=== PATIENT | female | born 1945 | race Hispanic/Latino ===

== ENCOUNTER 2021-02-28 19:30 | Inpatient (IN) | payer OTHER ==
--- OUTSIDE RECORDS SUMMARY | 2021-02-28 19:56 | XMS REPORT | Continuity of Care Document ---
:1945 Author Organization [facility] Address [address] [id number] Care Team Providers Name Role Phone Brian Guevara Attending Clinician Unavailable Meryl Attending Clinician Unavailable Michelle Attending Clinician Unavailable MK Attending Clinician Unavailable MD LEANDER CASTRO Attending Clinician Unavailab carla MORSE Attending Clinician Unavailable SUSANNAH Attending Clinician Unavailable PRABHU Attending Clinician Unavailable KANDY Attending Clinician Unavailable JOSSELIN Attending Clinician Unavailable Meryl Admitting Clinician Unavailable Physician, Primary or Family Admitting Clinician Unavailperla CASTRO Admitting Clinician Unavailable MD LEANDER CASTRO Admitting Clinician Unavailab le Payers Payer Name Policy Type Policy Number Effective Date Expiration Date S butch [facility] [id number] 2020 (MEDICARE 00:00:00 REPLACEMENT HMO) Problems Condition Condition Condition Status Onset Resolution Last Treating Co mments Source Name Details Category Date Date Treatment Clinician Date History of History of Problem Resolve [facility] cerebrovas cerebrovas d it y of cular cular [place] accident accident Physic i ans History of History of Problem Resolve Univers depression depression d it y of [place] Physici ans History of History of Problem Resolve Univers gastroesop gastroesop d it y of hageal hageal [place] reflux reflux Physici (GERD) (GERD) ans History of History of Problem Resolve Univers insomnia insomnia d [facility]y of [place] Physici ans History of History of Problem Resolve Univers Retention Retention d ity of of fluid of fluid [place] Physici ans Vaginal Vaginal Problem Active Univers itching itching [facility] of [place] [facility] ans Vaginal Vaginal Problem Active Univers spotting spotting ity of [place] Physici ans Vulvar Vulvar Problem Active Univers lesion lesion [facility] [place] [facility] ans Follow up Follow up Problem Active Uni vers [facility] [place] [facility] ans Left wrist Left wrist Problem Active U nivers pain pain [facility] of [place] [facility]ici ans Other Other Problem Active Univers closed closed ity of intra-lion intra-lion [place] cular cular Physici fracture fracture ans of distal of distal end of end of left left radius, radius, initial initial encounter encounter Sprain of Sprain of Problem Active Uni vers left hand, left hand, it y of initial initial [place] encounter encounter Phys ici ans Allergies, Adverse Reactions, Alerts Allergy Allergy Status Severity Reaction(s) Onset Inactive Treating Comm ents Source Name Type Date Date Clinician No Known DA Active U [facility] 11-29 Clear s 00:00: [place] 00 [facility] No Known DA Active U [facility] Allergie 11-29 Clear s 00:00: [place] 00 [facility] No Known DA Active U [facility] Allergie 04-21 Clear s 00:00: [place] 00 [facility] Family History Family Member Diagnosis Comments Start Date Stop Date Source Unknown Family Family history of Family History [facility] hypertension [place] Physic ians Unknown Family Family history of Family History [facility] diabetes mellitus [place] P hysicians Social History Smoking Status Start Date Stop Date Source Occasional tobacco smoker [facility] (finding) Medications Ordered Filled Start Stop Current Ordering Indication Dosage Frequency Signature Comments Components Source Medication Medication Date Date Medication? Clinician (SIG) Name Name Clobetasol Clobetasol 2018-03 Yes COMFORT Apply Univers Propionate Propionate 2-06 UGHANZE twice ity of 0.05 % 0.05 % 00:00: M.D. daily to [place] External External 00 affected Phy sici Cream Cream areas for ans one month. Then apply daily for one month. Fluconazole Fluconazole 2018-03 Yes COMFORT 1 tablet Univers 150 MG Oral 150 MG Oral 0-14 UGHANZE today, 2nd ity of Tablet Tablet 00:00: [place] 00 3 [place] Physici ans Coumadin Coumadin Yes Univers TABS TABS [facility]y of [place] Physici ans Lasix TABS Lasix TABS Yes Uni vers [facility] [place] Physici ans Protonix 40 Protonix 40 Yes U nivers MG Oral MG Oral ity of Packet Packet [place] Physici ans Atorvastati Atorvastati Yes U nivers n Calcium n Calcium ity o f TABS TABS [place] Physici ans Zoloft 100 Zoloft 100 Yes Uni vers MG Oral MG Oral ity of Tablet Tablet [place] Physici ans Temazepam Temazepam Yes Unive rs CAPS CAPS ity of [place] Physici ans Vital Signs Vital Name Observation Time Observation Value Comments Source BP Systolic 2019-02-22 118 mm[Hg] Location: [facility] 13:19:00 Position: [place] Physician s Sitting BP Diastolic 2019-02-22 74 mm[Hg] Location: [facility] 13:19:00 Position: [place] Physician s Sitting Height 2019-02-22 62 [in_us] [facility] 13:19:00 [place] Physician s Weight 2019-02-22 116 [lb_av] [facility] 13:19:00 [place] Physician s Body Mass Index 2019-02-22 21.22 kg/m2 [place] [facility] Calculated 13:19:00 [place] Physician s BP Systolic 2019-02-01 120 mm[Hg] Location: [facility] 13:38:00 Position: [place] Physician s Sitting BP Diastolic 2019-02-01 70 mm[Hg] Location: [facility] 13:38:00 Position: [place] Physician s Sitting Height 2019-02-01 62 [in_us] [facility] 13:38:00 [place] Physician s Weight 2019-02-01 118 [lb_av] [facility] 13:38:00 [place] Physician s Body Mass Index 2019-02-01 21.58 kg/m2 University o f Calculated 13:38:00 [place] Physician s BP Systolic 2018-12-31 112 mm[Hg] Location: [facility] 09:36:00 Position: [place] Physician s Sitting BP Diastolic 2018-12-31 68 mm[Hg] Location: [facility] 09:36:00 Position: [place] Physician s Sitting Height 2018-12-31 62 [in_us] [facility] 09:36:00 [place] Physician s Weight 2018-12-31 118 [lb_av] [facility] 09:36:00 [place] Physician s Body Mass Index 2018-12-31 21.58 kg/m2 University o f Calculated 09:36:00 [place] Physician s Procedures Procedure Date / Time Performing Clinician Source Performed [U] XRAY WRIST MIN 3 2019-06-03 00:00:00 [facility] [place] VWS LEFT 65710 Physicians [U] XRAY WRIST MIN 3 2019-04-22 00:00:00 [facility] [place] VWS LEFT 62904 Physicians [U] XRAY WRIST MIN 3 2019-04-16 00:00:00 [facility] [place] VWS LEFT 08986 Physicians [U] XRAY WRIST MIN 3 2019-04-08 00:00:00 [facility] [place] VWS LEFT 23711 Physicians [U] XRAY WRIST MIN 3 2019-04-04 00:00:00 [facility] [place] VWS LEFT 48448 Physicians . [facility] 2019-02-01 00:00:00 [facility] Biopsy Physicians History of Hysterectomy [facility] Physicians History of [place] o f [place] section Physicians History of Heart valve [facility] replacement Physicians History of Gallbladder [facility] surgery Physicians History of Breast [facility] biopsy Physicians History of Knee surgery [facility] Physicians Encounters Start End Encounter Admission Attending Care Care Encounter Source Date/Time Date/Time Type Type Clinicians Facility Department ID 2021-03-08 2021-03-08 Outpatient Paola, [facility] SURG [id number] [facility] 08:30:00 08:30:00 Brian [id number] [facility] 2020-11-05 2020-11-05 Outpatient DMG DMG [id number] [facility] 08:01:00 08:01:00 [facility] 2020-10-21 2020-10-21 Outpatient DMG DMG [id number] [facility] 11:00:00 11:00:00 0804 [facility] 2020-10-16 2020-10-16 Outpatient DMG DMG [id number] [facility] 08:01:00 08:01:00 0730 [facility] l [facility] 2020-10-07 2020-10-12 [facility] INTE.02 [id number] [facility] 01:52:00 18:56:00 an, 91 [facility] 2020-10-07 2020-10-12 Inpatient EM Jegatheswar HCACL INTE.02 [id number] [facility] 01:52:00 18:56:00 an, [id number] [facility] 2020-10-06 2020-10-06 Emergency EM Michelle, HCACL MARCO [id number] [facility] 21:09:00 21:09:00 Wilbur [id number] [facility] 2020-10-01 2020-10-01 Outpatient VITALY Laws HCACL PRAD [id number] [facility] 09:00:00 23:00:00 an, [id number] [facility] 2020-08-30 2020-08-31 Outpatient STEWART TERRAZAS [facility] [id number] [place] 00:00:00 00:00:00 476 [facility] i 2020-06-10 2020-06-10 Outpatient MORSE, [facility] [id number] [place] 00:00:00 00:00:00 EVELYN 086 Method i 2020-06-05 2020-06-05 Outpatient MORSE, [facility] [id number] [place] 00:00:00 00:00:00 EVELYN 046 Method i 2020-06-03 2020-06-03 Outpatient MORSE, [facility] [id number] [place] 00:00:00 00:00:00 EVELYN 011 Method i 2020-05-29 2020-05-29 Outpatient MORSE, [facility] [id number] [place] 00:00:00 00:00:00 EVELYN 851 Method i 2020-05-29 2020-05-29 Outpatient ROBBEN, [facility] [id number] [place] 00:00:00 00:00:00 SHANIA 297 Me thodi 2020-05-08 2020-05-08 Outpatient MORSE, [facility] [id number] [place] 00:00:00 00:00:00 EVELYN 822 Method i 2020-05-08 2020-05-08 Outpatient [facility] [id number] [place] 00:00:00 00:00:00 738 Method i 2020-05-07 2020-05-07 Outpatient MORSE, [facility] [id number] [place] 00:00:00 00:00:00 EVELYN 574 Method i 2020-05-07 2020-05-07 Outpatient MORSE, [facility] [id number] [place] 00:00:00 00:00:00 EVELYN 383 Method i 2020-05-01 2020-05-01 Outpatient MORSE, [facility] [id number] [place] 00:00:00 00:00:[address] EVELYN [address] 2020-04-24 2020-04-24 Outpatient MORSE, [facility] [id number] [place] 00:00:00 00:00:00 EVELYN 803 Method i 2020-04-16 2020-04-16 Outpatient MORSE, [facility] [id number] [place] 00:00:00 00:00:00 EVELYN 739 Method i 2020-04-10 2020-04-10 Outpatient MORSE, [facility] [id number] [place] 00:00:00 00:00:00 EVELYN 618 Method i 2020-04-08 2020-04-08 Outpatient MORSE, [facility] [id number] [place] 00:00:00 00:00:00 EVELYN 608 Method i 2020-04-03 2020-04-03 Outpatient MORSE, [facility] [id number] [place] 00:00:00 00:00:00 EVELYN 760 Method i 2020-03-26 2020-03-26 Outpatient MORSE, [facility] [id number] [place] 00:00:00 00:00:00 EVELYN 415 Method i 2020-03-26 2020-03-26 Outpatient PRABHU, [facility] [id number] [place] 00:00:00 00:00:00 COLE 003 Method i 2019-06-04 2019-06-04 Appointmen ROSY GAITAN [facility] [id number] Univers 09:00:00 09:00:00 t; omid PAPPAS [facility] Eliecer M.D. [facility] MIAN, Luz Samuel M.D. [facility] 2019-05-14 2019-05-14 AppointROSY Matthew [id number] Univers 09:30:00 09:30:00 t; Eliecer PAPPAS M.D. [place] Lizzie PAPPAS M.D. [facility] 2019-04-23 2019-04-23 ROSY Nieves [facility] 62 [id number] Univers 09:45:00 09:45:00 t; MIAN [facility] milan GAITAN M.D. [facility] Luz Samuel M.D. [facility] 2019-04-16 2019-04-16 Appointlorene KANDY [facility] Orthopedics 62 [id number] Univers 09:30:00 09:30:00 t; MIAN [facility] Loren GAITAN [facility] Luz Samuel M.D. [facility] 2019-04-11 2019-04-[facility] [id number] Univers 12:30:00 12:30:00 t; Eliecer PAPPAS M.D. [place] Lizzie PAPPAS M.D. [facility] 2019-04-09 2019-04-09 [facility] 62 [id number] Univers 10:00:00 10:00:00 t; MIAN [facility] Loren GAITAN [facility] Lizzie Pimentel [facility] 2019-04-04 2019-04-04 [facility] 62 [id number] Univers 08:45:00 08:45:00 t; MIAN [facility] Loren GAITAN [facility] Luz Samuel M.D. [facility] 2019-02-22 2019-02-22 [facility] JOSSELIN [facility] Women's [id number] Univers 13:15:00 13:15:00 t; Jenise IRENE M.D. [facility] Lizzie IRENE M.D. ans 2019-02-01 2019-02-01 Appointlorene SCHWAB [facility] Women's [id number] Univers 13:30:00 13:30:00 t; Jenise IRENE M.D. [facility] Lizzie IRENE M.D. ans 2018-12-31 2018-12-31 Appointlorene SCHWAB [facility] Women's [id number] Univers 09:30:00 09:30:00 t; MARIA VICTORIA [place] Lorena Bro M.D. [facility] Lizzie IRENE M.D. ans Results Test Description Test Time Test Comments Results Result Comments Source PROTHROMBIN TIME 2020-10-12 06:55:00 Test Item Value Reference Range Interpretation Comme nts PROTHROMBIN TIME PATIENT 47.2 SECONDS 9.3-12.9 H (test code = PTP) INTERNATIONAL NORMAL RATIO 4.2 0.8-1.2 H TARGET INR BY (test code = INR) INDICATION Indication INR1. Prophylax is of venous thrombosis 2.0 - 3.0 (orthopedic s urgery), Prophylaxis of venous thrombosis (oth er than high-risk surgery), Santos atment of Deep Vein Thrombos is/Pulmonary Embolism, Preve ntion of systemic emboli sm - Tissue heart valves, Acute Myocardial Infarction (to prevent systemic emboli sm), Valvular heart disease, Atrial Fibrillation, B ileaflet mechanical va lve in aortic position.2. Mec hanical prosthetic valv es (high risk), 2.5 - 3.5 Pr esence of Lupus Anticoagulant o r Antiphospholipi d Antibodies, Prevention of systemic embolism - Acut e Myocardial Infarction (t o prevent recurrent infar ct). PROTHROMBIN [id number] 05:34:00 Test Item Value Reference Range Interpretation Comments PROTHROMBIN TIME 42.9 SECONDS 9.3-12.9 H PATIENT (test code = PTP) INTERNATIONAL NORMAL 3.8 0.8-1.2 H TARGET RATIO (test code = INR BY IN DICATION INR) Indication INR1. Prophyl axis of venous thrombos is 2.0 - 3. 0 (orthopedic leatha lucio), Prophylaxis of venous thrombos is (other than hig h-risk surgery), Valentine tment of Deep Vein Thrombosis/Pulm onary Embolism, Preve ntion of systemic emb olism - Tissue heart va lves, Acute Myocardia l Infarction (to prevent systemic embo lism), Valvular heart disease, Atri al Fibrillation, Bileaflet mecha nical valve in aortic position.2. Mec hanical prosthetic valv es (high risk), 2.5 - 3.5 Presence of Lupus Anticoagu lant or Antiphospholi pid Antibodies, Pre vention of systemic e mbolism - Acute Myocard ial Infarction (t o prevent recurre nt infarct). PROTHROMBIN [id number] 05:40:00 Test Item Value Reference Range Interpretation Comments PROTHROMBIN TIME 32.7 SECONDS 9.3-12.9 H PATIENT (test code = PTP) INTERNATIONAL NORMAL 2.9 0.8-1.2 H TARGET RATIO (test code = INR BY IN DICATION INR) Indication INR1. Prophyl axis of venous thrombos is 2.0 - 3. 0 (orthopedic leatha lucio), Prophylaxis of venous thrombos is (other than hig h-risk surgery), Valentine tment of Deep Vein Thrombosis/Pulm onary Embolism, Preve ntion of systemic emb olism - Tissue heart va lves, Acute Myocardia l Infarction (to prevent systemic embo lism), Valvular heart disease, Atri al Fibrillation, Bileaflet mecha nical valve in aortic position.2. Mec hanical prosthetic valv es (high risk), 2.5 - 3.5 Presence of Lupus Anticoagu lant or Antiphospholi pid Antibodies, Pre vention of systemic e mbolism - Acute Myocard ial Infarction (t o prevent recurre nt infarct). - CT CHEST W/O [id number] 00:00:00 [facility] 1945 Sex: F Name: ROBBIN WILSON [facility] : 06/1945 Age/S: 75 / F [address] [place] [address] Unit #: [id number] Loc: JOSE [place] [address] Phys: Marquis Patel MD Acct: [id number] Dis Date: Status: ADM IN PHONE #: [phone] Exam Date: 10/10/20202024 FAX #: [phone]: PLEURAL EFFUSION EXAMS: CPT CODE: [id number] CT CHEST W/O CONTRAST [id number] PROCEDURE INFORMATION: Exam: CT Chest Without Contrast; Diagnostic Exam date and time: 10/10/2020 8:04 PM Age: 75 years old Clinical indication: Shortness of breath; Additional info: Pleural effusion TECHNIQUE: Imaging protocol: Diagnostic com puted tomography of the chest without contrast. Radiation optimization: All CT scans at this facility use at least one of these dose optimization techniques: automated exposure control; mA and/or kV adjustment per patient size (includes targeted exams where dose is ma tched to clinical indication); or iterative reconstruction. COMPARISON:CR XR CHEST 1V 10/08/2020 9:08 AM FINDINGS: Lungs: Ntpr-ei-[id number] compressiveatelectasis is present in the posterior lower lobes bilaterally. Pleural spaces: Thereare small to moderate bilateral pleural effusions layering posteriorly. These measure approximately [address] density, compatible with simple fluid. No pneumothorax. Heart: The heart is mildly enlarged. Prosthetic aortic valve noted. Moderate to heavy calcification of the left anterior descending coronary artery is seen. There is no pericardial effusion. Aorta: Heavy aortic vascular calcification is present. No aortic aneurysm. Lymph nodes: Unremarkable. No enlarged lymph nodes. Bones/joints: Median sternotomy wires are seen.. No acute fracture. Soft tissues: Unremarkable. Other findings: A simple appearing cyst is present in the lateral segment of the left lobe of the liver measuring approximately [address] density and 1.4 x 3.0 cm. The gallbladder is surgically absent. IMPRESSION: 1. Small to moderate layering pleural effusions are present bilaterally, associated with compressive atelectasis of the posterior lower lobes. PAGE 1 Signed Report (CONTINUED) Name: ROBBIN WILSON [facility] : 1945 Age/S: 75/ F [address] [place], [place] [address] Unit #: [id number] Loc: [place] [address] Phys: Marquis Patel MD Acct: [id number] Dis Date: Status: ADM IN PHONE #: [phone] Exam Date: 10/10/20202024 FAX #: [phone] Reason: PLEURAL EFFUSION EXAMS: CPT CODE: [id number] CT CHEST W/O CONTRAST 35075 <Continued> 2. Median sternotomy wires are present. Prosthetic aortic valve noted, with heavy thoracic aortic vascular calcification. Heart size appears mildly enlarged. There is moderate to heavy calcification of the left anterior descending coronary artery. 3. Cholecystectomy. at 2139 Reported and signed by: Niecy Segal M.D. CC: Lian Sheth MD; Marquis Patel MD Technologist:Cornell Pereira, RT(R)(CT) CTDI: DLP: Trnscb Date/Time: 10/10/2020 (2139) Thai Orig Print D/T: S: 10/10/2020 (2140) PAGE 2 Signed ReportPROTHROMBIN [id number] 04:53:00 Test Item Value Reference Range Interpretation Comments PROTHROMBIN TIME 26.1 SECONDS 9.3-12.9 H PATIENT (test code = PTP) INTERNATIONAL NORMAL 2.4 0.8-1.2 H TARGET RATIO (test code = INR BY IN DICATION INR) Indication INR1. Prophyl axis of venous thrombos is 2.0 - 3. 0 (orthopedic leatha lucio), Prophylaxis of venous thrombos is (other than hig h-risk surgery), Valentine tment of Deep Vein Thrombosis/Pulm onary Embolism, Preve ntion of systemic emb olism - Tissue heart va lves, Acute Myocardia l Infarction (to prevent systemic embo lism), Valvular heart disease, Atri al Fibrillation, Bileaflet mecha nical valve in aortic position.2. Mec hanical prosthetic valv es (high risk), 2.5 - 3.5 Presence of Lupus Anticoagu lant or Antiphospholi pid Antibodies, Pre vention of systemic e mbolism - Acute Myocard ial Infarction (t o prevent recurre nt infarct). HGBA1C%2020-10-08 09:39:00 Test Item Value Reference Range Interpretation Comments HGBA1C% (test code = HGBA1C%) 6.4 %A1C 4.8-6.0 H CBC W/AUTO [id number] 08:21:00 Test Item Value Reference Range Interpretation Comments WHITE BLOOD CELL (test code = 6.9 x10 3/uL 4.5-11.0 N WBC) RED BLOOD CELL (test code = 4.43 x10 6/uL 3.54-5.02 N RBC) HEMOGLOBIN (test code = HGB) 11.6 g/dL 11.0-15.0 N HEMATOCRIT (test code = HCT) 38.2 % 33.0-45.0 N MEAN CELL VOLUME (test code = 86.2 fL 81.0-99.0 N MCV) MEAN CELL HGB (test code = MCH) 26.2 pg 27.0-33.0 L MEAN CELL HGB CONCETRATION 30.4 g/dL 33.0-37.0 L (test code = MCHC) RED CELL DISTRIBUTION WIDTH CV 15.5 % 11.5-14.5 H (test code = RDW) RED CELL DISTRIBUTION WIDTH SD 48.8 fL 37.0-54.0 N (test code = RDW-SD) PLATELET COUNT (test code = 176 x10 3/uL 150-400 N PLT) MEAN PLATELET VOLUME (test code 11.5 fL 7.0-9.0 H = MPV) NEUTROPHIL % (test code = NT%) 72.5 % 56.0-77.0 N IMMATURE GRANULOCYTE % (test 0.3 % 0.0-2.0 N code = IG%) LYMPHOCYTE % (test code = LY%) 15.2 % 14.0-32.0 N MONOCYTE % (test code = MO%) 10.9 % 4.8-9.0 H EOSINOPHIL % (test code = EO%) 0.7 % 0.3-3.7 N BASOPHIL % (test code = BA%) 0.4 % 0.0-2.0 N NUCLEATED RBC % (test code = 0.0 % 0-0 N NRBC%) NEUTROPHIL # (test code = NT#) 5.01 x10 3/uL 2.0-7.6 N IMMATURE GRANULOCYTE # (test 0.02 x10 3/uL 0.00-0.03 N code = IG#) LYMPHOCYTE # (test code = LY#) 1.05 x10 3/uL 1.0-3.8 N MONOCYTE # (test code = MO#) 0.75 x10 3/uL 0.1-0.8 N EOSINOPHIL # (test code = EO#) 0.05 x10 3/uL 0.0-0.2 N BASOPHIL # (test code = BA#) 0.03 x10 3/uL 0.0-0.2 N NUCLEATED RBC # (test code = 0.00 x10 3/uL 0.0-0.1 N NRBC#) MANUAL DIFF REQUIRED (test code NO = MDIFF) BASIC METABOLIC [id number] 08:04:00 Test Item Value Reference Range Interpretation Comments SODIUM (test code = NA) 141 mEq/L 134-147 N POTASSIUM (test code = 4.2 mEq/L 3.4-5.0 N K) CHLORIDE (test code = 107 mEq/L 100-108 N CL) CARBON DIOXIDE (test 26 mEq/l 21-33 N code = CO2) ANION GAP (test code = 12 0-20 N GAP) GLUCOSE (test code = 153 mg/dL 70-110 H GLU) BLOOD UREA NITROGEN 24 mg/dL 7-18 H (test code = BUN) GLOMERULAR FILTRATION 53.8 70-80 L Units of measure = RATE (test code = GFR) ml/mi n/1.73 m2 CREATININE (test code = 1.0 mg/dL 0.6-1.3 N CREAT) CALCIUM (test code = 8.1 mg/dL 8.0-10.5 N CA) LIPID PROFILE (CORONARY RISK)2020-10-08 08:04:00 Test Item Value Reference Range Interpretation Comments TRIGLYCERIDES (test 75 mg/dL 40-150 N code = TRIG) CHOLESTEROL (test 103 mg/dL <200 code = CHOL) CHOLESTEROL/HDL 3.76 RATIO 3.27-4.44 N RISK ASSOCIA JAYSON WITH RATIO (test code = CHOL/HDL RATIOS: RISK CHOLHDL) MALE FEMALE1/2 AVERA GE 3.43 3.27AVERAGE 4.97 4.4 42X AVERAGE 9.55 7.053X AVER AGE 23.39 1 1.04 NOTE THAT THE R EFERENCE VALUE IS RELATE DTO RISK LEVELS RECOM MENDED BY THE NATL.HEA RT, LUNG, AND BLOOD INST. HDL CHOLESTEROL 27.4 mg/dL 39-96 L (test code = HDL) LIPOPROTEIN LDL 60.9 mg/dL 0-100 N <100 OPT DPSP103-428 (test code = LDL) NEAR OPTI MAL/ABOVE [id number] 89 HIGH>WQ=447 VE RY HIGH*Guidelines provided by the National Choles terol EducationProgra m Adult Treatment Panel III [id number] 08:04:00 Test Item Value Reference Range Interpretation Comments MAGNESIUM (test code = MAG) 2.10 mg/dL 1.80-2.40 PROTHROMBIN [id number] 06:14:00 Test Item Value Reference Range Interpretation Comments PROTHROMBIN TIME 32.2 SECONDS 9.3-12.9 H PATIENT (test code = PTP) INTERNATIONAL NORMAL 2.9 0.8-1.2 H TARGET RATIO (test code = INR BY IN DICATION INR) Indication INR1. Prophyl axis of venous thrombos is 2.0 - 3. 0 (orthopedic leatha lucio), Prophylaxis of venous thrombos is (other than hig h-risk surgery), Valentine tment of Deep Vein Thrombosis/Pulm onary Embolism, Preve ntion of systemic emb olism - Tissue heart va lves, Acute Myocardia l Infarction (to prevent systemic embo lism), Valvular heart disease, Atri al Fibrillation, Bileaflet mecha nical valve in aortic position.2. Mec hanical prosthetic valv es (high risk), 2.5 - 3.5 Presence of Lupus Anticoagu lant or Antiphospholi pid Antibodies, Pre vention of systemic e mbolism - Acute Myocard ial Infarction (t o prevent recurre nt infarct). - XR CHEST 1 [id number] 00:00:00 [facility] STEVE ROBBINKAYLAH SOMERS : 1945 Sex: F FAX: Jessika Sheth [phone] [place]: St: ADM Name: ROBBIN WILSON [facility] : 1945 Age/S: 75/F [address] [place], [place] [address] Unit #: [id number] Loc: [place] [address] Phys: Lian Carr MD Acct: [id number] Dis Date: Status: ADM IN PHONE #: [phone] Exam Date: 10/08/2020 0954 FAX #: [phone] Reason: HEAVY BREATHING EXAMS: CPT CODE: [id number] XR CHEST 1 V 28869 PROCEDURE INFORMATION: Exam: XR Chest Exam date and time: 10/08/2020 9:08 AM Age: 75 years old Clinical indication: Condition or disease; Other: Heavy breathing TECHNIQUE: [facility]: 1 view. COMPARISON: CR XR CHEST 1V 10/06/2020 11:07 PM FINDINGS: Lungs: Linear density in the right lung base is unchanged compatible with atelectasis. Left base atelectasis/infiltrate is slightly increased. No interstitial edema. Pleural spaces: Increased small bilateral pleural effusions are present. Heart/Mediastinum: Borderline cardiomegaly. Vasculature: Aortic arch calcifications. Bones/joints: Midline sternotomy wires are stable. IMPRESSION: 1. Increased small left base atelectasis/infiltrate. 2. Slight increased small bilateral pleural effusions. at 1001 Reported and signed by: Neftali Winchester M.D. CC: Lian Sheth MD Technologist: RT Nilesh(R) Trnscrd Date/Time/By: 10/08/2020 (1001) : By: [email or web address] Orig PrintD/T: S: 10/08/2020 (1002) PAGE 1 Signed ReportPROTHROMBIN [id number] 15:18:00 Test Item Value Reference Range Interpretation Comments PROTHROMBIN TIME 37.6 SECONDS 9.3-12.9 H PATIENT (test code = PTP) INTERNATIONAL NORMAL 3.4 0.8-1.2 H TARGET RATIO (test code = INR BY IN DICATION INR) Indication INR1. Prophyl axis of venous thrombos is 2.0 - 3. 0 (orthopedic leatha lucio), Prophylaxis of venous thrombos is (other than hig h-risk surgery), Valentine tment of Deep Vein Thrombosis/Pulm onary Embolism, Preve ntion of systemic emb olism - Tissue heart va lves, Acute Myocardia l Infarction (to prevent systemic embo lism), Valvular heart disease, Atri al Fibrillation, Bileaflet mecha nical valve in aortic position.2. Mec hanical prosthetic valv es (high risk), 2.5 - 3.5 Presence of Lupus Anticoagu lant or Antiphospholi pid Antibodies, Pre vention of systemic e mbolism - Acute Myocard ial Infarction (t o prevent recurre nt infarct). COMMENTS: INR X 10 [id number] 06:56:00 Test Item Value Reference Range Interpretation Comments TROPONIN-I 0.065 ng/mL 0.000-0.045 H Negative: <= (test code = 0.045 Positive: TROPI) >= 0.046 Correl ation with serial results, other cardiac markers andclin ical findings is necessary to determine the clinicalsignifi cance of this result. Results using different metho dologies should not be c omparedto one another as claudio titative results may nahed y by method. [id number] 04:52:00 Test Item Value Reference Range Interpretation Comments TROPONIN-I 0.055 ng/mL 0.000-0.045 H Negative: <= (test code = 0.045 Positive: TROPI) >= 0.046 Correl ation with serial results, other cardiac markers andclin ical findings is necessary to determine the clinicalsignifi cance of this result. Results using different metho dologies should not be c omparedto one another as claudio titative results may nahed y by method. POC ARTERIAL BLOOD [id number] 02:11:00 Test Item Value Reference Range Interpretation Comments POC ARTERIAL BLOOD GAS PH (test 7.430 7.35-7.45 N code = POCPHA) POC ARTERIAL BLOOD GAS PCO2 35.9 mmHg 35.0-45 N (test code = JNDCVT8F) POC TCO2 ARTERIAL (test code = 25.0 POCTCO2) POC ARTERIAL BLOOD GAS PO2 (test 71.2 mmHg 80-100.0 L code = EFTGO3X) POC HCO3 ARTERIAL (test code = 23.9 MMOL/L 22.0-26.0 N HTYMRN1S) POC BASE EXCESS (test code = -0.4 MMOL/L -4.0-4.0 N POCBEA) POC O2 SATURATION (test code = 94.7 % 90-100 N POCO2S) FIO2 (test code = FIO2A) 21 % PaO2/FiO2 (test code = NCN3MJE9) 339.04 mm/Hg ABG DELIVERY (test code = SU) Room Air ABG TEMPERATURE (test code = 98.6 F TEMPA) ABG SITE (test code = SITEA) R Radial JESSE'S TEST (test code = Positive ALLENS) BASIC METABOLIC [id number] 02:11:00 Test Item Value Reference Range Interpretation Comments SODIUM (test code = NA/ABG) MEQ/L 134-147 POTASSIUM (test code = K/ABG) MEQ/L 3.4-5.0 CHLORIDE (test code = CL/ABG) MEQ/L 100-108 CREATININE ABG (test code = CREAABG) mg/dL 0.6-1.0 POC IONIZED CALCIUM (test code = MMOL/L 1.12-1.32 POCCA) POC GLUCOSE (test code = POCGLU) MG/DL [id number] 02:11:00 Test Item Value Reference Range Interpretation Comments HEMOGLOBIN (test code = HGB/ABG) G/DL 11.0-15.0 [id number] 02:11:00 Test Item Value Reference Range Interpretation Comments HEMATOCRIT (test code = HCT/ABG) % 33.0-45.0 POC LACTIC [id number] 02:11:00 Test Item Value Reference Range Interpretation Comments POC LACTIC ACID (test code = POCLAC) mmol/l 0.9-1.7 POC ARTERIAL BLOOD [id number] 02:11:00 Test Item Value Reference Range Interpretation Comments POC ARTERIAL BLOOD GAS PH (test 7.430 7.35-7.45 N code = POCPHA) POC ARTERIAL BLOOD GAS PCO2 35.9 mmHg 35.0-45 N (test code = UWXROC5V) POC TCO2 ARTERIAL (test code = 25.0 POCTCO2) POC ARTERIAL BLOOD GAS PO2 (test 71.2 mmHg 80-100.0 L code = YGVSO0S) POC HCO3 ARTERIAL (test code = 23.9 MMOL/L 22.0-26.0 N WCYGBO1E) POC BASE EXCESS (test code = -0.4 MMOL/L -4.0-4.0 N POCBEA) POC O2 SATURATION (test code = 94.7 % 90-100 N POCO2S) FIO2 (test code = FIO2A) 21 % PaO2/FiO2 (test code = UOV2GTO3) 339.04 mm/Hg ABG DELIVERY (test code = SU) Room Air ABG TEMPERATURE (test code = 98.6 F TEMPA) ABG SITE (test code = SITEA) R Radial JESSE'S TEST (test code = Positive ALLENS) BASIC METABOLIC [id number] 02:11:00 Test Item Value Reference Range Interpretation Comments SODIUM (test code = NA/ABG) MEQ/L 134-147 POTASSIUM (test code = K/ABG) MEQ/L 3.4-5.0 CHLORIDE (test code = CL/ABG) MEQ/L 100-108 CREATININE ABG (test code = CREAABG) mg/dL 0.6-1.0 POC IONIZED CALCIUM (test code = MMOL/L 1.12-1.32 POCCA) POC GLUCOSE (test code = POCGLU) MG/DL [id number] 02:11:00 Test Item Value Reference Range Interpretation Comments HEMOGLOBIN (test code = HGB/ABG) G/DL 11.0-15.0 [id number] 02:11:00 Test Item Value Reference Range Interpretation Comments HEMATOCRIT (test code = HCT/ABG) % 33.0-45.0 POC LACTIC [id number] 02:11:00 Test Item Value Reference Range Interpretation Comments POC LACTIC ACID (test code = 1.3 mmol/l 0.9-1.7 N POCLAC) POC ARTERIAL BLOOD [id number] 02:11:00 Test Item Value Reference Range Interpretation Comments POC ARTERIAL BLOOD GAS PH (test 7.430 7.35-7.45 N code = POCPHA) POC ARTERIAL BLOOD GAS PCO2 35.9 mmHg 35.0-45 N (test code = DXNRER9E) POC TCO2 ARTERIAL (test code = 25.0 POCTCO2) POC ARTERIAL BLOOD GAS PO2 (test 71.2 mmHg 80-100.0 L code = EWORT2Z) POC HCO3 ARTERIAL (test code = 23.9 MMOL/L 22.0-26.0 N CPVLFX2G) POC BASE EXCESS (test code = -0.4 MMOL/L -4.0-4.0 N POCBEA) POC O2 SATURATION (test code = 94.7 % 90-100 N POCO2S) FIO2 (test code = FIO2A) 21 % PaO2/FiO2 (test code = CUJ2JGU8) 339.04 mm/Hg ABG DELIVERY (test code = SU) Room Air ABG TEMPERATURE (test code = 98.6 F TEMPA) ABG SITE (test code = SITEA) R Radial JESSE'S TEST (test code = Positive ALLENS) BASIC METABOLIC [id number] 02:11:00 Test Item Value Reference Range Interpretation Comments SODIUM (test code = NA/ABG) 141 MEQ/L 134-147 N POTASSIUM (test code = K/ABG) 3.0 MEQ/L 3.4-5.0 L CHLORIDE (test code = CL/ABG) 107 MEQ/L 100-108 N CREATININE ABG (test code = 1.0 mg/dL 0.6-1.0 N CREAABG) POC IONIZED CALCIUM (test code = 1.10 MMOL/L 1.12-1.32 L POCCA) POC GLUCOSE (test code = POCGLU) 174 MG/DL [id number] 02:11:00 Test Item Value Reference Range Interpretation Comments HEMOGLOBIN (test code = HGB/ABG) G/DL 11.0-15.0 [id number] 02:11:00 Test Item Value Reference Range Interpretation Comments HEMATOCRIT (test code = HCT/ABG) % 33.0-45.0 POC LACTIC [id number] 02:11:00 Test Item Value Reference Range Interpretation Comments POC LACTIC ACID (test code = 1.3 mmol/l 0.9-1.7 N POCLAC) POC ARTERIAL BLOOD [id number] 02:11:00 Test Item Value Reference Range Interpretation Comments POC ARTERIAL BLOOD GAS PH (test 7.430 7.35-7.45 N code = POCPHA) POC ARTERIAL BLOOD GAS PCO2 35.9 mmHg 35.0-45 N (test code = RVSAVZ3E) POC TCO2 ARTERIAL (test code = 25.0 POCTCO2) POC ARTERIAL BLOOD GAS PO2 (test 71.2 mmHg 80-100.0 L code = SSNVC6L) POC HCO3 ARTERIAL (test code = 23.9 MMOL/L 22.0-26.0 N UNQWHN5T) POC BASE EXCESS (test code = -0.4 MMOL/L -4.0-4.0 N POCBEA) POC O2 SATURATION (test code = 94.7 % 90-100 N POCO2S) FIO2 (test code = FIO2A) 21 % PaO2/FiO2 (test code = ROS7PRQ1) 339.04 mm/Hg ABG DELIVERY (test code = SU) Room Air ABG TEMPERATURE (test code = 98.6 F TEMPA) ABG SITE (test code = SITEA) R Radial JESSE'S TEST (test code = Positive ALLENS) BASIC METABOLIC [id number] 02:11:00 Test Item Value Reference Range Interpretation Comments SODIUM (test code = NA/ABG) 141 MEQ/L 134-147 N POTASSIUM (test code = K/ABG) 3.0 MEQ/L 3.4-5.0 L CHLORIDE (test code = CL/ABG) 107 MEQ/L 100-108 N CREATININE ABG (test code = 1.0 mg/dL 0.6-1.0 N CREAABG) POC IONIZED CALCIUM (test code = 1.10 MMOL/L 1.12-1.32 L POCCA) POC GLUCOSE (test code = POCGLU) 174 MG/DL [id number] 02:11:00 Test Item Value Reference Range Interpretation Comments HEMOGLOBIN (test code = HGB/ABG) 11.9 G/DL 11.0-15.0 N [id number] 02:11:00 Test Item Value Reference Range Interpretation Comments HEMATOCRIT (test code = HCT/ABG) % 33.0-45.0 POC LACTIC [id number] 02:11:00 Test Item Value Reference Range Interpretation Comments POC LACTIC ACID (test code = 1.3 mmol/l 0.9-1.7 N POCLAC) POC ARTERIAL BLOOD [id number] 02:11:00 Test Item Value Reference Range Interpretation Comments POC ARTERIAL BLOOD GAS PH (test 7.430 7.35-7.45 N code = POCPHA) POC ARTERIAL BLOOD GAS PCO2 35.9 mmHg 35.0-45 N (test code = VMFNHV2Z) POC TCO2 ARTERIAL (test code = 25.0 POCTCO2) POC ARTERIAL BLOOD GAS PO2 (test 71.2 mmHg 80-100.0 L code = CYNSB7E) POC HCO3 ARTERIAL (test code = 23.9 MMOL/L 22.0-26.0 N WJVILE9E) POC BASE EXCESS (test code = -0.4 MMOL/L -4.0-4.0 N POCBEA) POC O2 SATURATION (test code = 94.7 % 90-100 N POCO2S) FIO2 (test code = FIO2A) 21 % PaO2/FiO2 (test code = JOI1KYR6) 339.04 mm/Hg ABG DELIVERY (test code = SU) Room Air ABG TEMPERATURE (test code = 98.6 F TEMPA) ABG SITE (test code = SITEA) R Radial JESSE'S TEST (test code = Positive ALLENS) BASIC METABOLIC [id number] 02:11:00 Test Item Value Reference Range Interpretation Comments SODIUM (test code = NA/ABG) 141 MEQ/L 134-147 N POTASSIUM (test code = K/ABG) 3.0 MEQ/L 3.4-5.0 L CHLORIDE (test code = CL/ABG) 107 MEQ/L 100-108 N CREATININE ABG (test code = 1.0 mg/dL 0.6-1.0 N CREAABG) POC IONIZED CALCIUM (test code = 1.10 MMOL/L 1.12-1.32 L POCCA) POC GLUCOSE (test code = POCGLU) 174 MG/DL [id number] 02:11:00 Test Item Value Reference Range Interpretation Comments HEMOGLOBIN (test code = HGB/ABG) 11.9 G/DL 11.0-15.0 N [id number] 02:11:00 Test Item Value Reference Range Interpretation Comments HEMATOCRIT (test code = HCT/ABG) 35 % 33.0-45.0 N POC LACTIC [id number] 02:11:00 Test Item Value Reference Range Interpretation Comments POC LACTIC ACID (test code = 1.3 mmol/l 0.9-1.7 N POCLAC) Coronavirus 2019 nCoV [id number] 00:44:00 Test Item Value Reference Range Interpretation Comments Coronavirus 2019 NEGATIVE Negative Negative re sults should be nCoV Bedside (test treated a s presumptive and, code = ifinconsistent with [id number]) clinical signs and symptoms or necessaryfor patient management, michelle uld be tested with an alternativemole cular assay. Negative result s do not preclude NFMB-DrC-3odfvz tion and should not be u sed as the sole basis forp atient management deci sions. Negative result s should beconsidered in the context of a patient's recent exposures,histo ry, presence of clinical sig ns and symptoms consis tentwith COVID-19. LIPOPROTEIN [id number] 00:27:00 Test Item Value Reference Range Interpretation Comments LIPOPROTEIN LDL 70.8 mg/dL 0-100 N <100 OPT [id number] (test code = LDL) NEAR OPTIM AL/ABOVE [id number] FMONWINPST864-8 89 HIGH>ZT=433 VE RY HIGH*Guidelines provided by the National Cholesterol EducationProgra m Adult Treatment Panel III BASIC METABOLIC [id number] 00:27:00 Test Item Value Reference Range Interpretation Comments SODIUM (test code = NA) 144 mEq/L 134-147 N POTASSIUM (test code = 3.5 mEq/L 3.4-5.0 N K) CHLORIDE (test code = 108 mEq/L 100-108 N CL) CARBON DIOXIDE (test 29 mEq/l 21-33 N code = CO2) ANION GAP (test code = 11 0-20 N GAP) GLUCOSE (test code = 138 mg/dL 70-110 H GLU) BLOOD UREA NITROGEN 20 mg/dL 7-18 H (test code = BUN) GLOMERULAR FILTRATION 53.8 70-80 L Units of measure = RATE (test code = GFR) ml/mi n/1.73 m2 CREATININE (test code = 1.0 mg/dL 0.6-1.3 N CREAT) CALCIUM (test code = 9.1 mg/dL 8.0-10.5 N CA) [id number] 00:27:00 Test Item Value Reference Range Interpretation Comments LIPASE (test code = LIP) 92 U/L 13-57 H [id number] 00:27:00 Test Item Value Reference Range Interpretation Comments MAGNESIUM (test code = MAG) 1.71 mg/dL 1.80-2.40 L T4 [id number] 00:27:00 Test Item Value Reference Range Interpretation Comments T4 FREE (test code = T4F) 1.2 ng/dL 0.77-1.61 N TSH REFLEX TO [id number] 00:27:00 Test Item Value Reference Range Interpretation Comments TSH REFLEX TO FT4 (test code = 0.26 IU/mL 0.42-5.47 L TSHREFLEX) [id number] 00:27:00 Test Item Value Reference Range Interpretation Comments TROPONIN-I 0.061 ng/mL 0.000-0.045 H Negative: <= (test code = 0.045 Positive: TROPI) >= 0.046 Correl ation with serial results, other cardiac markers andclin ical findings is necessary to determine the clinicalsignifi cance of this result. Results using different metho dologies should not be c omparedto one another as claudio titative results may nahed y by method. B-TYPE NATRIURETIC [id number] 00:07:00 Test Item Value Reference Range Interpretation Comments B-TYPE NATRIURETIC PEPTIDE (test 370.0 PG/ML 0-100 H code = BNP) BASIC METABOLIC [id number] 00:02:00 Test Item Value Reference Range Interpretation Comments SODIUM (test code = NA) 144 mEq/L 134-147 N POTASSIUM (test code = 3.5 mEq/L 3.4-5.0 N K) CHLORIDE (test code = 108 mEq/L 100-108 N CL) CARBON DIOXIDE (test 29 mEq/l 21-33 N code = CO2) ANION GAP (test code = 11 0-20 N GAP) GLUCOSE (test code = 138 mg/dL 70-110 H GLU) BLOOD UREA NITROGEN 20 mg/dL 7-18 H (test code = BUN) GLOMERULAR FILTRATION 53.8 70-80 L Units of measure = RATE (test code = GFR) ml/mi n/1.73 m2 CREATININE (test code = 1.0 mg/dL 0.6-1.3 N CREAT) CALCIUM (test code = 9.1 mg/dL 8.0-10.5 N CA) [id number] 00:02:00 Test Item Value Reference Range Interpretation Comments LIPASE (test code = LIP) 92 U/L 13-57 H [id number] 00:02:00 Test Item Value Reference Range Interpretation Comments MAGNESIUM (test code = MAG) 1.71 mg/dL 1.80-2.40 L T4 [id number] 00:02:00 Test Item Value Reference Range Interpretation Comments T4 FREE (test code = T4F) ng/dL 0.77-1.61 TSH REFLEX TO [id number] 00:02:00 Test Item Value Reference Range Interpretation Comments TSH REFLEX TO FT4 (test code = 0.26 IU/mL 0.42-5.47 L TSHREFLEX) [id number] 00:02:00 Test Item Value Reference Range Interpretation Comments TROPONIN-I 0.061 ng/mL 0.000-0.045 H Negative: <= (test code = 0.045 Positive: TROPI) >= 0.046 Correl ation with serial results, other cardiac markers andclin ical findings is necessary to determine the clinicalsignifi cance of this result. Results using different metho dologies should not be c omparedto one another as claudio titative results may nahed y by method. PROTHROMBIN [id number] 23:59:00 Test Item Value Reference Range Interpretation Comments PROTHROMBIN TIME 36.2 SECONDS 9.3-12.9 H PATIENT (test code = PTP) INTERNATIONAL NORMAL 3.2 0.8-1.2 H TARGET RATIO (test code = INR BY IN DICATION INR) Indication INR1. Prophyl axis of venous thrombos is 2.0 - 3. 0 (orthopedic leatha lucio), Prophylaxis of venous thrombos is (other than hig h-risk surgery), Valentine tment of Deep Vein Thrombosis/Pulm onary Embolism, Preve ntion of systemic emb olism - Tissue heart va lves, Acute Myocardia l Infarction (to prevent systemic embo lism), Valvular heart disease, Atri al Fibrillation, Bileaflet mecha nical valve in aortic position.2. Mec hanical prosthetic valv es (high risk), 2.5 - 3.5 Presence of Lupus Anticoagu lant or Antiphospholi pid Antibodies, Pre vention of systemic e mbolism - Acute Myocard ial Infarction (t o prevent recurre nt infarct). [id number] 23:59:00 Test Item Value Reference Range Interpretation Comments D-DIMER (test 1711 ng/mlFEU See_Comment HH Critical resu lt called to code = JOSE PAULINE ZAZUETA Tby DDIMER) [id number] at 23 59 10/06/20Nurse r ead back result and tech confirmed it's correct? Y THROMBOSIS AND/OR PULMONAR Y EMBOLISM AND THE CLINICA L CUT- OFF VALUE FOR EXCLU JAYSON (500 ng/mL FEU) OF T HESE CONDITIONSIS VA LIDATED BY THE MANUFACTURE R OF THE METHOD. A NEGAT AZALEA D-DIMER RESULT WHEN COM BINED WITH A CLINICALASSESSM ENT OF LOW PRETEST PROBABI LITY HAS BEEN SHOWN TO H AVEA HIGH NEGATIVE PREDIC TIVE VALUE OF DVT OR PE. D -DIMER VALUES >500 ng/ mL FEU ARE NOT DIAGNOSTIC FOR DVT, PEor DIC WITHOU T OTHER CONFIRMATORY TE STS AND APPROPRIATECLIN ICAL EUALUATIONS. [A utomated message] The sy stem which generated this result transmitted ref erence range: <=500. T he reference range was not u sed to interpret this result as normal/abnormal . CBC W/AUTO [id number] 23:46:00 Test Item Value Reference Range Interpretation Comments WHITE BLOOD CELL (test code = 6.1 x10 3/uL 4.5-11.0 N WBC) RED BLOOD CELL (test code = 4.65 x10 6/uL 3.54-5.02 N RBC) HEMOGLOBIN (test code = HGB) 12.4 g/dL 11.0-15.0 N HEMATOCRIT (test code = HCT) 40.9 % 33.0-45.0 N MEAN CELL VOLUME (test code = 88.0 fL 81.0-99.0 N MCV) MEAN CELL HGB (test code = MCH) 26.7 pg 27.0-33.0 L MEAN CELL HGB CONCETRATION 30.3 g/dL 33.0-37.0 L (test code = MCHC) RED CELL DISTRIBUTION WIDTH CV 15.3 % 11.5-14.5 H (test code = RDW) RED CELL DISTRIBUTION WIDTH SD 49.8 fL 37.0-54.0 N (test code = RDW-SD) PLATELET COUNT (test code = 181 x10 3/uL 150-400 N PLT) MEAN PLATELET VOLUME (test code 11.0 fL 7.0-9.0 H = MPV) NEUTROPHIL % (test code = NT%) 60.2 % 56.0-77.0 N IMMATURE GRANULOCYTE % (test 0.2 % 0.0-2.0 N code = IG%) LYMPHOCYTE % (test code = LY%) 26.1 % 14.0-32.0 N MONOCYTE % (test code = MO%) 11.1 % 4.8-9.0 H EOSINOPHIL % (test code = EO%) 2.1 % 0.3-3.7 N BASOPHIL % (test code = BA%) 0.3 % 0.0-2.0 N NUCLEATED RBC % (test code = 0.0 % 0-0 N NRBC%) NEUTROPHIL # (test code = NT#) 3.68 x10 3/uL 2.0-7.6 N IMMATURE GRANULOCYTE # (test 0.01 x10 3/uL 0.00-0.03 N code = IG#) LYMPHOCYTE # (test code = LY#) 1.60 x10 3/uL 1.0-3.8 N MONOCYTE # (test code = MO#) 0.68 x10 3/uL 0.1-0.8 N EOSINOPHIL # (test code = EO#) 0.13 x10 3/uL 0.0-0.2 N BASOPHIL # (test code = BA#) 0.02 x10 3/uL 0.0-0.2 N NUCLEATED RBC # (test code = 0.00 x10 3/uL 0.0-0.1 N NRBC#) MANUAL DIFF REQUIRED (test code NO = MDIFF) - XR CHEST 1 [id number] 00:00:00 [facility] 1945 Sex: F FAX: Wilbur Martinez MD [phone] [place]: St: REG Name: ROBBIN WILSON [facility] : 1945 Age/S: 75/F [address] [place] [address] Unit #: [id number] Loc: [place] [address] Phys: Wilbur Martinez MD Acct: [id number] Dis Date: Status: REG ER PHONE #: [phone] Exam Date: 10/06/20202318 FAX #: [phone] Reason: SOB EXAMS: CPT CODE: [id number] XR CHEST 1 V 13266 PROCEDURE INFORMATION: Exam: XR Chest Exam date and time: 10/06/2020 11:07 PM Age: 75 years old Clinical indication: Shortness of breath; Additional info: SOB TECHNIQUE: Imaging protocol: XR of the chest. Views: 1 view. COMPARISON: CR XR CHEST 1V 12/01/2017 9:12 AM FINDINGS: Lungs: See "Pleural spaces" finding. Pleural spaces: Stable or mild worsening in left basilar opacities with obscured costophrenic angle. Minimal right costophrenic angle blunting is stable. Heart/Mediastinum: Cardiac valve replacement marker is seen. Bones/joints: Sternotomy wire seen. IMPRESSION: 1. Slightly worsened left basilar atelectasis/infiltrate and probable small pleural effusion. 2. Suspected small right pleural effusion. at 2325 Reported and signed by: Agustin Radford M.D. CC: Wilbur Martinez MD Technologist: Janet Lyn RT(R) Trnscrd Date/Time/By: 10/06/2020 (5716) : By: [email or web address] Orig Print D/T: S: 10/06/2020 (8569) PAGE 1 Signed CzeatnHDRF-PkB-5 (COVID-19) RNA [Presence] in Respiratory specimen by ESTEFANI with probe [id number] 06:48:13 Test Item Value Reference Range Interpretation Comments SARS-CoV-2 (COVID-19) RNA Not detected Not-Detected [Presence] in Respiratory specimen by ESTEFANI with probe detection (test code = 09063-1) Whether patient is employed in a healthcare setting (test code = 15322-2) Whether the patient has symptoms related to condition of interest (test code = 09853-1) Patient was hospitalized because of this condition (test code = 37834-5) Whether the patient was admitted to intensive care unit (ICU) for condition of interest (test code = 59611-1) Whether patient resides in a congregate care setting (test code = 63760-7) [U] XRAY WRIST MIN 3 VWS LEFT [id number] 09:26:00Images acquired, not reported on this accession number.[facility][U] XRAY WRIST MIN 3 VWS LEFT [id number] 10:29:00Images acquired, not reported on this accession number.[facility][U] XRAY WRIST MIN 3 VWS LEFT [id number] 09:45:00Images acquired, not reported on this accession number. [facility][U] XRAY WRIST MIN 3 VWS LEFT [id number] 10:09:00Images acquired, not reported on this accession number.[facility][U] XRAY WRIST MIN 3 VWS LEFT [id number] 09:09:00Images acquired, not reported on this accession number.[facility] BREAST CYST ASPIRATION [id number] 11:28:13- BREAST CYST ASPIRATION LEFTULTRASOUND GUIDED ASPIRATION LEFT BREAST: 04/02/2019CLINICAL: Left Cyst A spiration. Comparison is made to exams dated 01/30/2019 mammogram and 11/25/2016 ultrasound - [facility]-. An aspiration was performed for the palpable 6 mm cyst located in the left breast at 5 o'clock. The skin was prepped in the usual manner. Local anesthetic was administered to the access site. A 23 gauge needle was percutaneously placed into the abnormality under ultrasound guidance. Once the needle was documented to be in the correct location, clear yellow fluid was aspirated. The aspirated fluid was discarded. IMPRESSION: ASPIRATIONAspiration of the 6 mm cyst in the leftbreast was successful. A follow-up mammogram and an ultrasound in 6 months is recommended to demonstrate stability. Claudia Barrett M.D. dm/:04/02/2019 11:28:13 Entry: - 04/04/2019 14:06:47Imaging Technologist: Lori Turner , [facility]-letter sent: Short Term Follow UpBREAST ULTRASOUND BILATERAL 2019-03-06 09:31:08- BREAST ULTRASOUND BILATERALULTRASOUND OF BOTH BREASTS AND BOTH AXILLA: 03/06/2019CLINICAL: Dense breasts. Comparison is made to exams dated 01/30/2019 mammogram, 11/25/2016 ultrasound, and 10/11/2012 ultrasound - [facility]-. Real-time ultrasound of both breasts and both axilla was performed. LEFT BREAST: There is a 6 x 5 x 3 mm complicated cyst (with internal septations) versus hypoechoic mass in the left breast at 5 o'clock, 3 cm from the nipple. No associated abnormal vascularity is identified. The remainder of the left breast and left axillary ultrasound is unremarkable.RIGHT BREAST: No abnormalities were seen sonographically in the right breast or axilla. IMPRESSION: SUSPICIOUS OF MALIGNANCY - FOLLOW-UP RECOMMENDEDLEFT BREAST: There is a 6 mm complicated cyst versus hypoechoic mass in the left breast at 5 o'clock, 3 cm from the nipple. This is at a low suspicion for malignancy. A diagnostic aspiration is recommended, however, if this proves to be a solid mass thenultrasound-guided core biopsy may then be performed.RIGHT BREAST: There is no evidence of malignancy.Carmela Davis M.D. ar/:03/06/2019 09:31:08 Supervisor Wet Room: Maren Carlson , [facility]FWletter sent: BIRADS 4/5 Biopsy Ultrasound BI-RADS: 4a Suspicious abnormality - low suspicion for malignancy. [facility] - Surgical Biopsy 2019-02-01 00:00:00 Test Item Value Reference Range Interpretation Comments Case (test code = Click ImageLink button N Case) for report. Specimen 1 (test code Click ImageLink button N = Specimen 1) for report. [facility] PhysiciansSCR MAMM BILATERAL CEDRIC CAD [id number] 13:15:32 - SCR MAMM BILATERAL CEDRIC CAD DIGITALBILATERAL DIGITAL SCREENING MAMMOGRAM 3D/2D WITH CAD: 01/30/2019CLINICAL: Asymptomatic. Digital breast tomosynthesis was performed in addition to routine CC and MLO views. Current mammographic images were evaluated by either a AdTrib M-Vu or a AtTask ImageDecaWavecker CAD (computer aided detection system). Comparison is made to exams dated 12/22/2017 mammogram, 10/28/2016 mammogram, 10/28/2015 mammogram, 10/14/2014 mammogram, and 10/11/2013 mammogram - [facility]-. The tissue of both breasts is heterogeneously dense. This may lower the sensitivity of mammography. There are benign vascular calcifications and calcifications in both breasts. No suspicious mass, architectural distortion, malignant type calcification, or lymph node abnormality detected. Breast architecture is stable compared to prior exams.IMPRESSION: BENIGNThere is no mammographic e vidence of malignancy. Resume annual screening mammography in one year. Marga ferro/evelynrad:01/30/2019 13:15:32 Entry: - 02/01/2019 14:26:53Imaging Technologist: Yon CHRISTINE, [facility]-FWletter sent: BIRADS 1-2 Normal Mammogram BI-RADS: 2 Benign
[2021-02-28 22:58] LABS: Absolute Lymphocytes (CBC) 1.2 K/uL (0.7-4.9); Basophils % 0.4 % (0-1.3); Hematocrit 31.6 % (36.0-45.0); Lymphocytes % 17.4 % (15.3-44.8); MPV 9.3 fL (7.6-11.3); RBC Red Blood Cell Count 4.01 M/uL (3.86-4.86)
[2021-02-28 23:26] LABS: Bilirubin Direct 0.4 mg/dL (0-0.2); Bilirubin Total 0.8 mg/dL (0.2-1.0); Potassium 3.1 mmol/L (3.5-5.1); Protein, Total 7.8 g/dL (6.4-8.2); Troponin (Emerg Dept Use Only) 0.03 ng/mL (0.0-0.045)
[2021-02-28 23:28] LABS: Protime INR 4.23
[2021-02-28] MEDS ORDERED: ACETAMINOPHEN 500 MG TAB ONE (23:38)
[2021-02-28] MEDS ORDERED: CEFTRIAXONE 1000 MG/VIAL ONE (23:38)
[2021-02-28] MEDS ORDERED: NA CHLORIDE 0.9% 250 ML ONE (23:39)
[2021-02-28] MEDS ORDERED: NA CHLORIDE 0.9% 1,000 ML ONE (23:39)
[2021-02-28] MEDS ORDERED: NA CHLORIDE 0.9% 50 ML ONE (23:39)
[2021-02-28] MEDS ORDERED: AZITHROMYCIN 500 MG INJ IVPB ONE (23:39)
[2021-03-01 00:03] LABS: Anisocytosis 2+; Blood Morphology Comment NOTED (NOT SEEN); Ovalocytes 2+; Platelet Estimate ADEQ; White Blood Cell Scan OK (OK)
[2021-03-01 00:10] LABS: Urine Blood Trace-intact (Negative); Urine Glucose Negative (Negative); Urine Protein Negative (Negative); Urine Specific Gravity 1.015 (1.005-1.030)
[2021-03-01 00:18] LABS: SARS-COV-2 RT PCR NEGATIVE (NEGATIVE)
--- NOTE | 2021-03-01 01:34 | EDPHYS ---
Physician Documentation [facility] Name: Esha Barber Age: 75 yrs Sex: Female : 1945 Arrival Date: 02/28/2021 Time: 19:32 Bed 13 Private MD: ED Physician Mo Butler HPI: 02/28 23:21 This 75 yrs old Unknown Female presents to ER via Ambulatory with complaints of Cough, eliseo Fall Injury, Shortness Of Breath. 23:21 The patient or guardian reports airway noise, cough, difficulty breathing, flu eliseo symptoms, arthralgias, low-grade fever, myalgias. Onset: The symptoms/episode began/occurred 3 day(s) ago. Severity of symptoms: At their worst the symptoms were mild, moderate, in the emergency department the symptoms are unchanged. Modifying factors: The symptoms are alleviated by cool environment, inhaler, the symptoms are aggravated by exertion, talking. Associated signs and symptoms: Pertinent positives: fever. The patient has experienced similar episodes in the past, a few times. Historical: - Allergies: 20:11 No Known Allergies; da3 - PMHx: 20:11 stroke; heart valve replaced; galbladder removed; da3 - PSHx: 20:11 right knee replacement; da3 - Immunization history:: Client reports receiving the 2nd dose of the Covid vaccine. - Social history:: Smoking status: Patient reports the use of cigarette tobacco products, smokes one-half pack cigarettes per day. ROS: 23:22 Eyes: Negative for injury, pain, redness, and discharge, ENT: Negative for injury, eliseo pain, and discharge, Neck: Negative for injury, pain, and swelling, Cardiovascular: Negative for chest pain, palpitations, and edema, Abdomen/GI: Negative for abdominal pain, nausea, vomiting, diarrhea, and constipation, Back: Negative for injury and pain, : Negative for injury, bleeding, discharge, and swelling, MS/Extremity: Negative for injury and deformity, Skin: Negative for injury, rash, and discoloration, Neuro: Negative for headache, weakness, numbness, tingling, and seizure, Psych: Negative for depression, anxiety, suicide ideation, homicidal ideation, and hallucinations, Allergy/Immunology: Negative for hives, rash, and allergies, Endocrine: Negative for neck swelling, polydipsia, polyuria, polyphagia, and marked weight changes, Hematologic/Lymphatic: Negative for swollen nodes, abnormal bleeding, and unusual bruising. 23:22 Constitutional: Positive for body aches, chills, fever. 23:22 Respiratory: Positive for cough, shortness of breath, at rest. wheezing, expiratory, of the left lower lobe and left posterior lower lobe. 23:22 MS/extremity: Positive for pain, swelling, of the left hip. 23:22 Neuro: Positive for headache. Exam: 23:22 Head/Face: Normocephalic, atraumatic. Eyes: Pupils equal round and reactive to light, eliseo extra-ocular motions intact. Lids and lashes normal. Conjunctiva and sclera are non-icteric and not injected. Cornea within normal limits. Periorbital areas with no swelling, redness, or edema. ENT: Nares patent. No nasal discharge, no septal abnormalities noted. Tympanic membranes are normal and external auditory canals are clear. Oropharynx with no redness, swelling, or masses, exudates, or evidence of obstruction, uvula midline. Mucous membranes moist. Neck: Trachea midline, no thyromegaly or masses palpated, and no cervical lymphadenopathy. Supple, full range of motion without nuchal rigidity, or vertebral point tenderness. No Meningismus. Chest/axilla: Normal chest wall appearance and motion. Nontender with no deformity. No lesions are appreciated. Cardiovascular: Regular rate and rhythm with a normal S1 and S2. No gallops, murmurs, or rubs. Normal PMI, no JVD. No pulse deficits. Abdomen/GI: Soft, non-tender, with normal bowel sounds. No distension or tympany. No guarding or rebound. No evidence of tenderness throughout. Back: No spinal tenderness. No costovertebral tenderness. Full range of motion. Female : Normal external genitalia. Skin: Warm, dry with normal turgor. Normal color with no rashes, no lesions, and no evidence of cellulitis. MS/ Extremity: Pulses equal, no cyanosis. Neurovascular intact. Full, normal range of motion. Neuro: Awake and alert, GCS 15, oriented to person, place, time, and situation. Cranial nerves II-XII grossly intact. Motor strength 5/5 in all extremities. Sensory grossly intact. Cerebellar exam normal. Normal gait. Psych: Awake, alert, with orientation to person, place and time. Behavior, mood, and affect are within normal limits. 23:22 Constitutional: The patient appears febrile. 23:22 ECG was reviewed by the Attending Physician. 23:22 Respiratory: the patient does not display signs of respiratory distress, Respirations: labored breathing, that is mild, Breath sounds: bronchial sounds, that are mild, are heard in the left lower lobe and left posterior lower lobe, rhonchi, that are moderate, are heard in the left lower lobe, left posterior upper lobe and left posterior lower lobe, Respiratory rate: 29 Vital Signs: 20:08 BP 145 / 93; Pulse 74; Resp 20; Temp 100.3; Pulse Ox 95% on R/A; Weight 50.8 kg; Height da3 5 ft. 2 in. (157.48 cm); 22:30 BP 167 / 62; Pulse 74; Resp 29; Temp 100.4(O); Pulse Ox 96% ; lt3 23:19 BP 130 / 96; Pulse 70; Resp 22 S; Pulse Ox 92% ; bb 03/01 02:20 BP 118 / 47; Pulse 65; Resp 24; Temp 97.7; Pulse Ox 95% ; lt3 02/28 20:08 Body Mass Index 20.48 (50.80 kg, 157.48 cm) da3 MDM: 02/28 22:23 Patient medically screened. eliseo 23:25 Differential diagnosis: Anemia Bronchitis CHF exacerbation, Chronic Obstructive eliseo Pulmonary Disease bronchitis, flu, URI, viral Infection, bacterial infection, URI, bronchitis, pneumonia UTI, Myocardial Infarction pneumonia, pulmonary edema, reactive airway disease, Sepsis Unstable Angina. Antibiotic administration: Rocephin and Zithromax given. The patient's Wells Deep Vein Thrombosis Score was calculated as follows: Total Score: 0-2 Pts- Low Risk. Differential Diagnosis: Bronchitis Influenza Upper Respiratory Infection Sinusitis Pharyngitis Asthma Exacerbation Viral Syndrome Pneumonia. The patient's pulmonary embolism risk score was calculated as follows: Total Score: 0-2 points. This patient was found to be at low risk for a pulmonary embolism by using the Well's assessment criteria. Immunization status: Pneumococcal vaccine: Influenza vaccine: Data reviewed: vital signs, nurses notes, lab test result(s), EKG, radiologic studies, CT scan, plain films. Data interpreted: lunchroom monitor: rate is 74 beats/min, rhythm is regular, Pulse oximetry: on room air is 96 %. Test interpretation: by ED physician or midlevel provider: ECG, plain radiologic studies. Counseling: I had a detailed discussion with the patient and/or guardian regarding: the historical points, exam findings, and any diagnostic results supporting the discharge/admit diagnosis, lab results, radiology results, the need for further work-up and treatment in the hospital. 02/28 22:29 Order name: Basic Metabolic Panel [facility] 02/28 22:29 Order name: CBC with Diff [facility] 02/28 22:29 Order name: LFT's [facility] 02/28 22:29 Order name: Magnesium [facility] 02/28 22:29 Order name: NT PRO-BNP [facility] 02/28 22:29 Order name: PT-INR [facility] 02/28 22:29 Order name: Troponin (emerg Dept Use Only) [facility] 02/28 22:29 Order name: Lipase; Complete Time: 23:59 [facility] 02/28 22:29 Order name: Blood Culture Adult (2) [facility] 02/28 22:29 Order name: Urine Culture [facility] 02/28 22:29 Order name: COVID-19/FLU A+B/RSV (Document "Date of Onset" if Symptomatic); Complete [facility] Time: 01:28 02/28 22:29 Order name: Basic Metabolic Panel; Complete Time: 23:59 EDNM 02/28 22:29 Order name: CBC with Automated Diff; Complete Time: 00:09 EDNM 02/28 22:29 Order name: Liver (Hepatic) Function; Complete Time: 23:59 EDMS 02/28 22:29 Order name: XRAY Chest (1 view) [facility] 02/28 22:29 Order name: Magnesium; Complete Time: 23:59 EDNM 02/28 22:29 Order name: NT PRO-BNP; Complete Time: 23:59 EDNM 02/28 22:29 Order name: Protime (+INR); Complete Time: 23:59 EDNM 02/28 22:29 Order name: Troponin (Emerg Dept Use Only); Complete Time: 23:59 EDNM 02/28 23:15 Order name: CBC Smear Scan; Complete Time: 00:09 EDNM 02/28 23:18 Order name: Hip Left 2 View XRAY [facility] 02/28 23:18 Order name: CT Traumagram (Head C Spine CAP wo con) [facility] 03/01 00:10 Order name: Urine Dipstick-Ancillary; Complete Time: 01:28 EDNM 02/28 22:29 Order name: EKG; Complete Time: 22:30 [facility] 02/28 22:29 Order name: Cardiac monitoring; Complete Time: 22:51 [facility] 02/28 22:29 Order name: EKG - Nurse/Tech; Complete Time: 23:28 [facility] 02/28 22:29 Order name: IV Saline Lock; Complete Time: 22:51 [facility] 02/28 22:29 Order name: Labs collected and sent; Complete Time: 22:51 [facility] 02/28 22:29 Order name: O2 Per Protocol; Complete Time: 22:51 [facility] 02/28 22:29 Order name: O2 Sat Monitoring; Complete Time: 22:51 [facility] 02/28 22:29 Order name: Urine Dipstick-Ancillary (obtain specimen); Complete Time: 23:54 eliseo EC:22 Rate is 69 beats/min. Rhythm is regular. QRS Rickreall is Normal. OH interval is normal. No eliseo Q waves. T waves are Normal. No ST changes noted. Clinical impression: NSR w/ Non-specific ST/T Changes and No evidence of ischemia. Interpreted by me. Reviewed by me. Administered Medications: 03/01 02:35 Discontinued: NS 0.9% 1000 ml IV at 125 ml/hr continuous [facility] 02/28 23:51 Drug: NS 0.9% 500 ml Route: IV; Rate: bolus; Site: left antecubital; 03/01 02:09 Follow up: IV Status: Completed infusion; IV Intake: 500ml 02/28 23:51 Drug: Tylenol 1000 mg Route: PO; 23:51 Drug: Rocephin (cefTRIAXone) 1 grams Route: IV; Rate: per protocol; Site: left antecubital; 03/01 00:01 Follow up: IV Status: Completed infusion; IV Intake: 50ml 01:06 Drug: Zithromax (azithromycin) 500 mg Route: IVPB; Infused Over: 1 hrs; Site: right antecubital; 02:08 Follow up: IV Status: Completed infusion; IV Intake: 250ml 02:09 Drug: NS 0.9% 1000 ml Route: IV; Rate: 125 ml/hr; Site: right antecubital; 02:21 Follow up: IV Status: Infusion continued upon admission 02:21 Drug: Potassium Effervescent Tablet 25 mEq Route: PO; bb : Drug: Lasix (furosemide) 20 mg Route: IVP; Site: right antecubital; bb : Drug: Xopenex (levalbuterol) 2.5 mg Route: Inhalation; bb : Drug: AtroVENT (ipratropium) Aerosol 0.5 mg Route: Inhalation; bb Disposition Summary: 03/01/21 01:33 Hospitalization Ordered Hospitalization Status: Inpatient Admission eliseo Provider: Avel Hazel cha Location: Telemetry/MedSurg (Inpatient) eliseo Condition: Fair eliseo Problem: new eliseo Symptoms: have improved eliseo Bed/Room Type: Standard [facility] Room Assignment: 230(03/01/21 02:01) cg Diagnosis - Fall on same level, unspecified eliseo - Unspecified combined systolic (congestive) and diastolic (congestive) heart failure eliseo - Acute upper respiratory infection, unspecified eliseo - Fever, unspecified eliseo - Unspecified kidney failure - chronic eliseo - Contusion of right upper arm eliseo - Contusion of hip eliseo - Hypokalemia eliseo - Essential (primary) hypertension eliseo - Acute bronchitis due to respiratory syncytial virus eliseo Forms: - Medication Reconciliation Form eliseo - SBAR form eliseo Signatures: Dispatcher [employer] EDMo Kent MD MD cha Ballard, Brenda RN RN Ann Nunez RN RN cg Allan, David, RN RN da3 Corrections: (The following items were deleted from the chart) 02:01 01:33 eliseo cg
--- NOTE | 2021-03-01 01:34 | ER ---
Nurse's Notes [facility] Name: Esha Barber Age: 75 yrs Sex: Female : 1945 Arrival Date: 02/28/2021 Time: 19:32 Bed 13 Private MD: Diagnosis: Fall on same level, unspecified;Unspecified combined systolic (congestive) and diastolic (congestive) heart failure;Acute upper respiratory infection, unspecified;Fever, unspecified;Unspecified kidney failure-chronic;Contusion of right upper arm;Contusion of hip;Hypokalemia;Essential (primary) hypertension;Acute bronchitis due to respiratory syncytial virus Presentation: 02/28 20:08 Chief complaint: Patient's son or daughter states: cough and weakness. Coronavirus da3 screen: Vaccine status: Patient reports receiving the 2nd dose of the covid vaccine. Patient reports being unvaccinated. Ebola Screen: No symptoms or risks identified at this time. Initial Sepsis Screen: Does the patient meet any 2 criteria? No. Patient's initial sepsis screen is negative. Does the patient have a suspected source of infection? No. Patient's initial sepsis screen is negative. Risk Assessment: Do you want to hurt yourself or someone else? Patient reports no desire to harm self or others. Onset of symptoms was February 25, 2021. 20:08 Method Of Arrival: Ambulatory da3 20:08 Acuity: VALORIE 3 da3 Triage Assessment: 20:11 General: Appears in no apparent distress. comfortable, Behavior is calm, cooperative, da3 quiet. Pain: Denies pain. Historical: - Allergies: 20:11 No Known Allergies; da3 - PMHx: 20:11 stroke; heart valve replaced; galbladder removed; da3 - PSHx: 20:11 right knee replacement; da3 - Immunization history:: Client reports receiving the 2nd dose of the Covid vaccine. - Social history:: Smoking status: Patient reports the use of cigarette tobacco products, smokes one-half pack cigarettes per day. Screenin:00 Abuse screen: Denies threats or abuse. Nutritional screening: No deficits noted. bb Tuberculosis screening: No symptoms or risk factors identified. Fall Risk None identified. Assessment: 23:00 General: Appears in no apparent distress. slender, Behavior is calm, cooperative. bb Neuro: Level of Consciousness is awake, alert, obeys commands, Oriented to person, place, time, situation. Cardiovascular: Capillary refill < 3 seconds Patient's skin is warm and dry. Respiratory: Respiratory effort is even, unlabored. GI: Abdomen is non-distended. Derm: Skin is pink, warm \\T\\ dry. Musculoskeletal: Circulation, motion, and sensation intact. 03/01 00:01 Reassessment: Patient is alert, oriented x 3, equal unlabored respirations, skin bb warm/dry/pink. resting quietly, family at bedside. 02:24 Reassessment: Patient is alert, oriented x 3, equal unlabored respirations, skin bb warm/dry/pink. family at bedside, report called to receiving RN. Vital Signs: 02/28 20:08 BP 145 / 93; Pulse 74; Resp 20; Temp 100.3; Pulse Ox 95% on R/A; Weight 50.8 kg; Height da3 5 ft. 2 in. (157.48 cm); 22:30 BP 167 / 62; Pulse 74; Resp 29; Temp 100.4(O); Pulse Ox 96% ; lt3 23:19 BP 130 / 96; Pulse 70; Resp 22 S; Pulse Ox 92% ; bb 03/01 02:20 BP 118 / 47; Pulse 65; Resp 24; Temp 97.7; Pulse Ox 95% ; lt3 02/28 20:08 Body Mass Index 20.48 (50.80 kg, 157.48 cm) da3 ED Course: 02/28 19:32 Patient arrived in ED. bp1 20:11 Triage completed. da3 20:11 Arm band placed on left wrist. da3 22:23 Mo Butler MD is Attending Physician. eliseo 22:45 Initial lab(s) drawn, by me, sent to lab. First set of blood cultures drawn by me. lt3 22:50 Inserted saline lock: 22 gauge in right antecubital area, using aseptic technique. lt3 22:54 XRAY Chest (1 view) In Process Unspecified. EDMS 23:00 Patient has correct armband on for positive identification. Bed in low position. Call bb light in reach. Side rails up X 1. Adult w/ patient. night monitor on. Pulse ox on. NIBP on. Warm blanket given. 23:25 EKG done, by ED staff, reviewed by Mo Butler MD COVID swab sent to lab. lt3 23:28 COVID-19/FLU A+B/RSV (Document "Date of Onset" if Symptomatic) Sent. lt3 23:32 Second set of blood cultures drawn by me. Inserted saline lock: 22 gauge in left lt3 forearm, using aseptic technique. 23:40 Blood Culture Adult (2) Sent. lt3 03/01 00:21 Hip Left 2 View XRAY In Process Unspecified. EDMS 00:27 CT Traumagram (Head C Spine CAP wo con) In Process Unspecified. EDMS 01:31 Avel Hazel MD is Hospitalizing Provider. [facility] 02:08 Klaudia Yañez RN is Primary Nurse. bb 02:25 IV is patent, is intact. bb 02:25 No provider procedures requiring assistance completed. Patient admitted, IV remains in bb place. Administered Medications: 02:35 Discontinued: NS 0.9% 1000 ml IV at 125 ml/hr continuous [facility] 02/28 23:51 Drug: NS 0.9% 500 ml Route: IV; Rate: bolus; Site: left antecubital; 03/01 02:09 Follow up: IV Status: Completed infusion; IV Intake: 500ml 02/28 23:51 Drug: Tylenol 1000 mg Route: PO; 23:51 Drug: Rocephin (cefTRIAXone) 1 grams Route: IV; Rate: per protocol; Site: left antecubital; 03/01 00:01 Follow up: IV Status: Completed infusion; IV Intake: 50ml 01:06 Drug: Zithromax (azithromycin) 500 mg Route: IVPB; Infused Over: 1 hrs; Site: right bb antecubital; 02:08 Follow up: IV Status: Completed infusion; IV Intake: 250ml 02:09 Drug: NS 0.9% 1000 ml Route: IV; Rate: 125 ml/hr; Site: right antecubital; 02:21 Follow up: IV Status: Infusion continued upon admission bb 02:21 Drug: Potassium Effervescent Tablet 25 mEq Route: PO; bb 02:21 Drug: Lasix (furosemide) 20 mg Route: IVP; Site: right antecubital; 02:21 Drug: Xopenex (levalbuterol) 2.5 mg Route: Inhalation; bb 02:21 Drug: AtroVENT (ipratropium) Aerosol 0.5 mg Route: Inhalation; bb Intake: 00:01 IV: 50ml; Total: 50ml. bb 02:08 IV: 250ml; Total: 300ml. bb 02:09 IV: 500ml; Total: 800ml. bb Outcome: 01:33 Decision to Hospitalize by Provider. eliseo 02:25 Admitted to Tele accompanied by tech, via stretcher, room 230, with chart. kristina 02:25 Condition: stable 02:25 Instructed on the need for admit. 02:48 Patient left the ED. bb Signatures: Dispatcher [employer] EDMS Mo Butler MD MD cha Ballard, Brenda, RN RN Bianka Chao David, RN RN [email or web address] Steff Del Cid
[2021-03-01] MEDS ORDERED: FUROSEMIDE 20 MG/ 2ML VIAL ONE (02:11)
[2021-03-01] MEDS ORDERED: POTASSIUM 25 MEQ EFFERV TAB ONE (02:11)
[2021-03-01] MEDS ORDERED: LEVALBUTEROL 1.25 MG/3 ML NEB ONE (02:11)
[2021-03-01] MEDS ORDERED: IPRATROPIUM BROM 0.5MG/2.5ML ONE (02:12)
[2021-03-01] MEDS ORDERED: MORPHINE 2 MG/ML SYR IV PRN (02:43)
[2021-03-01] MEDS ORDERED: ALBUTEROL 2.5 MG/3 ML NEB SOL NEB PRN (02:43)
[2021-03-01] MEDS ORDERED: ONDANSETRON 4 MG/2 ML VIAL IV PRN (02:43)
[2021-03-01] MEDS ORDERED: IPRATROPIUM BROM 0.5MG/2.5ML NEB PRN (02:43)
[2021-03-01 03:16] VITALS: BMI 20.2
[2021-03-01] MEDS ORDERED: TEMAZEPAM 15 MG CAP PO ONE (03:27)
[2021-03-01 03:38] LABS: Potassium 3.4 mmol/L (3.5-5.1)
[2021-03-01 04:18] LABS: Troponin I 0.03 ng/mL (0.0-0.045)
--- NOTE | 2021-03-01 07:35 | RAD REPORT ---
EXAM DESCRIPTION: Sherley Single View02/28/2021 10:54 pm CLINICAL HISTORY: Cough COMPARISON: none FINDINGS: The lungs appear clear of acute infiltrate. The heart is mildly to moderately enlarged. Postsurgical changes involve the chest. IMPRESSION: No acute abnormalities displayed
--- NOTE | 2021-03-01 07:41 | RAD REPORT ---
EXAM DESCRIPTION: RAD - Hip Left 2 View - 03/01/2021 12:21 am CLINICAL HISTORY: Left hip pain FINDINGS: No fracture or dislocation is seen. The bones are osteoporotic. If patient continues to have symptoms to suggest an occult fracture then MRI would be recommended.
[2021-03-01] MEDS ORDERED: D5 0.45 NS 1,000 ML IV SCH (08:00)
[2021-03-01] MEDS ORDERED: PNEUMOCOCCAL VACCINE 0.5 ML IMVAC ONE (08:00)
[2021-03-01] MEDS ORDERED: LORATADINE 10 MG TAB PO PRN (08:00)
[2021-03-01] MEDS ORDERED: FAMOTIDINE 20 MG/2 ML VIAL IV SCH (09:00)
[2021-03-01] MEDS: POTASSIUM 25 MEQ EFFERV TAB PO SCH ×2 (09:00→21:55)
[2021-03-01] MEDS ORDERED: FUROSEMIDE 20 MG/ 2ML VIAL IV SCH (09:00)
[2021-03-01] MEDS: FLUTICASONE 50MCG NASAL SPRAY NAS SCH ×2 (09:00→23:12)
[2021-03-01] MEDS: MEMANTINE HCL 10 MG TABLET PO SCH ×2 (09:16→21:54)
[2021-03-01] MEDS: CALCIUM CARBONATE CHEW 500MG TAB PO SCH (09:17)
[2021-03-01] MEDS: METOPROLOL TAR 25 MG TAB PO SCH (09:17)
[2021-03-01] MEDS: POTASSIUM CL SA 10 MEQ TAB PO SCH (09:17)
[2021-03-01] MEDS: ACETAMINOPHEN 325 MG TABLET PO PRN ×3 (09:59→22:00)
--- NOTE | 2021-03-01 14:01 | RAD REPORT ---
EXAM DESCRIPTION: CT - Head C Spine Cap Wo Con - 03/01/2021 6:00 am CLINICAL HISTORY: PAIN COMPARISON: None. TECHNIQUE: CT HEAD CERVICAL SPINE CHEST ABDOMEN PELVIS WITHOUT IV CONTRAST on 02/28/2021 11:18 PM CS T This exam was performed according to our departmental dose-optimization program, which includes autom ated exposure control, adjustment of the mA and/or kV according to patient size and/or use of iterati ve reconstruction technique. FINDINGS: Brain: There is no acute hemorrhage, mass effect or midline shift. There is encephalomalac ia within the upper right cerebellum. There is no hydrocephalus. There is no significant volume loss for age. There is a left frontal scalp contusion. The calvarium is intact. Orbits and globes are unremarkable. The paranasal sinuses are clear. Mastoid air cells are clear. Cervical Spine: There is no acute fracture. Alignment is anatomic. There is a benign-appearing calcif ication within the central canal posteriorly at the level of C6 measuring 1 cm in craniocaudal dimens ion. There is mild narrowing of the C3-4 disc. Vertebral body heights are preserved. Soft tissues are unre markable. Chest: The heart is mildly enlarged. Sternotomy and aortic valve replacement were performed. There is no pericardial effusion. Intrathoracic lymph nodes are not enlarged. There is a small left pleural effusion. Central airways are patent. There are minimal scattered areas of atelectasis within both lungs. Abdomen: There is a small cysts within the left lobe of the liver. There is no biliary dilatation. Ch olecystectomy was performed. The pancreas and spleen are normal in appearance. The adrenal glands and kidneys are unremarkable. Abdominal aorta is densely calcified without aneurysm. There is no free air. There is no retroperiton eal adenopathy. Pelvis: There is no bowel obstruction. Urinary bladder is unremarkable. There is small amount of free pelvic fluid. Appendix is not clearly seen. Skeleton: There are no acute osseous findings. No suspicious bony lesions. IMPRESSION: Left frontal scalp contusion without fracture. No acute intracranial findings. Small left pleural effusion. No definite post-traumatic findings in the abdomen and pelvis. Electronically signed by: Ravi Antunez MD 03/01/2021 1:03 AM [facility] Due to temporary technical issues with the PACS/Fluency reporting system, reports are being signed by the in house radiologists without review as a courtesy to insure prompt reporting. The interpreting radiologist is fully responsible for the content of the report.
--- NOTE | 2021-03-01 15:39 | P.HP ---
Certification for Inpatient Patient admitted to: Observation With expected LOS: <2 Midnights Patient will require the following post-hospital care: Home Health Services Practitioner: I am a practitioner with admitting privileges, knowledge of patient current condition, hospital course, and medical plan of care. Services: Services provided to patient in accordance with Admission requirements found in Title 42 Section 412.3 of the Code of Federal Regulations Patient History Date of Service: 03/01/21 Primary Care Provider: Sundeep Reason for admission: falls, sob History of Present Illness: Patient is an office patient of Mrs. Urbano. She has a history of dementia. She had a cold this which was seen by Telemedicine. She was to have a follow up this morning. However she had a fever and falls. Her son Brought to the ER. The patient has fallen twice at home. She is currently healing well. The patient is resting well. Allergies No Known Allergies Allergy (Verified 03/01/21 03:05) Home Medications: Atorvastatin Calcium [Lipitor*] 1 tab PO BEDTIME 03/01/21 Calcium Carbonate [Calcium] 1 tab PO DAILY 03/01/21 Donepezil [Aricept*] 1 tab PO BEDTIME 03/01/21 Furosemide 1 tab PO DAILY 03/01/21 Memantine HCl [Namenda] 1 tab PO BID 03/01/21 Metoprolol Tartrate 1 tab PO DAILY 03/01/21 Pantoprazole [Protonix Tab*] 1 tab PO BEDTIME 03/01/21 Potassium 20 Meq 1 tab PO DAILY 03/01/21 Sertraline [Zoloft*] 1 tab PO BEDTIME 03/01/21 Temazepam [Restoril*] 1 tab PO BEDTIME 03/01/21 Warfarin Sodium [Coumadin*] 1 tab PO BEDTIME 03/01/21 - Past Medical/Surgical History Has patient received pneumonia vaccine in the past: No -: stroke -: valve replacement -: cholecystectomy -: Right knee replacement -: -: appendectomy - Social History Smoking Status: Current every day smoker Alcohol use: No CD- Drugs: No Caffeine use: Yes Place of Residence: Home Review of Systems 10-point ROS is otherwise unremarkable General: Other (falls) ENT: Nose Congestion Respiratory: Cough Physical Examination - Vital Signs Temperature: 97.1 F Blood Pressure: 135/67 Pulse: 59 Respirations: 16 Pulse Ox (%): 93 - Physical Exam General: Alert, In no apparent distress HEENT: Atraumatic, PERRLA, Mucous membr. moist/pink, EOMI, Sclerae nonicteric Neck: Supple, 2+ carotid pulse no bruit, No LAD, Without JVD or thyroid abnormality Respiratory: Rhonchi/gurgles Cardiovascular: Regular rate/rhythm, Normal S1 S2 Gastrointestinal: Normal bowel sounds, No tenderness Musculoskeletal: No tenderness Integumentary: No rashes Neurological: Normal gait, Normal speech, Normal strength at 5/5 x4 extr, Normal tone, Normal affect Lymphatics: No axilla or inguinal lymphadenopathy - Studies Laboratory Data (last 24 hrs) 02/28/21 22:45: PT 49.3 H, INR 4.23 H* 02/28/21 22:45: WBC 7.10, Hgb 10.2 L, Hct 31.6 L, Plt Count 121 L 02/28/21 22:45: Sodium 144, Potassium 3.1 L, BUN 26 H, Creatinine 1.34 H, Glucose 140 H, Magnesium 2.0, Total Bilirubin 0.8, AST 51 H, ALT 50, Alkaline Phosphatase 140 H, Lipase 230 Assessment and Plan - Problems (Diagnosis) (1) Bronchitis Current Visit: Yes Status: Acute Plan: will continue the patient on fluids and breathing treatment. She is not actively wheezing. So will hold steroids. Do not want her to loose muscle mass as she is falling. Will start her on decongestants as well. (2) Recurrent falls Current Visit: Yes Status: Acute Plan: She is going to [facility]. Consider home PT on discharge. (3) Dementia Current Visit: Yes Status: Acute Plan: Will continue her home medications. Qualifiers: Dementia type: Alzheimer's Dementia behavioral disturbance: without behavioral disturbance Discharge Plan: Home Plan to discharge in: 24 Hours - Advance Directives Does patient have a Living Will: No Does patient have a Durable POA for Healthcare: No - Code Status/Comfort Care Code Status Assessed: No Code Status: Full Code Physician Review: Patient Assessed, Agree with Above Assessment and Plan Critical Care: No Time Spent Managing Pts Care (In Minutes): 40
[2021-03-01] MEDS ORDERED: PANTOPRAZOLE 40MG TABLET PO SCH (21:00)
[2021-03-01] MEDS ORDERED: SERTRALINE HCL 100 MG TAB PO SCH (21:00)
[2021-03-01] MEDS ORDERED: TEMAZEPAM 15 MG CAP PO SCH (21:00)
[2021-03-01] MEDS ORDERED: ATORVASTATIN 20 MG TAB PO SCH (21:00)
[2021-03-01] MEDS: GUAIFENESIN/DM 5 ML UCUP PO SCH (21:55)
[2021-03-02 06:12] LABS: Absolute Lymphocytes (CBC) 1.3 K/uL (0.7-4.9); Basophils % 0.6 % (0-1.3); Hematocrit 29.3 % (36.0-45.0); Lymphocytes % 25.6 % (15.3-44.8); MPV 8.7 fL (7.6-11.3); RBC Red Blood Cell Count 3.66 M/uL (3.86-4.86)
[2021-03-02 06:28] LABS: Potassium 3.7 mmol/L (3.5-5.1)
[2021-03-02] MEDS: GUAIFENESIN/DM 5 ML UCUP PO SCH (06:45)
[2021-03-02] MEDS ORDERED: GUAIFENESIN/DM 5 ML UCUP PO PRN (06:47)
[2021-03-02 07:03] LABS: Anisocytosis 2+; Blood Morphology Comment NOTED (NOT SEEN); Platelet Estimate DECR; White Blood Cell Scan OK (OK)
[2021-03-02] MEDS: MEMANTINE HCL 10 MG TABLET PO SCH (08:28)
[2021-03-02] MEDS: CALCIUM CARBONATE CHEW 500MG TAB PO SCH (08:28)
[2021-03-02] MEDS: POTASSIUM CL SA 10 MEQ TAB PO SCH (08:28)
[2021-03-02] MEDS: METOPROLOL TAR 25 MG TAB PO SCH (08:29)
[2021-03-02] MEDS: POTASSIUM 25 MEQ EFFERV TAB PO SCH (08:34)
[2021-03-02] MEDS: ACETAMINOPHEN 325 MG TABLET PO PRN (08:35)
[2021-03-02] MEDS: FLUTICASONE 50MCG NASAL SPRAY NAS SCH (08:45)
--- NOTE | 2021-03-02 13:17 | P.DS ---
Admission Date: 03/01/21 Discharge Date: 03/02/21 Primary Care Provider: Sundeep Disposition: ROUTINE DISCHARGE Discharge Condition: GOOD Reason for Admission: falls, sob - Problems (1) Bronchitis Current Visit: Yes Status: Acute (2) Recurrent falls Current Visit: Yes Status: Acute (3) Dementia Current Visit: Yes Status: Acute Qualifiers: Dementia type: Alzheimer's Dementia behavioral disturbance: without behavioral disturbance Brief History of Present Illness: Patient is an office patient of Mrs. Urbano. She has a history of dementia. She had a cold this which was seen by Telemedicine. She was to have a follow up this morning. However she had a fever and falls. Her son Brought to the ER. The patient has fallen twice at home. She is currently healing well. The patient is resting well. Hospital Course: Patient is here after repeated falls. Was admitted for bronchitis and weakness. she is doing well today. Will discharge her with home PT. 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 Vital Signs/Physical Exam: Temp Pulse Resp BP Pulse Ox 97.3 F 69 16 156/70 H 95 03/02/21 04:00 03/02/21 08:29 03/02/21 04:00 03/02/21 08:29 03/02/21 04:00 General: Alert, In no apparent distress HEENT: Atraumatic, PERRLA, EOMI Neck: Supple, JVD not distended Respiratory: Clear to auscultation bilaterally, Normal air movement Cardiovascular: Regular rate/rhythm, Normal S1 S2 Gastrointestinal: Normal bowel sounds, No tenderness Musculoskeletal: No tenderness Integumentary: No rashes Neurological: Normal speech, Normal tone, Normal affect Lymphatics: No axilla or inguinal lymphadenopathy Laboratory Data at Discharge: WBC 5.00 K/uL (4.3-10.9) D 03/02/21 05:59 Hgb 9.6 g/dL (12.0-15.0) L 03/02/21 05:59 Hct 29.3 % (36.0-45.0) L 03/02/21 05:59 Plt Count 95 K/uL (152-406) L D 03/02/21 05:59 PT 49.3 SECONDS (9.5-12.5) H 02/28/21 22:45 INR 4.23 H* 02/28/21 22:45 Sodium 147 mmol/L (136-145) H 03/02/21 05:59 Potassium 3.7 mmol/L (3.5-5.1) 03/02/21 05:59 BUN 26 mg/dL (7-18) H 03/02/21 05:59 Creatinine 1.08 mg/dL (0.55-1.3) 03/02/21 05:59 Glucose 110 mg/dL (74-106) H 03/02/21 05:59 Magnesium 2.0 mg/dL (1.8-2.4) 02/28/21 22:45 Total Bilirubin 0.8 mg/dL (0.2-1.0) 02/28/21 22:45 AST 51 U/L (15-37) H 02/28/21 22:45 ALT 50 U/L (12-78) 02/28/21 22:45 Alkaline Phosphatase 140 U/L (45-117) H 02/28/21 22:45 Troponin I Cancelled 03/01/21 06:00 Lipase 230 U/L (73-393) 02/28/21 22:45 Home Medications: Atorvastatin Calcium [Lipitor*] 1 tab PO BEDTIME 03/01/21 Calcium Carbonate [Calcium] 1 tab PO DAILY 03/01/21 Donepezil [Aricept*] 1 tab PO BEDTIME 03/01/21 Furosemide 1 tab PO DAILY 03/01/21 Memantine HCl [Namenda] 1 tab PO BID 03/01/21 Metoprolol Tartrate 1 tab PO DAILY 03/01/21 Pantoprazole [Protonix Tab*] 1 tab PO BEDTIME 03/01/21 Potassium 20 Meq 1 tab PO DAILY 03/01/21 Sertraline [Zoloft*] 1 tab PO BEDTIME 03/01/21 Temazepam [Restoril*] 1 tab PO BEDTIME 03/01/21 Warfarin Sodium [Coumadin*] 1 tab PO BEDTIME 03/01/21 Diet: Regular Activity: Ad tramaine Followup: Caty Urbano FNP BC [ALLIED HEALTH PROFESSIONAL] - 1 Week Time spent managing pt's care (in minutes): 30
[2021-03-02 14:45] LABS: Protime INR 3.07
[2021-03-02 17:20] VITALS: BP 151/68; TEMP 98.3
[2021-03-02 17:21] VITALS: O2SAT 94
== END 2021-03-02 18:15 | disposition home health service (06) | DRG 203 ==
LOC: ER 19:30 → ERHOLD 03-01 01:44 → 2ND 03-01 02:36
PROVIDERS: ADMIT Internal Medicine; ATTEND Internal Medicine
DX: J20.5 Acute bronchitis due to respiratory syncytial virus (principal); E87.6 Hypokalemia; G30.9 Alzheimer's disease, unspecified; F02.80 Dementia in other diseases classified elsewhere, unspecified severity, without behavioral disturbance, psychotic disturbance, mood disturbance, and anxiety; F17.210 Nicotine dependence, cigarettes, uncomplicated; S70.00XA Contusion of unspecified hip, initial encounter; S40.021A Contusion of right upper arm, initial encounter; W18.30XA Fall on same level, unspecified, initial encounter; Z96.651 Presence of right artificial knee joint; Z95.2 Presence of prosthetic heart valve; Z86.73 Personal history of transient ischemic attack (TIA), and cerebral infarction without residual deficits; Z79.01 Long term (current) use of anticoagulants; Z79.899 Other long term (current) drug therapy; Z90.49 Acquired absence of other specified parts of digestive tract; Z20.822 Contact with and (suspected) exposure to COVID-19
CPT/HCPCS: 0241U; 36415; 70450; 71045; 71250; 72125; 80048; 80076; 81003; 83690; 83735; 83880; 84132; 84484; 85025; 85610; 87040; 87086; 87088; 93005; 97110; 97161; 99285; J0456; J1940; J7030; J7050; J7799

== ENCOUNTER 2021-06-14 22:58 | Emergency (ER) | payer OTHER ==
--- OUTSIDE RECORDS SUMMARY | 2021-06-14 23:03 | XMS REPORT | Continuity of Care Document ---
:1945 Author Organization [facility] t Address [address] [place] [address] Care Team Providers Name Role Phone PCP, PATIENT DOES NOT HAVE A Primary Care Physician Unavailgwen Stinson PA-C Attending Clinician AISLINN Attending Clinician Unavailable Doctor Unassigned, Name Attending Clinician Unavailable Doc Guevara Attending Clinician Unavailable Meryl Attending Clinician Unavailable Michelle Attending Clinician Unavailable MK Attending Clinician Unavailable MD LEANDER CASTRO Attending Clinician Unavailab carla MORSE Attending Clinician Unavailable SUSANNAH Attending Clinician Unavailable PRABHU Attending Clinician Unavailable KANDY Attending Clinician Unavailable JOSSELIN Attending Clinician Unavailable Doc Guevara Admitting Clinician Unavailable Meryl Admitting Clinician Unavailable Physician, Primary or Family Admitting Clinician Unavailperla CASTRO Admitting Clinician Unavailable MD LEANDER CASTRO Admitting Clinician Unavailab le Payers Payer Name Policy Type Policy Number Effective Date Expiration Date S butch [employer] [id number] 2021 MEDICARE ADVANTAGE 00:00:00 PLAN [employer] [id number] (MEDICARE 00:00:00 REPLACEMENT HMO) Problems Condition Condition Condition Status Onset Resolution Last Treating Co mments Source Name Details Category Date Date Treatment Clinician Date Hand Hand Disease Active Univers weakness weakness 9-10 ity of 00:00: [place] 00 [facility] Branch Edema Edema Disease Active Univers extremitie extremitie 9-10 it y of s s 00:00: [place] [facility] Shoulder Shoulder Disease Active Unive rs stiffness stiffness 9-10 ity of 00:00: [place] [facility] Closed Closed Disease Active Univers fracture fracture 4-04 ity of of head of [place] radius radius 00 [place] Closed Closed Disease Active Univers fracture fracture 4-04 ity of of of 00:00: [place] coronoid coronoid 00 Medica l process of process of Br anch ulna ulna History of History of Disease Active U nivers elbow elbow 4-04 ity of surgery surgery 00:00: [place] 00 Medical Branch History of History of Problem Resolve Univers [facility] d [facility] History of [...] Problem Active Univers lesion lesion ity of [place] [facility] Follow up Follow up Problem Active Uni vers [facility] of [place] [facility] Left wrist Left wrist Problem Active U nivers pain pain ity of [place] [facility] Other Other Problem Active Univers [...] Date Clinician No Known DA Active U 2020-03 [facility] [place] 00:[facility]: [address] No Known DA Active U [facility] 9[facility]12 Clear s 00:00: [address] No Known DA Active [facility] Patient [facility] NO KNOWN Drug Active Univers ALLERGIE Class ity of S [facility] Family History Family Member Diagnosis Comments Start Date Stop Date Source Unknown Family Family history of Family History University of Member diabetes mellitus [place] [facility] Unknown Family Family history of Family History University of Member hypertension [place] [facility] Social History Social Habit Start Date Stop Date Quantity Comments Source Exposure to Not sure [facility] SARS-CoV-2 [place] [facility] (event) Branch Tobacco use and 2021-03-21 2021-03-21 Never used Universit y of exposure 00:00:00 00:00:00 [facility] Alcohol intake 2021-03-21 2021-03-21 Current University 00:00:00 00:00:00 non-drinker of [facility] alcohol [place] (finding) Sex Ass[birth year] Universit y of 00:00:00 00:00:00 [facility] Smoking Status Start Date Stop Date Source Occasional tobacco smoker [facility] (finding) Physicians Unknown if ever smoked [facility] Current every day smoker 2011-07-26 00:00:00 Uni versity [facility] Medications Ordered Filled Start Stop Current Ordering Indication Dosage Frequency Signature Comments Components Source Medication Medication Date Date Medication? Clinician (SIG) Name Name Clobetasol Clobetasol 2018-03 Yes COMFORT Apply Univers Propionate Propionate 2-06 UGHANZE twice ity of 0.05 % 0.05 % 00:00: M.D. daily to [facility] External 00 affected Phy sici Cream Cream areas for ans one month. Then apply daily for one month. Fluconazole Fluconazole 2018-03 Yes COMFORT 1 tablet Univers 150 MG Oral 150 MG Oral 0-14 UGHANZE today, 2nd ity of Tablet Tablet 00:00: M.D. tablet in [facility] s 00 3 days Physici ans SERTRALINE Yes Take by Uni vers HCL (ZOLOFT 5-11 mouth. ity of ORAL) 11:23: [address] PANTOPRAZOL Yes Take by Un ana E SODIUM 5-11 mouth. ity of (PROTONIX 11:23: [place] ORAL) [address] [place] [address] WARFARIN Yes Take by Unive rs SODIUM 5-11 mouth. ity of (COUMADIN 11:23: [place] ORAL) [address] [place] [address] FUROSEMIDE Yes Take by Uni vers (LASIX 5-11 mouth. ity of ORAL) 11:23: [address] POTASSIUM Yes Take by Univ ers ORAL 5-11 mouth. ity of 11:23: [address] TEMAZEPAM Yes Take by Univ ers (RESTORIL 5-11 mouth. ity of ORAL) 11:23: [address] SERTRALINE Yes Take by Uni vers HCL (ZOLOFT 5-11 mouth. ity of ORAL) 11:23: [address] PANTOPRAZOL Yes Take by Un ana E SODIUM 5-11 mouth. ity of (PROTONIX 11:23: [place] ORAL) [address] [place] [address] WARFARIN Yes Take by Unive rs SODIUM 5-11 mouth. ity of (COUMADIN 11:23: [place] ORAL) [address] [place] [address] FUROSEMIDE Yes Take by Uni vers (LASIX 5-11 mouth. ity of ORAL) 11:23: [address] POTASSIUM Yes Take by Univ ers ORAL 5-11 mouth. ity of 11:23: [address] TEMAZEPAM Yes Take by Univ ers (RESTORIL 5-11 mouth. ity of ORAL) 11:23: [address] SERTRALINE Yes Take by Uni vers HCL (ZOLOFT 5-11 mouth. ity of ORAL) 11:23: [address] PANTOPRAZOL Yes Take by Un ana E SODIUM 5-11 mouth. ity of (PROTONIX 11:23: [place] ORAL) [address] [place] [address] WARFARIN Yes Take by Unive rs SODIUM 5-11 mouth. ity of (COUMADIN 11:23: [place] ORAL) [address] [place] [address] FUROSEMIDE Yes Take by Uni vers (LASIX 5-11 mouth. ity of ORAL) 11:23: [address] POTASSIUM Yes Take by Univ ers ORAL 5-11 mouth. ity of 11:23: [address] TEMAZEPAM Yes Take by Univ ers (RESTORIL 5-11 mouth. ity of ORAL) 11:23: [address] hydrocodone Yes 1{tbl} Take 1-2 Univers -acetaminop 5-11 Tabs by ity o f hen (NORCO) 00:00: mouth [place] 5-325 mg 00 every 6 Medical tablet (six) Branch hours as needed for Pain. hydrocodone Yes 1{tbl} Take 1-2 Univers -acetaminop 5-11 Tabs by ity o f hen (NORCO) 00:00: mouth [place] 5-325 mg 00 every 6 Medical tablet (six) Branch hours as needed for Pain. hydrocodone Yes 1{tbl} Take 1-2 Univers -acetaminop 5-11 Tabs by ity o f hen (NORCO) 00:00: mouth [place] 5-325 mg 00 every 6 Medical tablet (six) Branch hours as needed for Pain. Coumadin Coumadin Yes Univers TABS TABS ity of [place] Physici ans Lasix TABS Lasix TABS Yes Uni vers ity of [place] Physici ans Protonix 40 Protonix 40 Yes U nivers MG Oral MG Oral ity of Packet Packet [place] [facility] ans Atorvastati Atorvastati Yes U nivers n Calcium n Calcium ity o f TABS TABS [place] Physici ans Zoloft 100 Zoloft 100 Yes Uni vers MG Oral MG Oral ity of Tablet Tablet [place] Physici ans Temazepam Temazepam Yes Unive rs CAPS CAPS ity of [place] Physici ans Vital Signs Vital Name Observation Time Observation Value Comments Source Systolic blood 2021-03-21 136 mm[Hg] [facility] pressure 20:41:00 [facility] Diastolic blood 2021-03-21 64 mm[Hg] [place] o pressure 20:41:00 [facility] Heart rate 2021-03-21 69 /min [facility] 20:41:00 [facility] Body height 2021-03-21 157.5 cm [facility] 20:41:00 [facility] Body weight 2021-03-21 50.803 kg [facility] 20:41:00 [facility] BMI 2021-03-21 20.49 kg/m2 [facility] 20:41:00 [facility] Oxygen saturation 2021-03-21 94 /min [facility] Arterial blood 20:41:00 [facility] by Pulse oximetry Branch BP Systolic 2019-02-22 118 mm[Hg] Location: [facility] 13:19:00 Position: [place] Physician s Sitting BP Diastolic 2019-02-22 74 mm[Hg] Location: JOSSE; [facility] 13:19:00 Position: [place] Physician s Sitting Height 2019-02-22 62 [in_us] [facility] 13:19:00 [place] [facility] s Weight 2019-02-22 116 [lb_av] University 13:19:00 [place] [facility] s Body Mass Index 2019-02-22 21.22 kg/m2 University o f Calculated 13:19:00 [place] [facility] s BP Systolic 2019-02-01 120 mm[Hg] Location: PATI; [facility] 13:38:00 Position: [place] Physician s Sitting BP Diastolic 2019-02-01 70 mm[Hg] Location: JOSSE; [facility] 13:38:00 Position: [place] Physician s Sitting Height 2019-02-01 62 [in_us] [facility] 13:38:00 [place] Phys[facility] s Weight 2019-02-01 118 [lb_av] [facility] 13:38:00 [place] Phys[facility] s Body Mass Index 2019-02-01 21.58 kg/m2 University o f Calculated 13:38:00 [place] [facility] s BP Systolic 2018-12-31 112 mm[Hg[facility] Position: [place] [facility] Sitting BP Diastolic 2018-12-31 68 mm[Hg] [place] [facility] [place] [facility] 09:36:00 Position: [place] Physician s Sitting Height 2018-12-31 62 [in_us] [facility] 09:36:00 [place] [facility] s Weight 2018-12-31 118 [lb_av] [facility] 09:36:00 [place] [facility] s Body Mass Index 2018-12-31 21.58 kg/m2 University o f Calculated 09:36:00 [place] Physician s Procedures Procedure Date / Time Performing Clinician Source Performed XR FOOT 3+ VW RIGHT 2021-03-21 21:08:00 Stella Stinson [facility] ASSIGNMENT OF BENEFITS 2021-03-21 20:29:02 Doctor Unassigned, No [facility] Name [facility] Branch [U] XRAY WRIST MIN 3 2019-06-03 00:00:00 [facility] VWS LEFT [id number] Physicians [U] XRAY WRIST MIN 3 2019-04-22 00:00:00 Univers ity of [place] VWS LEFT 80711 Physicians [U] XRAY WRIST MIN 3 2019-04-16 00:00:00 Univers ity of [place] VWS LEFT 20932 Physicians [U] XRAY WRIST MIN 3 2019-04-08 00:00:00 Univers ity of [place] VWS LEFT 13696 Physicians [U] XRAY WRIST MIN 3 2019-04-04 00:00:00 Univers ity of [place] VWS LEFT 35574 Physicians . [facility] 2019-02-01 00:00:00 Universi ty [facility] Biopsy Physicians History of Hysterectomy Universi [facility] Physicians History of University o f [place] section Physicians History of Heart valve [facility] replacement Physicians History of Gallbladder [facility] surgery Physicians History of Breast University [facility] biopsy Physicians History of Knee surgery [facility] Physicians Encounters Start End Encounter Admission Attending Care Care Encounter Source Date/Time Date/Time Type Type Clinicians Facility Department ID 2021-03-21 2021-03-21 [facility] [id number] Univers 14:51:10 23:59:00 Encounter [employer] [id number] ity of [place] [id number] Abdiel as ROYAL?BLEA [id number] [facility] [address] MEDICAL OFFICE BUILDING 2021-03-21 2021-03-21 Outpatient [facility] [id number] Univers 14:40:00 16:00:22 [facility] 2021-03-21 2021-03-21 Urgent [facility] [id number] Univers 14:40:00 15:00:00 Care [employer] [id number] it y of [place] 4.2.7.2.686 Abdiel as ROYAL?BLEA [id number] [facility] [address] MEDICAL OFFICE BUILDING 2021-03-21 2021-03-21 Orders Doctor MYERS [id number] Univers 00:00:00 00:00:00 Only Unassigned, DAYANA [id number] ity of [place] [facility] [id number] Abdiel as [id number] [facility] 009 Branch 2021-03-08 2021-03-09 Inpatient IVTALY Guevara [facility] TELE [id number] [facility] 06:21:00 12:08:00 Brian [id number] [facility] 2021-03-08 2021-03-09 Inpatient VITALY Guevara [facility] TELE [id number] [facility] 06:21:00 12:08:00 Brian German [facility] 2020-11-05 2020-11-05 [place] [id number] [facility] 08:01:00 08:01:00 0819 Medica l Group 2020-10-29 2020-10-29 Outpatient [facility] [id number] [facility] [address] 10:00:00 10:00:00 -[id number] [facility] 2020-10-21 2020-10-21 Outpatient DMG DMG [id number] [facility] 11:00:00 11:00:00 0804 Medica l Group 2020-10-16 2020-10-16 Outpatient DMG DMG [id number] [facility] 08:01:00 08:01:00 0730 Medica l Group 2020-10-07 2020-10-12 Inpatient EM Veto HCACL INTE.02 [id number] [facility] 01:52:00 18:56:00 an, 91 [facility] 2020-10-07 2020-10-12 Inpatient EM Veto HCACL INTE.02 G421 [id number] [facility] 01:52:00 18:56:00 an, [id number] [facility] 2020-10-06 2020-10-06 Emergency EM Michelle, HCACL MARCO [id number] [facility] 21:09:00 21:09:00 Wilbur [id number] [facility] 2020-10-01 2020-10-01 Outpatient EL Veto HCACL PRAD [id number] [facility] 09:00:00 23:00:00 an, [id number] [facility] 2020-08-30 2020-08-31 Outpatient STEWART TERRAZAS [facility] [id number] [place] 00:00:00 00:00:[address] 2020-06-10 2020-06-10 Outpatient MORSE, [facility] [id number] 476 [place] 00:00:00 00:00:00 EVELYN [address] 2020-06-05 2020-06-05 Outpatient MORSE, [facility] [id number] 476 [place] 00:00:00 00:00:00 EVELYN [address] 2020-06-03 2020-06-03 Outpatient MORSE, [facility] H [id number] 476 [place] 00:00:00 00:00:00 EVELYN [address] 2020-05-29 2020-05-29 Outpatient MORSE, [facility] [id number] 475 [place] 00:00:00 00:00:00 EVELYN [address] 2020-05-29 2020-05-29 Outpatient ROBBEN, H H [id number] 423 [place] 00:00:00 00:00:00 SHANIA 297 Ca thodi 2020-05-08 2020-05-08 Outpatient MORSE, [facility] H [id number] 150 [place] 00:00:00 00:00:00 EVELYN 822 Method i 2020-05-08 2020-05-08 Outpatient HMH H [id number] [place] 00:00:00 00:00:[address] 2020-05-07 2020-05-07 Outpatient MORSE, H H [id number] 376 [place] 00:00:00 00:00:00 EVELYN [address] 2020-05-07 2020-05-07 Outpatient MORSE, [facility] H [id number] 342 [place] 00:00:00 00:00:00 EVELYN [address] 2020-05-01 2020-05-01 Outpatient MORSE, [facility] [id number] 150 [place] 00:00:00 00:00:00 EVELYN [address] 2020-04-24 2020-04-24 Outpatient MORSE, [facility] [id number] 150 [place] 00:00:00 00:00:00 EVELYN 803 Method i 2020-04-16 2020-04-16 [id number] [place] 00:00:00 00:00:00 EVELYN 739 Method i 2020-04-10 2020-04-10 Outpatient MORSE, [facility] [id number] 150 [place] 00:00:00 00:00:00 EVELYN 618 [facility] i 2020-04-08 2020-04-08 Outpatient MORSE, [facility] [id number] 150 [place] 00:00:00 00:00:00 EVELYN 608 Method i 2020-04-03 2020-04-03 Outpatient MORSE, [facility] [id number] 575 [place] 00:00:00 00:00:00 EVELYN 760 Method i 2020-03-26 2020-03-26 Outpatient MORSE, [facility] [id number] 562 [place] 00:00:00 00:00:00 EVELYN 415 Method i 2020-03-26 2020-03-26 Outpatient PRABHU, [facility] [id number] [place] 00:00:00 00:00:00 COLE 003 Method i 2019-06-04 2019-06-04 AppointROSY [facility] [id number] [facility] 09:00:00 09:00:00 t; [facility] Luz PAPPAS M.D. [facility] 2019-05-14 2019-05-[facility] ROSY [facility]ITAN [facility] [id number] Univers 09:30:00 09:30:00 t; Eliecer PAPPAS M.D. [place] Lizzie PAPPAS M.D. [facility] 2019-04-23 2019-04-23 ROSY [facility] [id number] [facility] 09:45:00 09:45:00 t; omid [facility] Luz PAPPAS M.D. [facility] 2019-04-16 2019-04-16 ROSY [facility] [id number] [facility] 09:30:00 09:30:00 t; omid PAPPAS [facility] milan GAITAN M.D. [facility] Luz PAPAPS M.D. [facility] 2019-04-11 2019-04-11 AppointROSY Matthew [facility] [id number] Univers 12:30:00 12:30:00 t; Elieecr PAPPAS M.D. [place] Lizzie PAPPAS M.D. [facility] 2019-04-09 2019-04-09 Appointlorene GAITAN [facility] Orthopedics [id number] Univers 10:00:00 10:00:00 t; omid PAPPAS [facility] milan GAITAN M.D. [facility] Luz Samuel M.D. [facility] 2019-04-04 2019-04-04 App[facility]lorene [facility] [id number] Univers 08:45:00 08:45:00 t; MIAN [facility] Loren GAITAN [facility] Lizzie Pimentel [facility] 2019-02-22 2019-02-22 [facility] [id number] Univers 13:15:00 13:15:00 t; Jenise IRENE Adali M.D. [facility] Lizzie IRENE M.D. [facility] 2019-02-01 2019-02-01 [facility] [id number] Univers 13:30:00 13:30:00 t; Jenise IRENE M.D. [facility] Lizzie IRENE M.D. [facility] 2018-12-31 2018-12-31 [facility] [id number] Univers 09:30:00 09:30:00 t; Jenise IRENE M.D. [facility] Lizzie IRENE M.D. [facility] Results Test Description Test Time Test Comments Results Result Comments Source CBC W/AUTO DIFF 2021-03-09 11:23:00 Test Item Value Reference Range Interpretation Comme nts WHITE BLOOD CELL (test code = WBC) 7.0 K/MM3 3.8-9.8 N RED BLOOD CELL (test code = RBC) 3.68 M/MM3 3.58-4.97 N HEMOGLOBIN (test code = HGB) 9.5 G/DL 11.2-14.9 L HEMATOCRIT (test code = HCT) 32.1 % 33.2-43.5 L MEAN CELL VOLUME (test code = MCV) 87 fL 80.7-99.1 N MEAN CELL HGB (test code = MCH) 25.8 pg 27.0-34.1 L MEAN CELL HGB CONCETRATION (test code = MCHC) 29.6 % 32.2-35. 7 L RED CELL DISTRIBUTION WIDTH (test code = RDW) 23.6 % 12.1-15. 2 H PLATELET COUNT (test code = PLT) 153 K/MM3 129-368 N MEAN PLATELET VOLUME (test code = MPV) 11.5 fl 7.4-10.4 H NEUTROPHIL % (test code = NT%) 73.2 % 43-75 N IMMATURE GRANULOCYTE % (test code = IG%) 0.4 % 0.0-2.0 N LYMPHOCYTE % (test code = LY%) 14.8 % 14-44 N MONOCYTE % (test code = MO%) 11.6 % 4-13 N EOSINOPHIL % (test code = EO%) 0.0 % 0-6 N BASOPHIL % (test code = BA%) 0 % 0-2 N NUCLEATED RBC % (test code = NRBC%) 0.0 % 0-1.0 N NEUTROPHIL # (test code = NT#) 5.15 K/mm3 2.0-7.6 N IMMATURE GRANULOCYTE # (test code = IG#) 0.03 x10 3/uL 0-0.03 N LYMPHOCYTE # (test code = LY#) 1.04 K/mm3 1.0-3.8 N MONOCYTE # (test code = MO#) 0.82 K/mm3 0.1-0.8 H EOSINOPHIL # (test code = EO#) 0.00 K/mm3 0.0-0.2 N BASOPHIL # (test code = BA#) 0 K/mm3 0.0-0.2 N NUCLEATED RBC # (test code = NRBC#) 0.00 K/mm3 0.0-0.1 N DIFFERENTIAL [id number] 11:23:00 Test Item Value Reference Range Interpretation Comments RBC MORPHOLOGY REQUIRED (test NORMAL code = RBCM) PLATELET ESTIMATE (test code = ADEQUATE ADEQUATE PLTEST) PLATELET MORPHOLOGY (test code FEW LARGE PLTS NORMAL = PLTMORPH) POIKILOCYTOSIS (test code = FEW NONE POIK) ANISOCYTOSIS (test code = SLIGHT NONE ANISO) MACROCYTOSIS (test code = FEW NONE MACR) BASIC METABOLIC [id number] 07:05:00 Test Item Value Reference Range Interpretation Comments SODIUM (test code = 142 MMOL/L 137-145 N NA) POTASSIUM (test code = 3.7 MMOL/L 3.5-5.1 N K) CHLORIDE (test code = 113 MMOL/L 98-107 H CL) CARBON DIOXIDE (test 22 MMOL/L 22-30 N code = CO2) ANION GAP (test code = 11 MMOL/L 14-24 L GAP) GLUCOSE (test code = 110 MG/DL 74-106 H GLU) BLOOD UREA NITROGEN 21 MG/DL 7-17 H (test code = BUN) GLOMERULAR FILTRATION 48 Report ing units: RATE (test code = GFR) ml/mi n/1.73 m2 (Modified MDRD Formula)Referen ce Range: > or = 6 0 ml/min/1.73 m2 CREATININE (test code 1.10 MG/DL 0.52-1.04 H = CREAT) CALCIUM (test code = 8.7 MG/DL 8.4-10.2 N CA) PROTHROMBIN [id number] 06:07:00 Test Item Value Reference Range Interpretation Comments PROTHROMBIN TIME 19.5 SECONDS 9.5-12.7 H PATIENT (test code = PTP) INTERNATIONAL NORMAL 1.7 0.86-1.14 H The INR is to be RATIO (test code = used only for INR) monitoring oral anticoagulantth erap y. INDICATION I NR VALUE ---- ---- ---- -------1. Prophylaxis, de ep venous thrombos is, including hig h risk surgery. 2.0 - 3.0 2. Prophylaxis, de ep venous thrombos is, hip surgery, treatment for d eep venous thrombosis or pulmonary prevention of systemic emboli sm in patients wit h valvular heart disease, atrial fibrillation, tissue heart va lve, or acute myocar dial infarction. 2.0 - 3 .0 3. Mechanical prosthesis hear t valves, recurrent syste dallin embolism. 3.0 - 4.5 CBC W/AUTO [id number] 09:39:00 Test Item Value Reference Range Interpretation Comments WHITE BLOOD CELL (test code = 7.0 K/MM3 3.8-9.8 N WBC) RED BLOOD CELL (test code = 4.30 M/MM3 3.58-4.97 N RBC) HEMOGLOBIN (test code = HGB) 11.2 G/DL 11.2-14.9 N HEMATOCRIT (test code = HCT) 36.9 % 33.2-43.5 N MEAN CELL VOLUME (test code = 86 fL 80.7-99.1 N MCV) MEAN CELL HGB (test code = MCH) 26.0 pg 27.0-34.1 L MEAN CELL HGB CONCETRATION 30.4 % 32.2-35.7 L (test code = MCHC) RED CELL DISTRIBUTION WIDTH 23.4 % 12.1-15.2 H (test code = RDW) PLATELET COUNT (test code = 187 K/MM3 129-368 N PLT) MEAN PLATELET VOLUME (test code 11.4 fl 7.4-10.4 H = MPV) NEUTROPHIL % (test code = NT%) 64.5 % 43-75 N IMMATURE GRANULOCYTE % (test 0.3 % 0.0-2.0 N code = IG%) LYMPHOCYTE % (test code = LY%) 23.1 % 14-44 N MONOCYTE % (test code = MO%) 9.8 % 4-13 N EOSINOPHIL % (test code = EO%) 2.0 % 0-6 N BASOPHIL % (test code = BA%) 0.3 % 0-2 N NUCLEATED RBC % (test code = 0.0 % 0-1.0 N NRBC%) NEUTROPHIL # (test code = NT#) 4.50 K/mm3 2.0-7.6 N IMMATURE GRANULOCYTE # (test 0.02 x10 3/uL 0-0.03 N code = IG#) LYMPHOCYTE # (test code = LY#) 1.61 K/mm3 1.0-3.8 N MONOCYTE # (test code = MO#) 0.68 K/mm3 0.1-0.8 N EOSINOPHIL # (test code = EO#) 0.14 K/mm3 0.0-0.2 N BASOPHIL # (test code = BA#) 0.02 K/mm3 0.0-0.2 N NUCLEATED RBC # (test code = 0.00 K/mm3 0.0-0.1 N NRBC#) DIFFERENTIAL [id number] 09:39:00 Test Item Value Reference Range Interpretation Comments RBC MORPHOLOGY REQUIRED (test code = ABNORMAL RBCM) PLATELET ESTIMATE (test code = ADEQUATE ADEQUATE PLTEST) PLATELET MORPHOLOGY (test code = NORMAL NORMAL PLTMORPH) POIKILOCYTOSIS (test code = POIK) FEW NONE ANISOCYTOSIS (test code = ANISO) MODERATE NONE OVALOCYTES (test code = OVAL) FEW NONE PROTHROMBIN [id number] 07:42:00 Test Item Value Reference Range Interpretation Comments PROTHROMBIN TIME 20.0 SECONDS 9.5-12.7 H PATIENT (test code = PTP) INTERNATIONAL NORMAL 1.8 0.86-1.14 H The INR is to be RATIO (test code = used only for INR) monitoring oral anticoagulantth erap y. INDICATION I NR VALUE ---- ---- ---- -------1. Prophylaxis, de ep venous thrombos is, including hig h risk surgery. 2.0 - 3.0 2. Prophylaxis, de ep venous thrombos is, hip surgery, treatment for d eep venous thrombosis or pulmonary prevention of systemic emboli sm in patients wit h valvular heart disease, atrial fibrillation, tissue heart va lve, or acute myocar dial infarction. 2.0 - 3 .0 3. Mechanical prosthesis hear t valves, recurrent syste dallin embolism. 3.0 - 4.5 PTT [id number] 07:42:00 Test Item Value Reference Range Interpretation Comments PTT ACTIVATED (test code = APTT) 48.5 SECONDS 25.1-36.5 H BASIC METABOLIC [id number] 07:38:00 Test Item Value Reference Range Interpretation Comments SODIUM (test code = 145 MMOL/L 137-145 N NA) POTASSIUM (test code = 4.8 MMOL/L 3.5-5.1 N K) CHLORIDE (test code = 108 MMOL/L 98-107 H CL) CARBON DIOXIDE (test 31 MMOL/L 22-30 H code = CO2) GLUCOSE (test code = 152 MG/DL 74-106 H GLU) BLOOD UREA NITROGEN 24 MG/DL 7-17 H (test code = BUN) GLOMERULAR FILTRATION 40 Report ing units: RATE (test code = GFR) ml/mi n/1.73 m2 (Modified MDRD Formula)Referen ce Range: > or = 6 0 ml/min/1.73 m2 CREATININE (test code 1.30 MG/DL 0.52-1.04 H = CREAT) CALCIUM (test code = 9.8 MG/DL 8.4-10.2 N CA) [id number] 07:38:00 Test Item Value Reference Range Interpretation Comments MAGNESIUM (test code = MAG) 2.0 MG/DL 1.6-2.3 N COVID 19 Asymptomatic IH [id number] 12:27:00 Test Item Value Reference Range Interpretation Comments COVID 19 NEGATIVE Negative "Negative resul ts from Asymptomatic IH AG patients with symptom (test code = onset beyondfiv e days, COVNONPUIAG) should be bayron doni as presumptive, andconfirmation with a molecular assay , if necessary forpa tient management may be performed. Nega tive results do notr ule out COVID-19 and sh ould not be used as the sole basisfor treatm ent or patient managem ent decisions, includinginfect ion control decisio ns. Negative result s should beconsidered in the context of a pa tients recent exposure s,history, and the presenc e of clinical signs and symptomsconsist ent with COVID-19.This t est detects both vi able andnon-viable S ARS-CoV and SARS CoV-2. Test performance dep endson the amount of virus (antigen) in the sample." PROTHROMBIN [id number] 06:55:00 Test Item Value Reference Range Interpretation Comments PROTHROMBIN TIME 47.2 SECONDS 9.3-12.9 H PATIENT (test code = PTP) INTERNATIONAL NORMAL 4.2 0.8-1.2 H TARGET RATIO (test code = INR BY IN DICATION INR) Indication INR1. Prophyl axis of venous thrombos is 2.0 - 3. 0 (orthopedic leatha lucio), Prophylaxis of venous thrombos is (other than hig h-risk surgery), Bayron tment of Deep Vein Thrombosis/Pulm onary Embolism, [...] (t o prevent recurre nt infarct). PROTHROMBIN [id number] 05:34:00 Test Item Value Reference Range Interpretation Comments PROTHROMBIN TIME 42.9 SECONDS 9.3-12.9 H PATIENT (test code = PTP) INTERNATIONAL NORMAL 3.8 0.8-1.2 H TARGET RATIO (test code = INR BY IN DICATION INR) Indication INR1. Prophyl axis of venous thrombos is 2.0 - 3. 0 (orthopedic leatha lucio), Prophylaxis of venous thrombos is (other than hig h-risk surgery), Bayron tment of Deep Vein Thrombosis/Pulm onary Embolism, [...] (t o prevent recurre nt infarct). PROTHROMBIN [id number] 05:40:00 Test Item Value Reference Range Interpretation Comments PROTHROMBIN TIME 32.7 SECONDS 9.3-12.9 H PATIENT (test code = PTP) INTERNATIONAL NORMAL 2.9 0.8-1.2 H TARGET RATIO (test code = INR BY IN DICATION INR) Indication INR1. Prophyl axis of venous thrombos is 2.0 - 3. 0 (orthopedic leatha lucio), Prophylaxis of venous thrombos is (other than hig h-risk surgery), Bayron tment of Deep Vein Thrombosis/Pulm onary Embolism, [...] recurre nt infarct). - CT CHEST W/O [id number] 00:00:00 [facility] 1945 Sex: F Name: ROBBIN WILSON YONIS [facility] : 06/1945 Age/S: 75 / F [address] [place] [address] Blvd Unit #: [id number] Loc: [place] [address] Phys: Marquis Patel MD Acct: [id number] Dis Date: Status: ADM IN PHONE #: [phone] Exam Date: 10/10/20202024 FAX #: [phone]: PLEURAL EFFUSION EXAMS: CPT CODE: [id number] CT CHEST W/O CONTRAST 23439 PROCEDURE INFORMATION: Exam: CT Chest Without Contrast; [...] CHEST 1V 10/08/2020 9:08 AM FINDINGS: Lungs: Jrss-mc-qcihwxxn compressiveatelectasis is present in the posterior lower [...] 1 Signed Report (CONTINUED) Name: ROBBIN WILSON [facility] : 1945 Age/S: 75/ F [address] [place], [place] [address]vd Unit #: [id number] Loc: [place] [address] Phys: Marquis Patel MD Acct: [id number] Dis Date: Status: ADM IN PHONE #: [phone] Exam Date: 10/10/20202024 FAX #: [phone] Reason: PLEURAL EFFUSION EXAMS: CPT CODE: [id number] CT CHEST W/O CONTRAST 07763 <Continued> 2. Median sternotomy wires are present. Prosthetic aortic valve noted, with heavy thoracic aortic vascular calcification. Heart size appears mildly enlarged. There is moderate to heavy calcification of the left anterior descending coronary artery. 3. Cholecystectomy. at 2140 Reported and signed by: Niecy Segal M.D. CC: Lian Sheth MD; Marquis Patel MD Technologist:RT Annalisa(R)(CT) CTDI: DLP: Trnscb Date/Time: 10/10/2020 (2139) Thai Orig Print D/T: S: 10/10/2020 (2140) PAGE 2 Signed ReportPROTHROMBIN [id number] 04:53:00 Test Item Value Reference Range Interpretation Comments PROTHROMBIN TIME 26.1 SECONDS 9.3-12.9 H PATIENT (test code = PTP) INTERNATIONAL NORMAL 2.4 0.8-1.2 H TARGET RATIO (test code = INR BY IN DICATION INR) Indication INR1. Prophyl axis of venous thrombos is 2.0 - 3. 0 (orthopedic leatha lucio), Prophylaxis of venous thrombos is (other than hig h-risk surgery), Bayron tment of Deep Vein Thrombosis/Pulm onary Embolism, [...] HGBA1C%) 6.4 %A1C 4.8-6.0 H CBC W/AUTO [id number] 08:21:00 Test Item Value Reference Range Interpretation [...] (test code NO = MDIFF) BASIC METABOLIC [id number] 08:04:00 Test Item Value Reference Range Interpretation [...] CHOLESTEROL/HDL 3.76 RATIO 3.27-4.44 N RISK ASSOCIA DONI WITH RATIO (test code = CHOL/HDL RATIOS: [...] LDL 60.9 mg/dL 0-100 N <100 OPT [id number] (test code = LDL) NEAR OPTI MAL/ABOVE [id number] 89 HIGH>PS=971 VE RY HIGH*Guidelines provided by the National [facility] terol EducationProgra m Adult Treatment Panel III [id number] 08:04:00 Test Item Value Reference Range Interpretation Comments MAGNESIUM (test code = MAG) 2.10 mg/dL 1.80-2.40 PROTHROMBIN [id number] 06:14:00 Test Item Value Reference Range Interpretation Comments PROTHROMBIN TIME 32.2 SECONDS 9.3-12.9 H PATIENT (test code = PTP) INTERNATIONAL NORMAL 2.9 0.8-1.2 H TARGET RATIO (test code = INR BY IN DICATION INR) Indication INR1. Prophyl axis of venous thrombos is 2.0 - 3. 0 (orthopedic elatha lucio), Prophylaxis of venous thrombos is (other than hig h-risk surgery), Bayron tment of Deep Vein Thrombosis/Pulm onary Embolism, [...] recurre nt infarct). - XR CHEST 1 [id number] 00:00:00 [facility] : 1945 Sex: F FAX: Jessika Sheth [phone] Lerona: St: ADM Name: ROBBIN WILSON [facility] : 1945 Age/S: 75/F [address] [place] [address] Blvd Unit #: [id number] Loc: [address] [place] [address] Phys: Lian Carr MD Acct: [id number] Dis Date: Status: ADM IN PHONE #: [phone] Exam Date: 10/08/2020 0954 FAX #: [phone] Reason: HEAVY BREATHING EXAMS: CPT CODE: [id number] XR CHEST 1 V 23219 PROCEDURE INFORMATION: Exam: XR Chest Exam date and time: 10/08/2020 9:08 AM Age: 75 years old Clinical indication: Condition or disease; Other: Heavy breathing TECHNIQUE: Imaging protocol: XR of [facility]. Views: 1 view. COMPARISON: CR XR CHEST [...] S: 10/08/2020 (1002) PAGE 1 Signed ReportPROTHROMBIN [id number] 15:18:00 Test Item Value Reference Range Interpretation Comments PROTHROMBIN TIME 37.6 SECONDS 9.3-12.9 H PATIENT (test code = PTP) INTERNATIONAL NORMAL 3.4 0.8-1.2 H TARGET RATIO (test code = INR BY IN DICATION INR) Indication INR1. Prophyl axis of venous thrombos is 2.0 - 3. 0 (orthopedic leatha lucio), Prophylaxis of venous thrombos is (other than hig h-risk surgery), Bayron tment of Deep Vein Thrombosis/Pulm onary Embolism, [...] recurre nt infarct). COMMENTS: INR X 10 [id number] 06:56:00 Test Item Value Reference Range Interpretation [...] titative results may nahed y by method. [id number] 04:52:00 Test Item Value Reference Range Interpretation [...] nahed y by method. POC ARTERIAL BLOOD [id number] 02:11:00 Test Item Value Reference Range Interpretation Comments POC ARTERIAL BLOOD GAS PH (test 7.430 7.35-7.45 N code = POCPHA) POC ARTERIAL BLOOD GAS PCO2 35.9 mmHg 35.0-45 N (test code = LPXEPE6T) POC TCO2 ARTERIAL (test code = 25.0 POCTCO2) POC ARTERIAL BLOOD GAS PO2 (test 71.2 mmHg 80-100.0 L code = EXMNN9M) POC HCO3 ARTERIAL (test code = 23.9 MMOL/L 22.0-26.0 N AJTJAT4A) POC BASE EXCESS (test code = -0.4 MMOL/L -4.0-4.0 N POCBEA) POC O2 SATURATION (test code = 94.7 % 90-100 N POCO2S) FIO2 (test code = FIO2A) 21 % PaO2/FiO2 (test code = NCO2RFY0) 339.04 mm/Hg ABG DELIVERY (test code = SU) Room Air ABG TEMPERATURE (test code = 98.6 F TEMPA) ABG SITE (test code = SITEA) R Radial JESSE'S TEST (test code = Positive ALLENS) BASIC METABOLIC [id number] 02:11:00 Test Item Value Reference Range Interpretation Comments SODIUM (test code = NA/ABG) MEQ/L 134-147 POTASSIUM (test code = K/ABG) MEQ/L 3.4-5.0 CHLORIDE (test code = CL/ABG) MEQ/L 100-108 CREATININE ABG (test code = CREAABG) mg/dL 0.6-1.0 POC IONIZED CALCIUM (test code = MMOL/L 1.12-1.32 POCCA) POC GLUCOSE (test code = POCGLU) MG/DL [id number] 02:11:00 Test Item Value Reference Range Interpretation Comments HEMOGLOBIN (test code = HGB/ABG) G/DL 11.0-15.0 [id number] 02:11:00 Test Item Value Reference Range Interpretation Comments HEMATOCRIT (test code = HCT/ABG) % 33.0-45.0 POC LACTIC [id number] 02:11:00 Test Item Value Reference Range Interpretation Comments POC LACTIC ACID (test code = POCLAC) mmol/l 0.9-1.7 POC ARTERIAL BLOOD [id number] 02:11:00 Test Item Value Reference Range Interpretation Comments POC ARTERIAL BLOOD GAS PH (test 7.430 7.35-7.45 N code = POCPHA) POC ARTERIAL BLOOD GAS PCO2 35.9 mmHg 35.0-45 N (test code = XWEJYB7Y) POC TCO2 ARTERIAL (test code = 25.0 POCTCO2) POC ARTERIAL BLOOD GAS PO2 (test 71.2 mmHg 80-100.0 L code = WPXMU0W) POC HCO3 ARTERIAL (test code = 23.9 MMOL/L 22.0-26.0 N WSJLOJ2D) POC BASE EXCESS (test code = -0.4 MMOL/L -4.0-4.0 N POCBEA) POC O2 SATURATION (test code = 94.7 % 90-100 N POCO2S) FIO2 (test code = FIO2A) 21 % PaO2/FiO2 (test code = OWJ8NVJ1) 339.04 mm/Hg ABG DELIVERY (test code = SU) Room Air ABG TEMPERATURE (test code = 98.6 F TEMPA) ABG SITE (test code = SITEA) R Radial JESSE'S TEST (test code = Positive ALLENS) BASIC METABOLIC [id number] 02:11:00 Test Item Value Reference Range Interpretation Comments SODIUM (test code = NA/ABG) MEQ/L 134-147 POTASSIUM (test code = K/ABG) MEQ/L 3.4-5.0 CHLORIDE (test code = CL/ABG) MEQ/L 100-108 CREATININE ABG (test code = CREAABG) mg/dL 0.6-1.0 POC IONIZED CALCIUM (test code = MMOL/L 1.12-1.32 POCCA) POC GLUCOSE (test code = POCGLU) MG/DL [id number] 02:11:00 Test Item Value Reference Range Interpretation Comments HEMOGLOBIN (test code = HGB/ABG) G/DL 11.0-15.0 [id number] 02:11:00 Test Item Value Reference Range Interpretation Comments HEMATOCRIT (test code = HCT/ABG) % 33.0-45.0 POC LACTIC [id number] 02:11:00 Test Item Value Reference Range Interpretation Comments POC LACTIC ACID (test code = 1.3 mmol/l 0.9-1.7 N POCLAC) POC ARTERIAL BLOOD [id number] 02:11:00 Test Item Value Reference Range Interpretation Comments POC ARTERIAL BLOOD GAS PH (test 7.430 7.35-7.45 N code = POCPHA) POC ARTERIAL BLOOD GAS PCO2 35.9 mmHg 35.0-45 N (test code = RLSEUK4W) POC TCO2 ARTERIAL (test code = 25.0 POCTCO2) POC ARTERIAL BLOOD GAS PO2 (test 71.2 mmHg 80-100.0 L code = YHAFT0S) POC HCO3 ARTERIAL (test code = 23.9 MMOL/L 22.0-26.0 N HXAPHT6X) POC BASE EXCESS (test code = -0.4 MMOL/L -4.0-4.0 N POCBEA) POC O2 SATURATION (test code = 94.7 % 90-100 N POCO2S) FIO2 (test code = FIO2A) 21 % PaO2/FiO2 (test code = CNR9PPL1) 339.04 mm/Hg ABG DELIVERY (test code = SU) Room Air ABG TEMPERATURE (test code = 98.6 F TEMPA) ABG SITE (test code = SITEA) R Radial JESSE'S TEST (test code = Positive ALLENS) BASIC METABOLIC [id number] 02:11:00 Test Item Value Reference Range Interpretation [...] GLUCOSE (test code = POCGLU) 174 MG/DL [id number] 02:11:00 Test Item Value Reference Range Interpretation Comments HEMOGLOBIN (test code = HGB/ABG) G/DL 11.0-15.0 [id number] 02:11:00 Test Item Value Reference Range Interpretation Comments HEMATOCRIT (test code = HCT/ABG) % 33.0-45.0 POC LACTIC [id number] 02:11:00 Test Item Value Reference Range Interpretation Comments POC LACTIC ACID (test code = 1.3 mmol/l 0.9-1.7 N POCLAC) POC ARTERIAL BLOOD [id number] 02:11:00 Test Item Value Reference Range Interpretation Comments POC ARTERIAL BLOOD GAS PH (test 7.430 7.35-7.45 N code = POCPHA) POC ARTERIAL BLOOD GAS PCO2 35.9 mmHg 35.0-45 N (test code = MJITMI5A) POC TCO2 ARTERIAL (test code = 25.0 POCTCO2) POC ARTERIAL BLOOD GAS PO2 (test 71.2 mmHg 80-100.0 L code = BZCKG3G) POC HCO3 ARTERIAL (test code = 23.9 MMOL/L 22.0-26.0 N USTMWH4V) POC BASE EXCESS (test code = -0.4 MMOL/L -4.0-4.0 N POCBEA) POC O2 SATURATION (test code = 94.7 % 90-100 N POCO2S) FIO2 (test code = FIO2A) 21 % PaO2/FiO2 (test code = GRZ5FGQ9) 339.04 mm/Hg ABG DELIVERY (test code = SU) Room Air ABG TEMPERATURE (test code = 98.6 F TEMPA) ABG SITE (test code = SITEA) R Radial JESSE'S TEST (test code = Positive ALLENS) BASIC METABOLIC [id number] 02:11:00 Test Item Value Reference Range Interpretation [...] GLUCOSE (test code = POCGLU) 174 MG/DL [id number] 02:11:00 Test Item Value Reference Range Interpretation Comments HEMOGLOBIN (test code = HGB/ABG) 11.9 G/DL 11.0-15.0 N [id number] 02:11:00 Test Item Value Reference Range Interpretation Comments HEMATOCRIT (test code = HCT/ABG) % 33.0-45.0 POC LACTIC [id number] 02:11:00 Test Item Value Reference Range Interpretation Comments POC LACTIC ACID (test code = 1.3 mmol/l 0.9-1.7 N POCLAC) POC ARTERIAL BLOOD [id number] 02:11:00 Test Item Value Reference Range Interpretation Comments POC ARTERIAL BLOOD GAS PH (test 7.430 7.35-7.45 N code = POCPHA) POC ARTERIAL BLOOD GAS PCO2 35.9 mmHg 35.0-45 N (test code = AUELQD7U) POC TCO2 ARTERIAL (test code = 25.0 POCTCO2) POC ARTERIAL BLOOD GAS PO2 (test 71.2 mmHg 80-100.0 L code = UPOJJ5E) POC HCO3 ARTERIAL (test code = 23.9 MMOL/L 22.0-26.0 N WJXCPR4U) POC BASE EXCESS (test code = -0.4 MMOL/L -4.0-4.0 N POCBEA) POC O2 SATURATION (test code = 94.7 % 90-100 N POCO2S) FIO2 (test code = FIO2A) 21 % PaO2/FiO2 (test code = EET9UOW6) 339.04 mm/Hg ABG DELIVERY (test code = SU) Room Air ABG TEMPERATURE (test code = 98.6 F TEMPA) ABG SITE (test code = SITEA) R Radial JESSE'S TEST (test code = Positive ALLENS) BASIC METABOLIC [id number] 02:11:00 Test Item Value Reference Range Interpretation [...] GLUCOSE (test code = POCGLU) 174 MG/DL [id number] 02:11:00 Test Item Value Reference Range Interpretation Comments HEMOGLOBIN (test code = HGB/ABG) 11.9 G/DL 11.0-15.0 N [id number] 02:11:00 Test Item Value Reference Range Interpretation Comments HEMATOCRIT (test code = HCT/ABG) 35 % 33.0-45.0 N POC LACTIC [id number] 02:11:00 Test Item Value Reference Range Interpretation Comments POC LACTIC ACID (test code = 1.3 mmol/l 0.9-1.7 N POCLAC) Coronavirus 2019 nCoV [id number] 00:44:00 Test Item Value Reference Range Interpretation Comments Coronavirus 2019 NEGATIVE Negative Negative re sults should be nCoV Bedside (test treated a s presumptive and, code = ifinconsistent with KNVRW40BSNRI) clinical signs and symptoms or necessaryfor patient management, michelle uld be tested with an alternativemole cular assay. Negative result s do not preclude JKBJ-WpM-6qvtef tion and should not be u sed as the sole basis forp atient management deci sions. Negative result s should beconsidered in the context of a patient's recent exposures,histo ry, presence of clinical sig ns and symptoms consis tentwith COVID-19. LIPOPROTEIN [id number] 00:27:00 Test Item Value Reference Range Interpretation Comments LIPOPROTEIN LDL 70.8 mg/dL 0-100 N <100 OPT KWWR475-968 (test code = LDL) NEAR OPTIM AL/ABOVE CBHURIZ091-634 VAQWZYZVEA390-0 89 HIGH>XO=558 VE RY HIGH*Guidelines provided by the National Cholesterol EducationProgra m Adult Treatment Panel III BASIC METABOLIC [id number] 00:27:00 Test Item Value Reference Range Interpretation [...] code = 9.1 mg/dL 8.0-10.5 N CA) [id number] 00:27:00 Test Item Value Reference Range Interpretation Comments LIPASE (test code = LIP) 92 U/L 13-57 H [id number] 00:27:00 Test Item Value Reference Range Interpretation Comments MAGNESIUM (test code = MAG) 1.71 mg/dL 1.80-2.40 L T4 [id number] 00:27:00 Test Item Value Reference Range Interpretation Comments T4 FREE (test code = T4F) 1.2 ng/dL 0.77-1.61 N TSH REFLEX TO [id number] 00:27:00 Test Item Value Reference Range Interpretation Comments TSH REFLEX TO FT4 (test code = 0.26 IU/mL 0.42-5.47 L TSHREFLEX) [id number] 00:27:00 Test Item Value Reference Range Interpretation [...] may nahed y by method. B-TYPE NATRIURETIC [id number] 00:07:00 Test Item Value Reference Range Interpretation Comments B-TYPE NATRIURETIC PEPTIDE (test 370.0 PG/ML 0-100 H code = BNP) BASIC METABOLIC [id number] 00:02:00 Test Item Value Reference Range Interpretation [...] code = 9.1 mg/dL 8.0-10.5 N CA) [id number] 00:02:00 Test Item Value Reference Range Interpretation Comments LIPASE (test code = LIP) 92 U/L 13-57 H [id number] 00:02:00 Test Item Value Reference Range Interpretation Comments MAGNESIUM (test code = MAG) 1.71 mg/dL 1.80-2.40 L T4 [id number] 00:02:00 Test Item Value Reference Range Interpretation Comments T4 FREE (test code = T4F) ng/dL 0.77-1.61 TSH REFLEX TO [id number] 00:02:00 Test Item Value Reference Range Interpretation Comments TSH REFLEX TO FT4 (test code = 0.26 IU/mL 0.42-5.47 L TSHREFLEX) [id number] 00:02:00 Test Item Value Reference Range Interpretation [...] results may nahed y by method. PROTHROMBIN [id number] 23:59:00 Test Item Value Reference Range Interpretation Comments PROTHROMBIN TIME 36.2 SECONDS 9.3-12.9 H PATIENT (test code = PTP) INTERNATIONAL NORMAL 3.2 0.8-1.2 H TARGET RATIO (test code = INR BY IN DICATION INR) Indication INR1. Prophyl axis of venous thrombos is 2.0 - 3. 0 (orthopedic leatha lucio), Prophylaxis of venous thrombos is (other than hig h-risk surgery), Bayron tment of Deep Vein Thrombosis/Pulm onary Embolism, [...] Infarction (t o prevent recurre nt infarct). [id number] 23:59:00 Test Item Value Reference Range Interpretation Comments D-DIMER (test 1711 ng/mlFEU See_Comment HH Critical resu lt called to code = JOSE ZAZUETA Tby DDIMER) [id number] at 23 59 10/06/20Nurse r ead back [...] this result as normal/abnormal . CBC W/AUTO [id number] 23:46:00 Test Item Value Reference Range Interpretation [...] NO = MDIFF) - XR CHEST 1 [id number] 00:00:00 [facility] : 1945 Sex: F FAX: Wilbur Martinez MD [phone] Ler[place]: NANO St: REG Name: ROBBIN WILSON [facility] : 1945 Age/S: 75/F [address] [place] [address] Unit #: [id number] Loc: [place] [address] Phys: Wilbur Martinez MD Acct: [id number] Dis Date: Status: REG ER PHONE #: [phone] Exam Date: 10/06/2020 2319 FAX #: [phone] Reason: SOB EXAMS: CPT CODE: [id number] XR CHEST 1 V 92060 PROCEDURE INFORMATION: Exam: XR Chest Exam date [...] 2. Suspected small right pleural effusion. at 0916 Reported and signed by: Agustin Radford M.D. CC: Wilbur Martinez MD Technologist: RT Eben(R) Trnscrd Date/Time/By: 10/06/2020 (8810) : By: [email or web address] Orig Print D/T: S: 10/06/2020 (0665) PAGE 1 Signed AqnauaAIZL-RbA-1 (COVID-19) RNA [Presence] in Respiratory specimen by ESTEFANI with probe [id number] 06:48:13 Test Item Value Reference Range Interpretation Comments SARS-CoV-2 (COVID-19) RNA Not detected Not-Detected [Presence] in Respiratory specimen by ESTEFANI with probe detection (test code = 99289-1) Whether patient is employed in a healthcare setting (test code = 26911-3) Whether the patient has symptoms related to condition of interest (test code = 47715-4) Patient was hospitalized because of this condition (test code = 05815-6) Whether the patient was admitted to intensive care unit (ICU) for condition of interest (test code = 56406-5) Whether patient resides in a congregate care setting (test code = 85582-1) [U] XRAY WRIST MIN 3 VWS LEFT [id number] 09:26:00Images acquired, not reported on this accession number.[facility][U] XRAY WRIST MIN 3 VWS LEFT [id number] 10:29:00Images acquired, not reported on this accession number.[facility][U] XRAY WRIST MIN 3 VWS LEFT [id number] 09:45:00Images acquired, not reported on this accession number. [facility][U] XRAY WRIST MIN 3 VWS LEFT [id number] 10:09:00Images acquired, not reported on this accession number.[facility][U] XRAY WRIST MIN 3 VWS LEFT [id number] 09:09:00Images acquired, not reported on this accession number.[facility] BREAST CYST ASPIRATION [id number] 11:28:13- BREAST CYST ASPIRATION LEFTULTRASOUND GUIDED ASPIRATION LEFT BREAST: 04/02/2019CLINICAL: Left Cyst A spiration. Comparison is made to exams dated 01/30/2019 mammogram and 11/25/2016 ultrasound - [facility]. An aspiration was performed for the palpable [...] stability. Claudia Barrett M.D. dm/:04/02/2019 11:28:13 Entry: beto Carrillo 04/04/2019 14:06:47Imaging Technologist: Lori Turner , [facility] sent: Short Term Follow UpBREAST ULTRASOUND BILATERAL 2019-03-06 09:31:08- BREAST ULTRASOUND BILATERALULTRASOUND OF BOTH BREASTS AND BOTH AXILLA: 03/06/2019CLINICAL: Dense breasts. Comparison is made to exams dated 01/30/2019 mammogram, 11/25/2016 ultrasound, and 10/11/2012 ultrasound - [facility] Real-time ultrasound of both breasts [...] performed.RIGHT BREAST: There is no evidence of malignancy.Camrela Davis M.D. ar/:03/06/2019 09:31:08 Food Technician: Maren Carlson , [facility] sent: BIRADS 4/5 Biopsy Ultrasound BI-RADS: 4a Suspicious abnormality - low suspicion for malignancy. [facility] - Surgical Biopsy 2019-02-01 00:00:00 Test Item Value Reference Range Interpretation Comments Case (test code = Click ImageLink button N Case) for report. Specimen 1 (test code Click ImageLink button N = Specimen 1) for report. [facility] PhysiciansSCR MAMM BILATERAL CEDRIC CAD [id number] 13:15:32 - SCR MAMM BILATERAL CEDRIC CAD DIGITALBILATERAL DIGITAL SCREENING MAMMOGRAM 3D/2D WITH CAD: 01/30/2019CLINICAL: Asymptomatic. Digital breast tomosynthesis was performed in addition to routine CC and MLO views. Current mammographic images were evaluated by either a [employer] M-Vu or a tado ImageChecker CAD (computer aided detection system). Comparison is made to exams dated 12/22/2017 mammogram, 10/28/2016 mammogram, 10/28/2015 mammogram, 10/14/2014 mammogram, and 10/11/2013 mammogram - [facility]-. The tissue of both breasts [...] annual screening mammography in one year. Marga ferro/[place]:01/30/2019 13:15:32 Entry: - 02/01/2019 14:26:53Imaging Technologist: Yon CHRISTINE, [facility] sent: BIRADS 1-2 Normal Mammogram BI-RADS: 2 Benign
[2021-06-15] MEDS ORDERED: DERMABOND SKIN ADHESIVE TOP ONE (00:05)
--- NOTE | 2021-06-15 00:11 | EDPHYS ---
Physician Documentation [facility] Name: Esha Barber Age: 75 yrs Sex: Female : 1945 Arrival Date: 06/14/2021 Time: 23:01 Bed 6 Private MD: ED Physician Harry Hogan HPI: 06/14 23:17 This 75 yrs old Unknown Female presents to ER via Ambulatory with complaints of Fall rn Injury - Hit head. 23:17 The patient or guardian reports pain, swelling, tenderness. The complaints affect the rn forehead. Onset: The symptoms/episode began/occurred just prior to arrival. Associated signs and symptoms: Loss of consciousness: This patient did not experience any loss of consciousness. Pertinent positives: headache, Pertinent negatives: the patient has not experienced a loss of conciousness, patient denies any alcohol consumption, biting tongue, dazed, double vision, incontinence, seizure, shortness of breath, vomiting. Severity of symptoms: At their worst the symptoms were mild, in the emergency department the symptoms have improved. The patient has not experienced similar symptoms in the past. The patient has been recently seen by a physician:. Pt reports in shower, fell and hit head, no LOC, reports knees aching but able to walk. Pt on coumadin but son states her INR had been elevated so cut in half and this week INR was actually low. Pt remembers all events. Reports mild neck pain. Denies rib or chest pain, no abd pain, no hip or pelvic pain, no ankle or foot pain. Pt acting normal, brought in because takes blood thinners. . Historical: - Allergies: 23:16 No Known Allergies; st1 - PMHx: 23:16 galbladder removed; heart valve replaced; stroke; st1 - Immunization history:: Adult Immunizations up to date. - Social history:: Smoking status: Patient denies any tobacco usage or history of. Patient/guardian denies using alcohol, street drugs, IV drugs, tobacco products. - Family history:: not pertinent. - Hospitalizations: : No recent hospitalization is reported. ROS: 23:17 Constitutional: Negative for fever, chills, and weight loss, Eyes: Negative for injury, rn pain, redness, and discharge, Neck: + mild neck pain Cardiovascular: Negative for chest pain, palpitations, and edema, Respiratory: Negative for shortness of breath, cough, wheezing, and pleuritic chest pain, Abdomen/GI: Negative for abdominal pain, nausea, vomiting, diarrhea, and constipation, Back: Negative for injury and pain, : Negative for injury, bleeding, discharge, and swelling, MS/Extremity: + pain to both knees Skin: + swelling and small cut to left forehead and nasal bridge. Neuro: Negative for weakness, numbness, tingling, and seizure. Exam: 23:17 Constitutional: This is a well developed, well nourished patient who is awake, alert, rn and in no acute distress. Ambulatory. Head/Face: Normocephalic, + left forehead hematoma with 0.5 cm laceration, no active bleeding, no depression. + small superficial skin tear to nasal bridge, no laceration, no active bleeding. Eyes: Pupils equal round and reactive to light, extra-ocular motions intact. Periorbital areas with no swelling, redness, or edema. ENT: NO oral injury or laceration Neck: Trachea midline, no cervical spinal tenderness Chest/axilla: Nontender with no deformity. Cardiovascular: Regular rate and rhythm. No pulse deficits. Respiratory: Speaking full sentences, unlabored. No increased work of breathing, no retractions or nasal flaring. Abdomen/GI: soft, non-tender, no peritoneal signs. Back: No spinal tenderness. No costovertebral tenderness. Full range of motion. Skin: Warm, dry MS/ Extremity: Pulses equal, no cyanosis. Neurovascular intact. Full, normal range of motion. Pt kicking with both knees, no ecchymosis or swelling of knees. Equal circumference. Neuro: Awake and alert, GCS 15, oriented to person, place, time, and situation. Cranial nerves II-XII grossly intact. Motor strength 5/5 in all extremities. Sensory grossly intact. Cerebellar exam normal. Normal gait. Vital Signs: 23:15 Weight 50.8 kg; Height 5 ft. 4 in. (162.56 cm); st1 23:18 BP 102 / 90; Pulse 96; Resp 17; Pulse Ox 98% on R/A; kd3 23:15 Body Mass Index 19.22 (50.80 kg, 162.56 cm) st1 Virgil Coma Score: 23:11 Eye Response: spontaneous(4). Verbal Response: oriented(5). Motor Response: obeys st1 commands(6). Total: 15. 23:17 Eye Response: spontaneous(4). Verbal Response: oriented(5). Motor Response: obeys rn commands(6). Total: 15. 06/15 00:08 Eye Response: spontaneous(4). Verbal Response: oriented(5). Motor Response: obeys rn commands(6). Total: 15. Laceration: 00:08 Wound Repair of 0.5cm ( 0.2in ) subcutaneous laceration to forehead. Distal rn neuro/vascular/tendon intact. Wound prep: Moderate cleansing with hibiclenz by me, Wound explored. Skin closed with 1 thin layer Adhesive skin closure using Dermabond. Dressed with steri-strips. Patient tolerated well. MDM: 06/14 23:05 Patient medically screened. rn 06/15 00:08 Differential diagnosis: Contusion of Hematoma on Laceration of Intracranial bleed- rn Concussion cerebral contusion. Data reviewed: vital signs, nurses notes, radiologic studies, CT scan, and as a result, I will discharge patient. Counseling: I had a detailed discussion with the patient and/or guardian regarding: the historical points, exam findings, and any diagnostic results supporting the discharge/admit diagnosis, radiology results, the need for outpatient follow up, to return to the emergency department if symptoms worsen or persist or if there are any questions or concerns that arise at home. Response to treatment: the patient's symptoms have markedly improved after treatment, and as a result, I will discharge patient. Special discussion: Based on the patient's history, exam and DX evaluation, there is no indication for emergent intervention or inpatient TX. It is understood by the patient/guardian that if the SXs persist or worsen they need to return immediately for re-evaluation. I discussed with the patient/guardian in detail that at this point there is no indication for admission to the hospital. It is understood, however, that if the symptoms persist or worsen the patient needs to return immediately for re-evaluation. 06/14 23:12 Order name: CT Head C Spine rn Administered Medications: No medications were administered Disposition Summary: 06/15/21 00:10 Discharge Ordered Location: Home rn Problem: new rn Symptoms: have improved rn Condition: Stable rn Diagnosis - Unspecified injury of head, initial encounter rn - Scalp Laceration/ Open wound of scalp rn - Contusion of left knee rn - Contusion of right knee rn Followup: rn - With: Private Physician - When: As needed - Reason: Recheck today's complaints, Re-evaluation by your physician Discharge Instructions: - Discharge Summary Sheet rn - Head Injury, Adult rn - Hematoma rn - Facial Laceration rn Forms: - Medication Reconciliation Form rn - Thank You Letter rn - Antibiotic pattern setter - Prescription Opioid Use rn Signatures: Dispatcher [employer] EDHarry Robert MD MD rn Tingle, Shellie, RN RN st1 Corrections: (The following items were deleted from the chart) 06/14 23:20 23:17 Pt reports in shower, fell and hit head, no LOC, reports knees aching but able to rn walk. Pt on coumadin but son states her INR had been elevated so cut in half and this week INR was actually low. Pt remembers all events. Reports mild neck pain. Denies rib or chest pain, no abd pain, no hip or pelvic pain, no ankle or foot pain.. rn
--- NOTE | 2021-06-15 00:11 | ER ---
Nurse's Notes [facility] Name: Esha Barber Age: 75 yrs Sex: Female : 1945 Arrival Date: 06/14/2021 Time: 23:01 Bed 6 Private MD: Diagnosis: Unspecified injury of head, initial encounter;Scalp Laceration/ Open wound of scalp;Contusion of left knee;Contusion of right knee Presentation: 06/14 23:11 Chief complaint: Patient's son or daughter states: the patients son states the patient st1 fell out of the bathtub onto the floor striking the left side of her forehead and the bridge of her nose. He would also like to address her bilateral feet swelling. Care prior to arrival: None. Mechanism of Injury: Fall standing position. Trauma event details: Injury occurred: at home. Injury occurred: June 14, 2021. 23:11 Method Of Arrival: Ambulatory st1 23:11 Acuity: VALORIE 3 st1 23:15 Coronavirus screen: Vaccine status: Patient reports receiving the 2nd dose of the covid st1 vaccine. [employer]. Ebola Screen: No symptoms or risks identified at this time. Initial Sepsis Screen: Does the patient meet any 2 criteria? No. Patient's initial sepsis screen is negative. Does the patient have a suspected source of infection? No. Patient's initial sepsis screen is negative. Risk Assessment: Do you want to hurt yourself or someone else? Patient reports no desire to harm self or others. Onset of symptoms was June 14, 2021. Triage Assessment: 23:17 Neuro: No deficits noted. Respiratory: No deficits noted. Musculoskeletal: No deficits st1 noted. Historical: - Allergies: 23:16 No Known Allergies; st1 - PMHx: 23:16 galbladder removed; heart valve replaced; stroke; st1 - Immunization history:: Adult Immunizations up to date. - Social history:: Smoking status: Patient denies any tobacco usage or history of. Patient/guardian denies using alcohol, street drugs, IV drugs, tobacco products. - Family history:: not pertinent. - Hospitalizations: : No recent hospitalization is reported. Screenin:11 Abuse screen: Denies threats or abuse. Tuberculosis screening: No symptoms or risk st1 factors identified. 23:18 Nutritional screening: No deficits noted. Fall Risk Fall in past 12 months (25 points). kd3 Primary Survey: 23:11 NO uncontrolled hemorrhage observed. A: The patient needs verbal stimulation to st1 respond. Airway: patent, No supplemental oxygen in use on arrival. Oral cavity: clear, Trachea midline. Breathing/Chest: Respiratory pattern: regular, Respiratory effort: spontaneous, unlabored, Chest inspection: symmetrical rise and fall of the chest. Circulation: Skin color: pink, Skin temperature: warm, dry. Disability Alert. Assessment: 23:11 General: Appears in no apparent distress. comfortable, Behavior is calm, cooperative. st1 Pain: Denies pain. 23:16 General: Appears in no apparent distress. comfortable, Behavior is calm, cooperative, kd3 appropriate for age. Neuro: Level of Consciousness is awake, alert, obeys commands, Oriented to person, place, time, situation. Cardiovascular: Patient's skin is warm and dry. Respiratory: Airway is patent Trachea midline Respiratory effort is even, unlabored. GI: No signs and/or symptoms were reported involving the gastrointestinal system. : No signs and/or symptoms were reported regarding the genitourinary system. 23:19 Reassessment: pt being taken to CT scan. kd3 Vital Signs: 23:15 Weight 50.8 kg; Height 5 ft. 4 in. (162.56 cm); st1 23:18 BP 102 / 90; Pulse 96; Resp 17; Pulse Ox 98% on R/A; kd3 23:15 Body Mass Index 19.22 (50.80 kg, 162.56 cm) st1 [place] Coma Score: 23:11 Eye Response: spontaneous(4). Verbal Response: oriented(5). Motor Response: obeys st1 commands(6). Total: 15. 23:17 Eye Response: spontaneous(4). Verbal Response: oriented(5). Motor Response: obeys rn commands(6). Total: 15. 06/15 00:08 Eye Response: spontaneous(4). Verbal Response: oriented(5). Motor Response: obeys rn commands(6). Total: 15. ED Course: 06/14 23:01 Patient arrived in ED. fco 23:05 Harry Hogan MD is Attending Physician. rn 23:11 Patient has correct armband on for positive identification. Bed in low position. Call st1 light in reach. Side rails up X 1. Patient maintains SpO2 saturation greater than 95% on room air. 23:11 Patient maintains SpO2 saturation greater than 95% on room air. st1 23:13 Triage completed. st1 23:16 Mali Lazcano, RN is Primary Nurse. kd3 23:16 Arm band placed on right wrist. st1 23:19 Thermoregulation: warm blanket given to patient. kd3 23:34 CT Head C Spine In Process Unspecified. EDMS 06/15 00:21 No provider procedures requiring assistance completed. Patient did not have IV access kd3 during this emergency room visit. Administered Medications: No medications were administered Outcome: 00:10 Discharge ordered by . rn 00:21 Discharged to home via wheelchair, with family. kd3 00:21 Condition: stable 00:21 Discharge instructions given to patient, family, Instructed on discharge instructions, follow up and referral plans. Demonstrated understanding of instructions, follow-up care. 00:22 Patient left the ED. kd3 Signatures: Dispatcher [employer] EDUT Harry Hogan MD MD rn Doucette, Kyli, RN RN kd3 Brandi Moreno RN RN st1 Genoveva Lei
[2021-06-15 01:51] VITALS: BP 102/90; O2SAT 98
--- NOTE | 2021-06-15 18:38 | RAD REPORT ---
EXAM DESCRIPTION: CT - Head C Spine Mpr Wo Con - 06/15/2021 6:45 am CLINICAL HISTORY: 75 years Female, fall, head injury, on coumadin TECHNIQUE: Helical CT axial images are obtained of the brain and cervical spine without IV contrast. Multiplanar reconstruction. This exam was performed according to our departmental dose-optimization program, which includes automated exposure control, adjustment of the mA and/or kV according to patie nt size and/or use of iterative reconstruction technique. COMPARISON: Prior imaging of 02/28/2021 was not made available at time of this interpretation. 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 No infarcts. No parenchymal hemorrhage, intra-axi al mass, mass effect, or midline shift. No abnormal extra-axial fluid collections. VENTRICLES: Ventricles are normal in size and configuration. No hydrocephalus. CALVARIUM: Bone windows show no skull fracture or calvarial lesions. PARANASAL SINUSES AND MASTOIDS: Mild bilateral ethmoid sinus disease. Remaining visualized paranasa l sinuses are clear. Mastoid air cells are clear. CERVICAL SPINE: VERTEBRA: Cervical spine is in normal anatomic alignment. No acute fracture or subluxation. Cervical vertebra are normal in height. Severe anterior marginal osteophytes C3-C7. Mild posterior discogen ic osteophytosis C3-C4 and C6-C7 levels. Moderate degenerative changes atlantodental interval. Cranio cervical junction is intact. DISCS: Moderate disc space narrowing C3-C4 and mild disc space narrowing C5-C6 and C6-C7 levels. LEVELS: From the C2-C3 through the C7-T1 levels, no critical/acute canal or foraminal stenosis. SOFT TISSUES: Paravertebral soft tissues are unremarkable. IMPRESSION: 1. No acute intracranial disease. 2. 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 3. No acute fracture or CT evidence of traumatic injury to cervical spine. 4. Moderate cervical spondylosis. Electronically signed by: Anibal Lewis MD 06/14/2021 11:57 PM CDT Due to temporary technical issues with the PACS/Fluency reporting system, reports are being signed by the in house radiologists without review as a courtesy to insure prompt reporting. The interpreting radiologist is fully responsible for the content of the report.
== END 2021-06-15 00:22 | disposition home or self-care (01) ==
LOC: ER 22:58
PROC: 0JQ00ZZ Repair Scalp Subcutaneous Tissue and Fascia, Open Approach (ICD-10-PCS; principal; 2021-06-15)
DX: S01.01XA Laceration without foreign body of scalp, initial encounter (principal); S80.02XA Contusion of left knee, initial encounter; S80.01XA Contusion of right knee, initial encounter; W18.2XXA Fall in (into) shower or empty bathtub, initial encounter; Y93.E1 Activity, personal bathing and showering; Z95.4 Presence of other heart-valve replacement; Z86.73 Personal history of transient ischemic attack (TIA), and cerebral infarction without residual deficits
CPT/HCPCS: 70450; 72125; 99284

== ENCOUNTER 2021-07-28 06:14 | Day surgery (SDC) | payer MEDICARE, OTHER ==
--- NOTE | 2021-07-26 15:37 | RAD REPORT ---
EXAM DESCRIPTION: RAD - Chest Pa And Lat (2 Views) - 07/26/2021 3:32 pm CLINICAL HISTORY: Pre op pending hernia surgery Chest pain. COMPARISON: Chest Single View dated 02/28/2021 FINDINGS: Mild interstitial pulmonary edema is seen. The heart is mildly enlarged in size. Sternotom y wires are present. Small bilateral pleural effusions. IMPRESSION: Mild to moderate CHF.
[2021-07-26 16:22] LABS: Hematocrit 33.8 % (36.0-45.0); Lymphocytes % 24.4 % (15.3-44.8); MPV 9.6 fL (7.6-11.3); RBC Red Blood Cell Count 4.47 M/uL (3.86-4.86)
[2021-07-26 16:27] LABS: Protime INR 3.61
[2021-07-26 16:38] LABS: Potassium 4.1 mmol/L (3.5-5.1)
[2021-07-28] MEDS ORDERED: Ringers Lactate 1,000 ML IV ONE (06:47)
[2021-07-28] MEDS ORDERED: CEFAZOLIN SODIUM 1 GM/VIAL ONE (06:47)
[2021-07-28] MEDS ORDERED: CELECOXIB 100 MG CAPSULE ONE (06:51)
[2021-07-28] MEDS ORDERED: ACETAMINOPHEN 500 MG TAB ONE (06:51)
[2021-07-28] MEDS ORDERED: ROCURONIUM 50 MG/5 ML VIAL IV ONE (07:00)
[2021-07-28] MEDS ORDERED: LIDOCAINE 2% MPF 5 ML VIAL ONE (07:00)
[2021-07-28] MEDS ORDERED: dexAMETHasone 10 MG/ML VIAL ONE (07:00)
[2021-07-28] MEDS ORDERED: propofoL 200 MG/20 ML VIAL IV ONE (07:00)
[2021-07-28] MEDS ORDERED: BUPIVACAINE 0.5% Inj,MDV 50 mL VIAL ONE (07:01)
[2021-07-28] MEDS ORDERED: ONDANSETRON 4 MG/2 ML VIAL ONE (07:02)
[2021-07-28] MEDS ORDERED: MIDAZOLAM HCL 2 MG/2 ML INJ ONE (07:02)
[2021-07-28] MEDS ORDERED: FENTANYL CITR 250 MCG/5 ML ONE (07:02)
[2021-07-28 07:09] VITALS: BP 138/42; TEMP 97.7; O2SAT 95
[2021-07-28 07:09] LABS: Protime INR 2.25
== END 2021-07-28 07:40 | disposition home or self-care (01) ==
LOC: OR 06:14
PROVIDERS: ATTEND Surgery
DX: K43.9 Ventral hernia without obstruction or gangrene (principal); Z20.822 Contact with and (suspected) exposure to COVID-19; Z53.09 Procedure and treatment not carried out because of other contraindication
CPT/HCPCS: 85025; 80048; 36415 ×2; 85610 ×2; 85730 ×2; 71046; U0003; J7120; J0690; J1100; J2250; J2405; J2704; J3010

== ENCOUNTER 2021-07-30 05:53 | Inpatient (IN) | payer MEDICARE ==
[2021-07-30] MEDS ORDERED: CEFAZOLIN SODIUM 1 GM/VIAL ONE (06:21)
[2021-07-30] MEDS ORDERED: Ringers Lactate 1,000 ML IV ONE (06:21)
[2021-07-30 06:33] LABS: Protime INR 1.61
[2021-07-30] MEDS ORDERED: ACETAMINOPHEN 500 MG TAB ONE (06:59)
[2021-07-30] MEDS ORDERED: CELECOXIB 100 MG CAPSULE ONE (07:00)
[2021-07-30] MEDS ORDERED: LIDOCAINE 1% MPF 5 ML VIAL ONE (07:20)
[2021-07-30] MEDS ORDERED: propofoL 200 MG/20 ML VIAL IV ONE (07:20)
[2021-07-30] MEDS ORDERED: ROCURONIUM 50 MG/5 ML VIAL IV ONE (07:20)
[2021-07-30] MEDS ORDERED: FENTANYL CITR 100 MCG/2 ML ONE (07:20)
[2021-07-30] MEDS ORDERED: NS 0.9% VIAL 10 ML ONE ×2 (07:49→07:57)
[2021-07-30] MEDS ORDERED: EPHEDRINE SULF 50 MG/ML VIAL ONE (07:57)
[2021-07-30] MEDS ORDERED: KETOROLAC 30 MG/ML INJ ONE (08:24)
[2021-07-30] MEDS ORDERED: GLYCOPYRROLATE 0.2 MG/ML SYR ONE (08:24)
[2021-07-30] MEDS ORDERED: dexAMETHasone 10 MG/ML VIAL ONE (08:24)
[2021-07-30] MEDS ORDERED: ONDANSETRON 4 MG/2 ML VIAL ONE (08:25)
[2021-07-30] MEDS ORDERED: NEOSTIGMINE 1 MG/ML -10 ML VIAL ONE (08:25)
[2021-07-30] MEDS ORDERED: ONDANSETRON 4 MG/2 ML VIAL IV PRN (08:54)
[2021-07-30] MEDS ORDERED: SODIUM CHLORIDE 0.9% 20 ML VIAL IV PRN (08:54)
--- NOTE | 2021-07-30 08:54 | P.BOP ---
Preoperative diagnosis: abdominal pain, incisional ventral hernia, umbilical hernia, heart disease Postoperative diagnosis: peritonitis, ascites Primary procedure: 1. Diagnostic laparoscopy Secondary procedure: 2. Lap repair of incisional ventral hernia Other procedure(s): 3. open repair of umbilical hernia Manager Zone: Malika Brower) Estimated blood loss: <10cc Specimen: intraperitoneal fluid for culture and cytology Findings: peritonitis, green ascites all quadrant no thick fibrin Anesthesia: General Drain(s): Nasogastric, JABIER drain Fluids & blood products: no blood Transferred to: Recovery Room Condition: Good
[2021-07-30] MEDS: PANTOPRAZOLE 40 MG INJ IVP SCH (09:00)
--- NOTE | 2021-07-30 09:50 | RAD REPORT ---
EXAM DESCRIPTION: RAD - Abdomen 1 View (KUB) - 07/30/2021 9:41 am CLINICAL HISTORY: s/p NGT placement COMPARISON: No comparisons FINDINGS: NG/OG tube has been placed. Tip is in the proximal stomach with the side port of the tubin g at the GE junction. No gastric distention identifiable. Surgical anne are present in the abdomen . Drain tube is also evident. IMPRESSION: NG/OG tube placement shows the tip in the proximal stomach with the side port of the tub ing at the GE junction.
[2021-07-30] MEDS ORDERED: HYDROMORPHONE HCL 1 MG/ML INJ ONE (10:19)
[2021-07-30] MEDS: NA CHLORIDE 0.9% 1,000 ML IV SCH ×2 (12:01→21:49)
--- OUTSIDE RECORDS SUMMARY | 2021-07-30 14:03 | XMS REPORT | Continuity of Care Document ---
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 0-100 H code = BNP) BASIC METABOLIC [id number] 00:02:00 Test Item Value Reference Range Interpretation [...] code = 9.1 mg/dL 8.0-10.5 N CA) [id number] 00:02:00 Test Item Value Reference Range Interpretation Comments LIPASE (test code = LIP) 92 U/L 13-57 H [id number] 00:02:00 Test Item Value Reference Range Interpretation Comments MAGNESIUM (test code = MAG) 1.71 mg/dL 1.80-2.40 L T4 [id number] 00:02:00 Test Item Value Reference Range Interpretation Comments T4 FREE (test code = T4F) ng/dL 0.77-1.61 TSH REFLEX TO [id number] 00:02:00 Test Item Value Reference Range Interpretation Comments TSH REFLEX TO FT4 (test code = 0.26 IU/mL 0.42-5.47 L TSHREFLEX) [id number] 00:02:00 Test Item Value Reference Range Interpretation [...] results may nahed y by method. PROTHROMBIN [id number] 23:59:00 Test Item Value Reference Range Interpretation [...] Infarction (t o prevent recurre nt infarct). [id number] 23:59:00 Test Item Value Reference Range Interpretation Comments D-DIMER (test 1711 ng/mlFEU See_Comment HH Critical resu lt called to code = JOSE ZAZUETA Tby DDIMER) [id number] at 23 59 10/06/20Nurse r ead back [...] this result as normal/abnormal . CBC W/AUTO [id number] 23:46:00 Test Item Value Reference Range Interpretation [...] NO = MDIFF) - XR CHEST 1 [id number] 00:00:00 [facility] : 1945 Sex: F FAX: Wilbur Martinez MD [phone] [place]: St: REG Name: ROBBIN WILSON [facility] [place] : 1945 Age/S: 75/F [address] [place] [address] Blvd Unit #: [id number] Loc: [place] [address] Phys: Wilbur Matrinez MD Acct: [id number] Dis Date: Status: REG ER PHONE #: [phone] Exam Date: 10/06/2020 2319 FAX #: [phone] Reason: SOB EXAMS: CPT CODE: [id number] XR CHEST 1 V 16051 PROCEDURE INFORMATION: Exam: XR Chest Exam date [...] Technologist: Janet Lyn RT(R) Trnscrd Date/Time/By: 10/06/2020 (4126) : By: [email or web address] Orig Print D/T: S: 10/06/2020 (5492) PAGE 1 Signed YfkwejHHMY-SrI-4 (COVID-19) RNA [Presence] in Respiratory specimen by ESTEFANI with probe [id number] 06:48:13 Test Item Value Reference Range Interpretation Comments SARS-CoV-2 (COVID-19) RNA Not detected Not-Detected [Presence] in Respiratory specimen by ESTEFANI with probe detection (test code = 57554-3) Whether patient is employed in a healthcare setting (test code = 66677-4) Whether the patient has symptoms related to condition of interest (test code = 34578-3) Patient was hospitalized because of this condition (test code = 05621-9) Whether the patient was admitted to intensive care unit (ICU) for condition of interest (test code = 29535-1) Whether patient resides in a congregate care setting (test code = 02754-3) [U] XRAY WRIST MIN 3 VWS LEFT [id number] 09:26:00Images acquired, not reported on this accession number.[facility][U] XRAY WRIST MIN 3 VWS LEFT [id number] 10:29:00Images acquired, not reported on this accession number. [facility][U] XRAY WRIST MIN 3 VWS LEFT [id number] 09:45:00Images acquired, not reported on this accession number.[facility][U] XRAY WRIST MIN 3 VWS LEFT [id number] 10:09:00Images acquired, not reported on this accession number.[facility][U] XRAY WRIST MIN 3 VWS LEFT [id number] 09:09:00Images acquired, not reported on this accession number.[facility] BREAST CYST ASPIRATION [id number] 11:28:13- BREAST CYST ASPIRATION LEFTULTRASOUND GUIDED ASPIRATION LEFT BREAST: 04/02/2019CLINICAL: Left Cyst A spiration. Comparison is made to exams dated 01/30/2019 mammogram and [facility]/25/2016 [facility] An aspiration was performed for the palpable [...] 04/04/2019 14:06:47Imaging Technologist: Lori Turner , [facility] sent: Short Term Follow UpBREAST ULTRASOUND BILATERAL 2019-03-06 09:31:08- BREAST ULTRASOUND BILATERALULTRASOUND OF BOTH BREASTS AND BOTH AXILLA: 03/06/2019CLINICAL: Dense breasts. Comparison is made to exams dated 01/30/2019 mammogram, 11/25/2016 ultrasound, and 10/11/2012 [facility]. Real-time ultrasound of both breasts and both [...] evidence of malignancy.Carmela Davis M.D. ar/:03/06/2019 09:31:08 Electric Motor Repairman: Maren CHRISTINE, [facility]FWletter sent: BIRADS 4/5 Biopsy Ultrasound BI-RADS: 4a Suspicious abnormality - low suspicion for malignancy. [facility] - Surgical Biopsy 2019-02-01 00:00:00 Test Item Value Reference Range Interpretation Comments Case (test code = Click ImageLink button N Case) for report. Specimen 1 (test code Click ImageLink button N = Specimen 1) for report. [facility] BILATERAL CEDRIC CAD [id number] 13:15:32 - SCR MAMM BILATERAL CEDRIC CAD DIGITALBILATERAL DIGITAL SCREENING MAMMOGRAM 3D/2D WITH CAD: 01/30/2019CLINICAL: Asymptomatic. Digital breast tomosynthesis was performed in addition to routine CC and MLO views. Current mammographic images were evaluated by either a [employer] M-Vu or a [employer] ImageChecker CAD (computer aided detection system). Comparison is made to exams dated 12/22/2017 mammogram, 10/18 mammogram, 10/28/2015 mammogram, 10/14/2014 mammogram, and 10/11/2013 mammogram - [facility] The tissue of both breasts is heterogeneously dense. This may lower the sensitivity ofmammography. There are benign vascular calcifications and calcifications in both breasts. No suspic ious mass, architectural distortion, malignant type calcification, or lymph node abnormality detected. Breast architecture is stable compared to prior exams.IMPRESSION: BENIGNThere is no mammographic evidence of malignancy. Resume annual screening mammography in one year. Marga Brantley M.D. yarc/penrad:01/30/2019 13:15:32 Entry: - 02/01/2019 14:26:53Imaging Technologist: Yon CHRISTINE, [facility]FW[facility] sent: BIRADS 1-2 Normal Mammogram BI-RADS: 2 Benign
[2021-07-30] MEDS: CEFOXITIN 1 GM in NA CHLORIDE 0.9% 50 ML IVPB SCH ×2 (17:11→21:49)
[2021-07-30] MEDS: METRONIDAZOLE 500mg IVPB 500 MG/100 ML BAG IV SCH ×2 (17:11→21:49)
[2021-07-30 17:45] VITALS: BMI 22.8
--- NOTE | 2021-07-30 20:19 | P.CNS ---
Date of Consult: 07/30/21 Reason for Consult: medical management Requesting Physician: Rhys Vidal Primary Care Provider: Doc Urbano Chief Complaint: Hernia repair History of Present Illness: Office patient of Doc Urbano. She has a history of dementia, htn. she was in the or for a ventral hernia repair with Dr. Vidal. During the surgery he found a greenish fluid in the abdominal cavity. Mild ascitis. The patient was placed in observation to rule out infection or other etiology. The patient has an NG tube. She is currently resting in a room Allergies No Known Allergies Allergy (Verified 07/26/21 15:00) Home Medications: Atorvastatin Calcium [Lipitor*] 1 tab PO BEDTIME 03/01/21 Calcium Carbonate [Calcium] 1 tab PO BID 03/01/21 Donepezil [Aricept*] 1 tab PO BEDTIME 03/01/21 Furosemide 1 tab PO DAILY 03/01/21 Memantine HCl [Namenda] 1 tab PO BID 03/01/21 Metoprolol Tartrate 1 tab PO DAILY 03/01/21 Pantoprazole [Protonix Tab*] 1 tab PO DAILY 03/01/21 Sertraline [Zoloft*] 150 mg PO BEDTIME 03/01/21 Temazepam [Restoril*] 7.5 mg PO BEDTIME 03/01/21 Warfarin Sodium [Coumadin*] 1 tab PO BEDTIME 03/01/21 Ferrous Sulfate [Iron] 325 mg PO DAILY 07/26/21 Losartan Potassium [Cozaar] 50 mg PO DAILY 07/26/21 Potassium Chloride 20 meq PO DAILY 07/26/21 - Past Medical/Surgical History Diabetic: No -: Mitral valve repair -: Aortic valve repair -: early Dementia -: cholecystectomy -: Right knee replacement -: -: appendectomy - Social History Smoking Status: Current every day smoker Alcohol use: No CD- Drugs: No Caffeine use: Yes Place of Residence: Home Review of Systems 10-point ROS is otherwise unremarkable Gastrointestinal: Abdominal Pain Physical Examination Temp Pulse Resp BP Pulse Ox 98.1 F 58 10 L 140/60 93 07/30/21 16:00 07/30/21 16:00 07/30/21 16:00 07/30/21 16:00 07/30/21 16:00 General: Alert, In no apparent distress HEENT: Atraumatic, PERRLA, Mucous membr. moist/pink, Other (NG tube with minimal brown drainage), EOMI, Sclerae nonicteric Neck: Supple, 2+ carotid pulse no bruit, No LAD, Without JVD or thyroid abnormality Respiratory: Clear to auscultation bilaterally, Normal air movement Cardiovascular: Regular rate/rhythm, Normal S1 S2 Gastrointestinal: Normal bowel sounds, No tenderness Musculoskeletal: No tenderness Integumentary: No rashes Neurological: Normal gait, Normal speech, Normal tone, Normal affect Lymphatics: No axilla or inguinal lymphadenopathy Other Physical/Emotional Findings: bandages over site of laproscopy Laboratory Data (last 24 hrs) 07/30/21 06:11: PT 17.9 H, INR 1.61, APTT 44.7 H - Problems (1) Abdominal ascites Current Visit: Yes Status: Acute Plan: may be an incidental finding. Will keep her for observation. Do not know if any fluid was collected and sent for culture and gram staining. Will discuss this with Dr. Vidal. Monitor for signs of infection. She is on metronidazole and fluids. Which should prevent sepsis. Qualifiers: Ascites type: other type Qualified Code(s): R18.8 - Other ascites (2) S/P hernia repair Current Visit: Yes Status: Acute Plan: Has an NG tube place. Will let this be monitored by Dr. Vidal. Possible clamp and removal within a day or two (3) HTN (hypertension) Current Visit: Yes Status: Chronic Plan: restart her medications after the removal of the fluid. The patient can be on iv hydralazine for bp control. (4) Dementia Current Visit: No Status: Acute Plan: She is stable. Taking normal. No delirium Qualifiers: Dementia type: Alzheimer's Dementia behavioral disturbance: without behavioral disturbance Physician Review: Patient Assessed, Agree with Above Assessment and Plan Critical Care: No Time Spent Managing Pts care (In Minutes): 45
[2021-07-30] MEDS: DONEPEZIL HCL 5 MG TAB PO SCH (21:00)
[2021-07-30] MEDS: MEMANTINE HCL 10 MG TABLET PO SCH (21:00)
--- NOTE | 2021-07-30 21:22 | OP ---
Date of Procedure: 07/30/2021 Surgeon: Rhys Vidal MD Rover Tender: Malika Chou. Preoperative Diagnoses: Abdominal pain, incisional epigastric ventral hernia, umbilical hernia, hear t disease on anticoagulation. Postoperative Diagnoses: Peritonitis, ascites. Procedures: 1.Diagnostic laparoscopy. 2.Laparoscopic repair of incisional epigastric ventral hernia. 3.Open repair of umbilical hernia. Estimated Blood Loss: Less than 10 cc. Specimen: The patient has green intraperitoneal fluid, the etiology of that is unknown. The specime n was sent for a culture and cytology. Findings: This patient has upon getting into the abdomen, green ascites in all the quadrants present . We did not see any specific reason for that. We did not see at this moment at least, grossly any perforation of intestines, large or small bowel, even though the patient has history of gastric ulcer s in the past. I do not see any obvious perforation of the stomach. I do not see any thick fibrin, all over is liquified ascites green. The area was aspirated of all the quadrants with at least more than 3 L of fluid and the area looks clean with no fibrin or any residual left behind. The etiology of that is unknown. I have to clarify this with just opening and entering in the abdomen and the pro cedure has not started yet, we see this green fluid already in that area. Pictures were taken. She has a history of chronic abdominal pain so is unable to say if this is contributed to that pain. Obv iously, we have the umbilical hernia and incisional hernia. I am trying to stay away from using any mesh in this case, but the hernia has to be repaired since it is becoming symptomatic too and is beco hermelindo a difficult to reduce. Drains: JABIER drain. Anesthesia: General plus local. Indications: This is the case of a lady who comes to us with chronic abdominal pain. She also has h eart disease. She is on anticoagulation. She is still off her anticoagulation about a week and stil l today INR is 1.6. The primary doctor is trying to control her anticoagulation. At the same time, she has chronic abdominal pain. She has 2 hernias. The etiology of pain is unknown other than the h ernias are present. It is becoming more difficult to reduce, so we offered her repair of the incisio nal epigastric ventral hernia and umbilical hernia with benefits, alternatives, and risks including, but not limited to infection, bleeding, damage to adjacent structures, anesthesia complication, recur rence, NM, and even . She also understands this may not relieve any symptoms. She might need m ore than one surgical intervention. She also understands we might be using mesh in that region and i t will be a laparoscopic possible open technique. The case was booked for Monday, but she still h as INR elevated so the case was postponed for today. Description Of Procedure: The patient was brought to the operating room, placed in supine position. Anesthesia was done without complication. Abdominal area was prepped and draped in sterile fashion. Our first incision was done in the supraumbilical area under direct visualization. We opened the s kin and opened the umbilical sac. We just have omentum in that region that was carefully reduced. O nce we have the fascial edges completely clean, we proceeded to place Vicryl #1 inside the fascia and Santos trocar was carefully introduced. Upon putting the camera, we noticed the patient has ascites in all the quadrants, but that ascites is light green in nature, the etiology of that is unknown. Katherine kilgore took some pictures for demonstration. The patient has an NG tube placed already on and the NG tube fluid does not reflect the same fluid as this over here. Note, the patient has history of gastric u lcers in the past, but the fluid that we have here does not correspond to that. It does not respond either to any obvious new GI content, although now we have to do a diagnostic lap and see if we can s ee where that fluid is coming from. We put in 2 areas, 5-mm trocars under direct visualization to he lp us with the diagnostic laparoscopy. Profuse irrigation of the abdomen was done with several liter s of fluid until completely clear. We examined the left upper quadrant, right upper quadrant, and pe lvis and also right and left lower quadrant. We examined the small bowel and large bowel with no marvin dence of any clear-cut leakage coming from there. The stomach anteriorly was also inspected. There is no inflammation in that area, although the peritoneum looks inflamed from the ascites itself. The stomach itself does not have any obvious perforation and we did not see any inflammation of it or an y thick fibrin on it. The area of the diaphragm looks also with no thick fibrin present. Liver with no obvious masses seen. Before irrigation, the fluid was sent for culture and cytology. Large shilo l with no obvious perforations seen. The pelvis with no obvious perforation or fibrin seen. The babak ology of that fluid is unknown. Ascites all over the abdomen, may be given her chronic abdominal sp n. We see the ventral hernia present in the pictures and I do not feel comfortable putting mesh in t his environment so I just basically with laparoscopic assist, we proceeded to place a Prolene #1 insi de of the fascia after the fascial edges were cleaned in the epigastric area and closed that with a f [id number]-bs-jhhbf fashion multiple times with #1 Prolene. Area was irrigated. Once again, profuse irri gation was done and evaluation of the area was done, but no evidence of any leakage from stomach or G I tract that can explain this fluid coming from that area. It may be chronic ascites. Hopefully, th e cytology and the culture will help us in that. Because of these new unexpected findings, I left a JABIER drain through one of the trocar sites over the abdomen. NG tube will be left in place and the Fol ey. At that moment, I proceeded to remove the trocars under direct vision, deflated pneumoperitoneum , closed the fascia and umbilical hernia with #1 Vicryl. Irrigated subcutaneous tissue and closed th at with 3-0 chromic and skin with anne. Sponge count and instrument counts correct. The patient tolerated the procedure well. The patient was sent to recovery in stable condition. In light of the se new findings and peritonitis of unknown origin and the green ascites, we are going to keep the pat ient for IV antibiotics. We are going to monitor the drains in next few days. The JABIER drain will be just helping us also to determine if there is any more fluid forming in that region. Hopefully, the culture when it comes back can also guide us in the direction of which antibiotics will be better for her as an outpatient. We can also give her GI and DVT prophylaxis. She has history of valve replac ement, on chronic Coumadin. We are going to hold that today. We are going to give the Lovenox. We are going to ask for the medical doctors to help us manage her medical conditions since she is going to be n.p.o. at least overnight. G[facility] Voice ID: [id number] Report ID: [id number]
[2021-07-31] MEDS: CEFOXITIN 1 GM in NA CHLORIDE 0.9% 50 ML IVPB SCH (02:59)
[2021-07-31] MEDS: METRONIDAZOLE 500mg IVPB 500 MG/100 ML BAG IV SCH (02:59)
[2021-07-31] MEDS: MORPHINE 4 MG/ML SYR IV PRN ×3 (03:24→11:34)
[2021-07-31 05:52] LABS: Hematocrit 31.1 % (36.0-45.0); Lymphocytes % 14.7 % (15.3-44.8); MPV 9.3 fL (7.6-11.3); RBC Red Blood Cell Count 4.05 M/uL (3.86-4.86)
[2021-07-31 06:05] LABS: Magnesium 1.8 mg/dL (1.8-2.4); Phosphorus 3.5 mg/dL (2.5-4.9); Potassium 3.7 mmol/L (3.5-5.1)
[2021-07-31 07:13] LABS: Anisocytosis 1+; Blood Morphology Comment NOTED (NOT SEEN); Platelet Estimate DECR; Platelets, Giant FEW; White Blood Cell Scan OK (OK)
[2021-07-31] MEDS: MEMANTINE HCL 10 MG TABLET PO SCH ×2 (09:00→22:49)
[2021-07-31] MEDS: PANTOPRAZOLE 40 MG INJ IVP SCH (09:17)
[2021-07-31] MEDS: ENOXAPARIN 30 MG/0.3 ML SQ SCH (09:17)
--- NOTE | 2021-07-31 10:31 | P.PN ---
Subjective Date of Service: 07/31/21 Primary Care Provider: Doc Urbano Chief Complaint: Hernia repair Subjective: No new changes Review of Systems mild pain Physical Examination - Vital Signs Temperature: 98.2 F Blood Pressure: 105/51 Pulse: 59 Respirations: 18 Pulse Ox (%): 99 - Physical Exam General: Alert, In no apparent distress HEENT: Atraumatic, PERRLA, EOMI Neck: Supple, JVD not distended Respiratory: Clear to auscultation bilaterally, Normal air movement Cardiovascular: Regular rate/rhythm, Normal S1 S2 Gastrointestinal: Normal bowel sounds, No tenderness Musculoskeletal: No tenderness Integumentary: No rashes Neurological: Normal speech, Normal tone, Normal affect Lymphatics: No axilla or inguinal lymphadenopathy Other Physical/Emotional Findings: bandages over site of laproscopy - Studies Laboratory Data (last 24 hrs) 07/31/21 05:16: Sodium 145, Potassium 3.7, BUN 28 H, Creatinine 1.83 H, Glucose 97, Phosphorus 3.5, Magnesium 1.8 07/31/21 05:16: WBC 6.6 D, Hgb 9.9 L, Hct 31.1 L, Plt Count 135 L Assessment And Plan - Current Problems (Diagnosis) (1) Abdominal ascites Current Visit: Yes Status: Acute Plan: may be an incidental finding. Will keep her for observation. Do not know if any fluid was collected and sent for culture and gram staining. Will discuss this with Dr. Vidal. Monitor for signs of infection. She is on metronidazole and fluids. Which should prevent sepsis. 07/31 minimal ng tube fluid. will see if Dr. Vidal wishes to d/c the fluid today Qualifiers: Ascites type: other type Qualified Code(s): R18.8 - Other ascites (2) S/P hernia repair Current Visit: Yes Status: Acute Plan: Has an NG tube place. Will let this be monitored by Dr. Vidal. Possible clamp and removal within a day or two (3) HTN (hypertension) Current Visit: Yes Status: Chronic Plan: restart her medications after the removal of the fluid. The patient can be on iv hydralazine for bp control. (4) Dementia Current Visit: No Status: Acute Plan: She is stable. Taking normal. No delirium Qualifiers: Dementia type: Alzheimer's Dementia behavioral disturbance: without behavioral disturbance Physician Review: Patient Assessed, Agree with Above Assessment and Plan Critical Care: No Time Spent Managing PTS Care (In Minutes): 20
[2021-07-31] MEDS: NA CHLORIDE 0.9% 1,000 ML IV SCH (18:12)
--- NOTE | 2021-07-31 18:40 | PN ---
Date of Progress Note: 07/31/2021 Subjective: Mrs. Barber is a female, who comes to us with plan for a laparoscopic hernia and during the exploration, we found to have the patient some ascites and that ascites shows a green fluid, unab le to know if it is an active infection or not. Hernia was fixed. The fluid was sent for cytology. She has chronic abdominal pain, may be related to inflammation in this greenish fluid. I sent the s maria r for culture and cytology evaluation. She has no specific reason to have that fluid. I know she has peptic ulcer disease in the past, but does not seem to be coming from the stomach. The patie nt was admitted for IV antibiotics, also bowel rest. Currently chest clear. Abdomen soft and depres sible. Extremities, good capillary refill. NG tube has minimal brownish and clear. JABIER drain is clear. Fol ey is clear. Abdomen is soft and depressible. Intact surgical site. Laboratory Data: Blood work shows WBC count of 6, hemoglobin of 9. INR is 1.61. Potassium 3.7, BUN is 28. Cytology and cultures still pending. Assessment: This is a 75-year-old patient, admitted for elective multiple hernias repair. At the sa vt time during the exploration, we found the person to have ascites just on the opening entry the abd omen, which were not expected and we have no evidence of previous infection on her. She has history of chronic abdominal pain. May explain why this abdominal pain, but we cannot explain the findings. So, the patient was admitted to the hospital and started on IV antibiotics. The specimen was sent f or culture and cytology. We encouraged ambulation and incentive spirometry. We are going to continu e the antibiotics when we have the cultures out. Then, we will proceed accordingly. The patient has history of dementia, so much information we can get from her, but the son is at bedside and he gave us the information we need. The patient has previous history of hysterectomy and fallopian tube removed, so we do not believe it is coming from the genitourinary, bu t cannot be completely ruled out. HM/MODL Voice ID: [id number] Report ID: [id number]
[2021-07-31] MEDS: DONEPEZIL HCL 5 MG TAB PO SCH (22:50)
[2021-08-01] MEDS: MORPHINE 4 MG/ML SYR IV PRN ×2 (04:17→14:38)
[2021-08-01] MEDS: ENOXAPARIN 30 MG/0.3 ML SQ SCH (08:29)
[2021-08-01] MEDS: MEMANTINE HCL 10 MG TABLET PO SCH ×2 (08:29→21:10)
[2021-08-01] MEDS: PANTOPRAZOLE 40 MG INJ IVP SCH (08:30)
--- NOTE | 2021-08-01 12:26 | PN ---
Diagnoses: Incisional ventral hernia, umbilical hernia, peritonitis, ascites. Subjective: The patient is doing well. JABIER drain is clear. She is starting to tolerate liquids. No shortness of breath. No chest pain. Objective: Vital Signs: Reviewed. Abdomen: Midline incision intact. Extremities: Good capillary refill. Laboratory Data: Blood work reviewed. Plan: We are going to advance diet slowly and advance to soft diet. We are waiting for the culture and cytology for the proper antibiotics treatment when she goes home. We encouraged ambulation and i ncentive spirometry and anticoagulation started by Dr. Hazel. G[facility]MA[facility] Voice ID: [id number] Report ID: [id number]
[2021-08-01] MEDS: NA CHLORIDE 0.9% 1,000 ML IV SCH (12:46)
--- NOTE | 2021-08-01 13:17 | P.PN ---
Subjective Date of Service: 08/01/21 Primary Care Provider: Doc Urbano Chief Complaint: Hernia repair Subjective: Improving (ng tube removed. Patient in good spirits) Review of Systems 10-point ROS is otherwise unremarkable Physical Examination - Vital Signs Temperature: 98.7 F Blood Pressure: 121/73 Pulse: 73 Respirations: 14 Pulse Ox (%): 92 - Physical Exam General: Alert, In no apparent distress HEENT: Atraumatic, PERRLA, EOMI Neck: Supple, JVD not distended Respiratory: Clear to auscultation bilaterally, Normal air movement Cardiovascular: Regular rate/rhythm, Normal S1 S2 Gastrointestinal: Normal bowel sounds, No tenderness Musculoskeletal: No tenderness Integumentary: No rashes Neurological: Normal speech, Normal tone, Normal affect Lymphatics: No axilla or inguinal lymphadenopathy Other Physical/Emotional Findings: bandages over site of laproscopy Assessment And Plan - Current Problems (Diagnosis) (1) Abdominal ascites Current Visit: Yes Status: Acute Plan: may be an incidental finding. Will keep her for observation. Do not know if any fluid was collected and sent for culture and gram staining. Will discuss this with Dr. Vidal. Monitor for signs of infection. She is on metronidazole and fluids. Which should prevent sepsis. 08/01 awaiting fluid cultures Qualifiers: Ascites type: other type Qualified Code(s): R18.8 - Other ascites (2) S/P hernia repair Current Visit: Yes Status: Acute Plan: Has an NG tube place. Will let this be monitored by Dr. Vidal. Possible clamp and removal within a day or two (3) HTN (hypertension) Current Visit: Yes Status: Chronic Plan: restart her medications after the removal of the fluid. The patient can be on iv hydralazine for bp control. (4) Dementia Current Visit: No Status: Acute Plan: She is stable. Taking normal. No delirium Qualifiers: Dementia type: Alzheimer's Dementia behavioral disturbance: without behavioral disturbance Discharge Plan: Home Plan to discharge in: 24 Hours - Code Status/Comfort Care Code Status Assessed: No Physician Review: Patient Assessed, Agree with Above Assessment and Plan Critical Care: No Time Spent Managing PTS Care (In Minutes): 30
[2021-08-01] MEDS: CALCIUM CARBONATE 500 MG TAB PO SCH (21:09)
[2021-08-01] MEDS: SERTRALINE HCL 50 MG TAB PO SCH (21:10)
[2021-08-01] MEDS: ATORVASTATIN 20 MG TAB PO SCH (21:10)
[2021-08-01] MEDS: ACETAMINOPHEN 500 MG TAB PO PRN (21:11)
[2021-08-01] MEDS: clonazePAM 1 MG TAB PO SCH (21:11)
[2021-08-01] MEDS: DONEPEZIL HCL 5 MG TAB PO SCH (21:11)
[2021-08-02] MEDS: NA CHLORIDE 0.9% 1,000 ML IV SCH (03:25)
[2021-08-02 05:53] LABS: Protime INR 1.74
[2021-08-02] MEDS: ACETAMINOPHEN 500 MG TAB PO PRN (06:28)
--- NOTE | 2021-08-02 09:10 | P.PN ---
Subjective Date of Service: 08/02/21 Primary Care Provider: Doc Urbano Chief Complaint: Hernia repair Subjective: New changes Patient not sleeping well. Family reports auditory hallucinations Review of Systems is unable to be obtained Physical Examination - Vital Signs Temperature: 98.8 F Blood Pressure: 139/61 Pulse: 76 Respirations: 16 Pulse Ox (%): 95 - Physical Exam General: Alert, In no apparent distress, Delirious (milc confusion ) HEENT: Atraumatic, PERRLA, EOMI Neck: Supple, JVD not distended Respiratory: Clear to auscultation bilaterally, Normal air movement Cardiovascular: Regular rate/rhythm, Normal S1 S2 Gastrointestinal: Normal bowel sounds, No tenderness Musculoskeletal: No tenderness Integumentary: No rashes Neurological: Normal speech, Normal tone, Normal affect Lymphatics: No axilla or inguinal lymphadenopathy Other Physical/Emotional Findings: bandages over site of laproscopy - Studies Laboratory Data (last 24 hrs) 08/02/21 05:29: PT 19.4 H, INR 1.74 Assessment And Plan - Current Problems (Diagnosis) (1) Dementia Current Visit: No Status: Acute Plan: Worsening confusion. This is a custodial problem Mrs Urbano has been weaning her off the temazepam. In the acute setting. She has pain/illness, new environment and having sedatives and morphine. Will saline lock the fluids and remove the review manager to make her more comfortable. continue PT to ambulate the patient. I do not believe she is in danger of sepsis, as she has had over 48 hours of fluids. Discussed custodial care with the son. [facility] is a good outpatient resource to use. They are located in [place]. Qualifiers: Dementia type: Alzheimer's Dementia behavioral disturbance: without behavioral disturbance (2) Abdominal ascites Current Visit: Yes Status: Acute Plan: may be an incidental finding. Will keep her for observation. Do not know if any fluid was collected and sent for culture and gram staining. Will discuss this with Dr. Vidal. Monitor for signs of infection. She is on metronidazole and fluids. Which should prevent sepsis. 08/02 awaiting fluid cultures Qualifiers: Ascites type: other type Qualified Code(s): R18.8 - Other ascites (3) S/P hernia repair Current Visit: Yes Status: Acute Plan: Has an NG tube place. Will let this be monitored by Dr. Vidal. Possible clamp and removal within a day or two (4) HTN (hypertension) Current Visit: Yes Status: Chronic Plan: restart her medications after the removal of the fluid. The patient can be on iv hydralazine for bp control. Discharge Plan: Home Plan to discharge in: 24 Hours - Code Status/Comfort Care Code Status Assessed: No Physician Review: Patient Assessed, Agree with Above Assessment and Plan Critical Care: No Time Spent Managing PTS Care (In Minutes): 25
[2021-08-02] MEDS: METOPROLOL XL 25 MG TAB PO SCH (09:48)
[2021-08-02] MEDS: LOSARTAN POTASSIUM 50 MG TABLET PO SCH (09:48)
[2021-08-02] MEDS: ENOXAPARIN 30 MG/0.3 ML SQ SCH (09:49)
[2021-08-02] MEDS: MEMANTINE HCL 10 MG TABLET PO SCH ×2 (09:50→20:47)
[2021-08-02] MEDS: PANTOPRAZOLE 40MG TABLET PO SCH (09:50)
[2021-08-02] MEDS: CALCIUM CARBONATE 500 MG TAB PO SCH ×2 (09:50→20:47)
[2021-08-02] MEDS: WARFARIN SODIUM 2.5 MG TAB PO SCH (18:48)
[2021-08-02] MEDS: DONEPEZIL HCL 5 MG TAB PO SCH (20:47)
[2021-08-02] MEDS: clonazePAM 1 MG TAB PO SCH (20:47)
[2021-08-02] MEDS: SERTRALINE HCL 50 MG TAB PO SCH (20:47)
[2021-08-02] MEDS: ATORVASTATIN 20 MG TAB PO SCH (20:48)
[2021-08-02 21:04] VITALS: O2SAT 96
[2021-08-02] MEDS ORDERED: LORazepam 2 MG/ML VIAL IV ONE (21:58)
--- NOTE | 2021-08-02 23:00 | PN ---
Date of Progress Note: 08/02/2021 Reason For Service: Peritonitis, incisional ventral hernia, and also umbilical hernia, ascites. This is a case of a 75-year-old patient who comes to us for abdominal pain. Hernias were found. Upo n entering the abdomen, we noticed ascites with green fluid on it. The etiology of that is unknown. She has chronic abdominal pain, but the etiology of that is unknown. The hernias were repaired. We kept her in the hospital for IV antibiotics and get the medical consult, trying to find it with the justification for this, seems to be chronic. We still pending on the cultures. We started IV antibi otics. We are waiting on that to send her home, to make sure she is on the right antibiotics. She a lso has history of dementia. Dr. Hazel is helping us to control her. The abdomen right now is soft and depressible. JABIER drain is clear. Incisions are intact. Extremities, good capillary refill. Cytology from the cul ture shows no malignant cells, although one more fluid about 50 cc; since we still have a JABIER drain th [facility], we are going to go ahead and remove that. The plan will be follow up with Dr. Hazel from the dementia, from the surgical standpoint. Once cult ure is obtained, she will be cleared from the surgical standpoint to be discharged home and follow up in our office in a week. We are going to keep the JABIER drain there. GEMMA/SOUTH Voice ID: [id number] Report ID: [id number]
[2021-08-03] MEDS ORDERED: WATER FOR INJ,STERILE 10 ML IM PRN (01:40)
[2021-08-03] MEDS ORDERED: ZIPRASIDONE MESYLA 20 MG/VIAL IM PRN (01:40)
[2021-08-03] MEDS ORDERED: ZIPRASIDONE MESYLA 20 MG/VIAL IM ONE (01:48)
[2021-08-03] MEDS ORDERED: WATER FOR INJ,STERILE 10 ML ONE (01:49)
[2021-08-03 06:11] LABS: Hematocrit 36.3 % (36.0-45.0); Lymphocytes % 12.5 % (15.3-44.8); MPV 8.7 fL (7.6-11.3); RBC Red Blood Cell Count 4.74 M/uL (3.86-4.86)
[2021-08-03 06:29] LABS: Albumin 2.4 g/dL (3.4-5.0); Bilirubin Total 1.2 mg/dL (0.2-1.0); Potassium 3.8 mmol/L (3.5-5.1); Protein, Total 6.1 g/dL (6.4-8.2)
[2021-08-03] MEDS: CALCIUM CARBONATE 500 MG TAB PO SCH (08:44)
[2021-08-03] MEDS: LOSARTAN POTASSIUM 50 MG TABLET PO SCH (08:44)
[2021-08-03] MEDS: METOPROLOL XL 25 MG TAB PO SCH (08:45)
[2021-08-03] MEDS: MEMANTINE HCL 10 MG TABLET PO SCH (08:45)
[2021-08-03] MEDS: PANTOPRAZOLE 40MG TABLET PO SCH (08:46)
[2021-08-03] MEDS: ENOXAPARIN 30 MG/0.3 ML SQ SCH (08:46)
--- NOTE | 2021-08-03 08:50 | P.PN ---
Subjective Date of Service: 08/03/21 Primary Care Provider: Doc Urbano Chief Complaint: Hernia repair Subjective: No new changes (agitations at night time.) Patient not sleeping well. Family reports auditory hallucinations Review of Systems is unable to be obtained Physical Examination - Vital Signs Temperature: 98.3 F Blood Pressure: 130/61 Pulse: 70 Respirations: 18 Pulse Ox (%): 94 - Physical Exam General: In no apparent distress HEENT: Atraumatic, PERRLA, EOMI Neck: Supple, JVD not distended Respiratory: Clear to auscultation bilaterally, Normal air movement Cardiovascular: Regular rate/rhythm, Normal S1 S2 Gastrointestinal: Normal bowel sounds, No tenderness Musculoskeletal: No tenderness Integumentary: No rashes Neurological: Normal speech, Normal tone, Normal affect Lymphatics: No axilla or inguinal lymphadenopathy Other Physical/Emotional Findings: bandages over site of laproscopy - Studies Laboratory Data (last 24 hrs) 08/03/21 05:54: Sodium 144, Potassium 3.8, BUN 24 H, Creatinine 1.04, Glucose 111 H, Total Bilirubin 1.2 H, AST 33, ALT 18, Alkaline Phosphatase 89 08/03/21 05:54: WBC 8.0 D, Hgb 11.6 L, Hct 36.3 D, Plt Count 114 L Assessment And Plan - Current Problems (Diagnosis) (1) Dementia Current Visit: No Status: Acute Plan: Worsening confusion. 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 In the acute setting. She has pain/illness, new environment and having sedatives and morphine. Will saline lock the fluids and remove the superintendent car construction to make her more comfortable. continue PT to ambulate the patient. I do not believe she is in danger of sepsis, as she has had over 48 hours of fluids. Discussed alf care with the son. [facility] is a good outpatient resource to use. They are located in [place]. 08/03 agitated at night. Classic sundowning. She should be more comfortable at home. She calmed down with geodan. son requested this. Will give a short course at home to get her into a good sleeping pattern Follow up with Mrs Urbano as an outpatient Qualifiers: Dementia type: Alzheimer's Dementia behavioral disturbance: without behavioral disturbance (2) Abdominal ascites Current Visit: Yes Status: Acute Plan: may be an incidental finding. Will keep her for observation. Do not know if any fluid was collected and sent for culture and gram staining. Will discuss this with Dr. Vidal. Monitor for signs of infection. She is on metronidazole and fluids. Which should prevent sepsis. 08/03 safe to discharge from my standpoint. Only awaiting the culture results Qualifiers: Ascites type: other type Qualified Code(s): R18.8 - Other ascites (3) S/P hernia repair Current Visit: Yes Status: Acute Plan: Has an NG tube place. Will let this be monitored by Dr. Vidal. Possible clamp and removal within a day or two (4) HTN (hypertension) Current Visit: Yes Status: Chronic Plan: restart her medications after the removal of the fluid. The patient can be on iv hydralazine for bp control. Discharge Plan: Home Plan to discharge in: 24 Hours - Code Status/Comfort Care Code Status Assessed: No Physician Review: Patient Assessed, Agree with Above Assessment and Plan Critical Care: No Time Spent Managing PTS Care (In Minutes): 25
[2021-08-03] MEDS: ACETAMINOPHEN 500 MG TAB PO PRN (09:06)
[2021-08-03 12:17] LABS: C.diff Antigen/Toxin Ag neg : Tox neg (NEG : NEG)
--- NOTE | 2021-08-03 12:45 | P.DS ---
Admission Date: 07/30/21 Discharge Date: 08/03/21 Primary Care Provider: Doc Urbano Disposition: ROUTINE DISCHARGE Discharge Condition: GOOD Reason for Admission: multiple venal Hernia repair, ascites, abd pain Hospital Course: unremerkable Vital Signs/Physical Exam: Temp Pulse Resp BP Pulse Ox 96.5 F L 65 18 97/46 L 95 08/03/21 12:00 08/03/21 12:00 08/03/21 12:00 08/03/21 12:00 08/03/21 12:00 General: Alert, Oriented x3, Cooperative HEENT: Normocephalic, PERRLA Neck: Supple Respiratory: Normal air movement Cardiovascular: Normal pulses, Regular rate/rhythm Gastrointestinal: Soft and benign, No rebound, No guarding, Other (JABIER fluid clear , removed) Integumentary: No erythema, No warmth, No cyanosis Neurological: Dementia Other Physical/Emotional Findings: bandages over site of laproscopy Laboratory Data at Discharge: WBC 8.0 K/uL (4.3-10.9) D 08/03/21 05:54 Hgb 11.6 g/dL (12.0-15.0) L 08/03/21 05:54 Hct 36.3 % (36.0-45.0) D 08/03/21 05:54 Plt Count 114 K/uL (152-406) L 08/03/21 05:54 PT 19.4 SECONDS (9.5-12.5) H 08/02/21 05:29 INR 1.74 08/02/21 05:29 APTT 44.7 SECONDS (24.3-36.9) H 07/30/21 06:11 Sodium 144 mmol/L (136-145) 08/03/21 05:54 Potassium 3.8 mmol/L (3.5-5.1) 08/03/21 05:54 BUN 24 mg/dL (7-18) H 08/03/21 05:54 Creatinine 1.04 mg/dL (0.55-1.3) 08/03/21 05:54 Glucose 111 mg/dL (74-106) H 08/03/21 05:54 Phosphorus 3.5 mg/dL (2.5-4.9) 07/31/21 05:16 Magnesium 1.8 mg/dL (1.8-2.4) 07/31/21 05:16 Total Bilirubin 1.2 mg/dL (0.2-1.0) H 08/03/21 05:54 AST 33 U/L (15-37) 08/03/21 05:54 ALT 18 U/L (12-78) 08/03/21 05:54 Alkaline Phosphatase 89 U/L (45-117) 08/03/21 05:54 Home Medications: Atorvastatin Calcium [Lipitor*] 1 tab PO BEDTIME 03/01/21 Calcium Carbonate [Calcium] 1 tab PO BID 03/01/21 Donepezil [Aricept*] 1 tab PO BEDTIME 03/01/21 Furosemide 1 tab PO DAILY 03/01/21 Memantine HCl [Namenda] 1 tab PO BID 03/01/21 Pantoprazole [Protonix Tab*] 1 tab PO DAILY 03/01/21 Sertraline [Zoloft*] 150 mg PO BEDTIME 03/01/21 Temazepam [Restoril*] 7.5 mg PO BEDTIME 03/01/21 Warfarin Sodium [Coumadin*] 1 tab PO BEDTIME 03/01/21 Ferrous Sulfate [Iron] 325 mg PO DAILY 07/26/21 Losartan Potassium [Cozaar] 50 mg PO DAILY 07/26/21 Potassium Chloride 20 meq PO DAILY 07/26/21 Metoprolol Succinate [Toprol Xl] 25 mg PO DAILY 08/01/21 ziprasidone HCL [Geodon] 20 mg PO BEDTIME 7 Days #7 capsule 08/03/21 New Medications: ziprasidone HCL [Geodon] 20 mg PO BEDTIME 7 Days #7 capsule Physician Discharge Instructions: may take a shower with dressing off Diet: AHA Activity: No lifting more than 10 lbs Followup: Avel Hazel MD [Primary Care Provider] - Rhys Vidal MD [ACTIVE - CAN ADMIT] - 1 Week
[2021-08-03 16:20] VITALS: BP 147/60; TEMP 98.1
[2021-08-03] MEDS: WARFARIN SODIUM 2.5 MG TAB PO SCH (17:37)
--- NOTE | 2021-08-04 07:39 | DS ---
Date of Discharge: 08/03/2021 Addendum: This patient came in several days ago for a planned incisional and umbilical hernia. While doing mari gnostic lap, immediately we noticed the patient had ascites with a color, which is not the usual gree n color, so that triggered an admission to the hospital due to the evidence of peritonitis and unexpe cted findings. We sent the specimen for cytology looking for cancer also and culture to look for kimmie teria. Today, finally we have the report back. We have been keeping her in the hospital for medical reason. She has history of severe heart disease, on anticoagulation. We have been trying to raise her INR since she was previously on Coumadin. Now, we have a clearance from a medical standpoint. A lso, she has history of dementia with confusion. Dr. Hazel has been kind to help us and she is clear ed today to be discharged from the surgical standpoint today. Finally, they gave us the results of t he Gram stain negative on the ascites and the cytology does not show any cancer. With all those cond itions, the INR and Coumadin right now, the patient has better abdomen. The JABIER was removed today, co mpletely clear, then we are ready to send her home. She will be discharged home. Please see dischar ge summary. She will be followed up with Dr. Hazel. The family feels comfortable taking her home an d she has history of dementia. They have been working on some new medications for that. From our [facility], we are going to sent her home on some pain medications, the antibiotics. HM/MODL Voice ID: [id number] Report ID: [id number]
== END 2021-08-03 17:50 | disposition home or self-care (01) | DRG 941 ==
LOC: OR 05:53 → 2ND 13:59
PROVIDERS: ADMIT Surgery; ATTEND Surgery
PROC: 0WQF4ZZ Repair Abdominal Wall, Percutaneous Endoscopic Approach (ICD-10-PCS; principal; 2021-07-30 07:30)
PROC: 0WQF0ZZ Repair Abdominal Wall, Open Approach (ICD-10-PCS; 2021-07-30 07:30)
DX: R18.8 Other ascites (principal); K43.9 Ventral hernia without obstruction or gangrene; K42.9 Umbilical hernia without obstruction or gangrene; I10 Essential (primary) hypertension; F03.90 Unspecified dementia, unspecified severity, without behavioral disturbance, psychotic disturbance, mood disturbance, and anxiety; Z79.01 Long term (current) use of anticoagulants
CPT/HCPCS: 36415; 71046; 74018; 80048; 80053; 83735; 84100; 85025; 85610; 85730; 87070; 87324; 87449; 88108; 88305; 94010; 97116; 97161; 97530; C9113; J0690; J0694; J1100; J1170; J1650; J2250; J2405; J2704; J2710; J3010; J3486; J3490; J7030; J7120; U0003

== ENCOUNTER 2021-11-24 13:46 | Emergency (ER) | payer OTHER ==
--- OUTSIDE RECORDS SUMMARY | 2021-11-24 13:53 | XMS REPORT | Continuity of Care Document ---
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 MH 11:00:00 11:00:00 Claudia Taylor MD Ph illip PA PA A. Claudia SOLIZ 2021-02-04 2021-02-04 Outpatient Gallo A Gallo A [id number] MH 11:46:00 11:46:00 Claudia Taylor MD Ph illip PA PA A. Claudia SOLIZ 2021-01-21 2021-01-21 Outpatient Gallo A Gallo A [id number] MH 14:14:00 14:14:00 Claudia Taylor MD Ph illip PA PA aLuren. Claudia SOLIZ 2021-01-21 2021-01-21 Outpatient Gallo A Gallo A [id number] MH 14:14:00 14:14:00 Claudia Taylor MD Ph illip PA PA A. Claudia SOLIZ 2021-01-20 2021-01-20 Outpatient Gallo A Gallo A [id number] 08:49:00 08:49:00 Claudia Taylor MD Ph illip PA PA A. Clauida SOLIZ 2020-11-05 2020-11-05 Outpatient DM JACG [id number] [facility] 08:01:00 08:01:00 [facility] 2020-10-29 2020-10-29 Outpatient [facility] [id number] 10:00:00 10:00:00 -[id number] [facility] 2020-10-21 2020-10-21 Outpatient DMG LUIS ENRIQUE [id number] [facility] 11:00:00 11:00:00 0804 [facility] 2020-10-162020-10-16 Outpatient DMG DMG [id number] [facility] 08:01:00 08:01:00 0730 [facility] 2020-10-07 2020-10-12 Emergency EM Veto HCACL INTE.[id number] [facility] 01:52:00 18:56:00 an, 91 [facility] 2020-10-01 2020-10-01 Outpatient VITALY Laws HCACL PRAD G00 [id number] [facility] 09:00:00 23:00:00 an, 68 Clear [facility] 2020-08-30 2020-08-31 Outpatient [facility] [id number] [place] 00:00:00 00:00:[address] 2020-08-06 2020-08-06 Outpatient Gallo A Gallo A [id number] 11:15:00 11:15:00 Claudia Taylor MD Ph illip PA JOHN Taylor MD 2020-08-06 2020-08-06 Outpatient Gallo A Gallo A [id number] 11:00:00 11:00:00 Claudia Taylor MD Ph illip PA JOHN Taylor MD 2020-07-16 2020-07-16 Outpatient Gallo A Gallo A [id number] 08:19:00 08:19:00 Claudia Taylor MD Ph illip JOHN Taylor MD 2020-07-13 2020-07-13 Outpatient Gallo A Gallo A [id number] 14:03:00 14:03:00 Claudia Taylor MD Ph illip PA JOHN Taylor MD 2020-06-10 2020-06-10 Outpatient MORSE, [facility] [id number] [place] 00:00:00 00:00:00 EVELYN [address] 2020-06-05 2020-06-05 Outpatient MORSE, [facility] [id number] [address] [place] [address] 00:00:00 00:00:00 EVELYN [address] 2020-06-03 2020-06-03 Outpatient MORSE, [facility] [id number] [address] [place] [address] 00:00:00 00:00:00 EVELYN [address] 2020-05-29 2020-05-29 Outpatient [facility] [id number] [place] 00:00:00 00:00:00 EVELYN [address] 2020-05-29 2020-05-29 Outpatient ROBBEN, H H [id number] [place] 00:00:00 00:00:00 SHANIA [address] 2020-05-08 2020-05-08 Outpatient [facility]SE[facility] [id number] [place] 00:00:00 00:00:00 EVELYN [address] 2020-05-08 2020-05-08 Outpatient [facility] [id number] [place] 00:00:00 00:00:[address] 2020-05-07 2020-05-07 Outpatient MORSE, [facility] [id number] [place] 00:00:00 00:00:00 EVELYN 574 Method i 2020-05-07 2020-05-07 Outpatient MORSE, [facility] [id number] [place] 00:00:00 00:00:00 EVELYN [address] 2020-05-01 2020-05-01 Outpatient MORSE, [facility] [id number] [place] 00:00:00 00:00:00 EVELYN [address] 2020-04-24 2020-04-24 Outpatient MORSE, [facility] [id number] [place] 00:00:00 00:00:00 EVELYN 803 Method i 2020-04-16 2020-04-16 Outpatient MORSE, [facility] [id number] [place] 00:00:00 00:00:00 EVELYN [address] 2020-04-10 2020-04-10 Outpatient MORSE, [facility] [id number] [place] 00:00:00 00:00:00 EVELYN 618 Method i 2020-04-08 2020-04-08 Outpatient MORSE, [facility] [id number] [place] 00:00:00 00:00:00 EVELYN 608 [facility] i 2020-04-03 2020-04-03 Outpatient MORSE, [facility] [id number] [place] 00:00:00 00:00:00 EVELYN [address] 2020-03-26 2020-03-26 Outpatient MINI, [facility] [id number] [place] 00:00:00 00:00:00 EVELYN [address] 2020-03-26 2020-03-26 Outpatient PRABHU, [facility] [id number] [place] 00:00:00 00:00:00 COLE [facility] 2020-02-12 2020-02-12 Outpatient [facility] [id number] eClinic 16:15:00 16:15:00 Cardiolog Cardiology a lWorks y PA PA 2020-02-04 2020-02-04 Outpatient Gallo A Gallo A [id number] MH 14:45:00 14:45:00 Claudia Taylor MD Ph illip PA PA Tootie Taylor MD 2020-02-04 2020-02-04 Outpatient Gallo A Gallo A [id number] MH 14:45:00 14:45:00 Claudia Taylor MD Ph illip PA PA Tootie Taylor MD 2020-01-21 2020-01-21 Outpatient [facility] [id number] eClinic 10:30:00 10:30:00 Cardiolog Cardiology a lWorks y PA PA 2020-01-15 2020-01-15 Outpatient Gallo A. Gallo A. [id number] MH 16:15:00 16:15:00 Claudia Taylor MD [facility] brian Taylor MD 2019-07-22 2019-07-22 Outpatient Gallo A Gallo A [id number] MH 14:45:00 14:45:00 Claudia Taylor MD Ph illip PA PA Tootie Taylor MD 2019-07-22 2019-07-22 Outpatient Gallo A Gallo A [id number] MH 14:45:00 14:45:00 Claudia Taylor MD Ph illip PA PA Tootie Taylor MD 2019-07-22 2019-07-22 Outpatient Gallo A Gallo A [id number] MH 14:45:00 14:45:00 Claudia Taylor MD Ph illip PA PA Tootie Taylor MD 2019-06-27 2019-06-27 Outpatient Gallo A Gallo A [id number] MH 09:36:00 09:36:00 Claudia Taylor MD Ph rpuert Taylor MD 2019-06-04 2019-06-04 [facility] [id number] [place] 09:00:00 09:00:00 t; [facility] 2019-05-14 2019-05-14 [place] [facility] [id number] [place] 09:30:00 09:30:00 t; Yazmin PAPPAS i, M.D. ans ASHTON, M.D. 2019-04-23 2019-04-23 [place] [facility] 62 [id number] [place] 09:45:00 09:45:00 t; omid PAPPAS [facility] Loren Cote Medicine M.D. [facility] 2019-04-16 2019-04-[address] [facility] Orthopedics 62 [id number] [place] 09:30:00 09:30:00 t; omid PAPPAS [facility] Loren Cote Medicine M.D. [facility] 2019-04-11 2019-04-11 Santiago [facility] [id number] [place] 12:30:00 12:30:00 t; Yazmin PAPPAS i, M.D. ans ASHTON, M.D. 2019-04-09 2019-04-[address] [facility] Orthopedics 62 [id number] [place] 10:00:00 10:00:00 t; omid PAPPAS [facility] Loren Cote Medicine M.D. [facility] 2019-04-04 2019-04-04 [facility] 62 [id number] [place] 08:45:00 08:45:00 t; [facility] 2019-02-22 2019-02-[address] [facility] Women's [id number] [place] 13:15:00 13:15:00 t; Jenise IRENE [facility] Loren Rogel M.D. 2019-02-01 2019-02-01 [facility] [id number] [place] 13:30:00 13:30:00 t; Jenise IRENE Loren Montes M.D. 2019-01-18 2019-01-18 Outpatient Gallo A Gallo A [id number] MH 10:45:00 10:45:00 Claudia Taylor MD 2019-01-16 2019-01-16 Outpatient Gallo A. Gallo A. [id number] MH 14:26:00 14:26:00 Claudia Taylor MD Phi llip MD PA PA A. Waller MD 2019-01-15 2019-01-15 Outpatient Gallo A. Gallo A. [id number] MH 12:04:00 12:04:00 Claudia Taylor MD Phi llip MD PA PA A. Waller MD 2018-12-31 2018-12-31 [facility] [id number] [place] 09:30:00 09:30:00 t; Jenise IRENE [facility] Loren Rogel M.D. 2018-10-02 2018-10-02 Outpatient [facility] [id number] eClinic 15:00:00 15:00:00 Cardiolog Cardiology lauren Carpenter 2018-07-02 2018-07-02 Outpatient Gallo A Gallo A [id number] MH 15:48:00 15:48:00 Claudia Taylor MD, Ph illip JOHN Taylor MD 2018-06-18 2018-06-18 Outpatient Gallo A Gallo A [id number] MH 12:38:00 12:38:00 Claudia Taylor MD, Ph illip JOHN Taylor MD 2018-06-18 2018-06-18 Outpatient Gallo A Gallo A [id number] MH 09:58:00 09:58:00 Claudia Taylor MD, Ph illip JOHN Taylor MD 2018-06-11 2018-06-11 Outpatient Gallo A Gallo A [id number] MH 12:14:00 12:14:00 Claudia Taylor MD 2018-01-15 2018-01-15 Outpatient med Ahmed [id number] eClinic 11:45:00 11:45:00 Cardiolog Cardiology a lWorks y Pa Pa 2017-12-26 2017-12-26 Outpatient Gallo A Gallo A [id number] 09:00:00 09:00:00 Claudia Taylor MD Ph illip PA JOHN Taylor MD 2017-12-22 2017-12-22 Outpatient med Ahmed [id number] eClinic 13:00:00 13:00:00 Cardiolog Cardiology a lWorks y Pa Pa 2017-12-18 2017-12-18 Outpatient Ahmed Ahmed [id number] eClinic 10:15:00 10:15:00 Cardiolog Cardiology a lWorks y Pa Pa 2017-12-18 2017-12-18 Outpatient med Ahmed [id number] eClinic 10:15:00 10:15:00 Cardiolog Cardiology a lWorks y Pa Pa 2017-11-22 2017-11-22 [facility]patient [facility] [id number] eClinic 15:45:00 15:45:00 Cardiolog Cardiology a lWorks y Pa Pa 2017-09-26 2017-09-26 Outpatient Ahmed Ahmed [id number] eClinic 14:58:00 14:58:00 Cardiolog Cardiology a lWorks y Pa Pa 2017-08-07 2017-08-07 Outpatient med med [id number] eClinic 10:30:00 10:30:00 Cardiolog Cardiology a lWorks y Pa Pa 2017-07-21 2017-07-21 Outpatient Gallo A Gallo A [id number] 14:33:00 14:33:00 Claudia Taylor MD Ph tracyip PA JOHN Taylor MD 2017-06-26 2017-06-26 Outpatient Gallo A Gallo A [id number] 10:00:00 10:00:00 Claudia emery PA JOHN Taylor MD 2016-12-19 2016-12-19 Outpatient med Ahmed [id number] eClinic 13:00:00 13:00:00 Cardiolog Cardiology a lWorks y Pa Pa 2016-11-29 2016-11-29 Outpatient Ahmed Ahmed [id number] eClinic 11:30:00 11:30:00 Cardiolog Cardiology a lWorks y Pa Pa 2016-07-25 2016-07-25 Outpatient Ahmed Ahmed [id number] eClinic 11:30:00 11:30:00 Cardiolog Cardiology a Artie Carpenter 2016-07-20 2016-07-20 Outpatient Ahmed Ahmed [id number] eClinic 11:00:00 11:00:00 Cardiolog Cardiology a Artie Carpenter 2016-06-29 2016-06-29 Outpatient Ahmed Ahmed [id number] eClinic 14:30:00 14:30:00 Cardiolog Cardiology a Artie Carpenter 2016-01-29 2016-01-29 Outpatient Ahmed Ahmed [id number] eClinic 13:45:00 13:45:00 Cardiolog Cardiology a Artie Carpenter 2015-12-23 2015-12-23 4 mo f/u nullFlavo Ahmed [id number] c-d Memoria 20:00:00 20:00:00 rolf Bingham MD, [id number] l JOHN [id number]-[id number] Jackie nn [id number] 2015-12-23 2015-12-23 Outpatient Ahmed Ahmed [id number] eClinic 14:00:00 14:00:00 Otilia Bingham MD, Vita womack MD, PA PA 2015-11-27 2015-11-27 inr nullFlavo Ahmed [id number] -5 Memoria 18:00:00 18:00:00 rolf Bingham MD, f3e-7088-v l JOHN [id number] Jackie nn [id number] 2015-11-27 2015-11-27 inr nullFlavo Ahmed [id number] -5 Memoria 18:00:00 18:00:00 rolf Bingham MD, 2j1-188k-k l JOHN s01-[id number] Jackie nn [id number] 2015-11-27 2015-11-27 Outpatient Ahmed Ahmed [id number] eClinic 12:00:00 12:00:00 Otilia Bingham MD, Vita womack MD, PA PA 2015-10-30 2015-10-30 INR nullFlavo Ahmed [id number] -6 Memoria 17:15:00 17:15:00 rolf Bingham MD, 468-4346-b l JOHN [id number] [facility] [id number] 2015-10-30 2015-10-30 INR nullFlavo Ahmed [id number] -6 Memoria 17:15:00 17:15:00 rolf Bingham MD, u72-843q-b wilfredo CARPENTER dd9-040ade [facility] [id number] 2015-10-30 2015-10-30 INR nullFlavo Ahmed [id number] -7 Memoria 17:15:00 17:15:00 rolf Bingham MD, b40-79t1-7 l JOHN [id number]-[id number] [facility] nn [id number] 2015-10-30 2015-10-30 Outpatient med med [id number] eClinic 11:15:00 11:15:00 Otilia Bingham MD, Vita womack MD, PA PA 2015-09-18 2015-09-18 INR nullFlavo Ahmed [id number] -2 Memoria 19:30:00 19:30:00 rolf Bingham MD, 397-47a3-a wilfredo CARPENTER [id number] [facility] [id number] 2015-09-18 2015-09-18 INR nullFlavo Ahmed [id number] -2 Memoria 19:30:00 19:30:00 r MD Otilia, 62f-4284-a wilfredo CARPENTER [id number]-[id number] [facility] nn [id number] 2015-09-18 2015-09-18 INR nullFlavo Ahmed [id number] -2 Memoria 19:30:00 19:30:00 rolf Bingham MD, j0k-663o-g wilfredo CARPENTER [id number] [facility] [id number] 2015-09-18 2015-09-18 INR nullFlavo Ahmed [id number] -5 Memoria 19:30:00 19:30:00 rolf Bingham MD, 96a-4e96-b wilfredo CARPENTER [id number] [facility] [id number] 2015-09-18 2015-09-18 Outpatient med med [id number] eClinic 13:30:00 13:30:00 Otilia Bingham MD, Vita womack MD, PA PA 2015-08-19 2015-08-19 4 mo f/u nullFlavo Ahmed [id number] 7-c Memoria 19:30:00 19:30:00 rolf Bingham MD, 405-409e-b l PA [id number] Jackie nn [id number] 2015-08-19 2015-08-19 4 mo f/u nullFlavo Ahmed [id number] 3-7 Memoria 19:30:00 19:30:00 rolf Bingham MD, 5d7-6034-0 l PA [id number]-rm80du Jackie nn [id number] 2015-08-19 2015-08-19 4 mo f/u nullFlavo Ahmed [id number] 6-b Memoria 19:30:00 19:30:00 rolf Bingham MD, ded-4816-a l PA [id number] Jackie nn [id number] 2015-08-19 2015-08-19 4 mo f/u nullFlavo Ahmed [id number] f-f Memoria 19:30:00 19:30:00 rolf Bingham MD, 2ee-4279-b l PA [id number] Jackie nn [id number] 1405-06-01 2015-08-19 4 mo f/u nullFlavo Ahmed [id number] 0-e Memoria 19:30:00 19:30:00 rolf Bingham MD, fc8-41e6-8 l PA [id number] Jackie nn [id number] 2015-08-19 2015-08-19 Outpatient Otilia Ngmed [id number] eClinic 13:30:00 13:30:00 Otilia Bingham MD, Vita womack MD, PA PA 2015-07-22 2015-07-22 INR nullFlavo Ahmed [id number] -f Memoria 19:45:00 19:45:00 rolf Bingham MD, 231-4944-8 l PA [id number]-b3ede7 Jackie nn [id number] 2015-07-22 2015-07-22 INR nullFlavo Ahmed [id number] -4 Memoria 19:45:00 19:45:00 rolf Bingham MD, ad5-484e-b l PA [id number] Jackie nn [id number] 2015-07-22 2015-07-22 INR nullFlavo Ahmed [id number] -2 Memoria 19:45:00 19:45:00 rolf Bingham MD, 433-4b2c-9 l PA [id number]-smy2ga Jackie nn [id number] 5351-05-04 2015-07-22 INR nullFlavo Ahmed [id number] -2 Memoria 19:45:00 19:45:00 rolf Bingham MD, t68-24cr-0 l PA [id number] Jackie nn [id number] 2015-07-22 2015-07-22 INR nullFlavo Ahmed [id number] -8 Memoria 19:45:00 19:45:00 rolf Bingham MD, 9w5-79j9-5 l PA [id number] Jackie nn [id number] 6208-05-04 2015-07-22 INR nullFlavo Ahmed [id number] -e Memoria 19:45:00 19:45:00 rolf Binghma MD, 8g8-979q-m l PA [id number] Jackie nn [id number] 2015-07-22 2015-07-22 Outpatient Otilia med [id number] eClinic 13:45:00 13:45:00 Otilia Bingham MD, Vita womack MD, PA PA 2015-07-01 2015-07-01 INR nullFlavo Ahmed [id number] -1 Memoria 19:00:00 19:00:00 rolf Bingham MD, y90-5493-5 l PA ca6-0eaa7c Jackie nn [id number] 2015-07-01 2015-07-01 INR nullFlavo Ahmed [id number] -f Memoria 19:00:00 19:00:00 rolf Bingham MD, 641-4c36-a l PA 311-bcc0e5 Jackie nn [id number] 2015-07-01 2015-07-01 INR nullFlavo Ahmed [id number] -e Memoria 19:00:00 19:00:00 rolf Bingham MD, 7o5-6730-e l PA s6v-8c28h9 Jackie nn [id number] 2015-07-01 2015-07-01 INR nullFlavo Ahmed [id number] -0 Memoria 19:00:00 19:00:00 rolf Bingham MD, 371-4b72-b l PA [id number] Jackie nn [id number] 2015-07-01 2015-07-01 INR nullFlavo Ahmed [id number] -8 Memoria 19:00:00 19:00:00 rolf Bingham MD, 758-4cc3-a l JOHN [id number] Jackie nn [id number] 2015-07-01 2015-07-01 INR nullFlavo Ahmed [id number] -3 Memoria 19:00:00 19:00:00 rolf Bingham MD, 3w2-1814-n l JOHN s8d-fyucp9 Jackie nn [id number] 2015-07-01 2015-07-01 INR nullFlavo Ahmed [id number] -4 Memoria 19:00:00 19:00:00 rolf Bingham MD, 3e6-5m5j-7 l JOHN [id number] Jackie nn [id number] 2015-07-01 2015-07-01 Outpatient Ahmed Ahmed [id number] eClinic 13:00:00 13:00:00 Otilia Bingham MD, Vita womack MD, PA PA 2015-06-22 2015-06-22 inr nullFlavo Ahmed [id number] -c Memoria 19:15:00 19:15:00 rolf Bingham MD, 527-4b27-9 l JOHN [id number] Jackie nn [id number] 2015-06-22 2015-06-22 inr nullFlavo Ahmed [id number] -5 Memoria 19:15:00 19:15:00 rolf Bingham MD, 240-417e-9 l PA 180-f8ad34 Jackie nn [id number] 2015-06-22 2015-06-22 inr nullFlavo Ahmed [id number] -f Memoria 19:15:00 19:15:00 rolf Bingham MD, w64-872o-j l PA 370-693eb6 Jackie nn [id number] 2015-06-22 2015-06-22 inr nullFlavo Ahmed [id number] -2 Memoria 19:15:00 19:15:00 rolf Bingham MD, ae8-47ee-8 l PA ccc-4c6a88 Jackie nn [id number] 2015-06-22 2015-06-22 inr nullFlavo Ahmed [id number] -c Memoria 19:15:00 19:15:00 rolf Bingham MD, p44-96zu-9 l PA [id number] Jackie nn [id number] 2015-06-22 2015-06-22 inr nullFlavo Ahmed [id number] -1 Memoria 19:15:00 19:15:00 r MD Otilia, 90a-491e-a l PA [id number]-6d8e47 Jackie nn [id number] 2015-06-22 2015-06-22 inr nullFlavo Ahmed [id number] -0 Memoria 19:15:00 19:15:00 rolf Bingham MD, 6bd-4d07-9 l PA [id number]-i101y9 Jackie nn [id number] 2015-06-22 2015-06-22 inr nullFlavo Ahmed [id number] -e [facility]oria 19:15:00 19:15:00 rolf Bingham MD, v54-46ax-6 l PA [id number]-b4db78 Jackie nn [id number] 2015-06-22 2015-06-22 Outpatient Otilia Ahmed [id number] eClinic 13:15:00 13:15:00 Otilia Bingham MD, Vita womack MD, PA PA 2015-05-19 2015-05-19 INR nullFlavo Ahmed [id number] -e Memoria 22:00:00 22:00:00 rolf Bingham MD, 6aa-4df5-8 l PA cde-42c0fe Jackie nn [id number] 2015-05-19 2015-05-19 INR nullFlavo Ahmed [id number] -5 Memoria 22:00:00 22:00:00 rolf Bingham MD, 345-4b93-b l PA [id number]-a264z7 Jackie nn [id number] 2015-05-19 2015-05-19 INR nullFlavo Ahmed [id number] -3 Memoria 22:00:00 22:00:00 rolf Bingham MD, 3o0-9536-1 l PA [id number]-l614i6 Jackie nn [id number] 2015-05-19 2015-05-19 INR nullFlavo Ahmed [id number] -b Memoria 22:00:00 22:00:00 rolf Bingham MD, 9t5-701j-f l PA [id number]-7t8188 Jackie nn [id number] 2015-05-19 2015-05-19 INR nullFlavo Ahmed [id number] -d Memoria 22:00:00 22:00:00 rolf Bingham MD, 5e1-6ewo-9 l PA 262-30ab1f Jackie nn [id number] 2015-05-19 2015-05-19 INR nullFlavo Ahmed [id number] -c Memoria 22:00:00 22:00:00 rolf Bingham MD, v36-7p56-e l PA [id number]-r78219 Jackie nn [id number] 2015-05-19 2015-05-19 INR nullFlavo Ahmed [id number] -c Memoria 22:00:00 22:00:00 rolf Bingham MD, 273-4feb-a l PA [id number] Jackie nn [id number] 2015-05-19 2015-05-19 INR nullFlavo Ahmed [id number] -9 Memoria 22:00:00 22:00:00 rolf Bingham MD, e5z-80ne-3 l PA df3-0548d7 Jackie nn 1fabfe 2015-05-19 2015-05-19 INR nullFlavo Ahmed [id number] -6 Memoria 22:00:00 22:00:00 rolf Bingham MD, e94-6638-i l PA fdd-79e52f Jackie nn [id number] 3233-03-01 2015-05-19 Outpatient Otilia Bingham [id number] eClinic 16:00:00 16:00:00 Otilia Bingham MD, Vita womack MD, PA PA 2015-04-20 2015-04-20 f/u nullFlavo Ahmed [id number] -1 Memoria 16:45:00 16:45:00 testing rolf Bingham MD, 54d-499f-8 l PA [id number] Jackie nn [id number] 4171-02-01 2015-04-20 f/u nullFlavo Ahmed [id number] -f Memoria 16:45:00 16:45:00 testing rolf Bingham MD, x58-05q9-9 l PA [id number] [facility] nn [id number] 2015-04-20 2015-04-20 f/u nullFlavo Ahmed [id number] -6 Memoria 16:45:00 16:45:00 testing rolf Bingham MD, af3-4cd3-a l PA [id number] [facility] nn [id number] 2015-04-20 2015-04-20 f/u nullFlavo Ahmed [id number] -5 Memoria 16:45:00 16:45:00 testing rolf Bingham MD, 756-4d8d-b l PA 98e-8e87a5 [facility] nn [id number] 2015-04-20 2015-04-20 f/u nullFlavo Ahmed [id number] -2 Memoria 16:45:00 16:45:00 testing rolf Bingham MD, 1eb-4015-a l PA r4l-05b7bo [facility] nn [id number] 2015-04-20 2015-04-20 f/u nullFlavo Ahmed [id number] -3 Memoria 16:45:00 16:45:00 testing rolf Bingham MD, k0r-60o6-8 l PA 1dc-707e00 [facility] nn [id number] 2015-04-20 2015-04-20 f/u nullFlavo Ahmed [id number] -3 Memoria 16:45:00 16:45:00 testing rolf Bingham MD, da1-475c-b l PA [id number]-7470c6 [facility] nn 7cd84c 2015-04-20 2015-04-20 f/u nullFlavo Ahmed [id number] -e [facility]oria 16:45:00 16:45:00 testing rolf Bingham MD, a44-4u85-1 l PA h7e-58sbgx [facility] nn [id number] 2795-02-01 2015-04-20 f/u nullFlavo Ahmed [id number] -9 Memoria 16:45:00 16:45:00 testing rolf Bingham MD, z4h-5382-g l PA fd9-eeedab [facility] nn [id number] 2015-04-20 2015-04-20 f/u nullFlavo Ahmed [id number] -7 [facility] 16:45:00 16:45:00 testing rolf Bingham MD, [id number] l PA [id number] Jackie nn [id number] 2015-04-20 2015-04-20 Outpatient Otilia Bingham [id number] [facility] 10:45:00 10:45:00 Otilia Bingham MD, Vita womack MD, JOHN CARPENTER 2015-03-30 2015-03-30 pt would nullFlavo Ahmed [id number] f-a [facility] 19:45:00 19:45:00 like to rolf Bingham MD, [id number] l get PA [id number] Jackie nn establishe [id number] d 2015-03-30 2015-03-30 pt would nullFlavo Ahmed [id number] f-f [facility] 19:45:00 19:45:00 like to rolf Bingham MD, [id number] l get PA [id number] Jackie nn establishe [id number] d 2015-03-30 2015-03-30 pt would nullFlavo Ahmed [id number] 7-7 [facility] 19:45:00 19:45:00 like to rolf Bingham MD, [id number] l get PA [id number] Jackie nn establishe [id number] d 2015-03-30 2015-03-30 pt would nullFlavo Ahmed [id number] b-a [facility] 19:45:00 19:45:00 like to rolf Bingham MD, [id number] l get PA [id number] Jackie nn establishe 100e6c d 2015-03-30 2015-03-30 pt would nullFlavo Ahmed [id number] 1-8 [facility] 19:45:00 19:45:00 like to rolf Bingham MD, [id number]-[id number]-a l get PA [id number] Jackie nn establishe [id number] d 2015-03-30 2015-03-30 pt would nullFlavo Ahmed [id number] 7-4 [facility] 19:45:00 19:45:00 like to rolf Bingham MD, 711-4c99-b l get PA [id number] Jackie nn establishe [id number] d 2015-03-30 2015-03-30 pt would nullFlavo Ahmed [id number] c-8 [facility] 19:45:00 19:45:00 like to rolf Bingham MD, [id number]-[id number] l get PA [id number] Jackie nn establishe [id number] d 2015-03-30 2015-03-30 pt would nullFlavo Ahmed [id number] 0-2 [facility] 19:45:00 19:45:00 like to rolf Bingham MD, 59c-4055-b l get PA [id number] Jackie nn establishe [id number] d 2015-03-30 2015-03-30 pt would nullFlavo Ahmed [id number] 0-9 [facility] 19:45:00 19:45:00 like to rolf Bingham MD, [id number]-4686-x l get PA [id number] Jackie nn establishe [id number] d 2015-03-30 2015-03-30 pt would nullFlavo Ahmed [id number] 2-0 [facility] 19:45:00 19:45:00 like to rolf Bingham MD, 09d-4c85-9 l get PA [id number] Jackie nn establishe 988a93 d 2015-03-30 2015-03-30 pt would nullFlavo Ahmed [id number] e-7 [facility] 19:45:00 19:45:00 like to rolf Bingham MD, [id number] l get PA [id number] Jackie nn establishe 999a10 d 2015-03-30 2015-03-30 Outpatient Ahmed Ahmed [id number] [facility] 13:45:00 13:45:00 Otilia Bingham MD, Vita womack MD, PA JOHN 2014-02-05 2014-02-06 Outpatient nullFlavo [facility] [id number] Mem[facility] 21:57:00 05:59:00 r Justo 00 l [facility] 2014-02-05 2014-02-05 Outpatient Colvin-Thomas, [id number]. [id number] . [id number] 15:57:00 23:59:00 Ashley [id number]. [id number] 5.0.101 01 Results Test Description Test Time Test Comments [...] = NRBC#) 0.00 K/mm3 0.0-0.1 N DIFFERENTIAL [id number] 11:23:00 Test Item Value Reference Range Interpretation Comments RBC MORPHOLOGY REQUIRED (test NORMAL code = RBCM) PLATELET ESTIMATE (test code = ADEQUATE ADEQUATE PLTEST) PLATELET MORPHOLOGY (test code FEW LARGE PLTS NORMAL = PLTMORPH) POIKILOCYTOSIS (test code = FEW NONE POIK) ANISOCYTOSIS (test code = SLIGHT NONE ANISO) MACROCYTOSIS (test code = FEW NONE MACR) BASIC METABOLIC [id number] 07:05:00 Test Item Value Reference Range Interpretation [...] = 8.7 MG/DL 8.4-10.2 N CA) PROTHROMBIN [id number] 06:07:00 Test Item Value Reference Range Interpretation Comments PROTHROMBIN TIME 19.5 SECONDS 9.5-12.7 H PATIENT (test code = PTP) INTERNATIONAL NORMAL 1.7 0.86-1.14 H The INR is to be RATIO (test code = used only for INR) monitoring oral anticoagulantth erap y. INDICATION INR VALUE ---- ---- ---- -------1. Prophylaxis, de ep venous thrombos is, including high risk surgery. 2.0 - 3.0 2. Prophylaxis, deep venous thrombosis, hip surgery, treatm ent for deep venous thrombosis or pulmonary prevention of systemic emboli sm in patients wit h valvular heart disease, atrial fibrillation, tissue heart va lve, or acute myocar dial infarction. 2.0 - 3.0 3. Manager Pool al prosthesis hear t valves, recurre nt systemic emboli sm. 3.0 - 4.5 CBC W/AUTO [id number] 09:39:00 Test Item Value Reference Range Interpretation [...] = 0.00 K/mm3 0.0-0.1 N NRBC#) DIFFERENTIAL [id number] 09:39:00 Test Item Value Reference Range Interpretation Comments RBC MORPHOLOGY REQUIRED (test code = ABNORMAL RBCM) PLATELET ESTIMATE (test code = ADEQUATE ADEQUATE PLTEST) PLATELET MORPHOLOGY (test code = NORMAL NORMAL PLTMORPH) POIKILOCYTOSIS (test code = POIK) FEW NONE ANISOCYTOSIS (test code = ANISO) MODERATE NONE OVALOCYTES (test code = OVAL) FEW NONE PROTHROMBIN [id number] 07:42:00 Test Item Value Reference Range Interpretation Comments PROTHROMBIN TIME 20.0 SECONDS 9.5-12.7 H PATIENT (test code = PTP) INTERNATIONAL NORMAL 1.8 0.86-1.14 H The INR is to be RATIO (test code = used only for INR) monitoring oral anticoagulantth erap y. INDICATION I NR VALUE ---- ---- ---- -------1. Prophylaxis, de ep venous thrombos is, including high risk surgery. 2.0 - 3.0 2. Prophylaxis, deep venous thrombosis, hip surgery, treatm ent for deep venous thrombosis or pulmonary prevention of systemic emboli sm in patients wit h valvular heart disease, atrial fibrillation, tissue heart va lve, or acute myocar dial infarction. 2.0 - 3.0 3. Manager Pool al prosthesis hear t valves, recurre nt systemic emboli sm. 3.0 - 4.5 PTT [id number] 07:42:00 Test Item Value Reference Range Interpretation Comments PTT ACTIVATED (test code = APTT) 48.5 SECONDS 25.1-36.5 H BASIC METABOLIC [id number] 07:38:00 Test Item Value Reference Range Interpretation [...] code = 9.8 MG/DL 8.4-10.2 N CA) [id number] 07:38:00 Test Item Value Reference Range Interpretation Comments MAGNESIUM (test code = MAG) 2.0 MG/DL 1.6-2.3 N COVID 19 Asymptomatic IH [id number] 12:27:00 Test Item Value Reference Range Interpretation Comments COVID 19 NEGATIVE Negative "Negative resul ts from Asymptomatic IH AG patients with symptom (test code = onset beyondfiv e days, COVNONPUIAG) should be treat ed as presumptive, andconfirmation with a molecular assay [...] of virus (antigen) in the sample." PROTHROMBIN [id number] 06:55:00 Test Item Value Reference Range Interpretation Comments PROTHROMBIN TIME 47.2 SECONDS 9.3-12.9 H PATIENT (test code = PTP) INTERNATIONAL NORMAL 4.2 0.8-1.2 H TARGET INR BY RATIO (test code = INDICATIO N Indication INR) INR1. Prophylax is of venous thrombos is 2.0 - 3.0 (orthoped ic surgery), Proph ylaxis of venous throm bosis (other than hig h-risk surgery), Treat ment of Deep Vein Thrombosis/Pulm onary Embolism, Preve ntion of systemic emb olism - Tissue heart va lves, Acute Myocardia l Infarction (to prevent systemic emboli sm), Valvular heart disease, Atrial Fibrillation, Bileaflet mecha nical valve in aortic position.2. Mec hanical prosthetic valv es (high risk), 2. 5 - 3.5 Presence of Lup us Anticoagulant o r Antiphospholipi d Antibodies, Pre vention of systemic emb olism - Acute Myocardia l Infarction (to prevent recurrent infar ct). PROTHROMBIN [id number] 05:34:00 Test Item Value Reference Range Interpretation Comments PROTHROMBIN TIME 42.9 SECONDS 9.3-12.9 H PATIENT (test code = PTP) INTERNATIONAL NORMAL 3.8 0.8-1.2 H TARGET INR BY RATIO (test code = INDICATIO N Indication INR) INR1. Prophylax is of venous thrombos is 2.0 - 3.0 (orthoped ic surgery), Proph ylaxis of venous throm bosis (other than hig h-risk surgery), Treat ment of Deep Vein Thrombosis/Pulm onary Embolism, Preve ntion of systemic emb olism - Tissue heart va lves, Acute Myocardia l Infarction (to prevent systemic emboli sm), Valvular heart disease, Atrial Fibrillation, Bileaflet mecha nical valve in aortic position.2. Mec hanical prosthetic valv es (high risk), 2. 5 - 3.5 Presence of Lup us Anticoagulant o r Antiphospholipi d Antibodies, Pre vention of systemic emb olism - Acute Myocardia l Infarction (to prevent recurrent infar ct). PROTHROMBIN [id number] 05:40:00 Test Item Value Reference Range Interpretation Comments PROTHROMBIN TIME 32.7 SECONDS 9.3-12.9 H PATIENT (test code = PTP) INTERNATIONAL NORMAL 2.9 0.8-1.2 H TARGET INR BY RATIO (test code = INDICATIO N Indication INR) INR1. Prophylax is of venous thrombos is 2.0 - 3.0 (orthoped ic surgery), Proph ylaxis of venous throm bosis (other than hig h-risk surgery), Treat ment of Deep Vein Thrombosis/Pulm onary Embolism, Preve ntion of systemic emb olism - Tissue heart va lves, Acute Myocardia l Infarction (to prevent systemic emboli sm), Valvular heart disease, Atrial Fibrillation, Bileaflet mecha nical valve in aortic position.2. Mec hanical prosthetic valv es (high risk), 2. 5 - 3.5 Presence of Lup us Anticoagulant o r Antiphospholipi d Antibodies, Pre vention of systemic emb olism - Acute Myocardia l Infarction (to prevent recurrent infar ct). - CT CHEST W/O [id number] 00:00:00 [facility] 1945 Sex: F Name: ROBBIN WILSON [facility] : 1945 Age/S: 75 / F [address] [place] [address] Unit #: [id number] Loc: [place] [address] Phys: Marquis Patel MD Acct: [id number] Dis Date: Status: ADM IN PHONE #: [phone] Exam Date: 10/10/20202024 FAX #: [phone] Reason: PLEURAL EFFUSION EXAMS: CPT CODE: [id number] CT CHEST W/O CONTRAST 31355 PROCEDURE INFORMATION: Exam: CT Chest With out Contrast; Diagnostic Exam date and time: 10/10/2020 8:04 PM Age: 75 years old Clinical indication: Shortness of breath; Additional info: Pleural effusion TECHNIQUE: Imaging protocol: Diagnostic computed tomography of the chest without contrast. Radiation optimization: All CT scans at this facility use at least one of these dose optimization techniques: automated exposure control; mA and/or kV adjustment per patient size (includes targeted exams where dose is matched to clinical indication); or iterative reconstruction. COMPARISON: CR XR CHEST 1V 10/08/2020 9:08 AM FINDINGS: Lungs: Ysce-lg-uawzusdd compressive atelectasis is present in the posterior lower lobes bilaterally. Pleural spaces: There are small to moderate bilateral pleural effusions layering [...] of the left lobe of the liver measuringapproximately [address] density and 1.4 x 3.0 cm. The gallbladder is surgically absent.IMPRESSION: 1. Small to moderate layering pleural effusions are present bilaterally, associated withcompressive atelectasis of the posterior lower lobes. PAGE 1 Signed Report (CONTINUED) Name: ROBBIN WILSON [facility] : 1945 Age/S: 75 / F [address] [place] [address] Unit #: [id number] Loc: [place] [address] Phys: Marquis Patel MD Acct: [id number] Dis Date: Status: ADM IN PHONE#: [phone] Exam Date: 10/10/20202024 FAX #: [phone] Reason: PLEURAL EFFUSION EXAMS: CPT CODE: [id number] CT CHEST W/O CONTRAST 18666 <Continued> 2. Median sternotomy wires are present. Prosthetic aortic valve noted, with heavy thoracic aortic vascular calcification. Heart size appears mildly enlarged. There is moderate to heavy calcification of the left anterior descending coronary artery. 3. Cholecystectomy. at 0 Reported and signed by: Niecy Segal M.D. CC: Lian Sheth MD; Marquis Patel MD Technologist:Cornell Pereira, RT(R)(CT) CTDI: DLP: Trnscb Date/Time: 10/10/2020 (2139) Thai Orig Print D/T: S: 10/10/2020 (2140) PAGE 2 Signed ReportPROTHROMBIN TIME 2020-10-09 04:53:00 Test Item Value Reference Range Interpretation Comments PROTHROMBIN TIME 26.1 SECONDS 9.3-12.9 H PATIENT (test code = PTP) INTERNATIONAL NORMAL 2.4 0.8-1.2 H TARGET INR BY RATIO (test code = INDICATIO N Indication INR) INR1. Prophylax is of venous thrombos is 2.0 - 3.0 (orthoped ic surgery), Proph ylaxis of venous throm bosis (other than hig h-risk surgery), Treat ment of Deep Vein Thrombosis/Pulm onary Embolism, Preve ntion of systemic emb olism - Tissue heart va lves, Acute Myocardia l Infarction (to prevent systemic emboli sm), Valvular heart disease, Atrial Fibrillation, Bileaflet mecha nical valve in aortic position.2. Mec hanical prosthetic valv es (high risk), 2. 5 - 3.5 Presence of Lup us Anticoagulant o r Antiphospholipi d Antibodies, Pre vention of systemic emb olism - Acute Myocardia l Infarction (to prevent recurrent infar ct). HGBA1C%2020-10-08 09:39:00 Test Item Value Reference Range Interpretation Comments HGBA1C% (test code = HGBA1C%) 6.4 %A1C 4.8-6.0 H CBC W/AUTO [id number] 08:21:00 Test Item Value Reference Range Interpretation [...] (test code NO = MDIFF) BASIC METABOLIC [id number] 08:04:00 Test Item Value Reference Range Interpretation [...] = CHOL/HDL RATIOS: RISK CHOLHDL) MALE FEMALE1/2 AVERAGE 3.43 3.27AVERAG E 4.97 4.442X AVERAGE 9.55 7.053X AVERAGE 23.39 11.04 NOTE THAT THE REFERENCE VALUE IS RELATEDTO RISK LEVELS RECOMMENDED BY THE NATL.HEART, CHARLIE G, AND BLOOD INST. HDL CHOLESTEROL 27.4 mg/dL 39-96 L (test code = HDL) LIPOPROTEIN LDL 60.9 mg/dL 0-100 N <100 OPTIMAL 100-129 (test code = LDL) NEAR OPTIM AL/ABOVE [id number] 89 HIGH>NB=589 AMNA Y HIGH*Guidelines provided by the National Choles terol EducationProgra m Adult Treatment Panel III [id number] 08:04:00 Test Item Value Reference Range Interpretation Comments MAGNESIUM (test code = MAG) 2.10 mg/dL 1.80-2.40 PROTHROMBIN [id number] 06:14:00 Test Item Value Reference Range Interpretation Comments PROTHROMBIN TIME 32.2 SECONDS 9.3-12.9 H PATIENT (test code = PTP) INTERNATIONAL NORMAL 2.9 0.8-1.2 H TARGET INR BY RATIO (test code = INDICATIO N Indication INR) INR1. Prophylax is of venous thrombos is 2.0 - 3.0 (orthoped ic surgery), Proph ylaxis of venous throm bosis (other than hig h-risk surgery), Treat ment of Deep Vein Thrombosis/Pulm onary Embolism, Preve ntion of systemic emb olism - Tissue heart va lves, Acute Myocardia l Infarction (to prevent systemic emboli sm), Valvular heart disease, Atrial Fibrillation, Bileaflet mecha nical valve in aortic position.2. Mec hanical prosthetic valv es (high risk), 2. 5 - 3.5 Presence of Lup us Anticoagulant o r Antiphospholipi d Antibodies, Pre vention of systemic emb olism - Acute Myocardia l Infarction (to prevent recurrent infar ct). - XR CHEST 1 [id number] 00:00:00 [facility] : 1945 Sex: F FAX: Jessika Sheth [phone] [place]: [address]: ADM Name: ROBBIN WILSON [facility] : 1945 Age/S: 75/F [address] [place] [address] Unit #: [id number] Loc: [place] [address] Phys: Lian Sheth MD Acct: [id number] Dis Date: Status: ADM IN PHONE #: [phone] Exam Date: 10/08/2020 0954 FAX #: [phone] Reason: HEAVY BREATHING EXAMS: CPT CODE: [id number] XR CHEST 1 V 75175 PROCEDURE INFORMATION: Exam: XR Chest Exam date and time: 10/08/2020 9:08 AM Age: 75 years old Clinical indication: Condition or disease; Other: Heavy breathing TECHNIQUE: Imaging protocol: XR of the chest. [...] Nilesh(R) Trnscrd Date/Time/By: 10/08/2020 (1001) : By: [email or web address] Orig Print D/T: S: 10/08/2020 (1002) PAGE 1 Signed ReportPROTHROMBIN [id number] 15:18:00 Test Item Value Reference Range Interpretation Comments PROTHROMBIN TIME 37.6 SECONDS 9.3-12.9 H PATIENT (test code = PTP) INTERNATIONAL NORMAL 3.4 0.8-1.2 H TARGET INR BY RATIO (test code = INDICATIO N Indication INR) INR1. Prophylax is of venous thrombos is 2.0 - 3.0 (orthoped ic surgery), Proph ylaxis of venous throm bosis (other than hig h-risk surgery), Treat ment of Deep Vein Thrombosis/Pulm onary Embolism, Preve ntion of systemic emb olism - Tissue heart va lves, Acute Myocardia l Infarction (to prevent systemic emboli sm), Valvular heart disease, Atrial Fibrillation, Bileaflet mecha nical valve in aortic position.2. Mec hanical prosthetic valv es (high risk), 2. 5 - 3.5 Presence of Lup us Anticoagulant o r Antiphospholipi d Antibodies, Pre vention of systemic emb olism - Acute Myocardia l Infarction (to prevent recurrent infar ct). COMMENTS: INR X 10 [id number] 06:56:00 Test Item Value Reference Range Interpretation Comments TROPONIN-I 0.065 ng/mL 0.000-0.045 H Negative: <= 0. 045 Positive: (test code = >= 0.046 Correl ation with TROPI) serial results, other cardiac markers andclin ical findings is necessary to determine the clinicalsignifi cance of this result. Results using different metho dologies should not be c omparedto one another as claudio titative results may nahed y by method. [id number] 04:52:00 Test Item Value Reference Range Interpretation Comments TROPONIN-I 0.055 ng/mL 0.000-0.045 H Negative: <= 0. 045 Positive: (test code = >= 0.046 Correl ation with TROPI) serial results, other cardiac markers andclin ical findings is necessary to determine the clinicalsignifi cance of this result. Results using different metho dologies should not be c omparedto one another as claudio titative results may nahed y by method. POC ARTERIAL BLOOD [id number] 02:11:00 Test Item Value Reference Range Interpretation Comments POC ARTERIAL BLOOD GAS PH (test 7.430 7.35-7.45 N code = POCPHA) POC ARTERIAL BLOOD GAS PCO2 35.9 mmHg 35.0-45 N (test code = RJNZOV3Q) POC TCO2 ARTERIAL (test code = 25.0 POCTCO2) POC ARTERIAL BLOOD GAS PO2 (test 71.2 mmHg 80-100.0 L code = PXKHR0K) POC HCO3 ARTERIAL (test code = 23.9 MMOL/L 22.0-26.0 N [id number]) POC BASE EXCESS (test code = -0.4 MMOL/L -4.0-4.0 N POCBEA) POC O2 SATURATION (test code = 94.7 % 90-100 N POCO2S) FIO2 (test code = FIO2A) 21 % PaO2/FiO2 (test code = KRA2YLB7) 339.04 mm/Hg ABG DELIVERY (test code = SU) Room Air ABG TEMPERATURE (test code = 98.6 F TEMPA) ABG SITE (test code = SITEA) R Radial JESSE'S TEST (test code = Positive ALLENS) BASIC METABOLIC [id number] 02:11:00 Test Item Value Reference Range Interpretation Comments SODIUM (test code = NA/ABG) MEQ/L 134-147 POTASSIUM (test code = K/ABG) MEQ/L 3.4-5.0 CHLORIDE (test code = CL/ABG) MEQ/L 100-108 CREATININE ABG (test code = CREAABG) mg/dL 0.6-1.0 POC IONIZED CALCIUM (test code = MMOL/L 1.12-1.32 POCCA) POC GLUCOSE (test code = POCGLU) MG/DL [id number] 02:11:00 Test Item Value Reference Range Interpretation Comments HEMOGLOBIN (test code = HGB/ABG) G/DL 11.0-15.0 [id number] 02:11:00 Test Item Value Reference Range Interpretation Comments HEMATOCRIT (test code = HCT/ABG) % 33.0-45.0 POC LACTIC [id number] 02:11:00 Test Item Value Reference Range Interpretation Comments POC LACTIC ACID (test code = POCLAC) mmol/l 0.9-1.7 POC ARTERIAL BLOOD [id number] 02:11:00 Test Item Value Reference Range Interpretation Comments POC ARTERIAL BLOOD GAS PH (test 7.430 7.35-7.45 N code = POCPHA) POC ARTERIAL BLOOD GAS PCO2 35.9 mmHg 35.0-45 N (test code = POVMMM0Z) POC TCO2 ARTERIAL (test code = 25.0 POCTCO2) POC ARTERIAL BLOOD GAS PO2 (test 71.2 mmHg 80-100.0 L code = GPTNN2B) POC HCO3 ARTERIAL (test code = 23.9 MMOL/L 22.0-26.0 N [id number]) POC BASE EXCESS (test code = -0.4 MMOL/L -4.0-4.0 N POCBEA) POC O2 SATURATION (test code = 94.7 % 90-100 N POCO2S) FIO2 (test code = FIO2A) 21 % PaO2/FiO2 (test code = WWE1KZC0) 339.04 mm/Hg ABG DELIVERY (test code = SU) Room Air ABG TEMPERATURE (test code = 98.6 F TEMPA) ABG SITE (test code = SITEA) R Radial JESSE'S TEST (test code = Positive ALLENS) BASIC METABOLIC [id number] 02:11:00 Test Item Value Reference Range Interpretation Comments SODIUM (test code = NA/ABG) MEQ/L 134-147 POTASSIUM (test code = K/ABG) MEQ/L 3.4-5.0 CHLORIDE (test code = CL/ABG) MEQ/L 100-108 CREATININE ABG (test code = CREAABG) mg/dL 0.6-1.0 POC IONIZED CALCIUM (test code = MMOL/L 1.12-1.32 POCCA) POC GLUCOSE (test code = POCGLU) MG/DL [id number] 02:11:00 Test Item Value Reference Range Interpretation Comments HEMOGLOBIN (test code = HGB/ABG) G/DL 11.0-15.0 [id number] 02:11:00 Test Item Value Reference Range Interpretation Comments HEMATOCRIT (test code = HCT/ABG) % 33.0-45.0 POC LACTIC [id number] 02:11:00 Test Item Value Reference Range Interpretation Comments POC LACTIC ACID (test code = 1.3 mmol/l 0.9-1.7 N POCLAC) POC ARTERIAL BLOOD [id number] 02:11:00 Test Item Value Reference Range Interpretation Comments POC ARTERIAL BLOOD GAS PH (test 7.430 7.35-7.45 N code = POCPHA) POC ARTERIAL BLOOD GAS PCO2 35.9 mmHg 35.0-45 N (test code = TKWVBL2C) POC TCO2 ARTERIAL (test code = 25.0 POCTCO2) POC ARTERIAL BLOOD GAS PO2 (test 71.2 mmHg 80-100.0 L code = TXWBP2T) POC HCO3 ARTERIAL (test code = 23.9 MMOL/L 22.0-26.0 N QQUURG3W) POC BASE EXCESS (test code = -0.4 MMOL/L -4.0-4.0 N POCBEA) POC O2 SATURATION (test code = 94.7 % 90-100 N POCO2S) FIO2 (test code = FIO2A) 21 % PaO2/FiO2 (test code = GHY5YKV9) 339.04 mm/Hg ABG DELIVERY (test code = SU) Room Air ABG TEMPERATURE (test code = 98.6 F TEMPA) ABG SITE (test code = SITEA) R Radial JESSE'S TEST (test code = Positive ALLENS) BASIC METABOLIC [id number] 02:11:00 Test Item Value Reference Range Interpretation [...] GLUCOSE (test code = POCGLU) 174 MG/DL [id number] 02:11:00 Test Item Value Reference Range Interpretation Comments HEMOGLOBIN (test code = HGB/ABG) G/DL 11.0-15.0 [id number] 02:11:00 Test Item Value Reference Range Interpretation Comments HEMATOCRIT (test code = HCT/ABG) % 33.0-45.0 POC LACTIC [id number] 02:11:00 Test Item Value Reference Range Interpretation Comments POC LACTIC ACID (test code = 1.3 mmol/l 0.9-1.7 N POCLAC) POC ARTERIAL BLOOD [id number] 02:11:00 Test Item Value Reference Range Interpretation Comments POC ARTERIAL BLOOD GAS PH (test 7.430 7.35-7.45 N code = POCPHA) POC ARTERIAL BLOOD GAS PCO2 35.9 mmHg 35.0-45 N (test code = PLVPNN4U) POC TCO2 ARTERIAL (test code = 25.0 POCTCO2) POC ARTERIAL BLOOD GAS PO2 (test 71.2 mmHg 80-100.0 L code = OSFSR8Z) POC HCO3 ARTERIAL (test code = 23.9 MMOL/L 22.0-26.0 N [id number]) POC BASE EXCESS (test code = -0.4 MMOL/L -4.0-4.0 N POCBEA) POC O2 SATURATION (test code = 94.7 % 90-100 N POCO2S) FIO2 (test code = FIO2A) 21 % PaO2/FiO2 (test code = GNC0NAF1) 339.04 mm/Hg ABG DELIVERY (test code = SU) Room Air ABG TEMPERATURE (test code = 98.6 F TEMPA) ABG SITE (test code = SITEA) R Radial JESSE'S TEST (test code = Positive ALLENS) BASIC METABOLIC [id number] 02:11:00 Test Item Value Reference Range Interpretation [...] GLUCOSE (test code = POCGLU) 174 MG/DL [id number] 02:11:00 Test Item Value Reference Range Interpretation Comments HEMOGLOBIN (test code = HGB/ABG) 11.9 G/DL 11.0-15.0 N [id number] 02:11:00 Test Item Value Reference Range Interpretation Comments HEMATOCRIT (test code = HCT/ABG) % 33.0-45.0 POC LACTIC [id number] 02:11:00 Test Item Value Reference Range Interpretation Comments POC LACTIC ACID (test code = 1.3 mmol/l 0.9-1.7 N POCLAC) POC ARTERIAL BLOOD [id number] 02:11:00 Test Item Value Reference Range Interpretation Comments POC ARTERIAL BLOOD GAS PH (test 7.430 7.35-7.45 N code = POCPHA) POC ARTERIAL BLOOD GAS PCO2 35.9 mmHg 35.0-45 N (test code = KFMGEN8X) POC TCO2 ARTERIAL (test code = 25.0 POCTCO2) POC ARTERIAL BLOOD GAS PO2 (test 71.2 mmHg 80-100.0 L code = GRNXD3I) POC HCO3 ARTERIAL (test code = 23.9 MMOL/L 22.0-26.0 N SVETXW4N) POC BASE EXCESS (test code = -0.4 MMOL/L -4.0-4.0 N POCBEA) POC O2 SATURATION (test code = 94.7 % 90-100 N POCO2S) FIO2 (test code = FIO2A) 21 % PaO2/FiO2 (test code = QLJ6EOI0) 339.04 mm/Hg ABG DELIVERY (test code = SU) Room Air ABG TEMPERATURE (test code = 98.6 F TEMPA) ABG SITE (test code = SITEA) R Radial JESSE'S TEST (test code = Positive ALLENS) BASIC METABOLIC [id number] 02:11:00 Test Item Value Reference Range Interpretation [...] GLUCOSE (test code = POCGLU) 174 MG/DL [id number] 02:11:00 Test Item Value Reference Range Interpretation Comments HEMOGLOBIN (test code = HGB/ABG) 11.9 G/DL 11.0-15.0 N [id number] 02:11:00 Test Item Value Reference Range Interpretation Comments HEMATOCRIT (test code = HCT/ABG) 35 % 33.0-45.0 N POC LACTIC [id number] 02:11:00 Test Item Value Reference Range Interpretation Comments POC LACTIC ACID (test code = 1.3 mmol/l 0.9-1.7 N POCLAC) Coronavirus 2019 nCoV [id number] 00:44:00 Test Item Value Reference Range Interpretation Comments Coronavirus 2019 NEGATIVE Negative Negative re sults should be nCoV Bedside (test treated a s presumptive and, code = ifinconsistent with [id number]) clinical signs and symptoms or necessaryfor patient management, michelle uld be tested with an alternativemole cular assay. Negative result s do not preclude GJSN-FkP-2kwprb tion and should not be u sed as the sole basis forp atient management deci sions. Negative result s should beconsidered in the context of a patient's recent exposures,histo ry, presence of clinical sig ns and symptoms consis tentwith COVID-19. LIPOPROTEIN [id number] 00:27:00 Test Item Value Reference Range Interpretation Comments LIPOPROTEIN LDL 70.8 mg/dL 0-100 N <100 OPTIMAL 100-129 NEAR (test code = LDL) OPTIMAL/AB OVE [id number] 89 HIGH>SF=700 AMNA Y HIGH*Guidelines provided by the National Cholesterol EducationProgra m Adult Treatment Panel III BASIC METABOLIC [id number] 00:27:00 Test Item Value Reference Range Interpretation [...] code = 9.1 mg/dL 8.0-10.5 N CA) [id number] 00:27:00 Test Item Value Reference Range Interpretation Comments LIPASE (test code = LIP) 92 U/L 13-57 H [id number] 00:27:00 Test Item Value Reference Range Interpretation Comments MAGNESIUM (test code = MAG) 1.71 mg/dL 1.80-2.40 L T4 [id number] 00:27:00 Test Item Value Reference Range Interpretation Comments T4 FREE (test code = T4F) 1.2 ng/dL 0.77-1.61 N TSH REFLEX TO [id number] 00:27:00 Test Item Value Reference Range Interpretation Comments TSH REFLEX TO FT4 (test code = 0.26 IU/mL 0.42-5.47 L TSHREFLEX) [id number] 00:27:00 Test Item Value Reference Range Interpretation Comments TROPONIN-I 0.061 ng/mL 0.000-0.045 H Negative: <= 0. 045 Positive: (test code = >= 0.046 Correl ation with TROPI) serial results, other cardiac markers andclin ical findings is necessary to determine the clinicalsignifi cance of this result. Results using different metho dologies should not be c omparedto one another as claudio titative results may nahed y by method. B-TYPE NATRIURETIC [id number] 00:07:00 Test Item Value Reference Range Interpretation Comments B-TYPE NATRIURETIC PEPTIDE (test 370.0 PG/ML 0-100 H code = BNP) BASIC METABOLIC [id number] 00:02:00 Test Item Value Reference Range Interpretation [...] code = 9.1 mg/dL 8.0-10.5 N CA) [id number] 00:02:00 Test Item Value Reference Range Interpretation Comments LIPASE (test code = LIP) 92 U/L 13-57 H [id number] 00:02:00 Test Item Value Reference Range Interpretation Comments MAGNESIUM (test code = MAG) 1.71 mg/dL 1.80-2.40 L T4 [id number] 00:02:00 Test Item Value Reference Range Interpretation Comments T4 FREE (test code = T4F) ng/dL 0.77-1.61 TSH REFLEX TO [id number] 00:02:00 Test Item Value Reference Range Interpretation Comments TSH REFLEX TO FT4 (test code = 0.26 IU/mL 0.42-5.47 L TSHREFLEX) [id number] 00:02:00 Test Item Value Reference Range Interpretation Comments TROPONIN-I 0.061 ng/mL 0.000-0.045 H Negative: <= 0. 045 Positive: (test code = >= 0.046 Correl ation with TROPI) serial results, other cardiac markers andclin ical findings is necessary to determine the clinicalsignifi cance of this result. Results using different metho dologies should not be c omparedto one another as claudio titative results may nahed y by method. PROTHROMBIN [id number] 23:59:00 Test Item Value Reference Range Interpretation Comments PROTHROMBIN TIME 36.2 SECONDS 9.3-12.9 H PATIENT (test code = PTP) INTERNATIONAL NORMAL 3.2 0.8-1.2 H TARGET INR BY RATIO (test code = INDICATIO N Indication INR) INR1. Prophylax is of venous thrombos is 2.0 - 3.0 (orthoped ic surgery), Proph ylaxis of venous throm bosis (other than hig h-risk surgery), Treat ment of Deep Vein Thrombosis/Pulm onary Embolism, Preve ntion of systemic emb olism - Tissue heart va lves, Acute Myocardia l Infarction (to prevent systemic emboli sm), Valvular heart disease, Atrial Fibrillation, Bileaflet mecha nical valve in aortic position.2. Mec hanical prosthetic valv es (high risk), 2. 5 - 3.5 Presence of Lup us Anticoagulant o r Antiphospholipi d Antibodies, Pre vention of systemic emb olism - Acute Myocardia l Infarction (to prevent recurrent infar ct). [id number] 23:59:00 Test Item Value Reference Range Interpretation Comments D-DIMER (test 1711 ng/mlFEU See_Comment HH Critical resu lt called to code = JOSE FRITZRET Tby DDIMER) [id number] at 23 59 10/06/20Nurse r ead back [...] this result as normal/abnormal . CBC W/AUTO [id number] 23:46:00 Test Item Value Reference Range Interpretation [...] NO = MDIFF) - XR CHEST 1 [id number] 00:00:00 [facility] YONIS : 1945 Sex: F FAX: Wilbur Martinez MD [phone] [place]: St: REG Name: ROBBIN WILSON [facility] : 1945 Age/S: 75/F [address] [place] [address] Unit #: [id number] Loc: [place] [address] Phys: Yary Martinez Acct: [id number] Dis Date: Status: REG ER PHONE #: [phone] Exam Date: 10/06/20202318 FAX#: [phone] Reason: SOB EXAMS: CPT CODE: [id number] XR CHEST 1 V 68712 PROCEDURE INFORMATION: Exam: XR Chest Exam date [...] seen. IMPRESSION: 1. Slightly worsened left basilar atelectasis/infiltrateand probable small pleural effusion. 2. Suspected small right pleural effusion. at 3088 Reported and signed by: Agustin Radford M.D. CC: Wilbur Martinez MD Technologist: RT Eben(Rolf) Trnscrd Date/Time/By: 10/06/2020 (3506): By: [email or web address] Orig Print D/T: S: 10/06/2020 (2752) PAGE 1 Signed Report SARS-CoV-2 (COVID-19) RNA [Presence] in Respiratory specimen by ESTEFANI with probe [id number] 06:48:13 Test Item Value Reference Range Interpretation Comments SARS-CoV-2 (COVID-19) RNA Not detected Not-Detected [Presence] in Respiratory specimen by ESTEFANI with probe detection (test code = 19566-7) Whether patient is employed in a healthcare setting (test code = 95285-1) Whether the patient has symptoms related to condition of interest (test code = 06293-4) Patient was hospitalized because of this condition (test code = 51059-9) Whether the patient was admitted to intensive care unit (ICU) for condition of interest (test code = 25386-4) Whether patient resides in a congregate care setting (test code = 58460-7) [U] XRAY WRIST MIN 3 VWS LEFT [id number] 09:26:00Images acquired, not reported on this accession number.[facility][U] XRAY WRIST MIN 3 VWS LEFT [id number] 10:29:00Images acquired, not reported on this accession number. [facility][U] XRAY WRIST MIN 3 VWS LEFT [id number] 09:45:00Images acquired, not reported on this accession number.[facility][U] XRAY WRIST MIN 3 VWS LEFT [id number] 10:09:00Images acquired, not reported on this accession number.[facility][U] XRAY WRIST MIN 3 VWS LEFT [id number] 09:09:00Images acquired, not reported on this accession number.[facility] BREAST CYST ASPIRATION [id number] 11:28:13- BREAST CYST ASPIRATION LEFTULTRASOUND GUIDED ASPIRATION LEFT BREAST: 04/02/2019CLINICAL: Left Cyst A spiration. Comparison is made to exams dated 01/30/2019 mammogram and 11/25/2016 ultrasound - [facility] An aspiration was performed for the palpable 6 mm cyst located in the left breastat 5 o'clock. The skin was prepped in the usual manner. Local anesthetic was administered to the access site. A 23 gauge needle was percutaneously placed into the abnormality under ultrasound guidance.Once the needle was documented to be in the correct location, clear yellow fluid was aspirated. The aspirated fluid was discarded. IMPRESSION: ASPIRATIONAspiration of the 6 mm cyst in the left breast was successful. A follow-up mammogram and an ultrasound in 6 months is recommended to demonstrate stability. Claudia Barrett M.D. dm/:04/02/2019 11:28:13 Entry: - 04/04/2019 14:06:47Imaging Technologist: Lori Turner , [facility] sent: Short Term Follow UpBREAST ULTRASOUND [id number] 09:31:08- BREAST ULTRASOUND BILATERALULTRASOUND OF BOTH BREASTS AND BOTH AXILLA: 03/06/2019CLINICAL: Dense breasts. Comparison is made to exams dated 01/30/2019 mammogram, 11/25/2016 ultrasound, and 10/11/2012 [facility]. Real-time ultrasound of both breasts and both axilla was performed. LEFT BREAST: There is a 6 x 5 x 3 mm complicated cyst (with internal septations) versus hypoechoic mass in the left breast at 5 o'clock, 3 cm from the nipple. No associated abnormal vascularity isidentified. The remainder of the left breast and [...] this proves to be a solid mass then ultrasound-guided core biopsy may then be performed.RIGHT BREAST: There is no evidence of malignancy.Carmela Davis M.D. ar/:03/06/2019 09:31:08 Financial Data Analyst: Maren Carlson , [facility] sent: BIRADS 4/5 Biopsy Ultrasound BI-RADS: 4a Suspicious abnormality - low suspicion for malignancy. [facility] [id number] 00:00:00 Test Item Value Reference Range Interpretation Comments Case (test code = Click ImageLink button N Case) for report. Specimen 1 (test code Click ImageLink button N = Specimen 1) for report. [facility] BILATERAL CEDRIC CAD [id number] 13:15:32 - SCR MAMM BILATERAL CEDRIC CAD DIGITALBILATERAL DIGITAL SCREENING MAMMOGRAM 3D/2D WITH CAD: 01/30/2019CLINICAL: Asymptomatic. Digital breast tomosynthesis was performed in addition to routine CC and MLO views. Current mammographic images were evaluated by either a [employer]-Vu or a [employer] ImageCheckerCAD (computer aided detection system). Comparison is made to exams dated 12/22/2017 mammogram, 10/28/2016 mammogram, 10/28/2015 mammogram, 10/14/2014 mammogram, and 10/11/2013 [facility]ogram - [facility]. The tissue of both breasts is heterogeneously dense. This may lower the sensitivity of mammography. There are benign vascular calcifications and calcifications in both breasts. No suspicious mass, architectural distortion, malignant type calcification, or lymph node abnormality detected. Breast architecture is stable compared to prior exams.IMPRESSION: BENIGNThere is no mammographic evidenceof malignancy. Resume annual screening mammography in one year. Marga ferro/evelynrad: 13:15:32 Entry: - 02/01/2019 14:26:53Imaging Technologist: Yon CHRISTINE, [facility] sent: BIRADS 1-2 Normal Mammogram BI-RADS: 2 Benign
[2021-11-24] MEDS ORDERED: TRAMADOL HCL 50 MG TAB ONE (14:45)
--- NOTE | 2021-11-24 16:45 | RAD REPORT ---
EXAM DESCRIPTION: CT - Chest Abd Pelvis Wo Con - 11/24/2021 4:31 pm CLINICAL HISTORY: Chest and abdomen pain. abd pain COMPARISON: No comparisons TECHNIQUE: Limited noncontrast study was performed. All CT scans are performed using dose optimization technique as appropriate and may include automated exposure control or mA/KV adjustment according to patient size. FINDINGS: Lungs are emphysematous.Mild atelectasis is seen left lung base.Small right pleural effusi on.No intrathoracic adenopathy. No noncontrast solid organ abnormality detected. Significant aortic atherosclerosis. Sigmoid diverticulosis without diverticulitis. Mild ascites is present. No pathologic lymphadenopath y in the abdomen or pelvis. Nondisplaced fracture likely present left posterior ninth rib. IMPRESSION: Probable nondisplaced fracture left posterior ninth rib.No pneumothorax. Small right pleural effusion. Mild ascites.
--- NOTE | 2021-11-24 17:11 | ER ---
Nurse's Notes [facility] Name: Esha Barber Age: 76 yrs Sex: Female : 1945 Arrival Date: 11/24/2021 Time: 13:48 Bed Treatment Private MD: Avel Hazel Diagnosis: Fracture of one rib, left side Presentation: 11/24 14:15 Chief complaint: Patient states: Pt reports she fell 3 days ago and is having left kb3 posterior rib pain. No bruising noted. Small skin tear noted to right forearm. Coronavirus screen: Vaccine status: Patient reports receiving the 2nd dose of the covid vaccine. Client denies travel out of the [place] in the last 14 days. Ebola Screen: Patient negative for fever greater than or equal to 101.5 degrees Fahrenheit, and additional compatible Ebola Virus Disease symptoms Patient denies exposure to infectious person. Patient denies travel to an Ebola-affected area in the 21 days before illness onset. Initial Sepsis Screen: Does the patient meet any 2 criteria? No. Patient's initial sepsis screen is negative. Does the patient have a suspected source of infection? No. Patient's initial sepsis screen is negative. Risk Assessment: Do you want to hurt yourself or someone else? Patient reports no desire to harm self or others. Onset of symptoms was November 21, 2021. 14:15 Method Of Arrival: Wheelchair kb3 14:15 Acuity: VALORIE 4 kb3 Triage Assessment: 14:20 General: Appears in no apparent distress. Behavior is calm, cooperative. Pain: kb3 Complains of pain in left low back and left mid back. Historical: - Allergies: 14:20 No Known Allergies; kb3 - PMHx: 14:20 galbladder removed; heart valve replaced; stroke; kb3 - PSHx: 14:20 Right knee replacement; kb3 - Immunization history:: Adult Immunizations up to date, Client reports receiving the 2nd dose of the Covid vaccine, Last tetanus immunization: unknown. - Social history:: Smoking status: Patient denies any tobacco usage or history of. Vital Signs: 14:15 BP 116 / 51; Pulse 64; Resp 18; Temp 98.6; Pulse Ox 100% ; Weight 48.08 kg; Height 5 kb3 ft. 0 in. (152.40 cm); Pain 8/10; 14:15 Body Mass Index 20.70 (48.08 kg, 152.40 cm) kb3 ED Course: 13:48 Patient arrived in ED. mr 13:49 Avel Hazel MD is Private Physician. mr 14:14 Eloy Lyon NP is PHCP. pm1 14:14 Tony Ron DO is Attending Physician. pm1 14:20 Triage completed. kb3 14:20 Arm band placed on right wrist. kb3 16:33 Chest Abd Pelvis Wo Con In Process Unspecified. EDMS 16:51 Adelaida Deluna, RN is Primary Nurse. iw Administered Medications: 14:41 Drug: traMADol 50 mg Route: PO; kb3 15:00 Follow up: Response: No adverse reaction iw Outcome: 17:10 Discharge ordered by . pm1 17:55 Patient left the ED. iw Signatures: Dispatcher [employer] EDMS Isabel Sommer mr Adelaida Deluna, JOSE GARCIA iw Eloy Lyon NP CHIEF PROCUREMENT OFFICER pm1 Genoveva Germain RN RN kb3
--- NOTE | 2021-11-24 17:11 | EDPHYS ---
Physician Documentation [facility] Name: Esha Barber Age: 76 yrs Sex: Female : 1945 Arrival Date: 11/24/2021 Time: 13:48 Bed Treatment Private MD: Avel Hazel ED Physician Tony Ron HPI: 11/24 14:39 This 76 yrs old Female presents to ER via Wheelchair with complaints of left pm1 rib pain. 14:39 Onset: The symptoms/episode began/occurred 3 day(s) ago. Associated signs and symptoms: pm1 Pertinent negatives: abdominal pain, chest pain, cough, fever, shortness of breath. Modifying factors: The patient symptoms are alleviated by nothing, the patient symptoms are aggravated by movement. The patient has not experienced similar symptoms in the past. The patient has not recently seen a physician. 76-year-old patient presents to the ER with complaints of left rib pain status post fall 3 days ago. Patient was attempting to walk to her door from her bedroom and fell. Patient's son heard the fall and when he went to the room she was against a door. She did not go to the ER at that time again evaluated by Because she felt fine. However she started having pain to left rib area. Patient without headache, LOC, neck pain, head injury. Negative for shortness of breath or cough or fever.. Historical: - Allergies: 14:20 No Known Allergies; kb3 - PMHx: 14:20 galbladder removed; heart valve replaced; stroke; kb3 - PSHx: 14:20 Right knee replacement; kb3 - Immunization history:: Adult Immunizations up to date, Client reports receiving the 2nd dose of the Covid vaccine, Last tetanus immunization: unknown. - Social history:: Smoking status: Patient denies any tobacco usage or history of. ROS: 14:39 Constitutional: Negative for fever, chills, and weight loss, Cardiovascular: Negative pm1 for chest pain, palpitations, and edema. 14:39 Neck: Negative for injury, pain, and swelling, Abdomen/GI: Negative for abdominal pain, nausea, vomiting, diarrhea, and constipation, MS/Extremity: Negative for injury and deformity, Skin: Negative for injury, rash, and discoloration, Neuro: Negative for headache, weakness, numbness, tingling, and seizure. 14:39 Respiratory: Negative for cough, dyspnea on exertion, shortness of breath. 14:39 All other systems are negative. Exam: 14:39 Constitutional: This is a well developed, well nourished patient who is awake, alert, pm1 and in no acute distress. Head/Face: Normocephalic, atraumatic. 14:39 Cardiovascular: Exam negative for acute changes, Rate: normal, Rhythm: regular, Pulses: no pulse deficits are appreciated. 14:39 Respiratory: Exam negative for acute changes, respiratory distress, shortness of breath, Breath sounds: are clear throughout. Vital Signs: 14:15 BP 116 / 51; Pulse 64; Resp 18; Temp 98.6; Pulse Ox 100% ; Weight 48.08 kg; Height 5 kb3 ft. 0 in. (152.40 cm); Pain 8/10; 14:15 Body Mass Index 20.70 (48.08 kg, 152.40 cm) kb3 MDM: 14:39 Patient medically screened. pm1 17:10 Data reviewed: vital signs. Data interpreted: Pulse oximetry: on room air is 100 %. pm1 Interpretation: normal. Counseling: I had a detailed discussion with the patient and/or guardian regarding: the historical points, exam findings, and any diagnostic results supporting the discharge/admit diagnosis, radiology results, the need for outpatient follow up, to return to the emergency department if symptoms worsen or persist or if there are any questions or concerns that arise at home. 11/24 16:09 Order name: Chest Abd Pelvis Wo Con; Complete Time: 16:56 EDMS 11/24 17:11 Order name: INCENTIVE SPIROMETRY pm1 Administered Medications: 14:41 Drug: traMADol 50 mg Route: PO; kb3 15:00 Follow up: Response: No adverse reaction iw Disposition: 23:04 Co-signature as Attending Physician, Tony Ron DO I was immediately available on-site ms3 in the Emergency Department for consultation in the care of the patient. . Disposition Summary: 11/24/21 17:10 Discharge Ordered Location: Home pm1 Problem: new pm1 Symptoms: have improved pm1 Condition: Stable pm1 Diagnosis - Fracture of one rib, left side pm1 Followup: pm1 - With: Emergency Department - When: As needed - Reason: Worsening of condition Followup: pm1 - With: Private Physician - When: 2 - 3 days - Reason: Recheck today's complaints, Continuance of care, Re-evaluation by your physician Discharge Instructions: - Discharge Summary Sheet pm1 - Rib Fracture pm1 - How to Use an Incentive Spirometer pm1 Forms: - Medication Reconciliation Form pm1 - Thank You Letter pm1 - Antibiotic Education pm1 - Prescription Opioid Use pm1 Prescriptions: - Tramadol 50 mg Oral Tablet - take 1 tablet by ORAL route every 8 hours as needed; 12 tablet; Refills: 0, pm1 Product Selection Permitted Signatures: Dispatcher [employer] EDMS Eloy Lyon, MARIA G CARDROOM MANAGER pm1 Tony Ron DO DO ms3 Genoveva Germain RN RN kb3 Adelaida Deluna RN iw Corrections: (The following items were deleted from the chart) 16:09 15:56 CT-ABD ordered. EDMS EDMS
[2021-11-24 18:43] VITALS: BP 116/51; TEMP 98.6; O2SAT 100
== END 2021-11-24 17:55 | disposition home or self-care (01) ==
LOC: ER 13:46
DX: S22.32XA Fracture of one rib, left side, initial encounter for closed fracture (principal)
CPT/HCPCS: 71250; 74176; 99283

== ENCOUNTER 2021-11-25 21:55 | Emergency (ER) | payer OTHER ==
--- OUTSIDE RECORDS SUMMARY | 2021-11-25 22:01 | XMS REPORT | Continuity of Care Document ---
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 [place] 00:00:00 00:00:00 EVELYN 822 Method i 2020-05-08 2020-05-08 Outpatient [facility] H [id number] [place] 00:00:00 00:00:00 738 Method i 2020-05-07 2020-05-07 [facility] [id number] [place] 00:00:00 00:00:00 EVELYN 574 Method i 2020-05-07 2020-05-07 [facility] [id number] [place] 00:00:00 00:00:00 EVELYN 383 Method i 2020-05-01 2020-05-01 [facility] [id number] 150 [place] 00:00:00 00:00:00 EVELYN 812 Method i 2020-04-24 2020-04-24 Out[facility] [id number] [place] 00:00:00 00:00:00 EVELYN 803 Method i 2020-04-16 2020-04-16 [facility] [id number] [place] 00:00:00 00:00:00 EVELYN 739 Method i 2020-04-10 2020-04-10 [facility] [id number] 150 [place] 00:00:00 00:00:00 EVELYN 618 Method i 2020-04-08 2020-04-08 Outpatient MORSE, [facility] [id number] 150 [place] 00:00:00 00:00:00 EVELYN 608 Method i 2020-04-03 2020-04-03 [facility] [id number] [place] 00:00:00 00:00:00 EVELYN 760 Method i 2020-03-26 2020-03-26 Outpatient MORSE, [facility] H [id number] [place] 00:00:00 00:00:00 EVELYN Ward [facility] 2020-03-26 2020-03-26 Outpatient PRABHU, [facility] [id number] [place] 00:00:00 00:00:00 COLE Simmons [facility] 2020-02-12 2020-02-12 Outpatient [facility] [id number] eClinic 16:15:00 16:15:00 Cardiolog Cardiology a lWorks y PA PA 2020-02-04 2020-02-04 Outpatient Gallo A Gallo A [id number] MH 14:45:00 14:45:00 Claudia Taylor MD Ph illip PA PA A. Claudia SOLIZ 2020-02-04 2020-02-04 Outpatient Gallo A Gallo A [id number] MH 14:45:00 14:45:00 Claudia Taylor MD Ph illip PA PA A. Claudia SOLIZ 2020-01-21 2020-01-21 Outpatient [facility] [id number] eClinic 10:30:00 10:30:00 Cardiolog Cardiology a lWorks y PA PA 2020-01-15 2020-01-15 Outpatient Gallo A. Gallo A. [id number] MH 16:15:00 16:15:00 Claudia Taylor MD [facility] brian SOLIZ PA PA Tootie Taylor MD 2019-07-22 2019-07-22 Outpatient Gallo A Gallo A [id number] MH 14:45:00 14:45:00 Claudia Taylor MD Ph illip PA PA A. Claudia SOLIZ 2019-07-22 2019-07-22 Outpatient Gallo A Gallo A [id number] MH 14:45:00 14:45:00 Claudia Taylor MD Ph illip PA PA A. Claudia SOLIZ 2019-07-22 2019-07-22 Outpatient Gallo A Gallo A [id number] MH 14:45:00 14:45:00 Claudia Taylor MD Ph illip PA PA A. Claudia SOLIZ 2019-06-27 2019-06-27 Outpatient Gallo A Gallo A [id number] MH 09:36:00 09:36:00 Claudia Taylor MD Ph illip PA PA ATrudy Taylor MD 2019-06-04 2019-06-04 [place] [id number] [place] 09:00:00 09:00:00 t; [facility] 2019-05-14 2019-05-14 [place] [facility] [id number] [place] 09:30:00 09:30:00 t; Yazmin PAPPAS i, M.D. ans ASHTON, M.D. 2019-04-23 2019-04-23 [facility] 62 [id number] [place] 09:45:00 09:45:00 t; omid PAPPAS [facility] Loren Cote Medicine M.D. [facility] 2019-04-16 2019-04-16 [facility] 62 [id number] [place] 09:30:00 09:30:00 t; omid PAPPAS [facility] Loren Cote Medicine M.D. [facility] 2019-04-11 2019-04-11 [facility] [id number] [place] 12:30:00 12:30:00 t; Yazmin PAPPAS i, M.D. ans ASHTON, M.D. 2019-04-09 2019-04-09 [facility] 62 [id number] [place] 10:00:00 10:00:00 t; omid PAPPAS [facility] Loren Cote Medicine M.D. [facility] 2019-04-04 2019-04-04 [facility] 62 [id number] [place] 08:45:00 08:45:00 t; [facility] 2019-02-22 2019-02-22 Santiago [facility] [id number] [place] 13:15:00 13:15:00 t; Jenise IRENE M.D. [place] ans COMFORT, M.D. 2019-02-01 2019-02-01 Santiago SCHWAB [facility]'s [id number] [place] 13:30:00 13:30:00 t; MARIA VICTORIA [facility] Loren Rogel M.D. 2019-01-18 2019-01-18 Outpatient Gallo A Gallo A [id number] MH 10:45:00 10:45:00 Claudia Taylor MD Ph illip PA JOHN Taylor MD 2019-01-16 2019-01-16 Outpatient Gallo A. Gallo A. [id number] MH 14:26:00 14:26:00 Claudia Taylor MD Phi llip MD PA PA A. Waller MD 2019-01-15 2019-01-15 Outpatient Gallo A. Gallo A. [id number] MH 12:04:00 12:04:00 Claudia Taylor MD Phi llip MD PA PA A. Waller MD 2018-12-31 2018-12-31 [facility] [id number] [place] 09:30:00 09:30:00 t; MARIA VICTORIA [facility] Loren Rogel M.D. 2018-10-02 2018-10-02 Outpatient Ahmed Ahmed [id number] eClinic 15:00:00 15:00:00 Cardiolog Cardiology gwen Carpenter 2018-07-02 2018-07-02 Outpatient Gallo A Gallo A [id number] MH 15:48:00 15:48:00 Claudia Taylor MD Ph illip PA JOHN Taylor MD 2018-06-18 2018-06-18 Outpatient Gallo A Gallo A [id number] MH 12:38:00 12:38:00 Claudia Taylor MD Ph illip PA JOHN Taylor MD 2018-06-18 2018-06-18 Outpatient Gallo A Gallo A [id number] MH 09:58:00 09:58:00 Claudia Taylor MD, Ph illip PA JOHN Taylor MD 2018-06-11 2018-06-11 Outpatient Gallo A Gallo A [id number] MH 12:14:00 12:14:00 Claudia Taylor MD, Ph illip PA JOHN Taylor MD 2018-01-15 2018-01-15 Outpatient Ahmed Ahmed [id number] eClinic 11:45:00 11:45:00 Cardiolog Cardiology a lWorks y Pa Pa 2017-12-26 2017-12-26 Outpatient Gallo A Gallo A [id number] 09:00:00 09:00:00 Claudia Taylor MD Ph rupert Taylor MD 2017-12-22 2017-12-22 Outpatient Ahmed Ahmed [id number] eClinic 13:00:00 13:00:00 Cardiolog Cardiology a lWorks y Pa Pa 2017-12-18 2017-12-18 Outpatient Ahmed Ahmed [id number] eClinic 10:15:00 10:15:00 Cardiolog Cardiology a lWorks y Pa Pa 2017-12-18 2017-12-18 Outpatient Ahmed Ahmed [id number] eClinic 10:15:00 10:15:00 Cardiolog Cardiology a lWorks y Pa Pa 2017-11-22 2017-11-22 Outpatient Ahmed Ahmed [id number] eClinic 15:45:00 15:45:00 Cardiolog Cardiology a lWorks y Pa Pa 2017-09-26 2017-09-26 Outpatient Ahmed Ahmed [id number] eClinic 14:58:00 14:58:00 Cardiolog Cardiology a lWorks y Pa Pa 2017-08-07 2017-08-07 Outpatient Ahmed Ahmed [id number] eClinic 10:30:00 10:30:00 Cardiolog Cardiology a lWorks y Pa Pa 2017-07-21 2017-07-21 Outpatient Gallo A Gallo A [id number] 14:33:00 14:33:00 Claudia Taylor MD Ph rupert Taylor MD 2017-06-26 2017-06-26 Outpatient Gallo A Gallo A [id number] 10:00:00 10:00:00 Claudia Taylor MD Ph rupert Taylor MD 2016-12-19 2016-12-19 Outpatient Ahmed Ahmed [id number] eClinic 13:00:00 13:00:00 Cardiolog Cardiology a lWorks y Pa Pa 2016-11-29 2016-11-29 Outpatient Ahmed Ahmed [id number] eClinic 11:30:00 11:30:00 Cardiolog Cardiology a lWorks y Pa Pa 2016-07-25 2016-07-25 Outpatient Ahmed Ahmed [id number] eClinic 11:30:00 11:30:00 Cardiolog Cardiology a Artie Carpenter 2016-07-20 2016-07-20 Outpatient Ahmed Ahmed [id number] eClinic 11:00:00 11:00:00 Cardiolog Cardiology a Artie Carpenter 2016-06-29 2016-06-29 Outpatient Ahmed Ahmed [id number] eClinic 14:30:00 14:30:00 Cardiolog Cardiology a Artie Carpenter 2016-01-29 2016-01-29 Outpatient Ahmed Ahmed [id number] eClinic 13:45:00 13:45:00 Cardiolog Cardiology a Artie Carpenter 2015-12-23 2015-12-23 4 mo f/u nullFlavo Ahmed [id number] c-d Memoria 20:00:00 20:00:00 rolf Bingham MD, 5s2-2755-6 l PA 56e-958a2e Jackie nn 3b1bf3 2015-12-23 2015-12-23 4 mo f/u nullFlavo Ahmed [id number] c-d Memoria 20:00:00 20:00:00 rolf Bingham MD, 2w2-0020-4 l PA 56e-958a2e Jackie nn 3b1bf3 2015-12-23 2015-12-23 Outpatient Ahmed Ahmed [id number] eClinic 14:00:00 14:00:00 Otilia Bingham MD, Vita womack MD, JOHN CARPENTER 2015-11-27 2015-11-27 inr nullFlavo Ahmed [id number] -5 Memoria 18:00:00 18:00:00 rolf Bingham MD, t5c-1074-k l PA j99-57l2i2 Jackie nn [id number] 2015-11-27 2015-11-27 inr nullFlavo Ahmed [id number] -5 Memoria 18:00:00 18:00:00 rolf Bingham MD, 5z4-920t-p l PA y26-ly63r4 Jackie nn [id number] 2015-11-27 2015-11-27 inr nullFlavo Ahmed [id number] -5 Memoria 18:00:00 18:00:00 rolf Bingham MD, p1i-1739-m l PA p37-71a7l8 Jackie nn [id number] 2015-11-27 2015-11-27 inr nullFlavo Ahmed [id number] -5 Memoria 18:00:00 18:00:00 rolf Bingham MD, 0l7-389v-h l JOHN q10-gw92x7 Jackie nn [id number] 2015-11-27 2015-11-27 Outpatient [facility] [id number] eClinic 12:00:00 12:00:00 Otilia Bingham MD, Vita womack MD, PA JOHN 2015-10-30 2015-10-30 INR nullFlavo Ahmed [id number] -6 Memoria 17:15:00 17:15:00 r MD Otilia, 468-4346-b l PA [id number] [facility] nn [id number] 2015-10-30 2015-10-30 INR nullFlavo Ahmed [id number] -6 Memoria 17:15:00 17:15:00 rolf Bingham MD, d95-289g-s wilfredo CARPENTER dd9-040ade [facility] nn [id number] 2015-10-30 2015-10-30 INR nullFlavo Ahmed [id number] -7 Memoria 17:15:00 17:15:00 rolf Bingham MD, f95-65v9-8 l PA 831-b3aba0 [facility] nn [id number] 2015-10-30 2015-10-30 INR nullFlavo Ahmed [id number] -6 Memoria 17:15:00 17:15:00 rolf Bingham MD, 468-4346-b l PA [id number] [facility] [id number] 2015-10-30 2015-10-30 INR nullFlavo Ahmed [id number] -6 Memoria 17:15:00 17:15:00 rolf Bingham MD, h47-061u-j wilfredo CARPENTER dd9-040ade Jackie nn [id number] 2015-10-30 2015-10-30 INR nullFlavo Ahmed [id number] -7 Memoria 17:15:00 17:15:00 rolf Bingham MD, k11-22t5-9 l PA 831-b3aba0 Jackie nn [id number] 2015-10-30 2015-10-30 Outpatient [facility] [id number] eClinic 11:15:00 11:15:00 Otilia Bingham MD, Vita womack MD, PA PA 2015-09-18 2015-09-18 INR nullFlavo Ahmed [id number] -2 Memoria 19:30:00 19:30:00 rolf Bingham MD, 397-47a3-a l PA [id number] [facility] ce9b7a 2015-09-18 2015-09-18 INR nullFlavo Ahmed [id number] -2 Memoria 19:30:00 19:30:00 rolf Bingham MD, 62f-4284-a l PA [id number]-k9785h Jackie nn [id number] 2015-09-18 2015-09-18 INR nullFlavo Ahmed [id number] -2 Memoria 19:30:00 19:30:00 rolf Bingham MD, z5k-140f-w l PA [id number]-ap9198 [facility] nn d54a30 2015-09-18 2015-09-18 INR nullFlavo Ahmed [id number] -5 Memoria 19:30:00 19:30:00 rolf Bingham MD, 96a-4e96-b wilfredo CARPENTER 3da-81ad54 Jackie nn [id number] 2015-09-18 2015-09-18 INR nullFlavo Ahmed [id number] -2 Memoria 19:30:00 19:30:00 rolf Bingham MD, 397-47a3-a l PA [id number] [facility] ce9b7a 2015-09-18 2015-09-18 INR nullFlavo Ahmed [id number] -2 Memoria 19:30:00 19:30:00 rolf Bingham MD, 62f-4284-a l PA 72d-r3198e Jackie nn cl751s 2015-09-18 2015-09-18 INR nullFlavo Ahmed [id number] -2 Memoria 19:30:00 19:30:00 rolf Bingham MD, h3q-906x-z l PA n9f-ss0453 Jackie nn d54a30 2015-09-18 2015-09-18 INR nullFlavo Ahmed [id number] -5 Memoria 19:30:00 19:30:00 rolf Bingham MD, 96a-4e96-b l PA 3da-81ad54 [facility] nn [id number] 2015-09-18 2015-09-18 Outpatient Otilia Bingham [id number] eClinic 13:30:00 13:30:00 Otilia Bingham MD, Vita womack MD, JOHN CARPENTER 2015-08-19 2015-08-19 4 mo f/u nullFlavo Ahmed [id number] 7-c Memoria 19:30:00 19:30:00 rolf Bingham MD, 405-409e-b l JOHN [id number] [facility] nn [id number] 2015-08-19 2015-08-19 4 mo f/u nullFlavo Ahmed [id number] 3-7 Memoria 19:30:00 19:30:00 rolf Bingham MD, 8t7-4215-8 l JOHN h5m-uk43tu [facility] 9ea0ec 2015-08-19 2015-08-19 4 mo f/u nullFlavo Ahmed [id number] 6-b Memoria 19:30:00 19:30:00 rolf Bingham MD, ded-4816-a l JOHN [id number] [facility] nn [id number] 2015-08-19 2015-08-19 4 mo f/u nullFlavo Ahmed [id number] f-f Memoria 19:30:00 19:30:00 rolf Bingham MD, 2ee-4279-b wilfredo CARPENTER 4i0-10760t [facility] nn [id number] 4924-06-01 2015-08-19 4 mo f/u nullFlavo Ahmed [id number] 0-e Memoria 19:30:00 19:30:00 rolf Bingham MD, fc8-41e6-8 l JOHN [id number] [facility] nn [id number] 2015-08-19 2015-08-19 4 mo f/u nullFlavo Ahmed [id number] 7-c Memoria 19:30:00 19:30:00 rolf Bingham MD, 405-409e-b l JOHN [id number] [facility] nn [id number] 2015-08-19 2015-08-19 4 mo f/u nullFlavo Ahmed [id number] 3-7 Memoria 19:30:00 19:30:00 rolf Bingham MD, 4n3-2095-8 l PA [id number]-rk18vz Jackie nn [id number] 2015-08-19 2015-08-19 4 mo f/u nullFlavo Ahmed [id number] 6-b Memoria 19:30:00 19:30:00 rolf Bingham MD, ded-4816-a l PA 298-5c31d1 Jackie nn [id number] 2015-08-19 2015-08-19 4 mo f/u nullFlavo Ahmed [id number] f-f Memoria 19:30:00 19:30:00 rolf Bingham MD, 2ee-4279-b l PA 2w5-85068v Jackie nn [id number] 7759-06-01 2015-08-19 4 mo f/u nullFlavo Ahmed [id number] 0-e Memoria 19:30:00 19:30:00 rolf Bingham MD, fc8-41e6-8 l PA 370-4a58db Jackie nn [id number] 2015-08-19 2015-08-19 Outpatient Otilia Ngmed [id number] eClinic 13:30:00 13:30:00 Otilia Bingham MD, Vita womack MD, PA PA 2015-07-22 2015-07-22 INR nullFlavo Ahmed [id number] -8 Memoria 19:45:00 19:45:00 rolf Bingham MD, 5h8-90q1-0 l PA s84-0bc7ce Jackie nn [id number] 4563-05-04 2015-07-22 INR nullFlavo Ahmed [id number] -e Memoria 19:45:00 19:45:00 rolf Bingham MD, 2x1-223e-e l PA r01-3e9v7j Jackie nn [id number] 2015-07-22 2015-07-22 INR nullFlavo Ahmed [id number] -f Memoria 19:45:00 19:45:00 rolf Bingham MD, 231-4944-8 l PA dff-b3ede7 Jackie nn [id number] 2015-07-22 2015-07-22 INR nullFlavo Ahmed [id number] -4 Memoria 19:45:00 19:45:00 rolf Bingham MD, ad5-484e-b l PA [id number] Jackie nn [id number] 2015-07-22 2015-07-22 INR nullFlavo Ahmed [id number] -2 Memoria 19:45:00 19:45:00 rolf Bingham MD, 433-4b2c-9 l PA 4t9-raw4ka Jackie nn [id number] 0425-05-04 2015-07-22 INR nullFlavo Ahmed [id number] -f Memoria 19:45:00 19:45:00 rolf Bingham MD, 231-4944-8 l PA dff-b3ede7 Jackie nn [id number] 2015-07-22 2015-07-22 INR nullFlavo Ahmed [id number] -4 Memoria 19:45:00 19:45:00 rolf Bingham MD, ad5-484e-b l PA [id number] [facility] nn [id number] 2015-07-22 2015-07-22 INR nullFlavo Ahmed [id number] -2 Memoria 19:45:00 19:45:00 rolf Bingham MD, 433-4b2c-9 l PA 6b4-ivd4eh Jackie nn [id number] 8750-05-04 2015-07-22 INR nullFlavo Ahmed [id number] -2 Memoria 19:45:00 19:45:00 rolf Bingham MD, u14-31zf-1 l PA p89-393589 [facility] nn [id number] 2015-07-22 2015-07-22 INR nullFlavo Ahmed [id number] -8 Memoria 19:45:00 19:45:00 rolf Bingham MD, 1b1-64b4-1 l PA t88-1ci9uj [facility] nn [id number] 8825-05-04 2015-07-22 INR nullFlavo Ahmed [id number] -e Memoria 19:45:00 19:45:00 rolf Bingham MD, 2a3-083e-z l PA x84-0f7z1i Jackie nn [id number] 2015-07-22 2015-07-22 INR nullFlavo Ahmed [id number] -2 Memoria 19:45:00 19:45:00 rolf Bingham MD, d96-39qx-9 l PA g82-238685 Jackie nn [id number] 2015-07-22 2015-07-22 Outpatient Berenicemed Ahmed [id number] eClinic 13:45:00 13:45:00 Otilia Bingham MD, Vita womack MD, PA PA 2015-07-01 2015-07-01 INR nullFlavo Ahmed [id number] -1 Memoria 19:00:00 19:00:00 rolf Bingham MD, s71-3839-9 l JOHN ca6-0eaa7c Jackie nn 3ec97a 2015-07-01 2015-07-01 INR nullFlavo Ahmed [id number] -f Memoria 19:00:00 19:00:00 rolf Bingham MD, 641-4c36-a wilfredo CARPENTER 311-bcc0e5 Jackie nn 402ed4 2015-07-01 2015-07-01 INR nullFlavo Ahmed [id number] -e Memoria 19:00:00 19:00:00 rolf Bingham MD, 5k5-2887-y wilfredo CARPENTER b3s-6x65m8 Jackie nn a3f0a3 2015-07-01 2015-07-01 INR nullFlavo Ahmed [id number] -0 Memoria 19:00:00 19:00:00 rolf Bingham MD, 371-4b72-b wilfredo CARPENTER 449-06c8d5 Jackie nn f1a62b 2015-07-01 2015-07-01 INR nullFlavo Ahmed [id number] -8 Memoria 19:00:00 19:00:00 rolf Bingham MD, 758-4cc3-a wilfredo CARPENTER 9m4-9506y9 Jackie nn ae7c63 2015-07-01 2015-07-01 INR nullFlavo Ahmed [id number] -3 Memoria 19:00:00 19:00:00 rolf Bingham MD, 3p7-6173-v wilfredo CARPENTER h7f- Jackie nn ce0a05 2015-07-01 2015-07-01 INR nullFlavo Ahmed [id number] -4 Memoria 19:00:00 19:00:00 rolf Bingham MD, 3s3-4j3l-8 wilfredo CARPENTER r79-0cw0p7 Jackie nn ef7fe8 2015-07-01 2015-07-01 INR nullFlavo Ahmed [id number] -1 Memoria 19:00:00 19:00:00 rolf Bingham MD, e22-3886-7 l JOHN ca6-0eaa7c Jackie nn 3ec97a 2015-07-01 2015-07-01 INR nullFlavo Ahmed [id number] -f Memoria 19:00:00 19:00:00 rolf Bingham MD, 641-4c36-a wilfredo CARPENTER 311-bcc0e5 Jackie nn 402ed4 2015-07-01 2015-07-01 INR nullFlavo Ahmed [id number] -e Memoria 19:00:00 19:00:00 rolf Bingham MD, 4y4-0354-c wilfredo CARPENTER s7v-3w88d4 Jackie nn a3f0a3 2015-07-01 2015-07-01 INR nullFlavo Ahmed [id number] -0 Memoria 19:00:00 19:00:00 rolf Bingham MD, 371-4b72-b wilfredo CARPENTER 449-06c8d5 Jackie nn f1a62b 2015-07-01 2015-07-01 INR nullFlavo Ahmed [id number] -8 Memoria 19:00:00 19:00:00 rolf Bingham MD, 758-4cc3-a wilfredo CARPENTER 8q5-7337y6 Jackie nn ae7c63 2015-07-01 2015-07-01 INR nullFlavo Ahmed [id number] -3 Memoria 19:00:00 19:00:00 rolf Bingham MD, 7v0-9168-b wilfredo CARPENTER b4q-ufysn7 Jackie nn ce0a05 2015-07-01 2015-07-01 INR nullFlavo Ahmed [id number] -4 Memoria 19:00:00 19:00:00 rolf Bingham MD, 4y3-0z6s-9 wilfredo CARPENTER l99-8ci8x9 Jackie nn ef7fe8 2015-07-01 2015-07-01 Outpatient Ahmed Ahmed [id number] eClinic 13:00:00 13:00:00 Otiila Bingham MD, Vita womack MD, JOHN CARPENTER 2015-06-22 2015-06-22 inr nullFlavo Ahmed [id number] -c Memoria 19:15:00 19:15:00 r MD Otilia, 527-4b27-9 l PA 3p7-3c2186 Jackie nn 0e34e3 2015-06-22 2015-06-22 inr nullFlavo Ahmed [id number] -5 Memoria 19:15:00 19:15:00 r MD Otilia, 240-417e-9 l PA 180-f8ad34 Jackie nn 24cca5 2015-06-22 2015-06-22 inr nullFlavo Ahmed cb5p311p -f Memoria 19:15:00 19:15:00 r MD Otilia, f43-636h-n l PA 370-693eb6 Jackie nn 555af3 2015-06-22 2015-06-22 inr nullFlavo Ahmed 758x8sd7 -2 Memoria 19:15:00 19:15:00 r MD Otilia, ae8-47ee-8 l PA ccc-4c6a88 [facility] nn 8aefe5 2015-06-22 2015-06-22 inr nullFlavo Ahmed [id number] -c Memoria 19:15:00 19:15:00 r MD Otilia, m46-95bw-4 l PA [id number] Jackie nn [id number] 2015-06-22 2015-06-22 inr nullFlavo Ahmed [id number] -1 Memoria 19:15:00 19:15:00 rolf Bingham MD, 90a-491e-a l PA 51b-6d8e47 Jackie nn 7ae3fb 2015-06-22 2015-06-22 inr nullFlavo Ahmed [id number] -0 Memoria 19:15:00 19:15:00 rolf Bingham MD, 6bd-4d07-9 l PA p0i-f926t9 Jackie nn [id number] 2015-06-22 2015-06-22 inr nullFlavo Ahmed b3fx60m1 -e Memoria 19:15:00 19:15:00 rolf Bingham MD, u77-14pw-5 l PA 16f-b4db78 Jackie nn bfed86 2015-06-22 2015-06-22 inr nullFlavo Ahmed [id number] -c Memoria 19:15:00 19:15:00 rolf Bingham MD, 527-4b27-9 l PA 7g5-9k1389 Jackie nn 0e34e3 2015-06-22 2015-06-22 inr nullFlavo Ahmed [id number] -5 Memoria 19:15:00 19:15:00 r MD Otilia, 240-417e-9 l PA 180-f8ad34 Jackie nn 24cca5 2015-06-22 2015-06-22 inr nullFlavo Ahmed [id number] -f Memoria 19:15:00 19:15:00 rolf Bingham MD, t07-912y-r l PA 370-693eb6 Jackie nn 555af3 2015-06-22 2015-06-22 inr nullFlavo Ahmed [id number] -2 Memoria 19:15:00 19:15:00 rolf Bingham MD, ae8-47ee-8 l PA ccc-4c6a88 Jackie nn 8aefe5 2015-06-22 2015-06-22 inr nullFlavo Ahmed [id number] -c Memoria 19:15:00 19:15:00 rolf Bingham MD, i18-24wp-1 l PA 8y3-394040 Jackie nn [id number] 2015-06-22 2015-06-22 inr nullFlavo Ahmed d505m76o -1 Memoria 19:15:00 19:15:00 rolf Bingham MD, 90a-491e-a l PA 51b-6d8e47 Jackie nn 7ae3fb 2015-06-22 2015-06-22 inr nullFlavo Ahmed l6l5zq49 -0 Memoria 19:15:00 19:15:00 rolf Bingham MD, 6bd-4d07-9 l PA g7d-o444k1 Jackie nn [id number] 2015-06-22 2015-06-22 inr nullFlavo Ahmed [id number] -e [facility] 19:15:00 19:15:00 rolf Bingham MD, o73-78tx-9 l PA [id number]-b4db78 Jackie nn bfed86 2015-06-22 2015-06-22 Outpatient Ahmed Ahmed [id number] [facility]inic 13:15:00 13:15:00 Otilia Bingham MD, Vita womack MD, PA PA 2015-05-19 2015-05-19 INR nullFlavo Ahmed [id number] -3 [facility] 22:00:00 22:00:00 rolf Bingham MD, 9l7-7334-0 l PA 0r1-k739y9 Jackie nn [id number] 2015-05-19 2015-05-19 INR nullFlavo Ahmed [id number] -b [facility] 22:00:00 22:00:00 rolf Bingham MD, 8v8-786n-h l PA 58a-3u9026 Jackie nn b3f0a9 2015-05-19 2015-05-19 INR nullFlavo Ahmed [id number] -d [facility] 22:00:00 22:00:00 rolf Bingham MD, 2r2-0xsr-0 l PA 262-30ab1f Jackie nn abf39f 2015-05-19 2015-05-19 INR nullFlavo Ahmed [id number] -c [facility] 22:00:00 22:00:00 rolf Bingham MD, m99-5o23-o l PA [id number]-n49840 Jackie nn 260e7c 2015-05-19 2015-05-19 INR nullFlavo Ahmed [id number] -c [facility] 22:00:00 22:00:00 rolf Bingham MD, 273-4feb-a l PA [id number] Jackie nn 704c0e 2015-05-19 2015-05-19 INR nullFlavo Ahmed [id number] -9 [facility] 22:00:00 22:00:00 rolf Bingham MD, a7d-97ar-3 l PA df3-0548d7 Jackie nn 1fabfe 2015-05-19 2015-05-19 INR nullFlavo Ahmed [id number] -6 [facility] 22:00:00 22:00:00 rolf Bingham MD, a46-1203-l l PA fdd-79e52f Jackie nn [id number] 2783-03-01 2015-05-19 INR nullFlavo Ahmed [id number] -e [facility] 22:00:00 22:00:00 rolf Bingham MD, 6aa-4df5-8 l PA cde-42c0fe Jackie nn a0d17b 2015-05-19 2015-05-19 INR nullFlavo Ahmed [id number] -5 [facility] 22:00:00 22:00:00 rolf Bingham MD, 345-4b93-b l PA [id number]-z582b7 Jackie nn b4f25c 2015-05-19 2015-05-19 INR nullFlavo Ahmed [id number] -3 [facility] 22:00:00 22:00:00 rolf Bingham MD, 2d9-5455-0 l PA 6c6-j894x4 Jackie nn 079b30 2015-05-19 2015-05-19 INR nullFlavo Ahmed [id number] -b [facility] 22:00:00 22:00:00 rolf Bingham MD, 3g6-246d-o l PA 58a-8c1347 Jackie nn b3f0a9 2015-05-19 2015-05-19 INR nullFlavo Ahmed [id number] -d [facility] 22:00:00 22:00:00 rolf Bingham MD, 5d2-6ort-1 l PA 262-30ab1f Jackie nn abf39f 2015-05-19 2015-05-19 INR nullFlavo Ahmed [id number] -c [facility] 22:00:00 22:00:00 rolf Bingham MD, v83-2l15-r l PA [id number]-r08808 Jackie nn 260e7c 2015-05-19 2015-05-19 INR nullFlavo Ahmed [id number] -c [facility] 22:00:00 22:00:00 rolf Bingham MD, 273-4feb-a l PA [id number] Jackie nn 704c0e 2015-05-19 2015-05-19 INR nullFlavo Ahmed [id number] -9 [facility] 22:00:00 22:00:00 rolf Bingham MD, a3b-51mx-0 l PA df3-0548d7 Jackie nn 1fabfe 2015-05-19 2015-05-19 INR nullFlavo Ahmed [id number] -6 [facility] 22:00:00 22:00:00 rolf Bingham MD, p54-3486-s l PA fdd-79e52f [facility] nn [id number] 1856-03-01 2015-05-19 INR nullFlavo Ahmed [id number] -e [facility] 22:00:00 22:00:00 rolf Bingham MD, 6aa-4df5-8 wilfredo CARPENTER cde-42c0fe [facility] a0d17b 2015-05-19 2015-05-19 INR nullFlavo Ahmed [id number] -5 [facility] 22:00:00 22:00:00 rolf Bingham MD, 345-4b93-b wilfredo CARPENTER [id number]-[id number] [facility] b4f25c 2015-05-19 2015-05-19 Outpatient Ahmed Ahmed [id number] e[facility]inic 16:00:00 16:00:00 Otilia Bingham MD, Vita womack MD, JOHN CAPRENTER 2015-04-20 2015-04-20 f/u nullFlavo Ahmed [id number] -1 [facility] 16:45:00 16:45:00 testing rolf Bingham MD, 54d-499f-8 wilfredo CARPENTER 3t9-3g24v2 [facility] nn [id number] 2050-02-01 2015-04-20 f/u nullFlavo Ahmed [id number] -f [facility] 16:45:00 16:45:00 testing rolf Bingham MD, h74-20k8-7 wilfredo CARPENTER [id number] [facility] nn 1546ca 2015-04-20 2015-04-20 f/u nullFlavo Ahmed [id number] -6 [facility] 16:45:00 16:45:00 testing rolf Bingham MD, af3-4cd3-a wilfredo CARPENTER [id number] [facility] [id number] 2015-04-20 2015-04-20 f/u nullFlavo Ahmed [id number] -5 [facility] 16:45:00 16:45:00 testing rolf Bingham MD, 756-4d8d-b wilfredo CARPENTER 98e-8e87a5 [facility] [id number] 2015-04-20 2015-04-20 f/u nullFlavo Ahmed [id number] -2 [facility] 16:45:00 16:45:00 testing rolf Bingham MD, 1eb-4015-a l PA p4p-81t1lm [facility] nn [id number] 2015-04-20 2015-04-20 f/u nullFlavo Ahmed [id number] -3 [facility] 16:45:00 16:45:00 testing rolf Bingham MD, c1a-77a4-3 l PA [id number] [facility] nn [id number] 2015-04-20 2015-04-20 f/u nullFlavo Ahmed [id number] -3 [facility] 16:45:00 16:45:00 testing rolf Bingham MD, da1-475c-b l PA [id number] [facility] nn [id number] 2015-04-20 2015-04-20 f/u nullFlavo Ahmed [id number] -e [facility] 16:45:00 16:45:00 testing rolf Bingham MD, e68-2k05-1 l PA e5z-58wjjn [facility] nn [id number] 1670-02-01 2015-04-20 f/u nullFlavo Ahmed 7l457qgj -9 [facility] 16:45:00 16:45:00 testing rolf Bingham MD, n7i-5202-q l PA fd9-eeedab [facility] nn [id number] 2015-04-20 2015-04-20 f/u nullFlavo Ahmed [id number] -7 [facility] 16:45:00 16:45:00 testing rolf Bingham MD, 29f-4992-9 l PA [id number] [facility] nn [id number] 2015-04-20 2015-04-20 f/u nullFlavo Ahmed [id number] -1 [facility] 16:45:00 16:45:00 testing rolf Bingham MD, 54d-499f-8 l PA [id number] [facility] nn [id number] 7165-02-01 2015-04-20 f/u nullFlavo Ahmed [id number] -f [facility] 16:45:00 16:45:00 testing rolf Bingham MD, m64-87h9-1 l PA [id number] [facility] nn [id number] 2015-04-20 2015-04-20 f/u nullFlavo Ahmed [id number] -6 [facility] 16:45:00 16:45:00 testing rolf Bingham MD, af3-4cd3-a l PA [id number] [facility] nn [id number] 2015-04-20 2015-04-20 f/u nullFlavo Ahmed [id number] -5 [facility] 16:45:00 16:45:00 testing rolf Bingham MD, 756-4d8d-b l PA [id number] [facility] nn [id number] 2015-04-20 2015-04-20 f/u nullFlavo Ahmed [id number] -2 [facility] 16:45:00 16:45:00 testing rolf Bingham MD, 1eb-4015-a l PA l5d-34o8id [facility] nn [id number] 2015-04-20 2015-04-20 f/u nullFlavo Ahmed [id number] -3 [facility] 16:45:00 16:45:00 testing rolf Bingham MD, n4w-81u1-6 l PA [id number] [facility] nn [id number] 2015-04-20 2015-04-20 f/u nullFlavo Ahmed [id number] -3 [facility] 16:45:00 16:45:00 testing rolf Bingham MD, da1-475c-b l PA [id number]-[id number] [facility] nn [id number] 2015-04-20 2015-04-20 f/u nullFlavo Ahmed [id number] -e [facility] 16:45:00 16:45:00 testing rolf Bingham MD, c70-7u74-3 l PA e3a-84dyrf [facility] nn [id number] 5293-02-01 2015-04-20 f/u nullFlavo Ahmed 7e924bsl -9 [facility] 16:45:00 16:45:00 testing rolf Bingham MD, e0y-4421-s l PA fd9-eeedab [facility] nn [id number] 2015-04-20 2015-04-20 f/u nullFlavo Ahmed [id number] -7 [facility] 16:45:00 16:45:00 testing rolf Bingham MD, 29f-4992-9 l PA [id number] [facility] nn [id number] 2015-04-20 2015-04-20 Outpatient Otilia [facility]med [id number] [facility] 10:45:00 10:45:00 Otilia Bingham MD, Vita womack MD, PA JOHN 2015-03-30 2015-03-30 pt would nullFlavo Ahmed [id number] f-a [facility] 19:45:00 19:45:00 like to rolf Bingham MD, 6ac-4847-a l get PA beb-10b4a4 [facility] establ[facility] [id number] d 2015-03-30 2015-03-30 pt would nullFlavo Ahmed [id number] f-f [facility] 19:45:00 19:45:00 like to rolf Bingham MD, 964-4daa-8 l get PA bd2-3f01f8 [facility] establ[facility] dd5fc9 d 2015-03-30 2015-03-30 pt would nullFlavo Ahmed 9i3t68l 7-7 [facility] 19:45:00 19:45:00 like to rolf Bingham MD, 054-4e90-9 l get PA [id number] [facility] establ[facility] syl859 d 2015-03-30 2015-03-30 pt would nullFlavo Ahmed [id number] b-a [facility] 19:45:00 19:45:00 like to rolf Bingham MD, 631-49a5-9 l get PA [id number]-50r608 [facility] establ[facility] 100e6c d 2015-03-30 2015-03-30 pt would nullFlavo Ahmed [id number] 1-8 [facility] 19:45:00 19:45:00 like to rolf Bingham MD, 75b-4b36-a l get PA 09d-ac83ed [facility] establ[facility] d984cb d 2015-03-30 2015-03-30 pt would nullFlavo Ahmed [id number] 7-4 [facility] 19:45:00 19:45:00 like to rolf Bingham MD, 711-4c99-b l get PA [id number] [facility] nn establishe 16z074 d 2015-03-30 2015-03-30 pt would nullFlavo Ahmed 1274fce c-8 [facility] 19:45:00 19:45:00 like to rolf Bingham MD, q0m-02w0-3 l get PA [id number] [facility] nn establishe 93158u d 2015-03-30 2015-03-30 pt would nullFlavo Ahmed 1u4x39m 0-2 [facility] 19:45:00 19:45:00 like to rolf Bingham MD, 59c-4055-b l get PA [id number]-37o910 [facility] nn establishe 843eb8 d 2015-03-30 2015-03-30 pt would nullFlavo Ahmed [id number] 0-9 [facility] 19:45:00 19:45:00 like to rolf Bingham MD, k5b-5295-i l get PA q5f-p86er2 [facility] establ[facility] 8g478n d 2015-03-30 2015-03-30 pt would nullFlavo Ahmed [id number] 2-0 [facility] 19:45:00 19:45:00 like to rolf Bingham MD, 09d-4c85-9 l get PA [id number] [facility] nn establ[facility]he 988a93 d 2015-03-30 2015-03-30 pt would nullFlavo Ahmed 80a0610 e-7 [facility] 19:45:00 19:45:00 like to rolf Bingham MD, ae5-4408-9 l get PA ec4-76d6c8 [facility] establ[facility] 999a10 d 2015-03-30 2015-03-30 pt would nullFlavo Ahmed fpi14eq f-f [facility] 19:45:00 19:45:00 like to rolf Bingham MD, 964-4daa-8 l get PA bd2-3f01f8 [facility] establ[facility] dd5fc9 d 2015-03-30 2015-03-30 pt would nullFlavo Ahmed 0s8o37t 7-7 [facility] 19:45:00 19:45:00 like to rolf Bingham MD, 054-4e90-9 l get PA [id number] [facility] establ[facility] mjg952 d 2015-03-30 2015-03-30 pt would nullFlavo Ahmed [id number] b-a [facility] 19:45:00 19:45:00 like to rolf Bingham MD, 631-49a5-9 l get PA feb-70a803 [facility] nn establishe 100e6c d 2015-03-30 2015-03-30 pt would nullFlavo Ahmed [id number] 1-8 [facility] 19:45:00 19:45:00 like to rolf Bingham MD, 75b-4b36-a l get PA 09d-ac83ed [facility] nn establishe d984cb d 2015-03-30 2015-03-30 pt would nullFlavo Ahmed [id number] 7-4 [facility] 19:45:00 19:45:00 like to rolf Bingham MD, 711-4c99-b l get PA [id number]-p2l096 [facility] nn establ[facility]he 84g042 d 2015-03-30 2015-03-30 pt would nullFlavo Ahmed 1274fce c-8 [facility] 19:45:00 19:45:00 like to rolf Bingham MD, q9v-06e9-2 l get PA [id number] [facility] nn establishe 00979p d 2015-03-30 2015-03-30 pt would nullFlavo Ahmed 5o8r97x 0-2 [facility] 19:45:00 19:45:00 like to rolf Bingham MD, 59c-4055-b l get PA 11a-22u479 [facility] nn establishe 843eb8 d 2015-03-30 2015-03-30 pt would nullFlavo Ahmed [id number] 0-9 [facility] 19:45:00 19:45:00 like to rolf Bingham MD, s7y-0781-l l get PA o2m-d86ae7 [facility] nn establ[facility]he 4j196f d 2015-03-30 2015-03-30 pt would nullFlavo Ahmed [id number] 2-0 [facility] 19:45:00 19:45:00 like to rolf Bingham MD, 09d-4c85-9 l get PA [id number] [facility] nn establishe 988a93 d 2015-03-30 2015-03-30 pt would nullFlavo Ahmed [id number] e-7 [facility] 19:45:00 19:45:00 like to rolf Bingham MD, ae5-4408-9 l get PA ec4-76d6c8 [facility] nn establ[facility]he 999a10 d 2015-03-30 2015-03-30 pt would nullFlavo Otilia [id number] f-a [facility] 19:45:00 19:45:00 like to rolf Bingham MD, 6ac-4847-a l lillian CARPENTER beb-10b4a4 Jackie mindy establishe 73379i d 2015-03-30 2015-03-30 Outpatient Otilia Bingham [id number] [facility]inic 13:45:00 13:45:00 Otilia Bingham MD, Vita womack MD, JOHN CARPENTER 2014-02-05 2014-02-06 [facility] 4584 [id number] [facility] 21:57:00 05:59:00 [facility] 2014-02-05 2014-02-06 [facility] 4584 [id number] [facility] 21:57:00 05:59:00 r [place] [facility] 2014-02-05 2014-02-05 Outpatient [facility], 2.16.840. 2.16.840.1 . [id number] 15:57:00 23:59:00 [facility] [id number]. [id number] 00 3.615.0.1 5.0.101 01 Results Test Description [...] = NRBC#) 0.00 K/mm3 0.0-0.1 N DIFFERENTIAL [id number] 11:23:00 Test Item Value Reference Range Interpretation Comments RBC MORPHOLOGY REQUIRED (test NORMAL code = RBCM) PLATELET ESTIMATE (test code = ADEQUATE ADEQUATE PLTEST) PLATELET MORPHOLOGY (test code FEW LARGE PLTS NORMAL = PLTMORPH) POIKILOCYTOSIS (test code = FEW NONE POIK) ANISOCYTOSIS (test code = SLIGHT NONE ANISO) MACROCYTOSIS (test code = FEW NONE MACR) BASIC METABOLIC [id number] 07:05:00 Test Item Value Reference Range Interpretation [...] = 8.7 MG/DL 8.4-10.2 N CA) PROTHROMBIN [id number] 06:07:00 Test Item Value Reference Range Interpretation [...] myocar dial infarction. 2.0 - 3.0 3. Acute Care Assistant al prosthesis hear t valves, recurre nt systemic emboli sm. 3.0 - 4.5 CBC W/AUTO [id number] 09:39:00 Test Item Value Reference Range Interpretation [...] = 0.00 K/mm3 0.0-0.1 N NRBC#) DIFFERENTIAL [id number] 09:39:00 Test Item Value Reference Range Interpretation Comments RBC MORPHOLOGY REQUIRED (test code = ABNORMAL RBCM) PLATELET ESTIMATE (test code = ADEQUATE ADEQUATE PLTEST) PLATELET MORPHOLOGY (test code = NORMAL NORMAL PLTMORPH) POIKILOCYTOSIS (test code = POIK) FEW NONE ANISOCYTOSIS (test code = ANISO) MODERATE NONE OVALOCYTES (test code = OVAL) FEW NONE PROTHROMBIN [id number] 07:42:00 Test Item Value Reference Range Interpretation [...] myocar dial infarction. 2.0 - 3.0 3. Acute Care Assistant al prosthesis hear t valves, recurre nt systemic emboli sm. 3.0 - 4.5 PTT [id number] 07:42:00 Test Item Value Reference Range Interpretation Comments PTT ACTIVATED (test code = APTT) 48.5 SECONDS 25.1-36.5 H BASIC METABOLIC [id number] 07:38:00 Test Item Value Reference Range Interpretation [...] code = 9.8 MG/DL 8.4-10.2 N CA) [id number] 07:38:00 Test Item Value Reference Range Interpretation Comments MAGNESIUM (test code = MAG) 2.0 MG/DL 1.6-2.3 N COVID 19 Asymptomatic IH [id number] 12:27:00 Test Item Value Reference Range Interpretation [...] of virus (antigen) in the sample." PROTHROMBIN [id number] 06:55:00 Test Item Value Reference Range Interpretation [...] Infarction (to prevent recurrent infar ct). PROTHROMBIN [id number] 05:34:00 Test Item Value Reference Range Interpretation [...] Infarction (to prevent recurrent infar ct). PROTHROMBIN [id number] 05:40:00 Test Item Value Reference Range Interpretation [...] recurrent infar ct). - CT CHEST W/O [id number] 00:00:00 [facility] : 1945 Sex: F Name: ROBBIN WILSON [facility] [place] : 1945 Age/S: 75 / F [address] [place] [address] Blvd Unit #: [id number] Loc: [place] [address] Phys: Marquis Patel MD Acct: [id number] Dis Date: Status: ADM IN PHONE #: [phone] Exam Date: 10/10/20202024 FAX #: [phone] Reason: PLEURAL EFFUSION EXAMS: CPT CODE: [id number] CT CHEST W/O CONTRAST 03161 PROCEDURE INFORMATION: Exam: CT Chest With out [...] CHEST 1V 10/08/2020 9:08 AM FINDINGS: Lungs: Bgrg-ax-wfkuceei compressive atelectasis is present in the posterior lower lobes bilaterally. Pleural spaces: There are small to moderate bilateral pleural effusions layering posteriorly. These measure approximately 3Hounsfield units CT density, compatible with simple fluid. [...] 1 Signed Report (CONTINUED) Name: ROBBIN WILSON [facility] : 1945 Age/S: 75 / F [address] [place] [address] Unit #: [id number] Loc: [place] [address] Phys: Marquis Patel MD Acct: [id number] Dis Date: Status: ADM IN PHONE #: [phone] Exam Date: 10/10/20202024 FAX #: [phone] Reason: PLEURAL EFFUSION EXAMS: CPT CODE: [id number] CT CHEST W/O CONTRAST 92537 <Continued> 2. Median sternotomy wires are present. Prosthetic aortic valve noted, with heavy thoracic aortic vascular calcification. Heart size appears mildly enlarged. There is moderate to heavy calcification of the left anterior descending coronary artery. 3. Cholecystectomy. at 2139 Reported and signed by: Niecy Segal M.D. CC: Lian Sheth MD; Marquis Horn Technologist:RT Annalisa(R)(CT) CTDI: DLP: Trnscb Date/Time: 10/10/2020 (2139) MallyJYA Orig Print D/T: S: 10/10/2020 (2140) PAGE [...] HGBA1C%) 6.4 %A1C 4.8-6.0 H CBC W/AUTO [id number] 08:21:00 Test Item Value Reference Range Interpretation [...] (test code NO = MDIFF) BASIC METABOLIC [id number] 08:04:00 Test Item Value Reference Range Interpretation [...] CHOLESTEROL/HDL 3.76 RATIO 3.27-4.44 N RISK ASSOCIA JYASON WITH RATIO (test code = CHOL/HDL RATIOS: [...] (test code = LDL) NEAR OPTIM AL/ABOVE ACHITAW337-622 [id number] 89 HIGH>LA=105 AMNA Y HIGH*Guidelines provided by the National [facility] [place] terol EducationProgra m Adult Treatment Panel III [id number] 08:04:00 Test Item Value Reference Range Interpretation Comments MAGNESIUM (test code = MAG) 2.10 mg/dL 1.80-2.40 PROTHROMBIN [id number] 06:14:00 Test Item Value Reference Range Interpretation [...] recurrent infar ct). - XR CHEST 1 [id number] 00:00:00 [facility] 1945 Sex: F FAX: Jessika Sheth [phone] [place]: St: ADM Name: WILSON,ROBBIN YONIS [facility] : 1945 Age/S: 75/F [address] [place] [address] Unit #: [id number] Loc: G.[address] [place] [address] Phys: Lian Sheth MD Acct: [id number] Dis Date: Status: ADM IN PHONE #: [phone] Exam Date: 10/08/2020 0954 FAX #: [phone] Reason: HEAVY BREATHING EXAMS: CPT CODE: [id number] XR CHEST 1 V 88618 PROCEDURE INFORMATION: Exam: XR Chest Exam date [...] MD Technologist: RT Nilesh(R) Trnscrd Date/Time/By: 10/08/2020 (1001): By: [email or web address] Orig Print D/T: S: 10/08/2020 (1002) PAGE 1 Signed ReportPROTHROMBIN [id number] 15:18:00 Test Item Value Reference Range Interpretation [...] recurrent infar ct). COMMENTS: INR X 10 [id number] 06:56:00 Test Item Value Reference Range Interpretation [...] titative results may nahed y by method. [id number] 04:52:00 Test Item Value Reference Range Interpretation [...] nahed y by method. POC ARTERIAL BLOOD [id number] 02:11:00 Test Item Value Reference Range Interpretation Comments POC ARTERIAL BLOOD GAS PH (test 7.430 7.35-7.45 N code = POCPHA) POC ARTERIAL BLOOD GAS PCO2 35.9 mmHg 35.0-45 N (test code = TQZVIU8K) POC TCO2 ARTERIAL (test code = 25.0 POCTCO2) POC ARTERIAL BLOOD GAS PO2 (test 71.2 mmHg 80-100.0 L code = HKVBE6H) POC HCO3 ARTERIAL (test code = 23.9 MMOL/L 22.0-26.0 N BTUFIS5I) POC BASE EXCESS (test code = -0.4 MMOL/L -4.0-4.0 N POCBEA) POC O2 SATURATION (test code = 94.7 % 90-100 N POCO2S) FIO2 (test code = FIO2A) 21 % PaO2/FiO2 (test code = XUJ0LUT2) 339.04 mm/Hg ABG DELIVERY (test code = SU) Room Air ABG TEMPERATURE (test code = 98.6 F TEMPA) ABG SITE (test code = SITEA) R Radial JESSE'S TEST (test code = Positive ALLENS) BASIC METABOLIC [id number] 02:11:00 Test Item Value Reference Range Interpretation Comments SODIUM (test code = NA/ABG) MEQ/L 134-147 POTASSIUM (test code = K/ABG) MEQ/L 3.4-5.0 CHLORIDE (test code = CL/ABG) MEQ/L 100-108 CREATININE ABG (test code = CREAABG) mg/dL 0.6-1.0 POC IONIZED CALCIUM (test code = MMOL/L 1.12-1.32 POCCA) POC GLUCOSE (test code = POCGLU) MG/DL [id number] 02:11:00 Test Item Value Reference Range Interpretation Comments HEMOGLOBIN (test code = HGB/ABG) G/DL 11.0-15.0 [id number] 02:11:00 Test Item Value Reference Range Interpretation Comments HEMATOCRIT (test code = HCT/ABG) % 33.0-45.0 POC LACTIC [id number] 02:11:00 Test Item Value Reference Range Interpretation Comments POC LACTIC ACID (test code = POCLAC) mmol/l 0.9-1.7 POC ARTERIAL BLOOD [id number] 02:11:00 Test Item Value Reference Range Interpretation Comments POC ARTERIAL BLOOD GAS PH (test 7.430 7.35-7.45 N code = POCPHA) POC ARTERIAL BLOOD GAS PCO2 35.9 mmHg 35.0-45 N (test code = KURTJS3K) POC TCO2 ARTERIAL (test code = 25.0 POCTCO2) POC ARTERIAL BLOOD GAS PO2 (test 71.2 mmHg 80-100.0 L code = OFNPB2S) POC HCO3 ARTERIAL (test code = 23.9 MMOL/L 22.0-26.0 N OGGCYD2A) POC BASE EXCESS (test code = -0.4 MMOL/L -4.0-4.0 N POCBEA) POC O2 SATURATION (test code = 94.7 % 90-100 N POCO2S) FIO2 (test code = FIO2A) 21 % PaO2/FiO2 (test code = VMB9JGJ3) 339.04 mm/Hg ABG DELIVERY (test code = SU) Room Air ABG TEMPERATURE (test code = 98.6 F TEMPA) ABG SITE (test code = SITEA) R Radial JESSE'S TEST (test code = Positive ALLENS) BASIC METABOLIC [id number] 02:11:00 Test Item Value Reference Range Interpretation Comments SODIUM (test code = NA/ABG) MEQ/L 134-147 POTASSIUM (test code = K/ABG) MEQ/L 3.4-5.0 CHLORIDE (test code = CL/ABG) MEQ/L 100-108 CREATININE ABG (test code = CREAABG) mg/dL 0.6-1.0 POC IONIZED CALCIUM (test code = MMOL/L 1.12-1.32 POCCA) POC GLUCOSE (test code = POCGLU) MG/DL [id number] 02:11:00 Test Item Value Reference Range Interpretation Comments HEMOGLOBIN (test code = HGB/ABG) G/DL 11.0-15.0 [id number] 02:11:00 Test Item Value Reference Range Interpretation Comments HEMATOCRIT (test code = HCT/ABG) % 33.0-45.0 POC LACTIC [id number] 02:11:00 Test Item Value Reference Range Interpretation Comments POC LACTIC ACID (test code = 1.3 mmol/l 0.9-1.7 N POCLAC) POC ARTERIAL BLOOD [id number] 02:11:00 Test Item Value Reference Range Interpretation Comments POC ARTERIAL BLOOD GAS PH (test 7.430 7.35-7.45 N code = POCPHA) POC ARTERIAL BLOOD GAS PCO2 35.9 mmHg 35.0-45 N (test code = FGKLAJ7I) POC TCO2 ARTERIAL (test code = 25.0 POCTCO2) POC ARTERIAL BLOOD GAS PO2 (test 71.2 mmHg 80-100.0 L code = QSVON4H) POC HCO3 ARTERIAL (test code = 23.9 MMOL/L 22.0-26.0 N ZUEOVS8S) POC BASE EXCESS (test code = -0.4 MMOL/L -4.0-4.0 N POCBEA) POC O2 SATURATION (test code = 94.7 % 90-100 N POCO2S) FIO2 (test code = FIO2A) 21 % PaO2/FiO2 (test code = KZA8QRF2) 339.04 mm/Hg ABG DELIVERY (test code = SU) Room Air ABG TEMPERATURE (test code = 98.6 F TEMPA) ABG SITE (test code = SITEA) R Radial JESSE'S TEST (test code = Positive ALLENS) BASIC METABOLIC [id number] 02:11:00 Test Item Value Reference Range Interpretation [...] GLUCOSE (test code = POCGLU) 174 MG/DL [id number] 02:11:00 Test Item Value Reference Range Interpretation Comments HEMOGLOBIN (test code = HGB/ABG) G/DL 11.0-15.0 [id number] 02:11:00 Test Item Value Reference Range Interpretation Comments HEMATOCRIT (test code = HCT/ABG) % 33.0-45.0 POC LACTIC [id number] 02:11:00 Test Item Value Reference Range Interpretation Comments POC LACTIC ACID (test code = 1.3 mmol/l 0.9-1.7 N POCLAC) POC ARTERIAL BLOOD [id number] 02:11:00 Test Item Value Reference Range Interpretation Comments POC ARTERIAL BLOOD GAS PH (test 7.430 7.35-7.45 N code = POCPHA) POC ARTERIAL BLOOD GAS PCO2 35.9 mmHg 35.0-45 N (test code = LJPVAU9A) POC TCO2 ARTERIAL (test code = 25.0 POCTCO2) POC ARTERIAL BLOOD GAS PO2 (test 71.2 mmHg 80-100.0 L code = JUAGD8K) POC HCO3 ARTERIAL (test code = 23.9 MMOL/L 22.0-26.0 N MGGZPT0G) POC BASE EXCESS (test code = -0.4 MMOL/L -4.0-4.0 N POCBEA) POC O2 SATURATION (test code = 94.7 % 90-100 N POCO2S) FIO2 (test code = FIO2A) 21 % PaO2/FiO2 (test code = IIN8KUC7) 339.04 mm/Hg ABG DELIVERY (test code = SU) Room Air ABG TEMPERATURE (test code = 98.6 F TEMPA) ABG SITE (test code = SITEA) R Radial JESSE'S TEST (test code = Positive ALLENS) BASIC METABOLIC [id number] 02:11:00 Test Item Value Reference Range Interpretation [...] GLUCOSE (test code = POCGLU) 174 MG/DL [id number] 02:11:00 Test Item Value Reference Range Interpretation Comments HEMOGLOBIN (test code = HGB/ABG) 11.9 G/DL 11.0-15.0 N [id number] 02:11:00 Test Item Value Reference Range Interpretation Comments HEMATOCRIT (test code = HCT/ABG) % 33.0-45.0 POC LACTIC [id number] 02:11:00 Test Item Value Reference Range Interpretation Comments POC LACTIC ACID (test code = 1.3 mmol/l 0.9-1.7 N POCLAC) POC ARTERIAL BLOOD [id number] 02:11:00 Test Item Value Reference Range Interpretation Comments POC ARTERIAL BLOOD GAS PH (test 7.430 7.35-7.45 N code = POCPHA) POC ARTERIAL BLOOD GAS PCO2 35.9 mmHg 35.0-45 N (test code = VYWAIH1D) POC TCO2 ARTERIAL (test code = 25.0 POCTCO2) POC ARTERIAL BLOOD GAS PO2 (test 71.2 mmHg 80-100.0 L code = TBSSU4Z) POC HCO3 ARTERIAL (test code = 23.9 MMOL/L 22.0-26.0 N NMPEOV0X) POC BASE EXCESS (test code = -0.4 MMOL/L -4.0-4.0 N POCBEA) POC O2 SATURATION (test code = 94.7 % 90-100 N POCO2S) FIO2 (test code = FIO2A) 21 % PaO2/FiO2 (test code = ZZY2LKX4) 339.04 mm/Hg ABG DELIVERY (test code = SU) Room Air ABG TEMPERATURE (test code = 98.6 F TEMPA) ABG SITE (test code = SITEA) R Radial JESSE'S TEST (test code = Positive ALLENS) BASIC METABOLIC [id number] 02:11:00 Test Item Value Reference Range Interpretation [...] GLUCOSE (test code = POCGLU) 174 MG/DL [id number] 02:11:00 Test Item Value Reference Range Interpretation Comments HEMOGLOBIN (test code = HGB/ABG) 11.9 G/DL 11.0-15.0 N [id number] 02:11:00 Test Item Value Reference Range Interpretation Comments HEMATOCRIT (test code = HCT/ABG) 35 % 33.0-45.0 N POC LACTIC [id number] 02:11:00 Test Item Value Reference Range Interpretation Comments POC LACTIC ACID (test code = 1.3 mmol/l 0.9-1.7 N POCLAC) Coronavirus 2019 nCoV [id number] 00:44:00 Test Item Value Reference Range Interpretation Comments Coronavirus 2019 NEGATIVE Negative Negative re sults should be nCoV Bedside (test treated a s presumptive and, code = ifinconsistent with BWREX38OKSQT) clinical signs and symptoms or necessaryfor patient management, michelle uld be tested with an alternativemole cular assay. Negative result s do not preclude QKWM-IgR-4ricnp tion and should not be u sed as the sole basis forp atient management deci sions. Negative result s should beconsidered in the context of a patient's recent exposures,histo ry, presence of clinical sig ns and symptoms consis tentwith COVID-19. LIPOPROTEIN [id number] 00:27:00 Test Item Value Reference Range Interpretation Comments LIPOPROTEIN LDL 70.8 mg/dL 0-100 N <100 OPTIMAL 100-129 NEAR (test code = LDL) OPTIMAL/AB OVE [id number] 89 HIGH>PL=008 AMNA Y HIGH*Guidelines provided by the National Cholesterol EducationProgra m Adult Treatment Panel III BASIC METABOLIC [id number] 00:27:00 Test Item Value Reference Range Interpretation [...] code = 9.1 mg/dL 8.0-10.5 N CA) [id number] 00:27:00 Test Item Value Reference Range Interpretation Comments LIPASE (test code = LIP) 92 U/L 13-57 H [id number] 00:27:00 Test Item Value Reference Range Interpretation Comments MAGNESIUM (test code = MAG) 1.71 mg/dL 1.80-2.40 L T4 [id number] 00:27:00 Test Item Value Reference Range Interpretation Comments T4 FREE (test code = T4F) 1.2 ng/dL 0.77-1.61 N TSH REFLEX TO [id number] 00:27:00 Test Item Value Reference Range Interpretation Comments TSH REFLEX TO FT4 (test code = 0.26 IU/mL 0.42-5.47 L TSHREFLEX) [id number] 00:27:00 Test Item Value Reference Range Interpretation Comments TROPONIN-I 0.061 ng/mL 0.000-0.045 H Negative: <= 0. 045 Positive: (test code = >= 0.046 Correl ation with TROPI) serial results, other cardiac markers andclin ical findings is necessary to determine the clinicalsignifi cance of this result. Results using different metho dologies should not be c omparedto one another as claudio titative results may anhed y by method. B-TYPE NATRIURETIC [id number] 00:07:00 Test Item Value Reference Range Interpretation Comments B-TYPE NATRIURETIC PEPTIDE (test 370.0 PG/ML 0-100 H code = BNP) BASIC METABOLIC [id number] 00:02:00 Test Item Value Reference Range Interpretation [...] code = 9.1 mg/dL 8.0-10.5 N CA) [id number] 00:02:00 Test Item Value Reference Range Interpretation Comments LIPASE (test code = LIP) 92 U/L 13-57 H [id number] 00:02:00 Test Item Value Reference Range Interpretation Comments MAGNESIUM (test code = MAG) 1.71 mg/dL 1.80-2.40 L T4 [id number] 00:02:00 Test Item Value Reference Range Interpretation Comments T4 FREE (test code = T4F) ng/dL 0.77-1.61 TSH REFLEX TO [id number] 00:02:00 Test Item Value Reference Range Interpretation Comments TSH REFLEX TO FT4 (test code = 0.26 IU/mL 0.42-5.47 L TSHREFLEX) [id number] 00:02:00 Test Item Value Reference Range Interpretation [...] results may nahed y by method. PROTHROMBIN [id number] 23:59:00 Test Item Value Reference Range Interpretation [...] l Infarction (to prevent recurrent infar ct). [id number] 23:59:00 Test Item Value Reference Range Interpretation Comments D-DIMER (test 1711 ng/mlFEU See_Comment HH Critical resu lt called to code = JOSE ZAZUTEA Tby DDIMER) [id number] at 23 59 10/06/20Nurse r ead back [...] this result as normal/abnormal . CBC W/AUTO [id number] 23:46:00 Test Item Value Reference Range Interpretation [...] MANUAL DIFF REQUIRED (test code NO = DEE DEE) - XR CHEST 1 [id number] 00:00:00 [facility] 1945 Sex: F FAX: Wilbur Martinez MD [phone] [place]: [address]: REG Name: ROBBIN WILSON [facility] : 1945 Age/S: 75/F [address] [place] [address] Bl Unit #: [id number] Loc: JOCELYN SpringerJOSE [id number] Phys: Wilbur Martinez MD Acct: [id number] Dis Date: Status: REG ER PHONE #: [phone] Exam Date: 10/06/2020 231 FAX #: [phone] Reason: SOB EXAMS: CPT CODE: [id number] XR CHEST 1 V 20873 PROCEDURE INFORMATION: Exam: XR Chest Exam date and time: 10/06/2020 11:07 PM Age: 75 years old Clinical indication: Shortnessof breath; Additional info: SOB TECHNIQUE: Imaging protocol: XR of the chest. Views: 1 view. COMPARISON: CR XR CHEST 1V 12/01/2017 9:12 AM FINDINGS: Lungs: See "Pleural spaces" finding. Pleural spaces:Stable or mild worsening in left basilar opacities with obscured costophrenic angle. Minimal right costophrenic angle blunting is stable. Heart/Mediastinum: Cardiac valve replacement marker is seen. Bones/joints: Sternotomy wire seen. IMPRESSION: 1. Slightly worsened left basilar atelectasis/infiltrate and probable small pleural effusion. 2. Suspected small right pleural effusion. at 3270 Reported and signed by: Agustin Radford M.D. CC: Wilbur Martinez MD Technologist: RT Eben(R) Trnscrd Date/Time/By: 10/06/2020 (0640) : By: [email or web address] Orig Print D/T: S: 10/06/2020 (5429) PAGE 1 Signed Report SARS-CoV-2 (COVID-19) RNA [Presence] in Respiratory specimen by ESTEFANI with probe [id number] 06:48:13 Test Item Value Reference Range Interpretation Comments SARS-CoV-2 (COVID-19) RNA Not detected Not-Detected [Presence] in Respiratory specimen by ESTEFANI with probe detection (test code = 71850-1) Whether patient is employed in a healthcare setting (test code = 48033-9) Whether the patient has symptoms related to condition of interest (test code = 67100-3) Patient was hospitalized because of this condition (test code = 76054-6) Whether the patient was admitted to intensive care unit (ICU) for condition of interest (test code = 38461-2) Whether patient resides in a congregate care setting (test code = 35138-1) [U] XRAY WRIST MIN 3 VWS LEFT [id number] 09:26:00Images acquired, not reported on this accession number.[facility][U] XRAY WRIST MIN 3 VWS LEFT [id number] 10:29:00Images acquired, not reported on this accession number. [facility][U] XRAY WRIST MIN 3 VWS LEFT [id number] 09:45:00Images acquired, not reported on this accession number.[facility][U] XRAY WRIST MIN 3 VWS LEFT [id number] 10:09:00Images acquired, not reported on this accession number.[facility][U] XRAY WRIST MIN 3 VWS LEFT [id number] 09:09:00Images acquired, not reported on this accession number.[facility] BREAST CYST ASPIRATION [id number] 11:28:13- BREAST CYST ASPIRATION LEFTULTRASOUND GUIDED ASPIRATION LEFT BREAST: 04/02/2019CLINICAL: Left Cyst A spiration. Comparison is made to exams dated 01/30/2019 mammogram and [facility] An aspiration was performed for the palpable [...] 04/04/2019 14:06:47Imaging Technologist: Lori Turner , [facility]-letter sent: Short Term Follow UpBREAST ULTRASOUND [id number] 09:31:08- BREAST ULTRASOUND BILATERALULTRASOUND OF BOTH BREASTS AND BOTH AXILLA: 03/06/2019CLINICAL: Dense breasts. Comparison is made to exams dated 01/30/2019 mammogram, 11/25/2016 ultrasound, and [facility]11/2012 [facility]. Real-time ultrasound of both breasts and both [...] evidence of malignancy.Carmela Davis M.D. ar/:03/06/2019 09:31:08 Sea Captain: Maren CHRISTINE, [facility]-FWletter sent: BIRADS 4/5 Biopsy Ultrasound BI-RADS: 4a Suspicious abnormality - low suspicion for malignancy. [facility] [id number] 00:00:00 Test Item Value Reference Range Interpretation Comments Case (test code = Click ImageLink button N Case) for report. Specimen 1 (test code Click ImageLink button N = Specimen 1) for report. [facility] MAMM BILATERAL CEDRIC CAD [id number] 13:15:32 - SCR MAMM BILATERAL CEDRIC CAD DIGITALBILATERAL DIGITAL SCREENING MAMMOGRAM 3D/2D WITH CAD: 01/30/2019CLINICAL: Asymptomatic. Digital breast tomosynthesis was performed in addition to routine CC and MLO views. Current mammographic images were evaluated by either a NudgeRx M-Vu or a Index ImageCheckerCAD (computer aided detection system). Comparison is made to exams dated 12/22/2017 mammogram, 10/28/2016 mammogram, 10/28/2015 mammogram, 10/14/2014 mammogram, and 10/11/2013 mammogram - [facility]-. The tissue of both breasts is heterogeneously dense. This may lower the sensitivity of mammography. There are benign vascular calcifications and calcifications in both breasts. No suspicious mass, architectural distortion, malignant type calcification, or lymph node abnormality detected. Breast architecture is stable compared to prior exams.IMPRESSION: BENIGNThere is no mammographic evidenceof malignancy. Resume annual screening mammography in one year. Marga ferro/[place]: 13:15:32 Entry: - 02/01/2019 14:26:53Imaging Technologist: Yon CHRISTINE, [facility]-FWletter sent: BIRADS 1-2 Normal Mammogram BI-RADS: 2 Benign
--- NOTE | 2021-11-26 00:14 | ER ---
Nurse's Notes [facility] Name: Esha Barber Age: 76 yrs Sex: Female : 1945 Arrival Date: 11/25/2021 Time: 21:56 Bed 17 Private MD: Diagnosis: Multiple fractures of ribs, left side Presentation: 11/25 22:08 Chief complaint: Patient's son or daughter states: pt had a fell and hurt left side of as6 back. Coronavirus screen: At this time, the client does not indicate any symptoms associated with coronavirus-19. Ebola Screen: No symptoms or risks identified at this time. Initial Sepsis Screen: Does the patient meet any 2 criteria? No. Patient's initial sepsis screen is negative. Does the patient have a suspected source of infection? No. Patient's initial sepsis screen is negative. Risk Assessment: Do you want to hurt yourself or someone else? Patient reports no desire to harm self or others. Onset of symptoms was November 24, 2021. 22:08 Method Of Arrival: Wheelchair as6 22:08 Acuity: VALORIE 3 as6 22:13 Care prior to arrival: None. Mechanism of Injury: Fall from standing position. Trauma as6 event details: Injury occurred in the [facility]. Trauma Activation: Not Applicable Physician: ED Physician; Name: ; Notified At: ; Arrived At: Physician: General Surgeon; Name: ; Notified At: ; Arrived At: Physician: Radiology; Name: ; Notified At: ; Arrived At: Physician: Respiratory; Name: ; Notified At: ; Arrived At: Physician: Lab; Name: ; Notified At: ; Arrived At: Historical: - Allergies: 22:12 No Known Allergies; as6 - Home Meds: 22:13 Warfarin Oral [Active]; as6 - PMHx: 22:12 galbladder removed; heart valve replaced; stroke; as6 - PSHx: 22:12 Right knee replacement; as6 - Immunization history:: Client reports receiving the 2nd dose of the Covid vaccine, pfizer. - Social history:: Smoking status: Patient/guardian denies using tobacco. Screenin:25 Abuse screen: Denies threats or abuse. Nutritional screening: No deficits noted. ja4 Tuberculosis screening: No symptoms or risk factors identified. Fall Risk Total Evans Fall Scale indicates High Risk Score (45 or more points). Side Rails Up X 2 Placed Close to Nursing Station Family Present and informed to notify staff if the need to leave the bedside. Primary Survey: 22:27 NO uncontrolled hemorrhage observed. A: The client is awake and alert. The airway is ja4 patent. Breathing/Chest: Spontaneous respiratory effort, equal unlabored respirations, breath sounds clear bilaterally, regular pattern, symmetrical chest rise and fall. Circulation: No external hemorrhage present. Regular and strong central pulse, skin warm/dry/normal color. Disability Pupils are equal, round, reactive to light and accommodation. Client is alert. Client responds to verbal stimuli. Client reponds to painful stimuli. Reassessment. Secondary Survey: 22:27 Musculoskeletal: Reports pain in LEFT RIBS. ja4 Assessment: 22:24 General: Appears uncomfortable, slender, Behavior is appropriate for age. Pain: ja4 Complains of pain in LEFT RIBS Pain currently is 10 out of 10 on a pain scale. Quality of pain is described as aching, sharp, Pain began 3 hours ago. Alleviated by medications, rest, repositioning. Musculoskeletal: Reports. Vital Signs: 22:08 BP 109 / 55; Pulse 63; Resp 16 S; Temp 98.1(O); Pulse Ox 95% on R/A; Weight 48.08 kg as6 (R); Height 5 ft. 0 in. (152.40 cm) (R); Pain 7/10; 23:10 BP 107 / 50; Pulse 60; Resp 14; Pulse Ox 95% on R/A; ja4 22:08 Body Mass Index 20.70 (48.08 kg, 152.40 cm) as6 Rebekah Coma Score: 22:25 Eye Response: spontaneous(4). Verbal Response: oriented(5). Motor Response: obeys ja4 commands(6). Total: 15. Trauma Score (Adult): 22:25 Eye Response: spontaneous(1); Verbal Response: oriented(1); Motor Response: obeys ja4 commands(2); Systolic BP: > 89 mm Hg(4); Respiratory Rate: 10 to 29 per min(4); Hugo Score: 15; Trauma Score: 12 ED Course: 21:56 Patient arrived in ED. bp1 22:02 Kristin Loza FNP-C is PHCP. kb 22:02 Harry Hogan MD is Attending Physician. kb 22:12 Triage completed. as6 22:13 Arm band placed on. as6 22:16 Uriah Zavala, RN is Primary Nurse. ja4 22:25 Awaiting for x-ray. ja4 22:25 Bed in low position. Call light in reach. Side rails up X 1. Side rails up X2. Adult w/ ja4 patient. 22:25 No provider procedures requiring assistance completed. ja4 22:52 CT Chest Wo Con In Process Unspecified. EDMS Administered Medications: No medications were administered Medication: 22:25 VIS not applicable for this client. ja4 Outcome: 11/26 00:13 Discharge ordered by . kb 00:45 Discharged to home via wheelchair. ja4 00:45 Condition: stable 00:45 Discharge instructions given to family, Instructed on discharge instructions, follow up and referral plans. medication usage, Demonstrated understanding of instructions, follow-up care, medications. 00:46 Patient left the ED. ja4 Signatures: Dispatcher [employer] EDMS Kristin Loza, JONATHAN-C JONATHAN-Bianka García Ashby, JOSE RN as6 Uriah Zavala, RN RN ja4
--- NOTE | 2021-11-26 00:14 | EDPHYS ---
Physician Documentation [facility] Name: Esha Barber Age: 76 yrs Sex: Female : 1945 Arrival Date: 11/25/2021 Time: 21:56 Bed 17 Private MD: ED Physician Harry Hogan HPI: 11/25 23:10 This 76 yrs old Female presents to ER via Wheelchair with complaints of Fall kb Injury. 23:10 Details of fall: The patient fell from an upright position, while walking. Onset: The kb symptoms/episode began/occurred today. Associated injuries: The patient sustained injury to the chest, specifically the left lateral posterior chest, pain with breathing, pain with movement. Severity of symptoms: At their worst the symptoms were moderate, in the emergency department the symptoms are unchanged. The patient has not experienced similar symptoms in the past. The patient has been recently seen at the [facility] Emergency Department, yesterday. Son states pt was seen yesterday and diagnosed with a rib fracture from a previous fall. States she was walking into the kitchen today and her cane slipped causing her to fall into the kitchen counter. States she hit her left lateral posterior chest in the same area as her rib fracture. . Historical: - Allergies: 22:12 No Known Allergies; as6 - Home Meds: 22:13 Warfarin Oral [Active]; as6 - PMHx: 22:12 galbladder removed; heart valve replaced; stroke; as6 - PSHx: 22:12 Right knee replacement; as6 - Immunization history:: Client reports receiving the 2nd dose of the Covid vaccine, pfizer. - Social history:: Smoking status: Patient/guardian denies using tobacco. ROS: 23:09 Constitutional: Negative for fever, chills, and weight loss. kb 23:09 Cardiovascular: Positive for chest pain, of the left lateral posterior chest. 23:09 All other systems are negative. Exam: 23:09 Constitutional: This is a well developed, well nourished patient who is awake, alert, kb and in no acute distress. Head/Face: Normocephalic, atraumatic. Cardiovascular: Regular rate and rhythm with a normal S1 and S2. No gallops, murmurs, or rubs. No pulse deficits. Respiratory: Respirations even and unlabored. No increased work of breathing. Talking in full sentences Abdomen/GI: Soft, non-tender. No distention Skin: Warm, dry with normal turgor. Normal color. MS/ Extremity: Pulses equal, no cyanosis. Neurovascular intact. Full, normal range of motion. Neuro: Awake and alert, GCS 15, oriented to person, place, time, and situation. Moves all extremities. Normal gait. 23:09 Chest/axilla: Inspection: normal, no acute changes, Palpation: tenderness, that is moderate, of the left lateral posterior chest, that totally reproduces the patient's complaints, Axilla: are normal. Vital Signs: 22:08 BP 109 / 55; Pulse 63; Resp 16 S; Temp 98.1(O); Pulse Ox 95% on R/A; Weight 48.08 kg as6 (R); Height 5 ft. 0 in. (152.40 cm) (R); Pain 7/10; 23:10 BP 107 / 50; Pulse 60; Resp 14; Pulse Ox 95% on R/A; ja4 22:08 Body Mass Index 20.70 (48.08 kg, 152.40 cm) as6 Rebekah Coma Score: 22:25 Eye Response: spontaneous(4). Verbal Response: oriented(5). Motor Response: obeys ja4 commands(6). Total: 15. Trauma Score (Adult): 22:25 Eye Response: spontaneous(1); Verbal Response: oriented(1); Motor Response: obeys ja4 commands(2); Systolic BP: > 89 mm Hg(4); Respiratory Rate: 10 to 29 per min(4); Largo Score: 15; Trauma Score: 12 MDM: 22:05 Patient medically screened. kb 23:09 Data reviewed: vital signs, nurses notes. Data interpreted: Pulse oximetry: on room air kb is 95 %. Interpretation: normal. Counseling: I had a detailed discussion with the patient and/or guardian regarding: the historical points, exam findings, and any diagnostic results supporting the discharge/admit diagnosis, radiology results, the need for outpatient follow up, a family practitioner, to return to the emergency department if symptoms worsen or persist or if there are any questions or concerns that arise at home. 11/25 22:13 Order name: CT Chest Wo Con kb Administered Medications: No medications were administered Disposition: 11/26 00:52 Co-signature as Attending Physician, Harry Hogan MD. rn Disposition Summary: 11/26/21 00:13 Discharge Ordered Location: Home kb Condition: Stable kb Diagnosis - Multiple fractures of ribs, left side kb Followup: kb - With: Emergency Department - When: As needed - Reason: Worsening of condition Followup: kb - With: Private Physician - When: 2 - 3 days - Reason: Recheck today's complaints, Continuance of care, Re-evaluation by your physician Discharge Instructions: - Discharge Summary Sheet kb - Rib Fracture, Hyko-li-Lqwy kb Forms: - Medication Reconciliation Form kb - Thank You Letter kb - Antibiotic Education kb - Prescription Opioid Use kb Signatures: Dispatcher [employer] EDMS Kristin Loza, IT APPLICATIONS ANALYST-C IT APPLICATIONS ANALYST-Harry Oglesby MD MD rn Slawson, Ashby, RN RN as6
[2021-11-26 03:51] VITALS: TEMP 98.1; O2SAT 95
[2021-11-26 03:53] VITALS: BP 107/50
--- NOTE | 2021-11-26 10:57 | RAD REPORT ---
EXAM DESCRIPTION: CT Chest Without Intravenous Contrast CLINICAL HISTORY: Fall, rib pain TECHNIQUE: Axial computed tomography images of the chest without intravenous contrast. Sagittal an d coronal reformatted images were created and reviewed. This CT exam was performed using one or mor e of the following dose reduction techniques: automated exposure control, adjustment of the mA and/ or kV according to patient size, and/or use of iterative reconstruction technique. COMPARISON: Chest CT dated 11/24/2021 FINDINGS: Lungs: Mild bibasilar subsegmental atelectasis/pleural parenchymal scar.. Pleural space: Small right and trace left pleural effusions, slightly increased on the left. No p neumothorax. Heart: The heart is moderately enlarged. Coronary artery calcification. Prosthetic aortic valve. No significant pericardial effusion. Bones/joints: Minimally displaced left lateral and posterior lateral 9th and 10th rib fractures. Mu ltiple remote left-sided rib fractures. Prior median sternotomy. Multilevel spondylosis. No dislo cation. Soft tissues: Unremarkable. Vasculature: Severe atherosclerotic disease. No thoracic aortic aneurysm. Lymph nodes: Unremarkable. No enlarged lymph nodes. Intraperitoneal space: Small to moderate free fluid in the upper abdomen similar to the prior. IMPRESSION: 1. Left lateral and posterior lateral 9th and 10th rib fractures again demonstrated. 2. Small right and trace left pleural effusions. The left effusion is slightly increased. Adjacent bibasilar subsegmental atelectasis/pleural parenchymal scar. 3. Other findings as above. Electronically signed by: Leonel Antony MD 11/25/2021 11:16 PM CDT Due to temporary technical issues with the PACS/Fluency reporting system, reports are being signed by the in house radiologists without review as a courtesy to insure prompt reporting. The interpreting radiologist is fully responsible for the content of the report.
== END 2021-11-26 00:46 | disposition home or self-care (01) ==
LOC: ER 21:55
DX: S22.42XS Multiple fractures of ribs, left side, sequela (principal); Z79.01 Long term (current) use of anticoagulants
CPT/HCPCS: 71250; 99283

== ENCOUNTER 2021-12-06 17:01 | Emergency (ER) | payer OTHER ==
--- OUTSIDE RECORDS SUMMARY | 2021-12-06 17:08 | XMS REPORT | Continuity of Care Document ---
:[address] [facility] t Address [address] [place] [address] Care Team Providers Name Role Phone PCP, [...] [phone] EAR 00 RINGIN RINGIN Active 01/28/2014 [facility] History of History of Problem Resolve [...] 2021-09-25 Memoria itis ritis 02:46:50 l Active [place] Problem 09/25/2021 Doroteo Taylor Vitamin D Vitamin D Problem Active 2021-09-25 Memoria deficiency deficiency 02:46:50 l Active [place] Problem 09/25/2021 Doroteo Taylor Myalgia Myalgia Problem Active 2021-09-25 Me moria Active 02:46:50 l Problem Just[place] 09/25/2021 Doroteo Taylor Abnormal Abnormal Diagnosis Active [...] 2020-10-26 Me moria Active 03:04:57 l Problem [place] 10/26/2020 Otilia Bingham Other Other Diagnosis Active 2020-10-26 Mem oria symptoms symptoms 03:04:57 l involving involving Herm aaron cardiovasc cardiovasc ular ular system system Active Diagnosis 10/26/2020 Otilia Bingham Atheroscle Atheroscl Problem Active 2020-10-26 Memoria rosis of erosis of 03:04:57 l tu[place] tu[place]umne Justo arteries 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 intermitte intermitte nt nt claudicati claudicati on, on, bilateral bilateral legs legs Active Problem 10/26/2020 Otilia Bingham Anticoagul Anticoagu Diagnosis Active 2017-01-31 Memoria ant lant 04:10:03 l long-term long-term Herm aaron use use Active Diagnosis 01/31/2017 Otilia Bingham H/O mitral H/O Diagnosis Active 2017-01-31 Memoria valve mitral 04:10:03 l repair valve [place] repair Active Diagnosis 01/31/2017 Otilia Bingham Cerebrovas [...] of Long-term 02:46:50 l high-risk use of [place] medication high-risk medication Active Problem 09/25/2021 Doroteo Taylor Dorsalgia Dorsalgia Problem Active 2021-09-25 Memoria Active 02:46:50 l Problem Just[place] 09/25/2021 Doroteo Taylor Abnormal Abnormal Problem Active 2021-09-25 Memoria laboratory laboratory 02:46:50 l test test [place] Active Problem 09/25/2021 Doroteo Taylor Other Other Problem Active 2021-09-25 Joaquim mera specified specified 02:46:50 l counseling counseling He rmann Active Problem 09/25/2021 Doroteo Taylor 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 03:04:57 l n n Active [place] Problem 10/26/2020 Otilia Bingham Renal Renal Problem Active 2021-09-25 Memor ia insufficie insufficie 02:46:50 l ncy ncy Active Jermaine n Problem 09/25/2021 Doroteo Taylor Gait Gait Problem Active 2021-09-25 Memor ia instabilit instabilit 02:46:50 l y y Active [place] Problem 09/25/2021 Doroteo Taylor Encounter Encounter Diagnosis Active 2016-01-31 Memoria for for 03:47:18 l current current Justo long-term long-term use of use of anticoagul anticoagul ants ants Active Diagnosis 01/31/2016 Otilia Bingham Atheroscle Atheroscl Diagnosis Active 2016-01-28 Memoria r of er of 04:25:58 l [place] tu[place]umne Justo artery of artery of both legs [...] Active 2016-01-28 Memoria Active 04:25:58 l Diagnosis [place] 01/28/2016 Otilia Bingham Allergies, Adverse Reactions, Alerts Allergy Allergy Status Severity Reaction(s) Onset Inactive Treating Comm ents Source Name Type Date Date Clinician No Known DA Active U 2020-03 [facility] [place] 00:[facility]: [address] No Known DA Active U [facility] Allergie 9-12 Clear s 00:00: [address] No Known DA Active [facility] NO KNOWN Drug Active Univers ALLERGIE Class ity of S [facility] Family History Family Member Diagnosis [...] 00:00:00 00:00:00 non-user Hospital Cigarette 2020-03-26 2020-03-26 [employer] pack-years 00:00:00 00:00:00 Hospital Smokin2015-12-23 2015-12-23 Vinnie Azevedoa nn 00:00:00 00:00:00 [birth year] [employer] 00:00:00 00:00:00 Hospital Smoking Status Start Date Stop Date Source Occasional tobacco smoker [facility] (finding) Ex-smoker 2020-03-26 00:00:00 2020-03-26 00:00:00 [facility] Medications Ordered Filled Start Stop Current Ordering [...] Taylor at bedtime l 02:46: as needed [place] 50 Warfarin 2021-0 Yes Gallo 1 tablet Mem oria Sodium 09-25 Taylor l 02:46: Just[place] 50 Pantoprazol 0 Yes Gallo 1 tablet Memoria e Sodium 09-25 Taylor l 02:46: Justo 50 Atorvastati 0 Yes Gallo 1 tablet Memoria n Calcium 09-25 Taylor l 02:46: [place] 50 Lasix 0 Yes Gallo 1 tablet Memori a 09-25 Taylor l 02:46: Just[place] 50 Sertraline 0 Yes Gallo 1 tablet M emoria HCl 09-25 Taylor l 02:46: Just[place] 50 Multaq 0 Yes Gallo 1 tablet Memor ia 09-25 Taylor with meals l 02:46: [place] 50 Memantine 0 Yes Gallo 1 tablet Me moria HCl 09-25 Taylor l 02:46: [place] 50 Protonix 2020-0 Yes Ahmed 1 tablet [...] Ahmed defined l 03:04: Just[place] 57 Zoloft Yes Ahmed 1 tablet Memori a 10-26 [...] capsule 33 needed for l sleep. warfarin 0 Yes 5mg QD Take 5 mg Meth abhijeet (COUMADIN) 6-[address] 5 MG tablet 18:44: daily. Hosp gee 33 Take 1 l tablet (5mg) by mouth daily for 30 days. furosemide 0 Yes 20mg Q.5D Take 20 mg M ethodi (LASIX) 20 6-[address] mg tablet 18:44: (two) Hospita 33 times a l day. pantoprazol 2021-0 Yes 40mg QD Take 40 mg Methodi e 6-[address] (PROTONIX) 18:44: daily. Hospi ta 40 MG EC 33 l tablet SERTRALINE 2020-0 Yes 100mg Take 100 Me thodi HCL (ZOLOFT 6-[address] ORAL) 18:44: mouth. Hospita 33 l temazepam 2021-0 Yes QD Take by Metho di (RESTORIL) 6-[address] 30 mg 18:44: nightly as Hospit a capsule 33 needed for l sleep. furosemide 2020-0 Yes 20mg Q.5D Take 20 mg M ethodi (LASIX) 20 6-[address] mg tablet 18:44: (two) Hospita 33 times a l day. pantoprazol 2020-0 Yes 40mg QD Take 40 mg Methodi e 6-[address] (PROTONIX) 18:44: daily. Hospi ta 40 MG EC 33 l tablet SERTRALINE 2020-0 Yes 100mg Take 100 Me thodi HCL (ZOLOFT 6-[address] ORAL) 18:44: mouth. Hospita 33 l temazepam 2021-0 Yes QD Take by Metho di (RESTORIL) 6-[address] 30 mg 18:44: nightly as Hospit a capsule 33 needed for l sleep. warfarin 2020-0 Yes 5mg QD Take 5 mg Meth abhijeet (COUMADIN) 6-[address] 5 MG tablet 18:44: daily. Hosp gee 33 Take 1 l tablet (5mg) by mouth daily for 30 days. Atorvastati 2020-0 Yes Ahmed 1 tablet M emoria n Calcium 7-03 Ahmed l 03:19: Lasix 2020-0 Yes Ahmed 1 tablet Memoria 7-03 Ahmed l 03:19: Atorvastati 2020-0 Yes Ahmed 1 tablet M emoria n Calcium 7-03 Ahmed l 03:19: Lasix 2020-0 Yes Ahmed 1 tablet Memoria 7-03 Ahmed l 03:19: Pantoprazol 2020-0 Yes Gallo 1 tablet Memoria e Sodium 5-08 Anderson l 02:45: Justo 55 Sertraline 2020-0 Yes Gallo 1 tablet M emoria HCl 5-08 Taylor l 02:45: 55 Pantoprazol 2020-0 Yes Gallo 1 tablet Memoria e Sodium 5-08 Taylor l 02:45: 55 Sertraline 2020-0 Yes Gallo 1 tablet M emoria HCl 5-08 Taylor l 02:45: 55 Clobetasol Clobetasol 2018-03 Yes COMFORT Apply [...] tablet in ans 00 3 days Isosorbide 2019 Yes Ahmed 1 tablet Me moria Mononitrate 7-16 Ahmed in the l CR 00:00: morning Isosorbide 2018-0 Yes Ahmed 1 tablet Me moria Mononitrate 7-16 Ahmed in the l CR 00:00: morning Alendronate 2019-0 Yes Ahmed 1 tablet M emoria Sodium 4-23 Ahmed l 02:53: Justo 45 Alendronate 2019-0 Yes Ahmed 1 tablet M emoria Sodium 4-23 Ahmed l 02:53: [place] 45 Prolia 2018-0 Yes Wajeeha as Memoria 3-29 Sindhu directed l 00:00: Prolia 2018-0 Yes Wajeeha as Memoria 3-29 Sindhu directed l 00:00: Lovenox 2018-0 Yes Ahmed 0.4 ml Memoria 2-15 Ahmed l 00:00: Lovenox 2018-0 Yes Ahmed 0.4 ml Memoria 2-15 Ahmed l 00:00: Lasix 2015-03 Yes Ahmed 1 tablet Memoria 1-15 Ahmed l 04:00: Alendronate 2015-03 Yes Ahmed 1 tablet M emoria Sodium 1-15 Ahmed l 04:00: Zoloft 2015-03 Yes Ahmed 1 tablet Memori [...] bedtime l 04:00: as needed Just[place] 59 Lasix 2015-03 Yes Ahmed 1 tablet [...] Date Status Commen ts Source Name Name PFIZER COVID-19 MRNA 2020-05-29 Completed Meth odist VACCINATION 00:00:00 Hospital PFIZER COVID-19 MRNA 2020-05-29 Completed Meth odist VACCINATION 00:00:00 Hospital PFIZER COVID-19 MRNA 2020-05-29 Completed Meth odist VACCINATION 00:00:00 Hospital PFIZER COVID-19 MRNA 2020-05-08 Completed Meth odist VACCINATION 00:00:00 Hospital PFIZER COVID-19 MRNA 2020-05-08 Completed Meth odist VACCINATION 00:00:00 Hospital PFIZER COVID-19 MRNA 2020-05-08 Completed Meth odist VACCINATION 00:00:00 Hospital Vital Signs Vital Name Observation Time Observation Value Comments Source Weight 2021-08-19 [facility] 19:15:00 Height 2021-08-19 [facility] n 19:15:00 Temperature Oral 2021-08-19 97.4 F [facility] Mark rmann (F) 19:15:00 Heart Rate 2021-08-19 [facility] n 19:15:00 Diastolic (mm Hg) 2021-08-19 [facility] H ermann 19:15:00 Systolic (mm Hg) 2021-08-19 [facility] He rmann 19:15:00 Weight 2021-02-18 [facility] n 17:15:00 Height 2021-02-18 [facility] n 17:15:00 Temperature Oral 2021-02-18 98.6 F [facility] Mark rmann (F) 17:15:00 Heart Rate 2021-02-18 [facility] n 17:15:00 Diastolic (mm Hg) 2021-02-18 [facility] ermann 17:15:00 Systolic (mm Hg) 2021-02-18 [facility] He rmann 17:15:00 Weight 2021-02-18 [facility] n 17:00:00 Height 2021-02-18 [facility] n 17:00:00 Temperature Oral 2021-02-18 98.6 F [facility] Mark rmann (F) 17:00:00 Heart Rate 2021-02-18 [facility] n 17:00:00 Diastolic (mm Hg) 2021-02-18 [facility] H ermann 17:00:00 Systolic (mm Hg) 2021-02-18 [facility] He rmann 17:00:00 Weight 2020-08-06 [facility]aine [...] BP Systolic 2019-02-22 118 mm[Hg] Location: L[facility]; [facility] 13:19:00 Position: Sitting BP Diastolic 2019-02-22 74 mm[Hg] Location: PAT[facility]; [facility] 13:19:00 Position: Sitting Height 2019-02-22 62 [in_us] [facility] 13:19:00 Weight 2019-02-22 116 [lb_av] [facility] 13:19:00 Body Mass Index 2019-02-22 21.22 kg/m2 [facility] Calculated 13:19:00 BP Systolic 2019-02-01 120 mm[Hg] Location: [facility] 13:38:00 Position: Sitting BP Diastolic 2019-02-01 70 mm[Hg] Location: [facility]; [facility] 13:38:00 Position: Sitting Height 2019-02-01 62 [in_us] [facility] 13:38:00 Weight 2019-02-01 118 [lb_av] [facility] 13:38:00 Body Mass Index 2019-02-01 21.58 kg/m2 [facility] Calculated 13:38:00 Weight 2019-01-18 [facility] 16:45:00 Height 2019-01-18 [facility] n 16:45:00 Temperature Oral 2019-01-18 97.0 F [facility] Mark rmann (F) 16:45:00 Heart Rate 2019-01-18 [facility] n 16:45:00 Diastolic (mm Hg) 2019-01-18 [facility] H ermann 16:45:00 Systolic (mm Hg) 2019-01-18 [facility] rmann 16:45:00 BP Systolic 2018-12-31 112 mm[Hg] Location: [facility] 09:36:00 Position: Sitting BP Diastolic 2018-12-31 68 mm[Hg] Location: E; [facility] 09:36:00 Position: Sitting Height 2018-12-31 62 [...] 14:00:00 Temperature Oral 2017-12-26 97.2 F [facility] Mark rmann (F) 14:00:00 Heart Rate 2017-12-26 [facility] [...] ermann 19:30:00 Systolic (mm Hg) 2015-09-18 [facility] He rmann 19:30:00 Weight 2015-08-19 [facility] Jermaine n 19:30:00 Heart Rate 2015-08-19 [facility] n 19:30:00 Diastolic (mm Hg) 2015-08-19 [facility] 19:30:00 Systolic (mm Hg) 2015-08-19 [facility] 19:30:00 Weight 2015-07-22 [facility] n 19:45:00 Heart Rate 2015-07-22 [facility] n 19:45:00 Diastolic (mm Hg) 2015-07-22 [facility] 19:45:00 Systolic (mm Hg) 2015-07-22 [facility] 19:45:00 Weight 2015-05-19 [facility] n 22:00:00 Heart Rate 2015-05-19 [facility] n 22:00:00 Diastolic (mm Hg) 2015-05-19 [facility] 22:00:00 Systolic (mm Hg) 2015-05-19 [facility] 22:00:00 Weight 2015-04-20 [facility] n 16:45:00 Heart Rate 2015-04-20 [facility] n 16:45:00 Diastolic (mm Hg) 2015-04-20 [facility] 16:45:00 Systolic (mm Hg) 2015-04-20 [facility] 16:45:00 Weight 2015-03-30 [facility] n 19:45:00 Heart Rate 2015-03-30 [facility] n 19:45:00 Diastolic (mm Hg) 2015-03-30 [facility] H ermann 19:45:00 Systolic (mm Hg) 2015-03-30 [facility] He rmann 19:45:00 Procedures Procedure Date / Time Performed Performing Clinician Sourc e [U] XRAY WRIST MIN 3 VWS 2019-06-03 00:00:00 [facility] LEFT [id number] [U] XRAY WRIST MIN 3 VWS 2019-04-22 00:00:00 [facility] LEFT [id number] [U] XRAY WRIST MIN 3 VWS 2019-04-16 00:00:00 [facility] LEFT [id number] [U] XRAY WRIST MIN 3 VWS 2019-04-08 00:00:00 [facility] LEFT [id number] [U] XRAY WRIST MIN 3 VWS 2019-04-04 00:00:00 [facility] LEFT [id number] . [facility] - Surgical Biopsy 2019-02-01 00:00:00 [...] Future Scheduled 2021-11-16 HEPATITIS B VACCINES [facility] Test 05:07:38 (1 of 3 - 3-dose series) [code = HEPATITIS B VACCINES (1 of 3 - 3-dose series)] Future Scheduled 2021-11-16 Hepatitis C screening [facility] Test 05:07:38 (procedure) [code = 541969020] Future Scheduled 2021-11-16 SHINGLES VACCINES (1 [facility] Test 05:07:38 of 2) [code = SHINGLES VACCINES (1 of 2)] Future Scheduled 2021-11-16 65+ [facility]AL [facility] 05:07:38 VACCINE (1 - PCV) [code = 65+ PNEUMOCOCCAL VACCINE (1 - PCV)] Future Scheduled 2021-11-16 COVID-19 VACCINE (3 - [facility] Test 05:07:38 Booster for Pfizer series) [code = COVID-19 VACCINE (3 - Booster for Pfizer series)] Future Scheduled 2021-11-16 [facility]ACCINE [facility] 05:07:38 [code = INFLUENZA VACCINE] Future Scheduled 2021-11-16 HEPATITIS B VACCINES [facility] Test 05:07:38 (1 of 3 - 3-dose series) [code = HEPATITIS B VACCINES (1 of 3 - 3-dose series)] Future Scheduled 2021-11-16 Hepatitis C screening [facility] Test 05:07:38 (procedure) [code = 235405207] Future Scheduled 2021-11-16 SHINGLES VACCINES (1 [facility] Test 05:07:38 of 2) [code = SHINGLES VACCINES (1 of 2)] Future Scheduled 2021-11-16 65+ [facility] VACCINE (1 - PCV) [code = 65+ PNEUMOCOCCAL VACCINE (1 - PCV)] Future Scheduled 2021-11-16 COVID-19 VACCINE (3 - [facility] Test 05:07:38 Booster for Pfizer series) [code = COVID-19 VACCINE (3 - Booster for Pfizer series)] Future Scheduled 2021-11-16 [facility]ACCINE [facility] 05:07:38 [code = INFLUENZA VACCINE] Future Scheduled 2021-11-16 HEPATITIS B VACCINES [facility] Test 05:07:38 (1 of 3 - 3-dose series) [code = HEPATITIS B VACCINES (1 of 3 - 3-dose series)] Future Scheduled 2021-11-16 Hepatitis C screening [facility] Test 05:07:38 (procedure) [code = 028109669] Future Scheduled 2021-11-16 SHINGLES VACCINES (1 [facility] Test 05:07:38 of 2) [code = SHINGLES VACCINES (1 of 2)] Future Scheduled 2021-11-16 65+ [facility] 05:07:38 VACCINE (1 - PCV) [code = 65+ PNEUMOCOCCAL VACCINE (1 - PCV)] Future Scheduled 2021-11-16 COVID-19 VACCINE (3 - [facility] Hospital Test 05:07:38 Booster for Pfizer series) [code = COVID-19 VACCINE (3 - Booster for Pfizer series)] Future Scheduled 2021-11-16 INFLUENZA VACCINE [facility] Test 05:07:38 [code = INFLUENZA VACCINE] Encounters Start End Encounter Admission Attending Care Care Encounter Source Date/Time Date/Time Type Type Clinicians Facility Department ID 2021-10-21 2021-10-21 Outpatient GAYLORD_S DMG [facility] [place] [place] [id number] -2021 [facility] 00:00:00 00:00:00 [id number] [facility] 2021-10-01 2021-10-01 [place] [id number] -2021 [facility] 03:51:00 03:51:00 0715 Medica l Group 2021-09-15 2021-09-15 [place] [id number] -2021 [facility] 07:00:00 07:00:00 0629 Medica l Group 2021-09-14 2021-09-14 Outpatient GAYLORD_S DMG [facility] [place] [place] [id number] -2021 [facility] 11:05:00 11:05:00 0628 Medica l Group 2021-08-19 2021-08-19 Outpatient Gallo A Gallo A [id number] MH 14:15:00 14:15:00 Claudia Taylor MD Ph illip PA JOHN Taylor MD 2021-08-19 2021-08-19 Outpatient Gallo A Gallo A [id number] MH 14:15:00 14:15:00 Claudia Taylor MD Ph illip PA PA Tootie Taylor MD 2021-07-26 2021-07-26 Outpatient Gallo A Gallo A [id number] MH 09:51:00 09:51:00 Claudia Taylor MD Ph illip PA JOHN Taylor MD 2021-07-26 2021-07-26 Outpatient Gallo A Gallo A [id number] MH 08:57:00 08:57:00 Claudia Taylor MD Ph illip PA JOHN Taylor MD 2021-07-21 2021-07-21 Outpatient Gallo A Gallo A [id number] MH 09:26:00 09:26:00 Claudia Taylor MD Ph illip PA JOHN Taylor MD 2021-03-21 2021-03-21 Outpatient Rolf AISLINN [facility] [id number] [facility] 14:40:00 16:00:22 FARAZ meza [facility] 2021-03-08 2021-03-09 Inpatient ALFONSO DupontU [facility] [id number] [facility] 06:21:00 12:08:00 Brian German [facility] 2021-02-18 2021-02-18 Outpatient Gallo A Gallo A [id number] MH 17:18:00 17:18:00 Claudia Taylor MD Ph illip PA PA ATrudy Taylor MD 2021-02-18 2021-02-18 Outpatient Gallo A Gallo A [id number] MH 11:15:00 11:15:00 Claudia Taylor MD Ph illip PA PA Tootie Taylor MD 2021-02-18 2021-02-18 Outpatient Glalo A Gallo A [id number] MH 11:00:00 11:00:00 Claudia Taylor MD Ph illip PA PA A. Claudia SOLIZ 2021-02-04 2021-02-04 Outpatient Gallo A Gallo A [id number] MH 11:46:00 11:46:00 Claudia Taylor MD Ph illip PA PA A. Claudia SOLIZ 2021-01-21 2021-01-21 Outpatient Gallo A Gallo A [id number] MH 14:14:00 14:14:00 Claudia Taylor MD Ph illip PA PA Tootie Taylor MD 2021-01-21 2021-01-21 Outpatient Gallo A Gallo A [id number] MH 14:14:00 14:14:00 Claudia Taylor MD Ph illip PA PA A. Claudia SOLIZ 2021-01-20 2021-01-20 Outpatient Gallo A Gallo A [id number] MH 08:49:00 08:49:00 Claudia Taylor MD Ph illip PA PA ATrudy Taylor MD 2020-11-05 2020-11-05 Outpatient [facility] [place] JACG [id number] [facility] 08:01:00 08:01:00 0819 Medica l Group 2020-10-29 2020-10-29 Outpatient [facility] [id number] 10:00:00 10:00:00 -[id number] [facility] 2020-10-21 2020-10-21 Outpatient DM JACG [id number] [facility] 11:00:00 11:00:00 0804 Medica l Group 2020-10-16 2020-10-16 Outpatient [facility] [place] [place] JACG [id number] [facility] 08:01:00 08:01:00 0730 Medica l Group 2020-10-07 2020-10-12 Emergency EM Veto HCACL INTE.02 [id number] [facility] 01:52:00 18:56:00 an, 91 [facility] 2020-10-01 2020-10-01 Outpatient EL Veto HCACL PRAD G00 [id number] [facility] 09:00:00 23:00:00 an, 68 Clear [facility] 2020-08-30 2020-08-31 Outpatient [facility] [id number] Mobile 00:00:00 00:00:[address] 2020-08-06 2020-08-06 Outpatient Gallo A Gallo A [id number] 11:15:00 11:15:00 Claudia Taylor MD Ph illip PA JOHN Taylor MD 2020-08-06 2020-08-06 Outpatient Gallo A Gallo A [id number] 11:00:00 11:00:00 Claudia Taylor MD Ph illip PA JOHN Taylor MD 2020-07-16 2020-07-16 Outpatient Gallo A Gallo A [id number] 08:19:00 08:19:00 Claudia Taylor MD Ph illip PA JOHN Taylor MD 2020-07-13 2020-07-13 Outpatient Gallo A Gallo A [id number] 14:03:00 14:03:00 Claudia Taylor MD Ph illip PA JOHN Taylor MD 2020-06-10 2020-06-10 Outpatient MORSE, [facility] [id number] [address] [place] [address] 00:00:00 00:00:00 EVELYN [address] 2020-06-05 2020-06-05 Outpatient MORSE, [facility] [id number] [address] [place] [address] 00:00:00 00:00:00 EVELYN [address] 2020-06-03 2020-06-03 Outpatient MORSE, [facility] [id number] [address] [place] [address] 00:00:00 00:00:00 EVELYN [address] 2020-05-29 2020-05-29 Outpatient MORSE, [facility] [id number] [address] [place] [address] 00:00:00 00:00:00 EVELYN 851 Method i 2020-05-29 2020-05-29 Outpatient ROBBEN, [facility] [id number] Mobile 00:00:00 00:00:00 SHANIA 297 Me thodi 2020-05-08 2020-05-08 Outpatient MORSE, [facility] [id number] Mobile 00:00:00 00:00:00 EVELYN 822 Method i 2020-05-08 2020-05-08 Outpatient [facility] H [id number] Mobile 00:00:00 00:00:00 738 Method i 2020-05-07 2020-05-07 Outpatient MORSE, [facility] H [id number] Mobile 00:00:00 00:00:00 EVELYN 574 Method i 2020-05-07 2020-05-07 Outpatient MORSE, [facility] H [id number] Mobile 00:00:00 00:00:00 EVELYN 383 Method i 2020-05-01 2020-05-01 Outpatient MORSE, [facility] [id number] Mobile 00:00:00 00:00:00 EVELYN 812 Method i 2020-04-24 2020-04-24 Outpatient MORSE, [facility] [id number] Mobile 00:00:00 00:00:00 EVELYN 803 Method i 2020-04-16 2020-04-16 Outpatient MORSE, [facility] H [id number] Mobile 00:00:00 00:00:00 EVELYN 739 Method i 2020-04-10 2020-04-10 Outpatient MORSE, [facility] [id number] Mobile 00:00:00 00:00:00 EVELYN 618 Method i 2020-04-08 2020-04-08 Outpatient MORSE, [facility] [id number] Mobile 00:00:00 00:00:00 EVELYN 608 Method i 2020-04-03 2020-04-03 Outpatient MORSE, [facility] [id number] Mobile 00:00:00 00:00:00 EVELYN 760 Method i 2020-03-26 2020-03-26 Outpatient MORSE, [facility] [id number] Mobile 00:00:00 00:00:00 EVELYN [address] 2020-03-26 2020-03-26 Outpatient PRABHU, [facility] [id number] Mobile 00:00:00 00:00:00 COLE [facility] 2020-02-12 2020-02-12 Outpatient [facility] [id number] [facility]Clinic 16:15:00 16:15:00 Cardiolog Cardiology [facility]Works y PA PA 2020-02-04 2020-02-04 Outpatient Gallo A Gallo A [id number] MH 14:45:00 14:45:00 Claudia Taylor MD Ph illip PA PA A. Claudia SOLIZ 2020-02-04 2020-02-04 Outpatient Gallo A Gallo A [id number] MH 14:45:00 14:45:00 Claudia Taylor MD Ph illip PA PA A. Claudia SOLIZ 2020-01-21 2020-01-21 Outpatient [facility] [id number] eClinic 10:30:00 10:30:00 Cardiolog Cardiology [facility]Works y PA PA 2020-01-15 2020-01-15 Outpatient Gallo A. Gallo A. [id number] MH 16:15:00 16:15:00 Claduia Taylor MD [facility] brian SOLIZ PA PA Tootie Taylor MD 2019-07-22 2019-07-22 Outpatient Gallo A Gallo A [id number] MH 14:45:00 14:45:00 Claudia Taylor MD Ph illip PA PA A. Claudia SOLIZ 2019-07-22 2019-07-22 Outpatient Gallo A Gallo A [id number] MH 14:45:00 14:45:00 Claudia Taylor MD Ph illip PA PA A. Claudia SOLIZ 2019-07-22 2019-07-22 Outpatient Gallo A Gallo A [id number] MH 14:45:00 14:45:00 Claudia Taylor MD Ph illip PA PA ATrudy Taylor MD 2019-06-27 2019-06-27 Outpatient Gallo A Gallo A [id number] MH 09:36:00 09:36:00 Claudia Taylor MD Ph illip PA PA ATrudy Taylor MD 2019-06-04 2019-06-04 [place] [id number] [place] 09:00:00 09:00:00 t; [facility] 2019-05-14 2019-05-14 [facility] [id number] [place] 09:30:00 09:30:00 t; Yazmin PAPPAS i, M.D. ans ASHTON, M.D. 2019-04-23 2019-04-23 [facility]oped[facility] 62 [id number] [place] 09:45:00 09:45:00 t; omid PAPPAS [facility] Loren Cote Medicine M.D. [facility] 2019-04-16 2019-04-16 [facility] 62 [id number] [place] 09:30:00 09:30:00 t; omid PAPPAS [facility] Loren Cote Medicine M.D. [facility] 2019-04-11 2019-04-11 [facility] [id number] [place] 12:30:00 12:30:00 t; Yazmin PAPPAS i, M.D. ans ASHTON, M.D. 2019-04-09 2019-04-09 [facility] [id number] [place] 10:00:00 10:00:00 t; omid PAPPAS [facility] Loren Cote Medicine M.D. [facility] 2019-04-04 2019-04-04 [facility] 62 [id number] [place] 08:45:00 08:45:00 t; omid [facility]APPAS [facility] M.[facility] 2019-02-22 2019-02-22 [facility] Women's [id number] 00 UT 13:15:00 13:15:00 t; Jenise IRENE M.D. [place] ans COMFORT, M.D. 2019-02-01 2019-02-01 [facility] [id number] UT 13:30:00 13:30:00 t; MARIA VICTORIA [facility] Loren Rogel M.D. 2019-01-18 2019-01-18 Outpatient Gallo A Gallo A [id number] MH 10:45:00 10:45:00 Claudia Taylor MD Ph illip PA JOHN Taylor MD 2019-01-16 2019-01-16 Outpatient Gallo A. Gallo A. [id number] MH 14:26:00 14:26:00 Claudia Taylor MD Phi llip MD PA PA A. Waller MD 2019-01-15 2019-01-15 Outpatient Gallo A. Agllo A. [id number] MH 12:04:00 12:04:00 Claudia Taylor MD Phi llip MD PA PA A. Waller MD 2018-12-31 2018-12-31 [facility] [id number] UT 09:30:00 09:30:00 t; MARIA VICTORIA [facility] Loren Rogel M.D. 2018-10-02 2018-10-02 Outpatient med Ahmed [id number] eClinic 15:00:00 15:00:00 Cardiolog Cardiology gwen Carpenter 2018-07-02 2018-07-02 Outpatient Gallo A Gallo A [id number] MH 15:48:00 15:48:00 Claudia Taylor MD Ph illip PA JOHN Taylor MD 2018-06-18 2018-06-18 Outpatient Gallo A Gallo A [id number] MH 12:38:00 12:38:00 Claudia Taylor MD Ph illip PA JOHN Taylor MD 2018-06-18 2018-06-18 Outpatient Gallo A Gallo A [id number] MH 09:58:00 09:58:00 Claudia Taylor MD, Ph illip PA JOHN Taylor MD 2018-06-11 2018-06-11 Outpatient Gallo A Gallo A [id number] MH 12:14:00 12:14:00 Claudia Taylor MD, Ph illip PA JOHN Taylor MD 2018-01-15 2018-01-15 Outpatient Ahmed Ahmed [id number] eClinic 11:45:00 11:45:00 Cardiolog Cardiology a lWorks y Pa Pa 2017-12-26 2017-12-26 Outpatient Gallo A Gallo A [id number] 09:00:00 09:00:00 Claudia Taylor MD Ph tracyip JOHN Taylor MD 2017-12-22 2017-12-22 Outpatient Ahmed Ahmed [id number] eClinic 13:00:00 13:00:00 Cardiolog Cardiology a lWorks y Pa Pa 2017-12-18 2017-12-18 Outpatient Ahmed Ahmed [id number] eClinic 10:15:00 10:15:00 Cardiolog Cardiology a lWorks y Pa Pa 2017-12-18 2017-12-18 Outpatient Ahmed Ahmed [id number] eClinic 10:15:00 10:15:00 Cardiolog Cardiology a lWorks y Pa Pa 2017-11-22 2017-11-22 Outpatient Ahmed Ahmed [id number] eClinic 15:45:00 15:45:00 Cardiolog Cardiology a lWorks y Pa Pa 2017-09-26 2017-09-26 Outpatient Ahmed Ahmed [id number] eClinic 14:58:00 14:58:00 Cardiolog Cardiology a lWorks y Pa Pa 2017-08-07 2017-08-07 Outpatient Ahmed Ahmed [id number] eClinic 10:30:00 10:30:00 Cardiolog Cardiology a lWorks y Pa Pa 2017-07-21 2017-07-21 Outpatient Gallo A Gallo A [id number] 14:33:00 14:33:00 Claudia Taylor MD Ph rupert Taylor MD 2017-06-26 2017-06-26 Outpatient Gallo A Gallo A [id number] 10:00:00 10:00:00 Claudia Taylor MD Ph rupert Taylor MD 2016-12-19 2016-12-19 Outpatient Ahmed Ahmed [id number] eClinic 13:00:00 13:00:00 Cardiolog Cardiology a lWorks y Pa Pa 2016-11-29 2016-11-29 Outpatient Ahmed Ahmed [id number] eClinic 11:30:00 11:30:00 Cardiolog Cardiology a lWorks y Pa Pa 2016-07-25 2016-07-25 Outpatient Ahmed Ahmed [id number] eClinic 11:30:00 11:30:00 Cardiolog Cardiology a Artie Carpenter 2016-07-20 2016-07-20 Outpatient Ahmed Ahmed [id number] eClinic 11:00:00 11:00:00 Cardiolog Cardiology a Artie Carpenter 2016-06-29 2016-06-29 Outpatient Ahmed Ahmed [id number] eClinic 14:30:00 14:30:00 Cardiolog Cardiology a Artie Carpenter 2016-01-29 2016-01-29 Outpatient Ahmed Ahmed [id number] eClinic 13:45:00 13:45:00 Cardiolog Cardiology a Artie Carpenter 2015-12-23 2015-12-23 4 mo f/u nullFlavo Ahmed 8k3dcts c-d [facility] 20:00:00 20:00:00 rolf Bingham MD, 3k9-6092-8 l PA 56e-958a2e Jackie nn 3b1bf3 2015-12-23 2015-12-23 4 mo f/u nullFlavo Ahmed 6o2enqx c-d [facility] 20:00:00 20:00:00 rolf Bingham MD, 1s4-8399-8 l PA 56e-958a2e Jackie nn 3b1bf3 2015-12-23 2015-12-23 Outpatient Ahmed Ahmed [id number] eClinic 14:00:00 14:00:00 Otilia Bingham MD, Vita womack MD, JOHN CARPENTER 2015-11-27 2015-11-27 inr nullFlavo Ahmed [id number] -5 Memoria 18:00:00 18:00:00 rolf Bingham MD, p1r-8700-w l PA t45-24t7g5 Jackie nn 36i798 2015-11-27 2015-11-27 inr nullFlavo Ahmed [id number] -5 Memoria 18:00:00 18:00:00 rolf Bingham MD, 7j4-120d-z l PA j82-ur95q5 Jackie nn 2f28a8 2015-11-27 2015-11-27 inr nullFlavo Ahmed [id number] -5 Memoria 18:00:00 18:00:00 rolf Bingham MD, p1p-1591-b l PA v80-17b8l6 Jackie nn 06c002 2015-11-27 2015-11-27 inr nullFlavo Ahmed [id number] -5 Memoria 18:00:00 18:00:00 rolf Bingham MD, 7x1-389v-u l JOHN a37-wm92r9 Jackie nn 2f28a8 2015-11-27 2015-11-27 Outpatient [facility] [id number] eClinic 12:00:00 12:00:00 Otilia Bingham MD, Vita womack MD, PA JOHN 2015-10-30 2015-10-30 INR nullFlavo Ahmed [id number] -6 Memoria 17:15:00 17:15:00 rolf Bingham MD, 468-4346-b l PA t3r-4c0543 [facility] nn 4x595u 2015-10-30 2015-10-30 INR nullFlavo Ahmed [id number] -6 Memoria 17:15:00 17:15:00 rolf Bingham MD, l53-052k-g wilfredo CARPENTER dd9-040ade [facility] nn 8p2938 2015-10-30 2015-10-30 INR nullFlavo Ahmed 0302o9sh -7 Memoria 17:15:00 17:15:00 rolf Bingham MD, v60-83s3-6 l JOHN 831-b3aba0 Jackie nn f5m738 2015-10-30 2015-10-30 INR nullFlavo Ahmed p1941f02 -6 Memoria 17:15:00 17:15:00 rolf Bingham MD, 468-4346-b l PA j2j-0m6976 [facility] 5f926l 2015-10-30 2015-10-30 INR nullFlavo Ahmed [id number] -6 Memoria 17:15:00 17:15:00 rolf Bingham MD, a97-337j-l wilfredo CARPENTER dd9-040ade Jackie nn 2p9030 2015-10-30 2015-10-30 INR nullFlavo Ahmed 3130r2lf -7 Memoria 17:15:00 17:15:00 rolf Bingham MD, d65-20o5-9 l PA 831-b3aba0 Jackie nn r9c356 2015-10-30 2015-10-30 Outpatient [facility] [id number] eClinic 11:15:00 11:15:00 Otilia Bingham MD, Vita womack MD, PA PA 2015-09-18 2015-09-18 INR nullFlavo Ahmed [id number] -2 Memoria 19:30:00 19:30:00 rolf Bingham MD, 397-47a3-a l PA 414-67ba60 [facility] ce9b7a 2015-09-18 2015-09-18 INR nullFlavo Ahmed 703x5ep5 -2 Memoria 19:30:00 19:30:00 rolf Bingham MD, 62f-4284-a l PA 72d-o3913x Jackie nn dx351g 2015-09-18 2015-09-18 INR nullFlavo Ahmed 75wb6vsg -2 Memoria 19:30:00 19:30:00 rolf Bingham MD, d4n-872b-a l PA g9w-ur3437 [facility] nn d54a30 2015-09-18 2015-09-18 INR nullFlavo Ahmed 41ka99g0 -5 Memoria 19:30:00 19:30:00 rolf Bingham MD, 96a-4e96-b l PA 3da-81ad54 Jackie nn 5405fa 2015-09-18 2015-09-18 INR nullFlavo Ahmed [id number] -2 Memoria 19:30:00 19:30:00 rolf Bingham MD, 397-47a3-a l PA 414-67ba60 [facility] ce9b7a 2015-09-18 2015-09-18 INR nullFlavo Ahmed 084d4ua3 -2 Memoria 19:30:00 19:30:00 rolf Bingham MD, 62f-4284-a l PA 72d-y8408j Jackie nn vw229m 2015-09-18 2015-09-18 INR nullFlavo Ahmed 92ev0pqg -2 Memoria 19:30:00 19:30:00 rolf Bingham MD, l7l-385v-a l PA v9j-su8016 Jackie nn d54a30 2015-09-18 2015-09-18 INR nullFlavo Ahmed 22go10f7 -5 Memoria 19:30:00 19:30:00 rolf Bingham MD, 96a-4e96-b l JOHN 3da-81ad54 Jackie nn 5405fa 2015-09-18 2015-09-18 Outpatient Otilia Bingham [id number] eClinic 13:30:00 13:30:00 Otilia Bingham MD, Vita womack MD, JOHN PA 2015-08-19 2015-08-19 4 mo f/u nullFlavo Ahmed [id number] 7-c Memoria 19:30:00 19:30:00 rolf Bingham MD, 405-409e-b l JOHN 632-0zz564 [facility] nn dk4411 2015-08-19 2015-08-19 4 mo f/u nullFlavo Ahmed 49fe0c3 3-7 Memoria 19:30:00 19:30:00 rolf Bingham MD, 3a4-9184-8 l JOHN v9q-pi55sk [facility] nn 9ea0ec 2015-08-19 2015-08-19 4 mo f/u nullFlavo Ahmed [id number] 6-b [facility] 19:30:00 19:30:00 rolf Bingham MD, ded-4816-a l JOHN 298-5c31d1 [facility] nn d1e082 2015-08-19 2015-08-19 4 mo f/u nullFlavo Ahmed 1mf58vd f-f [facility] 19:30:00 19:30:00 rolf Bingham MD, 2ee-4279-b l JOHN 3m3-61540v [facility] nn 605534 1240-06-01 2015-08-19 4 mo f/u nullFlavo Ahmed [id number] 0-e [facility]oria 19:30:00 19:30:00 rolf Bingham MD, fc8-41e6-8 l JOHN 370-4a58db [facility] nn 95z267 2015-08-19 2015-08-19 4 mo f/u nullFlavo Ahmed [id number] 7-c [facility]oria 19:30:00 19:30:00 rolf Bingham MD, 405-409e-b l JOHN 632-0zc260 Jackie nn tn9198 2015-08-19 2015-08-19 4 mo f/u nullFlavo Ahmed 94fi9l8 3-7 [facility]oria 19:30:00 19:30:00 rolf Bingham MD, 6l0-5240-6 l PA g0t-dk79ko Jackie nn 9ea0ec 2015-08-19 2015-08-19 4 mo f/u nullFlavo Ahmed [id number] 6-b [facility] 19:30:00 19:30:00 rolf Bingham MD, ded-4816-a l PA 298-5c31d1 Jackie nn v5o285 2015-08-19 2015-08-19 4 mo f/u nullFlavo Ahmed [id number] f-f [facility] 19:30:00 19:30:00 rolf Bingham MD, 2ee-4279-b l PA 2i6-03318t Jackie nn 155285 8682-06-01 2015-08-19 4 mo f/u nullFlavo Ahmed 1073e0y 0-e [facility]oria 19:30:00 19:30:00 rolf Bingham MD, fc8-41e6-8 l PA 370-4a58db Jackie nn 74a755 2015-08-19 2015-08-19 Outpatient Otilia Ngmed [id number] eClinic 13:30:00 13:30:00 Otilia Bingham MD, Vita womack MD, PA PA 2015-07-22 2015-07-22 INR nullFlavo Ahmed [id number] -f [facility]oria 19:45:00 19:45:00 rolf Bingham MD, 231-4944-8 l PA dff-b3ede7 Jackie nn 917b3b 2015-07-22 2015-07-22 INR nullFlavo Ahmed h22qs96m -4 Memoria 19:45:00 19:45:00 rolf Bingham MD, ad5-484e-b l PA 966-31h498 Jackie nn [id number] 2015-07-22 2015-07-22 INR nullFlavo Ahmed [id number] -2 Memoria 19:45:00 19:45:00 rolf Bingham MD, 433-4b2c-9 l PA 8y5-uvn2gi Jackie nn 944381 4386-05-04 2015-07-22 INR nullFlavo Ahmed b820wsq7 -2 [facility]oria 19:45:00 19:45:00 rolf Bingham MD, x26-18le-0 l PA f15-917711 [facility] nn d1y158 2015-07-22 2015-07-22 INR nullFlavo Ahmed 467k5cax -8 Memoria 19:45:00 19:45:00 r MD Otilia, 8v2-92l0-4 l PA u13-1xg7ay [facility] nn 962172 9485-05-04 2015-07-22 INR nullFlavo Ahmed h02t1743 -e Memoria 19:45:00 19:45:00 r MD Otilia, 6p3-572k-t l PA t44-8y8t9o [facility] nn 1w5990 2015-07-22 2015-07-22 INR nullFlavo Ahmed 6250az73 -f Memoria 19:45:00 19:45:00 r MD Otilia, 231-4944-8 l PA dff-b3ede7 [facility] nn 917b3b 2015-07-22 2015-07-22 INR nullFlavo Ahmed m40zt80g -4 Memoria 19:45:00 19:45:00 rolf Bingham MD, ad5-484e-b l PA 966-47g200 [facility] nn b78311 2015-07-22 2015-07-22 INR nullFlavo Ahmed [id number] -2 Memoria 19:45:00 19:45:00 rolf Bingham MD, 433-4b2c-9 l PA 7z6-dlf7zl [facility] nn 130170 9201-05-04 2015-07-22 INR nullFlavo Ahmed f170cjz5 -2 Memoria 19:45:00 19:45:00 rolf Bingham MD, t44-28kc-9 l PA d51-461534 [facility] nn a8n761 2015-07-22 2015-07-22 INR nullFlavo Ahmed 914q4ycm -8 Memoria 19:45:00 19:45:00 rolf Bingham MD, 1j4-77t2-3 l PA m19-7yf4pr [facility] nn 174841 1713-05-04 2015-07-22 INR nullFlavo Ahmed i01g3674 -e Memoria 19:45:00 19:45:00 rolf Bingahm MD, 5e3-939w-b l PA z07-0q2v0s Jackie nn 8a7538 2015-07-22 2015-07-22 Outpatient [facility] Ahmed [id number] eClinic 13:45:00 13:45:00 Otilia Bingham MD, Vita womack MD, PA PA 2015-07-01 2015-07-01 INR nullFlavo Ahmed knv2471c -4 Memoria 19:00:00 19:00:00 rolf Bingham MD, 6t0-5y3l-8 wilfredo CARPENTER v95-8bt8y4 Jackie nn ef7fe8 2015-07-01 2015-07-01 INR nullFlavo Ahmed 587paz55 -1 [facility]oria 19:00:00 19:00:00 rolf Bingham MD, s40-4939-2 wilfredo CARPENTER ca6-0eaa7c Jackie nn 3ec97a 2015-07-01 2015-07-01 INR nullFlavo Ahmed 73151xjg -f [facility]oria 19:00:00 19:00:00 rolf Bingham MD, 641-4c36-a wilfredo CARPENTER 311-bcc0e5 Jackie nn 402ed4 2015-07-01 2015-07-01 INR nullFlavo Ahmed 521rwys3 -e Memoria 19:00:00 19:00:00 rolf Bingham MD, 8b3-1445-s wilfredo CARPENTER k4i-7n81m5 Jackie nn a3f0a3 2015-07-01 2015-07-01 INR nullFlavo Ahmed b68d4d04 -0 Memoria 19:00:00 19:00:00 rolf Bingham MD, 371-4b72-b wilfredo CARPENTER 449-06c8d5 Jackie nn f1a62b 2015-07-01 2015-07-01 INR nullFlavo Ahmed 53387p73 -8 Memoria 19:00:00 19:00:00 rolf Bingham MD, 758-4cc3-a wilfredo CARPENTER 0u8-3559h2 Jackie nn ae7c63 2015-07-01 2015-07-01 INR nullFlavo Ahmed [id number] -3 Memoria 19:00:00 19:00:00 rolf Bingham MD, 8v5-9455-w wilfredo CARPENTER g3m-tkerr3 Jackie nn ce0a05 2015-07-01 2015-07-01 INR nullFlavo Ahmed yix4920c -4 Memoria 19:00:00 19:00:00 rolf Bingham MD, 1e0-6c1q-7 wilfredo CARPENTER p13-5yi8c4 Jackie nn ef7fe8 2015-07-01 2015-07-01 INR nullFlavo Ahmed 811hwc87 -1 Memoria 19:00:00 19:00:00 rolf Bingham MD, f70-9793-2 l JOHN ca6-0eaa7c Jackie nn 3ec97a 2015-07-01 2015-07-01 INR nullFlavo Ahmed [id number] -f Memoria 19:00:00 19:00:00 rolf Bingham MD, 641-4c36-a wilfredo CARPENTER 311-bcc0e5 [facility] nn 402ed4 2015-07-01 2015-07-01 INR nullFlavo Ahmed 849jbma1 -e Memoria 19:00:00 19:00:00 rolf Bingham MD, 4m1-8277-h wilfredo CARPENTER e6n-7u56p8 [facility] nn a3f0a3 2015-07-01 2015-07-01 INR nullFlavo Ahmed s52k7q01 -0 Memoria 19:00:00 19:00:00 rolf Bingham MD, 371-4b72-b wilfredo CARPENTER 449-06c8d5 [facility] nn f1a62b 2015-07-01 2015-07-01 INR nullFlavo Ahmed 98030t17 -8 Memoria 19:00:00 19:00:00 rolf Bingham MD, 758-4cc3-a wilfredo CARPENTER 0j1-6449x1 [facility] nn ae7c63 2015-07-01 2015-07-01 INR nullFlavo Ahmed [id number] -3 Memoria 19:00:00 19:00:00 rolf Bingham MD, 5f0-7690-i wilfredo CARPENTER y9h-ueaxx5 Jackie nn ce0a05 2015-07-01 2015-07-01 Outpatient Ahmed Ahmed [id number] eClinic 13:00:00 13:00:00 Otilia Bingham MD, Vita womack MD, JOHN CARPENTER 2015-06-22 2015-06-22 inr nullFlavo Ahmed 8610w13a -c Memoria 19:15:00 19:15:00 r MD Otilia, 527-4b27-9 l PA 5o0-0n6218 Jackie nn 0e34e3 2015-06-22 2015-06-22 inr nullFlavo Ahmed 41o3d080 -5 Memoria 19:15:00 19:15:00 r MD Otilia, 240-417e-9 l PA 180-f8ad34 Jackie nn 24cca5 2015-06-22 2015-06-22 inr nullFlavo Ahmed xg3d563n -f Memoria 19:15:00 19:15:00 r MD Otilia, o09-620k-b l PA 370-693eb6 Jackie nn 555af3 2015-06-22 2015-06-22 inr nullFlavo Ahmed 122p7qo3 -2 Memoria 19:15:00 19:15:00 rolf Bingham MD, ae8-47ee-8 l PA ccc-4c6a88 Jackie nn 8aefe5 2015-06-22 2015-06-22 inr nullFlavo Ahmed 52fa626g -c Memoria 19:15:00 19:15:00 r MD Otilia, i72-50qb-3 l PA 5u8-621400 Jackie nn bd6214 2015-06-22 2015-06-22 inr nullFlavo Ahmed a164c45j -1 Memoria 19:15:00 19:15:00 rolf Bingham MD, 90a-491e-a l PA 51b-6d8e47 Jackie nn 7ae3fb 2015-06-22 2015-06-22 inr nullFlavo Ahmed q5o8xr91 -0 Memoria 19:15:00 19:15:00 rolf Bingham MD, 6bd-4d07-9 l PA h9c-m251k2 Jackie nn n98351 2015-06-22 2015-06-22 inr nullFlavo Ahmed o2lo21q5 -e Memoria 19:15:00 19:15:00 rolf Bingham MD, v77-64ap-6 l PA 16f-b4db78 Jackie nn bfed86 2015-06-22 2015-06-22 inr nullFlavo Ahmed 89d3l405 -5 Memoria 19:15:00 19:15:00 rolf Bingham MD, 240-417e-9 l PA 180-f8ad34 Jackie nn 24cca5 2015-06-22 2015-06-22 inr nullFlavo Ahmed rf1s664b -f Memoria 19:15:00 19:15:00 rolf Bingham MD, i52-743q-r l PA 370-693eb6 Jackie nn 555af3 2015-06-22 2015-06-22 inr nullFlavo Ahmed 770j4cz1 -2 Memoria 19:15:00 19:15:00 rolf Bingham MD, ae8-47ee-8 l PA ccc-4c6a88 Jackie nn 8aefe5 2015-06-22 2015-06-22 inr nullFlavo Ahmed 37wy122m -c Memoria 19:15:00 19:15:00 rolf Bingham MD, e66-47yo-5 l PA 5o3-973252 Jackie nn pq7655 2015-06-22 2015-06-22 inr nullFlavo Ahmed r488f22u -1 Memoria 19:15:00 19:15:00 rolf Bingham MD, 90a-491e-a l PA 51b-6d8e47 Jackie nn 7ae3fb 2015-06-22 2015-06-22 inr nullFlavo Ahmed q7o9no30 -0 Memoria 19:15:00 19:15:00 rolf Bingham MD, 6bd-4d07-9 l PA h8m-l068h9 Jackie nn h91552 2015-06-22 2015-06-22 inr nullFlavo Ahmed t0oe85n3 -e Memoria 19:15:00 19:15:00 rolf Bingham MD, y77-17vm-0 l PA 16f-b4db78 Jackie nn bfed86 2015-06-22 2015-06-22 inr nullFlavo Ahmed 5624u40m -c Memoria 19:15:00 19:15:00 rolf Bingham MD, 527-4b27-9 l PA 7j8-5w5325 Jackie nn 0e34e3 2015-06-22 2015-06-22 Outpatient Ahmed Ahmed [id number] eClinic 13:15:00 13:15:00 Otilia Bingham MD, Vita womack MD, PA PA 2015-05-19 2015-05-19 INR nullFlavo Ahmed [id number] -e [facility]oria 22:00:00 22:00:00 rolf Bingham MD, 6aa-4df5-8 l JOHN cde-42c0fe Jackie nn a0d17b 2015-05-19 2015-05-19 INR nullFlavo Ahmed 5hxz8348 -5 [facility] 22:00:00 22:00:00 rolf Bingham MD, 345-4b93-b l JOHN 2c2-z799q6 Jackie nn b4f25c 2015-05-19 2015-05-19 INR nullFlavo Ahmed 23061s40 -3 Memoria 22:00:00 22:00:00 rolf Bingham MD, 8e2-5815-8 l JOHN 0s9-t847s3 Jackie nn 079b30 2015-05-19 2015-05-19 INR nullFlavo Ahmed k11227z3 -b [facility]oria 22:00:00 22:00:00 rolf Bingham MD, 1i9-770e-v l JOHN 58a-3h6235 Jackie nn b3f0a9 2015-05-19 2015-05-19 INR nullFlavo Ahmed 3m83191g -d [facility]oria 22:00:00 22:00:00 rolf Bingham MD, 6a3-5jgf-8 l JOHN 262-30ab1f Jackie nn abf39f 2015-05-19 2015-05-19 INR nullFlavo Ahmed y53m10v2 -c Memoria 22:00:00 22:00:00 rolf Bingham MD, g17-7r51-s l JOHN 8j7-f44484 Jackie nn 260e7c 2015-05-19 2015-05-19 INR nullFlavo Ahmed 7205w76i -c Memoria 22:00:00 22:00:00 rolf Bingham MD, 273-4feb-a l PA 768-329006 Jackie nn 704c0e 2015-05-19 2015-05-19 INR nullFlavo Ahmed [id number] -9 [facility]oria 22:00:00 22:00:00 rolf Bingham MD, m8i-12qw-9 l PA df3-0548d7 Jackie nn 1fabfe 2015-05-19 2015-05-19 INR nullFlavo Ahmed 4es33v12 -6 [facility] 22:00:00 22:00:00 rolf Bingham MD, l41-7566-h l PA fdd-79e52f Jackie nn 029008 4035-03-01 2015-05-19 INR nullFlavo Ahmed [id number] -e [facility] 22:00:00 22:00:00 rolf Bingham MD, 6aa-4df5-8 l PA cde-42c0fe Jackie nn a0d17b 2015-05-19 2015-05-19 INR nullFlavo Ahmed 2eny5533 -5 [facility] 22:00:00 22:00:00 rolf Bingham MD, 345-4b93-b l PA 1e9-i720c8 [facility] nn b4f25c 2015-05-19 2015-05-19 INR nullFlavo Ahmed 71641u20 -3 [facility]oria 22:00:00 22:00:00 rolf Bingham MD, 3q9-1826-4 l PA 2c9-j616k0 [facility] nn 079b30 2015-05-19 2015-05-19 INR nullFlavo Ahmed [id number] -b [facility] 22:00:00 22:00:00 rolf Bingham MD, 9z6-287f-p l PA 58a-9k6514 [facility] nn b3f0a9 2015-05-19 2015-05-19 INR nullFlavo Ahmed 1s74523g -d [facility] 22:00:00 22:00:00 rolf Bingham MD, 2q5-0dia-3 l PA 262-30ab1f [facility] nn abf39f 2015-05-19 2015-05-19 INR nullFlavo Ahmed f33y09w5 -c [facility] 22:00:00 22:00:00 rolf Bingham MD, p75-3x83-a l PA 8v6-v92853 Jackie nn 260e7c 2015-05-19 2015-05-19 INR nullFlavo Ahmed 8210p82r -c [facility] 22:00:00 22:00:00 rolf Bingham MD, 273-4feb-a l PA 768-544238 [facility] nn 704c0e 2015-05-19 2015-05-19 INR nullFlavo Ahmed [id number] -9 [facility] 22:00:00 22:00:00 rolf Bingham MD, u3o-48lf-5 l JOHN df3-0548d7 [facility] nn 1fabfe 2015-05-19 2015-05-19 INR nullFlavo Ahmed 8wc87i97 -6 [facility] 22:00:00 22:00:00 rolf Bingham MD, t36-5104-v l JOHN fdd-79e52f [facility] nn 577905 7763-03-01 2015-05-19 Outpatient Aharnie Ahmed [id number] eClinic 16:00:00 16:00:00 Otilia Bingham MD, Vita womack MD, JOHN PA 2015-04-20 2015-04-20 f/u nullFlavo Ahmed [id number] -1 [facility] 16:45:00 16:45:00 testing rolf Bingham MD, 54d-499f-8 l JOHN 5m8-9u42v4 [facility] nn 881156 3618-02-01 2015-04-20 f/u nullFlavo Ahmed 1hg3m9iq -f [facility] 16:45:00 16:45:00 testing rolf Bingham MD, x83-71k0-6 l JOHN u69-006c21 [facility] nn 1546ca 2015-04-20 2015-04-20 f/u nullFlavo Ahmed n8q4540b -6 [facility] 16:45:00 16:45:00 testing rolf Bingham MD, af3-4cd3-a wilfredo CARPENTER f86-431758 [facility] nn 54ac33 2015-04-20 2015-04-20 f/u nullFlavo Ahmed z76x14y7 -5 [facility] 16:45:00 16:45:00 testing rolf Bingham MD, 756-4d8d-b wilfredo CARPENTER 98e-8e87a5 [facility] nn d4d34d 2015-04-20 2015-04-20 f/u nullFlavo Ahmed 0kk4o007 -2 [facility] 16:45:00 16:45:00 testing rolf Bingham MD, 1eb-4015-a l PA v1z-87h9wn [facility] nn 7lf538 2015-04-20 2015-04-20 f/u nullFlavo Ahmed 91cknh50 -3 [facility] 16:45:00 16:45:00 testing rolf Bingham MD, d3f-69b6-0 l PA 1dc-707e00 [facility] nn fn5834 2015-04-20 2015-04-20 f/u nullFlavo Ahmed 1g5vr9o2 -3 [facility] 16:45:00 16:45:00 testing rolf Bingham MD, da1-475c-b l PA 18a-7470c6 [facility] nn 7cd84c 2015-04-20 2015-04-20 f/u nullFlavo Ahmed 39gs13yl -e [facility] 16:45:00 16:45:00 testing rolf Bingham MD, p82-5l51-0 l PA m7m-25eiah [facility] nn 242430 5477-02-01 2015-04-20 f/u nullFlavo Ahmed 9g349fcb -9 [facility] 16:45:00 16:45:00 testing rolf Bingham MD, b0e-8207-h l PA fd9-eeedab [facility] nn 7989dd 2015-04-20 2015-04-20 f/u nullFlavo Ahmed [id number] -7 [facility] 16:45:00 16:45:00 testing rolf Bingham MD, 29f-4992-9 l PA [id number] [facility] nn [id number] 2015-04-20 2015-04-20 f/u nullFlavo Ahmed [id number] -1 [facility] 16:45:00 16:45:00 testing rolf Bnigham MD, 54d-499f-8 l PA [id number] [facility] nn [id number] 7120-02-01 2015-04-20 f/u nullFlavo Ahmed [id number] -f [facility] 16:45:00 16:45:00 testing rolf Bingham MD, d82-23y6-9 l PA [id number] [facility] nn [id number] 2015-04-20 2015-04-20 f/u nullFlavo Ahmed [id number] -6 [facility] 16:45:00 16:45:00 testing rolf Bingham MD, af3-4cd3-a l PA [id number] [facility] nn [id number] 2015-04-20 2015-04-20 f/u nullFlavo Ahmed [id number] -5 [facility] 16:45:00 16:45:00 testing rolf Bingham MD, 756-4d8d-b l PA 98e-8e87a5 [facility] nn [id number] 2015-04-20 2015-04-20 f/u nullFlavo Ahmed [id number] -2 [facility] 16:45:00 16:45:00 testing rolf Bingham MD, 1eb-4015-a l PA [id number]-01i4ab [facility] nn [id number] 2015-04-20 2015-04-20 f/u nullFlavo Ahmed 54ozez04 -3 [facility] 16:45:00 16:45:00 testing rolf Bingham MD, m5l-62k4-9 l PA 1dc-707e00 [facility] nn [id number] 2015-04-20 2015-04-20 f/u nullFlavo Ahmed [id number] -3 [facility] 16:45:00 16:45:00 testing rolf Bingham MD, da1-475c-b l PA [id number] [facility] nn 7cd84c 2015-04-20 2015-04-20 f/u nullFlavo Ahmed [id number] -e [facility] 16:45:00 16:45:00 testing rolf Bingham MD, g47-1q26-9 l PA u4n-28igyl [facility] nn [id number] 6756-02-01 2015-04-20 f/u nullFlavo Ahmed [id number] -9 [facility] 16:45:00 16:45:00 testing rolf Bingham MD, s4x-6068-c l PA fd9-eeedab [facility] nn 7989dd 2015-04-20 2015-04-20 f/u nullFlavo Ahmed [id number] -7 [facility] 16:45:00 16:45:00 testing rolf Bingham MD, 29f-4992-9 l PA [id number] [facility] nn [id number] 2015-04-20 2015-04-20 [facility] [id number] 10:45:00 10:45:00 Otilia Bingham MD, Vita womack MD, JOHN CARPENTER 2015-03-30 2015-03-30 pt would nullFlavo Ahmed [id number] f-a [facility] 19:45:00 19:45:00 like to rolf Bingham MD, 6ac-4847-a l get PA beb-10b4a4 [facility] 92002a d 2015-03-30 2015-03-30 pt would nullFlavo Ahmed [id number] f-f [facility] 19:45:00 19:45:00 like to rolf Bingham MD, 964-4daa-8 l get PA bd2-3f01f8 [facility] dd5fc9 d 2015-03-30 2015-03-30 pt would nullFlavo Ahmed [id number] 7-7 [facility] 19:45:00 19:45:00 like to rolf Bingham MD, 054-4e90-9 l get PA [id number] [facility] pde950 d 2015-03-30 2015-03-30 pt would nullFlavo Ahmed [id number] b-a [facility] 19:45:00 19:45:00 like to rolf Bingham MD, 631-49a5-9 l get PA feb-28f961 [facility] 100e6c d 2015-03-30 2015-03-30 pt would nullFlavo Ahmed [id number] 1-8 [facility] 19:45:00 19:45:00 like to rolf Bingham MD, 75b-4b36-a l get PA 09d-ac83ed [facility] d984cb d 2015-03-30 2015-03-30 pt would nullFlavo Ahmed [id number] 7-4 [facility] 19:45:00 19:45:00 like to rolf Bingham MD, 711-4c99-b l get PA 604-x0i117 [facility] 07k912 d 2015-03-30 2015-03-30 pt would nullFlavo Ahmed 1274fce c-8 [facility] 19:45:00 19:45:00 like to rolf Bingham MD, b0z-51q0-9 l get PA [id number] [facility] 24225h d 2015-03-30 2015-03-30 pt would nullFlavo Ahmed [id number] 0-2 [facility] 19:45:00 19:45:00 like to rolf Bingham MD, 59c-4055-b l get PA 11a-72t810 [facility] 843eb8 d 2015-03-30 2015-03-30 pt would nullFlavo Ahmed [id number] 0-9 [facility] 19:45:00 19:45:00 like to rolf Bingham MD, u2y-7168-c l get PA [id number]-h38kr6 [facility] 5a333b d 2015-03-30 2015-03-30 pt would nullFlavo Ahmed [id number] 2-0 [facility] 19:45:00 19:45:00 like to rolf Bingham MD, 09d-4c85-9 l get PA [id number] [facility] 988a93 d 2015-03-30 2015-03-30 pt would nullFlavo Ahmed [id number] e-7 [facility] 19:45:00 19:45:00 like to rolf Bingham MD, ae5-4408-9 l get PA ec4-76d6c8 [facility] 999a10 d 2015-03-30 2015-03-30 pt would nullFlavo Ahmed [id number] f-f [facility] 19:45:00 19:45:00 like to rolf Bingham MD, 964-4daa-8 l get PA bd2-3f01f8 [facility] dd5fc9 d 2015-03-30 2015-03-30 pt would nullFlavo Ahmed [id number] 7-7 [facility] 19:45:00 19:45:00 like to rolf Bingham MD, 054-4e90-9 l get PA [id number] [facility] nzv121 d 2015-03-30 2015-03-30 pt would nullFlavo Ahmed go50se0 b-a [facility] 19:45:00 19:45:00 like to rolf Bingham MD, 631-49a5-9 l get PA feb-89u947 [facility] 100e6c d 2015-03-30 2015-03-30 pt would nullFlavo Ahmed [id number] 1-8 [facility] 19:45:00 19:45:00 like to rolf Bingham MD, 75b-4b36-a l get PA 09d-ac83ed [facility] d984cb d 2015-03-30 2015-03-30 pt would nullFlavo Ahmed [id number] 7-4 [facility] 19:45:00 19:45:00 like to rolf Bingham MD, 711-4c99-b l get PA 604-u3o318 [facility] 12m374 d 2015-03-30 2015-03-30 pt would nullFlavo Ahmed 1274fce c-8 [facility] 19:45:00 19:45:00 like to rolf Bingham MD, h2x-34y6-6 l get PA [id number] [facility] 28345q d 2015-03-30 2015-03-30 pt would nullFlavo Ahmed [id number] 0-2 [facility] 19:45:00 19:45:00 like to rolf Bingham MD, 59c-4055-b l get PA 11a-80e423 [facility] 843eb8 d 2015-03-30 2015-03-30 pt would nullFlavo Ahmed [id number] 0-9 Memoria 19:45:00 19:45:00 like to rolf Bingham MD, [id number]-6899-n l get PA [id number] Jackie nn establishe [id number] d 2015-03-30 2015-03-30 pt would nullFlavo Ahmed [id number] 2-0 Memoria 19:45:00 19:45:00 like to rolf Bingham MD, 09d-4c85-9 l get PA [id number] Jackie nn establishe [id number] d 2015-03-30 2015-03-30 pt would nullFlavo Ahmed [id number] e-7 Memoria 19:45:00 19:45:00 like to rolf Bingham MD, [id number] l get PA [id number] Jackie nn establishe 999a10 d 2015-03-30 2015-03-30 pt would nullFlavo Otilia [id number] f-a Memoria 19:45:00 19:45:00 like to rolf Bingham MD, [id number]-4847-a l lillian CARPENTER [id number] Jackie mindy establishe [id number] d 2015-03-30 2015-03-30 Outpatient Otilia Bingham [id number] [facility]inic 13:45:00 13:45:00 Otilia Bingham MD, Vita womack MD, JOHN CARPENTER 2014-02-05 2014-02-06 Outpatient [facility] 4584 [id number] Memoria 21:57:00 05:59:00 r [place] 00 [facility] 2014-02-05 2014-02-06 Outpatient [facility] 4584 [id number] Memoria 21:57:00 05:59:00 r [place] 00 [facility] 2014-02-05 2014-02-05 Outpatient MarcusThomas, 2.16.840. 2.16.840.1 . [id number] 15:57:00 23:59:00 Ashley 1.017310. 126125.3.61 00 3.615.0.1 5.0.101 01 Results Test Description [...] = NRBC#) 0.00 K/mm3 0.0-0.1 N DIFFERENTIAL [id number] 11:23:00 Test Item Value Reference Range Interpretation Comments RBC MORPHOLOGY REQUIRED (test NORMAL code = RBCM) PLATELET ESTIMATE (test code = ADEQUATE ADEQUATE PLTEST) PLATELET MORPHOLOGY (test code FEW LARGE PLTS NORMAL = PLTMORPH) POIKILOCYTOSIS (test code = FEW NONE POIK) ANISOCYTOSIS (test code = SLIGHT NONE ANISO) MACROCYTOSIS (test code = FEW NONE MACR) BASIC METABOLIC [id number] 07:05:00 Test Item Value Reference Range Interpretation [...] = 8.7 MG/DL 8.4-10.2 N CA) PROTHROMBIN [id number] 06:07:00 Test Item Value Reference Range Interpretation [...] myocar dial infarction. 2.0 - 3.0 3. Corrections Counselor al prosthesis hear t valves, recurre nt systemic emboli sm. 3.0 - 4.5 CBC W/AUTO [id number] 09:39:00 Test Item Value Reference Range Interpretation [...] = 0.00 K/mm3 0.0-0.1 N NRBC#) DIFFERENTIAL [id number] 09:39:00 Test Item Value Reference Range Interpretation Comments RBC MORPHOLOGY REQUIRED (test code = ABNORMAL RBCM) PLATELET ESTIMATE (test code = ADEQUATE ADEQUATE PLTEST) PLATELET MORPHOLOGY (test code = NORMAL NORMAL PLTMORPH) POIKILOCYTOSIS (test code = POIK) FEW NONE ANISOCYTOSIS (test code = ANISO) MODERATE NONE OVALOCYTES (test code = OVAL) FEW NONE PROTHROMBIN [id number] 07:42:00 Test Item Value Reference Range Interpretation [...] myocar dial infarction. 2.0 - 3.0 3. Corrections Counselor al prosthesis hear t valves, recurre nt systemic emboli sm. 3.0 - 4.5 PTT [id number] 07:42:00 Test Item Value Reference Range Interpretation Comments PTT ACTIVATED (test code = APTT) 48.5 SECONDS 25.1-36.5 H BASIC METABOLIC [id number] 07:38:00 Test Item Value Reference Range Interpretation [...] code = 9.8 MG/DL 8.4-10.2 N CA) [id number] 07:38:00 Test Item Value Reference Range Interpretation Comments MAGNESIUM (test code = MAG) 2.0 MG/DL 1.6-2.3 N COVID 19 Asymptomatic IH [id number] 12:27:00 Test Item Value Reference Range Interpretation [...] of virus (antigen) in the sample." PROTHROMBIN [id number] 06:55:00 Test Item Value Reference Range Interpretation [...] Infarction (to prevent recurrent infar ct). PROTHROMBIN [id number] 05:34:00 Test Item Value Reference Range Interpretation [...] Infarction (to prevent recurrent infar ct). PROTHROMBIN [id number] 05:40:00 Test Item Value Reference Range Interpretation [...] recurrent infar ct). - CT CHEST W/O [id number] 00:00:00 [facility] ALEXANDRA MONTIELName: ROBBIN WILSON : 1945 Sex: F Name: ROBBIN WILSON [facility] Alexandra Montiel : 1945 Age/S: 75 / F [address] [place] [address] Blvd Unit #: [id number] Loc: [place] [address] Phys: Marquis Patel MD Acct: [id number] Dis Date: Status: ADM IN PHONE #: [phone] Exam Date: 10/10/20202024 FAX #: [phone] Reason: PLEURAL EFFUSION EXAMS: CPT CODE: [id number] CT CHEST W/O CONTRAST 45696 PROCEDURE INFORMATION: Exam: CT Chest Wit hout Contrast; Diagnostic Exam date and time: 10/10/2020 [...] CHEST 1V 10/08/2020 9:08 AM FINDINGS: Lungs: Tuji-gx-ywnydzkw compressive atelectasis is present in the posterior lower lobes bilaterally. Pleural spaces: There are small to moderate bilateral pleural effusions layering posteriorly. These measure approximately[address] density, compatible with simple [...] 1 Signed Report (CONTINUED) Name: ROBBIN WILSON [facility] : 1945 Age/S: 75 / F [address] [place], [place] [address]vd Unit #: [id number] Loc: [place] [address] Phys: Marquis Patel MD Acct: [id number] Dis Date: Status: ADM IN PHONE #: [phone] Exam Date: 10/10/20202024 FAX #: [phone] Reason: PLEURAL EFFUSION EXAMS: CPT CODE: [id number] CT CHEST W/O CONTRAST 76140 <Continued> 2. Median sternotomy wires are present. Prosthetic aortic valve noted, with heavy thoracic aortic vascular calcification. Heart size appears mildly enlarged. There is moderate to heavy calcification of the left anterior descending coronaryartery. 3. Cholecystectomy. [id number] Reported and signed by: Niecy Segal M.D. CC: Lian Sheth MD; Marquis Patel MD Technologist:Cornell Pereira RT(R)(CT) CTDI: DLP: Trnscb Date/Time: 10/10/2020 (2139) [email or web address] Orig Print D/T: S: 10/10/2020 (2140) PAGE 2 Signed ReportPROTHROMBIN [id number] 04:53:00 Test Item Value Reference Range Interpretation Comments PROTHROMBIN TIME 26.1 SECONDS 9.3-12.9 H PATIENT (test code = PTP) INTERNATIONAL NORMAL 2.4 0.8-1.2 H TARGE T INR BY RATIO (test code = INDICATIO [...] HGBA1C%) 6.4 %A1C 4.8-6.0 H CBC W/AUTO [id number] 08:21:00 Test Item Value Reference Range Interpretation [...] (test code NO = MDIFF) BASIC METABOLIC [id number] 08:04:00 Test Item Value Reference Range Interpretation [...] (test code = LDL) NEAR OPTIM AL/ABOVE [id number] [id number] 89 HIGH>AR=170 AMNA Y HIGH*Guidelines provided by the National Choles terol EducationProgra m Adult Treatment Panel III [id number] 08:04:00 Test Item Value Reference Range Interpretation Comments MAGNESIUM (test code = MAG) 2.10 mg/dL 1.80-2.40 PROTHROMBIN [id number] 06:14:00 Test Item Value Reference Range Interpretation [...] recurrent infar ct). - XR CHEST 1 [id number] 00:00:00 [facility] ROB[facility] YONIS : 1945 Sex: F FAX: Jessika Sheth [phone] Evans: St: ADM Name: WILSONROBBIN [facility] : 1945 Age/S: 75/F [address] [place] [address] Unit #: [id number] Loc: G.33[address] [place] [address] Phys: Lian Sheth MD Acct: [id number] Dis Date: Status: ADM IN PHONE #: [phone] Exam Date: 202054 FAX #: [phone] Reason: HEAVY BREATHING EXAMS: CPT CODE: [id number] XR CHEST 1 V 23609FHXOPTRCE INFORMATION: Exam: XR Chest Exam date and time: 10/08/2020 9:08 AM Age: 75 years old Clinical indication: Condition or disease; Other: Heavy breathing TECHNIQUE: Imaging protocol: XR of the chest. Views: 1 view. COMPARISON: CR XR CHEST 1V 10/06/2020 11:07 PM FINDINGS: Lungs: Linear density inthe right lung base is unchanged compatible with atelectasis. Left base atelectasis/infiltrate is slightly increased. No interstitial edema. Pleural spaces: Increased small bilateral pleural effusions are present. Heart/Mediastinum: Borderline cardiomegaly. Vasculature: Aortic arch calcifications. Bones/joints: Midline sternotomy wires are stable. IMPRESSION: 1. Increased small left base atelectasis/infiltrate. 2. Slight increased small bilateral pleural effusions. at 1001 Reported and signed by: Neftali Winchester M.D. CC:Lian Sheth MD Technologist: Rosi Dixon RT(R) Trnscrd Date/Time/By: 10/08/2020 (1001) : By: [email or web address] Orig Print D/T: S: 10/08/2020 (1002) PAGE 1 Signed ReportPROTHROMBIN [id number] 15:18:00 Test Item Value Reference Range Interpretation [...] recurrent infar ct). COMMENTS: INR X 10 [id number] 06:56:00 Test Item Value Reference Range Interpretation [...] titative results may nahed y by method. [id number] 04:52:00 Test Item Value Reference Range Interpretation [...] nahed y by method. POC ARTERIAL BLOOD [id number] 02:11:00 Test Item Value Reference Range Interpretation Comments POC ARTERIAL BLOOD GAS PH (test 7.430 7.35-7.45 N code = POCPHA) POC ARTERIAL BLOOD GAS PCO2 35.9 mmHg 35.0-45 N (test code = TQKKCT9A) POC TCO2 ARTERIAL (test code = 25.0 POCTCO2) POC ARTERIAL BLOOD GAS PO2 (test 71.2 mmHg 80-100.0 L code = ZHXRV2C) POC HCO3 ARTERIAL (test code = 23.9 MMOL/L 22.0-26.0 N FSCTSE3X) POC BASE EXCESS (test code = -0.4 MMOL/L -4.0-4.0 N POCBEA) POC O2 SATURATION (test code = 94.7 % 90-100 N POCO2S) FIO2 (test code = FIO2A) 21 % PaO2/FiO2 (test code = RFN1OBF8) 339.04 mm/Hg ABG DELIVERY (test code = SU) Room Air ABG TEMPERATURE (test code = 98.6 F TEMPA) ABG SITE (test code = SITEA) R Radial JESSE'S TEST (test code = Positive ALLENS) BASIC METABOLIC [id number] 02:11:00 Test Item Value Reference Range Interpretation Comments SODIUM (test code = NA/ABG) MEQ/L 134-147 POTASSIUM (test code = K/ABG) MEQ/L 3.4-5.0 CHLORIDE (test code = CL/ABG) MEQ/L 100-108 CREATININE ABG (test code = CREAABG) mg/dL 0.6-1.0 POC IONIZED CALCIUM (test code = MMOL/L 1.12-1.32 POCCA) POC GLUCOSE (test code = POCGLU) MG/DL [id number] 02:11:00 Test Item Value Reference Range Interpretation Comments HEMOGLOBIN (test code = HGB/ABG) G/DL 11.0-15.0 [id number] 02:11:00 Test Item Value Reference Range Interpretation Comments HEMATOCRIT (test code = HCT/ABG) % 33.0-45.0 POC LACTIC [id number] 02:11:00 Test Item Value Reference Range Interpretation Comments POC LACTIC ACID (test code = POCLAC) mmol/l 0.9-1.7 POC ARTERIAL BLOOD [id number] 02:11:00 Test Item Value Reference Range Interpretation Comments POC ARTERIAL BLOOD GAS PH (test 7.430 7.35-7.45 N code = POCPHA) POC ARTERIAL BLOOD GAS PCO2 35.9 mmHg 35.0-45 N (test code = KQLHEH4X) POC TCO2 ARTERIAL (test code = 25.0 POCTCO2) POC ARTERIAL BLOOD GAS PO2 (test 71.2 mmHg 80-100.0 L code = BIDHD4A) POC HCO3 ARTERIAL (test code = 23.9 MMOL/L 22.0-26.0 N SSBSXA0Y) POC BASE EXCESS (test code = -0.4 MMOL/L -4.0-4.0 N POCBEA) POC O2 SATURATION (test code = 94.7 % 90-100 N POCO2S) FIO2 (test code = FIO2A) 21 % PaO2/FiO2 (test code = KJR7WMD8) 339.04 mm/Hg ABG DELIVERY (test code = SU) Room Air ABG TEMPERATURE (test code = 98.6 F TEMPA) ABG SITE (test code = SITEA) R Radial JESSE'S TEST (test code = Positive ALLENS) BASIC METABOLIC [id number] 02:11:00 Test Item Value Reference Range Interpretation Comments SODIUM (test code = NA/ABG) MEQ/L 134-147 POTASSIUM (test code = K/ABG) MEQ/L 3.4-5.0 CHLORIDE (test code = CL/ABG) MEQ/L 100-108 CREATININE ABG (test code = CREAABG) mg/dL 0.6-1.0 POC IONIZED CALCIUM (test code = MMOL/L 1.12-1.32 POCCA) POC GLUCOSE (test code = POCGLU) MG/DL [id number] 02:11:00 Test Item Value Reference Range Interpretation Comments HEMOGLOBIN (test code = HGB/ABG) G/DL 11.0-15.0 [id number] 02:11:00 Test Item Value Reference Range Interpretation Comments HEMATOCRIT (test code = HCT/ABG) % 33.0-45.0 POC LACTIC [id number] 02:11:00 Test Item Value Reference Range Interpretation Comments POC LACTIC ACID (test code = 1.3 mmol/l 0.9-1.7 N POCLAC) POC ARTERIAL BLOOD [id number] 02:11:00 Test Item Value Reference Range Interpretation Comments POC ARTERIAL BLOOD GAS PH (test 7.430 7.35-7.45 N code = POCPHA) POC ARTERIAL BLOOD GAS PCO2 35.9 mmHg 35.0-45 N (test code = GENWJC0M) POC TCO2 ARTERIAL (test code = 25.0 POCTCO2) POC ARTERIAL BLOOD GAS PO2 (test 71.2 mmHg 80-100.0 L code = ETJBR1O) POC HCO3 ARTERIAL (test code = 23.9 MMOL/L 22.0-26.0 N QMGMLC3U) POC BASE EXCESS (test code = -0.4 MMOL/L -4.0-4.0 N POCBEA) POC O2 SATURATION (test code = 94.7 % 90-100 N POCO2S) FIO2 (test code = FIO2A) 21 % PaO2/FiO2 (test code = MWF8ISN7) 339.04 mm/Hg ABG DELIVERY (test code = SU) Room Air ABG TEMPERATURE (test code = 98.6 F TEMPA) ABG SITE (test code = SITEA) R Radial JESSE'S TEST (test code = Positive ALLENS) BASIC METABOLIC [id number] 02:11:00 Test Item Value Reference Range Interpretation [...] GLUCOSE (test code = POCGLU) 174 MG/DL [id number] 02:11:00 Test Item Value Reference Range Interpretation Comments HEMOGLOBIN (test code = HGB/ABG) G/DL 11.0-15.0 [id number] 02:11:00 Test Item Value Reference Range Interpretation Comments HEMATOCRIT (test code = HCT/ABG) % 33.0-45.0 POC LACTIC [id number] 02:11:00 Test Item Value Reference Range Interpretation Comments POC LACTIC ACID (test code = 1.3 mmol/l 0.9-1.7 N POCLAC) POC ARTERIAL BLOOD [id number] 02:11:00 Test Item Value Reference Range Interpretation Comments POC ARTERIAL BLOOD GAS PH (test 7.430 7.35-7.45 N code = POCPHA) POC ARTERIAL BLOOD GAS PCO2 35.9 mmHg 35.0-45 N (test code = OTQAWX7D) POC TCO2 ARTERIAL (test code = 25.0 POCTCO2) POC ARTERIAL BLOOD GAS PO2 (test 71.2 mmHg 80-100.0 L code = JLHCB9J) POC HCO3 ARTERIAL (test code = 23.9 MMOL/L 22.0-26.0 N TCYITV7V) POC BASE EXCESS (test code = -0.4 MMOL/L -4.0-4.0 N POCBEA) POC O2 SATURATION (test code = 94.7 % 90-100 N POCO2S) FIO2 (test code = FIO2A) 21 % PaO2/FiO2 (test code = JTD7YFP2) 339.04 mm/Hg ABG DELIVERY (test code = SU) Room Air ABG TEMPERATURE (test code = 98.6 F TEMPA) ABG SITE (test code = SITEA) R Radial JESSE'S TEST (test code = Positive ALLENS) BASIC METABOLIC [id number] 02:11:00 Test Item Value Reference Range Interpretation [...] GLUCOSE (test code = POCGLU) 174 MG/DL [id number] 02:11:00 Test Item Value Reference Range Interpretation Comments HEMOGLOBIN (test code = HGB/ABG) 11.9 G/DL 11.0-15.0 N [id number] 02:11:00 Test Item Value Reference Range Interpretation Comments HEMATOCRIT (test code = HCT/ABG) % 33.0-45.0 POC LACTIC [id number] 02:11:00 Test Item Value Reference Range Interpretation Comments POC LACTIC ACID (test code = 1.3 mmol/l 0.9-1.7 N POCLAC) POC ARTERIAL BLOOD [id number] 02:11:00 Test Item Value Reference Range Interpretation Comments POC ARTERIAL BLOOD GAS PH (test 7.430 7.35-7.45 N code = POCPHA) POC ARTERIAL BLOOD GAS PCO2 35.9 mmHg 35.0-45 N (test code = QYHYPI8V) POC TCO2 ARTERIAL (test code = 25.0 POCTCO2) POC ARTERIAL BLOOD GAS PO2 (test 71.2 mmHg 80-100.0 L code = VNGMF2H) POC HCO3 ARTERIAL (test code = 23.9 MMOL/L 22.0-26.0 N EFJPYZ6D) POC BASE EXCESS (test code = -0.4 MMOL/L -4.0-4.0 N POCBEA) POC O2 SATURATION (test code = 94.7 % 90-100 N POCO2S) FIO2 (test code = FIO2A) 21 % PaO2/FiO2 (test code = DPZ5LYZ6) 339.04 mm/Hg ABG DELIVERY (test code = SU) Room Air ABG TEMPERATURE (test code = 98.6 F TEMPA) ABG SITE (test code = SITEA) R Radial JESSE'S TEST (test code = Positive ALLENS) BASIC METABOLIC [id number] 02:11:00 Test Item Value Reference Range Interpretation [...] GLUCOSE (test code = POCGLU) 174 MG/DL [id number] 02:11:00 Test Item Value Reference Range Interpretation Comments HEMOGLOBIN (test code = HGB/ABG) 11.9 G/DL 11.0-15.0 N [id number] 02:11:00 Test Item Value Reference Range Interpretation Comments HEMATOCRIT (test code = HCT/ABG) 35 % 33.0-45.0 N POC LACTIC [id number] 02:11:00 Test Item Value Reference Range Interpretation Comments POC LACTIC ACID (test code = 1.3 mmol/l 0.9-1.7 N POCLAC) Coronavirus 2019 nCoV [id number] 00:44:00 Test Item Value Reference Range Interpretation Comments Coronavirus 2019 NEGATIVE Negative Negative re sults should be nCoV Bedside (test treated a s presumptive and, code = ifinconsistent with IBBUD38KRTRK) clinical signs and symptoms or necessaryfor patient management, michelle uld be tested with an alternativemole cular assay. Negative result s do not preclude QYYZ-BwZ-2stsmw tion and should not be u sed as the sole basis forp atient management deci sions. Negative result s should beconsidered in the context of a patient's recent exposures,histo ry, presence of clinical sig ns and symptoms consis tentwith COVID-19. LIPOPROTEIN [id number] 00:27:00 Test Item Value Reference Range Interpretation Comments LIPOPROTEIN LDL 70.8 mg/dL 0-100 N <100 OPTIMAL 100-129 NEAR (test code = LDL) OPTIMAL/AB OVE [id number] 89 HIGH>RT=234 AMNA Y HIGH*Guidelines provided by the National Cholesterol EducationProgra m Adult Treatment Panel III BASIC METABOLIC [id number] 00:27:00 Test Item Value Reference Range Interpretation [...] code = 9.1 mg/dL 8.0-10.5 N CA) [id number] 00:27:00 Test Item Value Reference Range Interpretation Comments LIPASE (test code = LIP) 92 U/L 13-57 H [id number] 00:27:00 Test Item Value Reference Range Interpretation Comments MAGNESIUM (test code = MAG) 1.71 mg/dL 1.80-2.40 L T4 [id number] 00:27:00 Test Item Value Reference Range Interpretation Comments T4 FREE (test code = T4F) 1.2 ng/dL 0.77-1.61 N TSH REFLEX TO [id number] 00:27:00 Test Item Value Reference Range Interpretation Comments TSH REFLEX TO FT4 (test code = 0.26 IU/mL 0.42-5.47 L TSHREFLEX) [id number] 00:27:00 Test Item Value Reference Range Interpretation [...] may nahed y by method. B-TYPE NATRIURETIC [id number] 00:07:00 Test Item Value Reference Range Interpretation Comments B-TYPE NATRIURETIC PEPTIDE (test 370.0 PG/ML 0-100 H code = BNP) BASIC METABOLIC [id number] 00:02:00 Test Item Value Reference Range Interpretation [...] code = 9.1 mg/dL 8.0-10.5 N CA) [id number] 00:02:00 Test Item Value Reference Range Interpretation Comments LIPASE (test code = LIP) 92 U/L 13-57 H [id number] 00:02:00 Test Item Value Reference Range Interpretation Comments MAGNESIUM (test code = MAG) 1.71 mg/dL 1.80-2.40 L T4 [id number] 00:02:00 Test Item Value Reference Range Interpretation Comments T4 FREE (test code = T4F) ng/dL 0.77-1.61 TSH REFLEX TO [id number] 00:02:00 Test Item Value Reference Range Interpretation Comments TSH REFLEX TO FT4 (test code = 0.26 IU/mL 0.42-5.47 L TSHREFLEX) [id number] 00:02:00 Test Item Value Reference Range Interpretation [...] results may nahed y by method. PROTHROMBIN [id number] 23:59:00 Test Item Value Reference Range Interpretation [...] l Infarction (to prevent recurrent infar ct). [id number] 23:59:00 Test Item Value Reference Range Interpretation Comments D-DIMER (test 1711 ng/mlFEU See_Comment HH Critical resu lt called to code = JOSE ZAZUETA Tby DDIMER) 39UGL7022 at 23 59 10/06/20Nurse r ead back [...] APPROPRIATECLIN ICAL EUALUATIONS. [A utomated message] The [employer] stem which generated this result transmitted ref erence range: <=500. T he reference range was not u sed to interpret this result as normal/abnormal . CBC W/AUTO [id number] 23:46:00 Test Item Value Reference Range Interpretation [...] NO = MDIFF) - XR CHEST 1 [id number] 00:00:00 [facility] 1945 Sex: F FAX: Wilbur Martinez MD [phone] [place]: NANO St: REG Name: ROBBIN WILSON [facility] : 1945 Age/S: 75/F [address] [place] [address] Unit #: [id number] Loc: [place] [address] Phys: Yary Martinez Acct: [id number] Dis Date: Status: REG ER PHONE #: [phone] Exam Date: 10/06/2020 2319 FAX #: [phone] Reason: SOB EXAMS: CPT CODE: [id number] XR CHEST 1 V 54986 PROCEDURE INFORMATION: Exam: XR Chest Exam date [...] 2. Suspected small right pleural effusion. at 8371 Reported and signed by: Agustin Radford M.D. CC: Wilbur Martinez MD Technologist: RT Eben(Rolf) Trnscrd Date/Time/By: 10/06/2020 (2355) : By: [email or web address] Orig Print D/T: S: 10/06/2020 (8813) PAGE 1 Signed Report SARS-CoV-2 (COVID-19) RNA [Presence] in Respiratory specimen by ESTEFANI with probe [id number] 06:48:13 Test Item Value Reference Range Interpretation Comments SARS-CoV-2 (COVID-19) RNA Not detected Not-Detected [Presence] in Respiratory specimen by ESTEFANI with probe detection (test code = 92553-0) Whether patient is employed in a healthcare setting (test code = 05646-5) Whether the patient has symptoms related to condition of interest (test code = 32325-9) Patient was hospitalized because of this condition (test code = 49661-7) Whether the patient was admitted to intensive care unit (ICU) for condition of interest (test code = 09806-9) Whether patient resides in a congregate care setting (test code = 85947-1) [U] XRAY WRIST MIN 3 VWS LEFT [id number] 09:26:00Images acquired, not reported on this accession number.[facility][U] XRAY WRIST MIN 3 VWS LEFT [id number] 10:29:00Images acquired, not reported on this accession number. [facility][U] XRAY WRIST MIN 3 VWS LEFT [id number] 09:45:00Images acquired, not reported on this accession number.[facility][U] XRAY WRIST MIN 3 VWS LEFT [id number] 10:09:00Images acquired, not reported on this accession number.[facility][U] XRAY WRIST MIN 3 VWS LEFT [id number] 09:09:00Images acquired, not reported on this accession number.[facility] BREAST CYST ASPIRATION [id number] 11:28:13- BREAST CYST ASPIRATION LEFTULTRASOUND GUIDED ASPIRATION LEFT BREAST: 04/02/2019CLINICAL: Left Cyst A spiration. Comparison is made to exams dated 01/30/2019 mammogram and [facility] An aspiration was performed for the [...] 04/04/2019 14:06:47Imaging Technologist: Lori Turner , [facility] sent: Short Term Follow UpBREAST ULTRASOUND [id number] 09:31:08- BREAST ULTRASOUND BILATERALULTRASOUND OF BOTH BREASTS AND BOTH AXILLA: 03/06/2019CLINICAL: Dense breasts. Comparison is made to exams dated 01/30/2019 mammogram, 11/25/2016 ultrasound, and 10/11/2012 [facility] Real-time ultrasound of both breasts and [...] evidence of malignancy.Carmela Davis M.D. ar/:03/06/2019 09:31:08 Chip Washer: Maren CHRISTINE, [facility]-letter sent: BIRADS 4/5 Biopsy Ultrasound BI-RADS: 4a Suspicious abnormality - low suspicion for malignancy. [facility] [id number] 00:00:00 Test Item Value Reference Range Interpretation Comments Case (test code = Click ImageLink button N Case) for report. Specimen 1 (test code Click ImageLink button N = Specimen 1) for report. [place] [facility]icians[facility]CR MAMM BILATERAL CEDRIC CAD [id number] 13:15:32 - SCR MAMM BILATERAL CEDRIC CAD DIGITALBILATERAL DIGITAL SCREENING MAMMOGRAM 3D/2D WITH CAD: 01/30/2019CLINICAL: Asymptomatic. Digital breast tomosynthesis was performed in addition to routine CC and MLO views. Current mammographic images were evaluated by either a Exogenesis M-Vu or a [employer] ImageCheckerCAD (computer aided detection system). Comparison is made to exams dated 12/22/2017 mammogram, 10/28/2016 mammogram, 10/28/2015 mammogram, 10/14/2014 mammogram, and 10/11/2013 mammogram - [facility]-. The tissue of both breasts [...] - 02/01/2019 14:26:53Imaging Technologist: Yon CHRISTINE, [facility]-FWletter sent: BIRADS 1-2 Normal Mammogram BI-RADS: 2 Benign
--- NOTE | 2021-12-06 20:23 | RAD REPORT ---
EXAM DESCRIPTION: CT - Pelvis Wo Cont - 12/06/2021 8:09 pm CLINICAL HISTORY: Right pelvis/hip pain COMPARISON: October 2021 TECHNIQUE: Computed axial tomography of the pelvis was obtained. Coronal and sagittal reconstruction performed All CT scans are performed using dose optimization technique as appropriate and may include automated exposure control or mA/KV adjustment according to patient size. FINDINGS: No fracture or dislocation seen. The right rectus muscle is enlarged containing heterogeneous density. This most likely represents a h ematoma. Moderate ascites IMPRESSION: Right rectus muscle hematoma Moderate ascites
--- NOTE | 2021-12-06 20:27 | RAD REPORT ---
EXAM DESCRIPTION: RAD - Hip Right 2 View - 12/06/2021 8:21 pm CLINICAL HISTORY: Right hip pain FINDINGS: No fracture or dislocation is seen. Mild osteoarthritis right hip
[2021-12-06 21:13] LABS: Urine Mucus Slight /HPF (None Seen); Urine RBC <5 /HPF (None Seen)
--- NOTE | 2021-12-06 21:20 | EDPHYS ---
Physician Documentation [facility] Name: Esha Barber Age: 76 yrs Sex: Female : 1945 Arrival Date: 12/06/2021 Time: 17:03 Bed 14 Private MD: Avel Hazel ED Physician Tony Ron HPI: 12/06 21:19 This 76 yrs old Female presents to ER via Wheelchair with complaints of Leg ms3 Pain. 21:19 76-year-old female with past medical history of cholecystitis, heart valve replacement, ms3 CVA, dementia, liver cirrhosis presents for right groin pain that has been ongoing for 2 days. Patient rates the pain a 10/10 and states it is sharp. Patient states pain is worse with walking. Patient has taken Tylenol with some relief. Of note patient did fracture to ribs when she fell 3 weeks ago. Patient was seen in the emergency department 2 weeks ago for the fall. Patient denies nausea, vomiting, fevers, chills.. Historical: - Allergies: 20:30 Tramadol HCl; Caused Halllucinations; vc1 - PMHx: 17:40 galbladder removed; heart valve replaced; stroke; ph 17:41 Dementia; liver problems; ph - PSHx: 17:40 Right knee replacement; ph - Immunization history:: Adult Immunizations unknown. - Social history:: Smoking status: Patient denies any tobacco usage or history of. ROS: 21:19 Constitutional: Negative for fever, and chills. ENT: Negative for injury, pain, and ms3 discharge, Neck: Negative for injury, pain, and swelling, Cardiovascular: Negative for chest pain, and palpitations. Respiratory: Negative for shortness of breath, cough, wheezing, and pleuritic chest pain, Abdomen/GI: Negative for abdominal pain, nausea, vomiting, diarrhea, and constipation. 21:19 MS/extremity: Positive for Right hip/ groin pain. 21:19 All other systems are negative. Exam: 21:19 Constitutional: This is a well developed, well nourished patient who is awake, alert, ms3 and in no acute distress. Head/Face: Normocephalic, atraumatic. Neck: Trachea midline, no cervical lymphadenopathy. Supple, full range of motion without nuchal rigidity, or vertebral point tenderness. No Meningismus. Chest/axilla: Normal chest wall appearance and motion. Nontender with no deformity. Cardiovascular: Regular rate and rhythm with a normal S1 and S2. No gallops, murmurs, or rubs. Normal PMI, no JVD. No pulse deficits. Respiratory: Lungs have equal breath sounds bilaterally, clear to auscultation and percussion. No rales, rhonchi or wheezes noted. No increased work of breathing, no retractions or nasal flaring. Abdomen/GI: Soft, non-tender, with normal bowel sounds. No distension or tympany. No guarding or rebound. No evidence of tenderness throughout. Skin: Warm, dry with normal turgor. Normal color with no rashes, no lesions, and no evidence of cellulitis. 21:19 Psych: Awake, alert, with orientation to person, place and time. Behavior, mood, and affect are within normal limits. 21:19 Musculoskeletal/extremity: Extremities: noted in the right hip: decreased ROM, tenderness. Vital Signs: 17:37 BP 133 / 45; Pulse 68; Resp 18; Temp 98.6; Pulse Ox 99% on R/A; Weight 48.08 kg; Height ph 5 ft. 0 in. (152.40 cm); 20:28 BP 153 / 55; Pulse 66; Resp 18; Pulse Ox 100% ; vc1 17:37 Body Mass Index 20.70 (48.08 kg, 152.40 cm) ph MDM: 19:46 Patient medically screened. ms3 21:19 Differential diagnosis: closed fracture, contusion, tendonitis. Data reviewed: vital ms3 signs, nurses notes, radiologic studies, and as a result, I will discharge patient. Counseling: I had a detailed discussion with the patient and/or guardian regarding: the historical points, exam findings, and any diagnostic results supporting the discharge/admit diagnosis, radiology results, the need for outpatient follow up, to return to the emergency department if symptoms worsen or persist or if there are any questions or concerns that arise at home. Special discussion: I discussed with the patient/guardian in detail that at this point there is no indication for admission to the hospital. It is understood, however, that if the symptoms persist or worsen the patient needs to return immediately for re-evaluation. ED course: Discussed imaging with patient and her son. Patient to follow-up with her primary care physician as discussed. All questions were answered. Return precautions discussed include worsening symptoms, or any other concerns. On reevaluation patient is alert, in no apparent distress, nontoxic, ambulatory Emergency Department. 12/06 19:43 Order name: Urine Microscopic Only; Complete Time: 21:15 ms3 12/06 19:42 Order name: Hip Right 2 View XRAY; Complete Time: 20:52 ms3 12/06 19:42 Order name: CT Pelvis wo Cont; Complete Time: 20:52 ms3 Administered Medications: No medications were administered Disposition Summary: 12/06/21 21:19 Discharge Ordered Location: Home ms3 Condition: Stable ms3 Diagnosis - Right rectus muscle hematoma ms3 - Elevated blood-pressure reading, without diagnosis of hypertension ms3 - Unspecified cirrhosis of liver ms3 Followup: ms3 - With: Avel Hazel MD - When: 2 - 3 days - Reason: Recheck today's complaints Discharge Instructions: - Discharge Summary Sheet ms3 - Hematoma, [id number] ms3 Forms: - Medication Reconciliation Form ms3 - Thank You Letter ms3 - Antibiotic Education ms3 - Prescription Opioid Use ms3 Signatures: Dispatcher [employer] EDGloria Van RN RN Tony Bishop DO DO ms3 Pascale Mcmullen RN RN vc1 Corrections: (The following items were deleted from the chart) 20:30 17:40 Allergies: No Known Allergies; ph vc1
--- NOTE | 2021-12-06 21:20 | ER ---
Nurse's Notes [facility] Name: Esha Barber Age: 76 yrs Sex: Female : 1945 Arrival Date: 12/06/2021 Time: 17:03 Bed 14 Private MD: Avel Hazel Diagnosis: Right rectus muscle hematoma;Elevated blood-pressure reading, without diagnosis of hypertension;Unspecified cirrhosis of liver Presentation: 12/06 17:37 Chief complaint: Patient's son or daughter states: R inguinal pain since Monday, denies ph trauma to area. Coronavirus screen: Vaccine status: Patient reports receiving the 2nd dose of the covid vaccine. Ebola Screen: No symptoms or risks identified at this time. Initial Sepsis Screen: Does the patient meet any 2 criteria? No. Patient's initial sepsis screen is negative. Does the patient have a suspected source of infection? No. Patient's initial sepsis screen is negative. Risk Assessment: Do you want to hurt yourself or someone else? Patient reports no desire to harm self or others. Onset of symptoms was December 06, 2021. 17:37 Method Of Arrival: Wheelchair ph 17:37 Acuity: VALORIE 4 ph Triage Assessment: 20:29 General: Appears in no apparent distress. uncomfortable, Behavior is cooperative. Pain: vc1 Complains of pain in left leg. Historical: - Allergies: 20:30 Tramadol HCl; Caused Halllucinations; vc1 - PMHx: 17:40 galbladder removed; heart valve replaced; stroke; ph 17:41 Dementia; liver problems; ph - PSHx: 17:40 Right knee replacement; ph - Immunization history:: Adult Immunizations unknown. - Social history:: Smoking status: Patient denies any tobacco usage or history of. Screenin:29 Abuse screen: Denies threats or abuse. Nutritional screening: No deficits noted. vc1 Tuberculosis screening: No symptoms or risk factors identified. Fall Risk None identified. Vital Signs: 17:37 BP 133 / 45; Pulse 68; Resp 18; Temp 98.6; Pulse Ox 99% on R/A; Weight 48.08 kg; Height ph 5 ft. 0 in. (152.40 cm); 20:28 BP 153 / 55; Pulse 66; Resp 18; Pulse Ox 100% ; vc1 17:37 Body Mass Index 20.70 (48.08 kg, 152.40 cm) ph ED Course: 17:03 Patient arrived in ED. mr 17:03 Avel Hazel MD is Private Physician. mr 17:13 Caty Garcia MD is Attending Physician. sd2 17:40 Triage completed. ph 17:42 Arm band placed on Patient placed in waiting room, Patient notified of wait time. ph 19:26 Ivan Villagran, RN is Primary Nurse. as6 19:40 Attending Physician role handed off by Caty Garcia MD ms3 19:40 Tony Ron DO is Attending Physician. ms3 20:10 CT Pelvis wo Cont In Process Unspecified. EDMS 20:23 Hip Right 2 View XRAY In Process Unspecified. EDMS 20:29 Patient has correct armband on for positive identification. Bed in low position. Call vc1 light in reach. Side rails up X2. Adult w/ patient. Pulse ox on. NIBP on. 21:18 Avel Hazel MD is Referral Physician. ms3 21:39 No provider procedures requiring assistance completed. Patient did not have IV access vc1 during this emergency room visit. Administered Medications: No medications were administered Medication: 20:30 VIS not applicable for this client. vc1 Outcome: 21:19 Discharge ordered by . ms3 21:39 Discharged to home via wheelchair, with family. vc1 21:39 Condition: good 21:39 Discharge instructions given to patient, lay midwife, Instructed on discharge instructions, follow up and referral plans. Demonstrated understanding of instructions, follow-up care. 21:39 Patient left the ED. vc1 Signatures: Dispatcher [employer] CEZARPA Isabel Sommer mr BarGloria RN RN ph Tony Ron DO DO ms3 Ivan Villagran RN RN as6 Pascale Mcmullen RN RN vc1 Caty Garcia MD MD sd2 Corrections: (The following items were deleted from the chart) 20:30 17:40 Allergies: No Known Allergies; ph vc1
[2021-12-08 05:22] VITALS: BP 153/55; O2SAT 100
[2021-12-08 05:45] VITALS: TEMP 98.6
== END 2021-12-06 21:39 | disposition home or self-care (01) ==
LOC: ER 17:01
DX: S30.1XXA Contusion of abdominal wall, initial encounter (principal); R03.0 Elevated blood-pressure reading, without diagnosis of hypertension; K74.60 Unspecified cirrhosis of liver; F03.90 Unspecified dementia, unspecified severity, without behavioral disturbance, psychotic disturbance, mood disturbance, and anxiety
CPT/HCPCS: 72192; 81015; 99283

== ENCOUNTER 2022-04-03 15:47 | Inpatient (IN) | payer OTHER ==
--- OUTSIDE RECORDS SUMMARY | 2022-04-03 15:54 | XMS REPORT | Continuity of Care Document ---
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 618 Method i 2020-04-08 2020-04-08 Outpatient MORSE, [facility] [id number] [place] 00:00:00 00:00:00 EVELYN 608 Method i 2020-04-03 2020-04-03 Outpatient MORSE, [facility] [id number] [place] 00:00:00 00:00:00 EVELYN [address] 2020-03-26 2020-03-26 Outpatient MORSE, [facility] [id number] [place] 00:00:00 00:00:00 EVELYN [address] 2020-03-26 2020-03-26 Outpatient PRABHU, [facility] [id number] [place] 00:00:00 00:00:00 COLE [address] 2020-02-12 2020-02-12 Outpatient [facility] [id number] eClinic 16:15:00 16:15:00 Cardiolog Cardiology a lWorks y PA PA 2020-02-04 2020-02-04 Outpatient Gallo A Gallo A [id number] MH 14:45:00 14:45:00 Claudia Taylor MD Ph illip PA PA Tootie Taylor MD 2020-02-04 2020-02-04 Outpatient Gallo A Gallo A [id number] MH 14:45:00 14:45:00 Claudia Taylor MD Ph illip PA PA Tootie Taylor MD 2020-01-21 2020-01-21 Outpatient [facility] [id number] eClinic 10:30:00 10:30:00 Cardiolog Cardiology a lWorks y PA PA 2020-01-15 2020-01-15 Outpatient Gallo A. Gallo A. [id number] MH 16:15:00 16:15:00 Claudia Taylor MD [facility] brian Taylor MD 2019-07-22 2019-07-22 Outpatient Gallo A Gallo A [id number] MH 14:45:00 14:45:00 Claudia Talyor MD Ph illip PA PA Tootie Taylor MD 2019-07-22 2019-07-22 Outpatient Gallo A Gallo A [id number] MH 14:45:00 14:45:00 Claudia Taylor MD Ph illip PA PA Tootie Taylor MD 2019-07-22 2019-07-22 Outpatient Gallo A Gallo A [id number] MH 14:45:00 14:45:00 Claudia Taylor MD Ph illip PA PA Tootie Taylor MD 2019-06-27 2019-06-27 Outpatient Gallo A Gallo A [id number] MH 09:36:00 09:36:00 Claudia Taylor MD rupert Taylor MD 2019-06-04 2019-06-04 [facility]ics [id number] [place] 09:00:00 09:00:00 t; omid PAPPAS [facility] Loren Eason Medicine M.D. [facility] 2019-05-14 2019-05-14 [place] [facility] [id number] [place] 09:30:00 09:30:00 t; Yazmin PAPPAS i, M.D. ans ASHTON, M.D. 2019-04-23 2019-04-23 [facility] Orthopedics 62 [id number] [place] 09:45:00 09:45:00 t; omid PAPPAS [facility] Loren Eason Medicine M.D. [facility] 2019-04-16 2019-04-16 [facility]ics 62 [id number] [place] 09:30:00 09:30:00 [facility] 2019-04-11 2019-04-11 [facility]atherinelorene [facility] [id number] [place] 12:30:00 12:30:00 t; Yazmin PAPPAS i, M.D. ans ASHTON, M.D. 2019-04-09 2019-04-09 [place] [facility] Orth[facility]ics [id number] [place] 10:00:00 10:00:00 t; [facility] 2019-04-04 2019-04-04 [place] [facility] Orthopedics [id number] [place] 08:45:00 08:45:00 t; [facility] 2019-02-22 2019-02-22 [place] [facility] Women's [id number] [place] 13:15:00 13:15:00 t; Jenise IRENE M.D. [place] [facility] COMFORT, M.D. 2019-02-01 2019-02-01 [facility] JOSSELIN [facility]'s [id number] [place] 13:30:00 13:30:00 t; Jenise IRENE M.D. [place] [facility] COMFORT, M.D. 2019-01-18 2019-01-18 Outpatient Gallo A Gallo A [id number] MH 10:45:00 10:45:00 Claudia Taylor MD 2019-01-16 2019-01-16 Outpatient Gallo A. Gallo ATrudy [id number] [place] 14:26:00 14:26:00 Claudia Taylor MD Phi llip MD PA PA A. Waller MD 2019-01-15 2019-01-15 Outpatient Gallo A. Gallo A. [id number] [place] 12:04:00 12:04:00 Claudia Taylor MD Phi llip MD PA PA A. Waller MD 2018-12-31 2018-12-31 [facility] AVRILMYRON [facility]'s [id number] [place] 09:30:00 09:30:00 t; Jenise IRENE M.D. [place] ans COMFORT, M.D. 2018-10-02 2018-10-02 Outpatient [facility] Otilia [id number] eClinic 15:00:00 15:00:00 Cardiolog Cardiology gwen Carpenter 2018-07-02 2018-07-02 Outpatient Gallo A Gallo A [id number] MH 15:48:00 15:48:00 Claudia Taylor MD 2018-06-18 2018-06-18 Outpatient Gallo A Gallo A [id number] MH 12:38:00 12:38:00 Claudia Taylor MD 2018-06-18 2018-06-18 Outpatient Gallo A Gallo A [id number] MH 09:58:00 09:58:00 Claudia Taylor MD 2018-06-11 2018-06-11 Outpatient Gallo A Gallo A [id number] MH 12:14:00 12:14:00 Claudia Taylor MD Ph rupert Taylor MD 2018-01-15 2018-01-15 Outpatient med Ahmed [id number] eClinic 11:45:00 11:45:00 Cardiolog Cardiology a lWorks y Pa Pa 2017-12-26 2017-12-26 Outpatient Gallo A Gallo A [id number] 09:00:00 09:00:00 Claudia Taylor MD Ph illip PA JOHN Taylor MD 2017-12-22 2017-12-22 Outpatient Ahmed Ahmed [id number] eClinic 13:00:00 13:00:00 Cardiolog Cardiology a lWorks y Pa Pa 2017-12-18 2017-12-18 Outpatient med Ahmed [id number] eClinic 10:15:00 10:15:00 Cardiolog Cardiology a lWorks y Pa Pa 2017-12-18 2017-12-18 Outpatient med Ahmed [id number] eClinic 10:15:00 10:15:00 Cardiolog Cardiology a lWorks y Pa Pa 2017-11-22 2017-11-22 Outpatient med Ahmed [id number] eClinic 15:45:00 15:45:00 Cardiolog Cardiology a lWorks y Pa Pa 2017-09-26 2017-09-26 Outpatient Ahmed Ahmed [id number] eClinic 14:58:00 14:58:00 Cardiolog Cardiology a lWorks y Pa Pa 2017-08-07 2017-08-07 Outpatient med Ahmed [id number] eClinic 10:30:00 10:30:00 Cardiolog Cardiology a lWorks y Pa Pa 2017-07-21 2017-07-21 Outpatient Gallo A Gallo A [id number] 14:33:00 14:33:00 Claudia Taylor MD Ph tracyip PA JOHN Taylor MD 2017-06-26 2017-06-26 Outpatient Gallo A Gallo A [id number] 10:00:00 10:00:00 Claudia Taylor MD Ph rupert Taylor MD 2016-12-19 2016-12-19 Outpatient Ahmed Ahmed [id number] eClinic 13:00:00 13:00:00 Cardiolog Cardiology a lWorks y Pa Pa 2016-11-29 2016-11-29 Outpatient Ahmed Ahmed [id number] eClinic 11:30:00 11:30:00 Cardiolog Cardiology a Artie Carpenter 2016-07-25 2016-07-25 Outpatient Ahmed Ahmed [id number] eClinic 11:30:00 11:30:00 Cardiolog Cardiology a Artie Carpenter 2016-07-20 2016-07-20 Outpatient Ahmed Ahmed [id number] eClinic 11:00:00 11:00:00 Cardiolog Cardiology a Artie Carpenter 2016-06-29 2016-06-29 Outpatient Ahmed Ahmed [id number] eClinic 14:30:00 14:30:00 Cardiolog Cardiology a Artie Carpenter 2016-01-29 2016-01-29 Outpatient Ahmed Ahmed [id number] eClinic 13:45:00 13:45:00 Cardiolog Cardiology a Artie Carpenter 2015-12-23 2015-12-23 4 mo f/u nullFlavo Ahmed [id number] c-d Memoria 20:00:00 20:00:00 rolf Bingham MD, 9q3-6017-3 l PA 56e-958a2e Jackie nn 3b1bf3 2015-12-23 2015-12-23 4 mo f/u nullFlavo Ahmed [id number] c-d Memoria 20:00:00 20:00:00 rolf Bingham MD, 7y2-9298-3 l PA 56e-958a2e Jackie nn 3b1bf3 2015-12-23 2015-12-23 Outpatient Ahmed Ahmed [id number] eClinic 14:00:00 14:00:00 Otilia Bingham MD, Vita womack MD, JOHN CARPENTER 2015-11-27 2015-11-27 inr nullFlavo Ahmed [id number] -5 Memoria 18:00:00 18:00:00 rolf Bingham MD, t1y-1145-o l JOHN c04-05p0a2 Jackie nn [id number] 2015-11-27 2015-11-27 inr nullFlavo Ahmed [id number] -5 Memoria 18:00:00 18:00:00 rolf Bingham MD, 5o5-763i-n wilfredo CARPENTER l21-zu35r2 Jackie nn [id number] 2015-11-27 2015-11-27 inr nullFlavo Ahmed [id number] -5 Memoria 18:00:00 18:00:00 rolf Bingham MD, m8b-7513-p l PA [id number] Jackie nn [id number] 2015-11-27 2015-11-27 inr nullFlavo Ahmed [id number] -5 Memoria 18:00:00 18:00:00 rolf Bingham MD, 3o1-893z-u l PA f52-pe12s8 Jackie nn [id number] 2015-11-27 [id number]00 12:00:00 Otilia Bingham MD, Vita womack MD, PA PA 2015-10-30 2015-10-30 INR nullFlavo Ahmed [id number] -6 Memoria 17:15:00 17:15:00 rolf Bingham MD, w11-363l-w l PA dd9-040ade Jackie nn [id number] 2015-10-30 2015-10-30 INR nullFlavo Ahmed [id number] -7 Memoria 17:15:00 17:15:00 rolf Bingham MD, h41-71e4-2 l PA 831-b3aba0 Jackie nn [id number] 2015-10-30 2015-10-30 INR nullFlavo Ahmed [id number] -6 Memoria 17:15:00 17:15:00 rolf Bingham MD, 468-4346-b l PA [id number] Jackie nn [id number] 2015-10-30 2015-10-30 INR nullFlavo Ahmed [id number] -6 Memoria 17:15:00 17:15:00 rolf Bingham MD, r78-130b-e l PA dd9-040ade Jackie nn [id number] 2015-10-30 2015-10-30 INR nullFlavo Ahmed [id number] -7 Memoria 17:15:00 17:15:00 rolf Bingham MD, b08-45h0-0 l PA 831-b3aba0 Jackie nn [id number] 2015-10-30 2015-10-30 INR nullFlavo Ahmed [id number] -6 Memoria 17:15:00 17:15:00 rolf Bingham MD, 468-4346-b l PA [id number]-8l2790 Jackie nn [id number] 2015-10-30 2015-10-30 Outpatient Otilia med [id number] eClinic 11:15:00 11:15:00 Otilia Bingham MD, Vita womack MD, PA PA 2015-09-18 2015-09-18 INR nullFlavo Ahmed [id number] -2 Memoria 19:30:00 19:30:00 rolf Bingham MD, 397-47a3-a l PA [id number] Jackie nn ce9b7a 2015-09-18 2015-09-18 INR nullFlavo Ahmed [id number] -2 Memoria 19:30:00 19:30:00 rolf Bingham MD, 62f-4284-a l PA [id number]-e1480c Jackie nn [id number] 2015-09-18 2015-09-18 INR nullFlavo Ahmed [id number] -2 Memoria 19:30:00 19:30:00 rolf Bingham MD, s6f-252j-r l PA g5e-sz4472 Jackie nn d54a30 2015-09-18 2015-09-18 INR nullFlavo Ahmed [id number] -5 [facility]oria 19:30:00 19:30:00 rolf Bingham MD, 96a-4e96-b l PA 3da-81ad54 Jackie nn [id number] 2015-09-18 2015-09-18 INR nullFlavo Ahmed [id number] -2 Memoria 19:30:00 19:30:00 rolf Bingham MD, 397-47a3-a l PA 414-67ba60 Jackie nn ce9b7a 2015-09-18 2015-09-18 INR nullFlavo Ahmed [id number] -2 Memoria 19:30:00 19:30:00 rolf Bingham MD, 62f-4284-a l PA 72d-l0456l Jackie nn iy093x 2015-09-18 2015-09-18 INR nullFlavo Ahmed [id number] -2 Memoria 19:30:00 19:30:00 rolf Bingham MD, t3j-504u-o wilfredo CARPENTER [id number]-tv7066 [facility] d54a30 2015-09-18 2015-09-18 INR nullFlavo Ahmed [id number] -5 Memoria 19:30:00 19:30:00 rolf Bingham MD, 96a-4e96-b wilfredo CARPENTER 3da-81ad54 [facility] [id number] 2015-09-18 2015-09-18 Outpatient Aharnie Ahmed [id number] eClinic 13:30:00 13:30:00 Otilia Bingham MD, Vita womack MD, JOHN CARPENTER 2015-08-19 2015-08-19 4 mo f/u nullFlavo Ahmed [id number] 7-c Memoria 19:30:00 19:30:00 rolf Bingham MD, 405-409e-b wilfredo CARPENTER [id number] [facility] [id number] 2015-08-19 2015-08-19 4 mo f/u nullFlavo Ahmed [id number] 3-7 Memoria 19:30:00 19:30:00 rolf Bingham MD, 1a4-8186-7 wilfredo CARPENTER u1o-nf88hb [facility] 9ea0ec 2015-08-19 2015-08-19 4 mo f/u nullFlavo Ahmed [id number] 6-b Memoria 19:30:00 19:30:00 rolf Bingham MD, ded-4816-a wilfredo CARPENTER [id number] [facility] [id number] 2015-08-19 2015-08-19 4 mo f/u nullFlavo Ahmed [id number] f-f Memoria 19:30:00 19:30:00 rolf Bingham MD, 2ee-4279-b wilfredo CARPENTER 2g7-44319f [facility] [id number] 4129-06-01 2015-08-19 4 mo f/u nullFlavo Ahmed [id number] 0-e Memoria 19:30:00 19:30:00 rolf Bingham MD, fc8-41e6-8 wilfredo CARPENTER 370-4a58db [facility] [id number] 2015-08-19 2015-08-19 4 mo f/u nullFlavo Ahmed [id number] 7-c Memoria 19:30:00 19:30:00 rolf Bingham MD, 405-409e-b l PA [id number] Jackie nn [id number] 2015-08-19 2015-08-19 4 mo f/u nullFlavo Ahmed [id number] 3-7 Memoria 19:30:00 19:30:00 r MD Otilia, 2z5-5175-1 l PA p8w-om76em Jackie nn [id number] 2015-08-19 2015-08-19 4 mo f/u nullFlavo Ahmed [id number] 6-b Memoria 19:30:00 19:30:00 rolf Bingham MD, ded-4816-a l PA 298-5c31d1 Jackie nn [id number] 2015-08-19 2015-08-19 4 mo f/u nullFlavo Ahmed [id number] f-f Memoria 19:30:00 19:30:00 rolf Bingham MD, 2ee-4279-b l PA [id number] Jackie nn [id number] 0756-06-01 2015-08-19 4 mo f/u nullFlavo Ahmed [id number] 0-e Memoria 19:30:00 19:30:00 rolf Bingham MD, fc8-41e6-8 l PA 370-4a58db Jackie nn [id number] 2015-08-19 2015-08-19 Outpatient Otilia Ngmed [id number] eClinic 13:30:00 13:30:00 Otilia Bingham MD, Vita womack MD, PA PA 2015-07-22 2015-07-22 INR nullFlavo Ahmed [id number] -f Memoria 19:45:00 19:45:00 rolf Bingham MD, 231-4944-8 l PA dff-b3ede7 [facility] nn [id number] 2015-07-22 2015-07-22 INR nullFlavo Ahmed [id number] -4 Memoria 19:45:00 19:45:00 rolf Bingham MD, ad5-484e-b l PA [id number] [facility] nn [id number] 2015-07-22 2015-07-22 INR nullFlavo Ahmed [id number] -2 Memoria 19:45:00 19:45:00 rolf Bingham MD, 433-4b2c-9 l PA 0p3-rkc2op [facility] [id number] 2787-05-04 2015-07-22 INR nullFlavo Ahmed [id number] -2 Memoria 19:45:00 19:45:00 rolf Bingham MD, b09-10ja-2 l PA [id number] [facility] [id number] 2015-07-22 2015-07-22 INR nullFlavo Ahmed [id number] -8 Memoria 19:45:00 19:45:00 rolf Bingham MD, 3q8-06v4-9 l PA m60-1lu1rc [facility] [id number] 2067-05-04 2015-07-22 INR nullFlavo Ahmed [id number] -e Memoria 19:45:00 19:45:00 rolf Bingham MD, 8t0-891j-o l PA j52-6l1k0r [facility] [id number] 2015-07-22 2015-07-22 INR nullFlavo Ahmed [id number] -2 Memoria 19:45:00 19:45:00 rolf Bingham MD, l69-38ow-0 l PA [id number] [facility] [id number] 2015-07-22 2015-07-22 INR nullFlavo Ahmed [id number] -8 Memoria 19:45:00 19:45:00 rolf Bingham MD, 7t9-30m2-9 l PA b35-3nj8qf [facility] [id number] 0254-05-04 2015-07-22 INR nullFlavo Ahmed [id number] -e Memoria 19:45:00 19:45:00 rolf Bingham MD, 8y6-591z-b l PA [id number] [facility] [id number] 2015-07-22 2015-07-22 INR nullFlavo Ahmed [id number] -f Memoria 19:45:00 19:45:00 rolf Bingham MD, 231-4944-8 l PA dff-b3ede7 [facility] 917b3b 2015-07-22 2015-07-22 INR nullFlavo Ahmed [id number] -4 Memoria 19:45:00 19:45:00 rolf Binhgam MD, ad5-484e-b l PA [id number] [facility] [id number] 2015-07-22 2015-07-22 INR nullFlavo Ahmed [id number] -2 Memoria 19:45:00 19:45:00 rolf Binghma MD, 433-4b2c-9 l JOHN 5g8-fid4lh Jackie nn [id number] 6574-05-04 2015-07-22 Outpatient Ahmed Ahmed [id number] eClinic 13:45:00 13:45:00 Otilia Bingham MD, Vita womack MD, PA PA 2015-07-01 2015-07-01 INR nullFlavo Ahmed [id number] -1 Memoria 19:00:00 19:00:00 rolf Bingham MD, v67-1236-1 l JOHN ca6-0eaa7c Jackie nn [id number] 2015-07-01 2015-07-01 INR nullFlavo Ahmed [id number] -f Memoria 19:00:00 19:00:00 rolf Bingham MD, 641-4c36-a wilfredo CARPENTER 311-bcc0e5 Jackie nn 402ed4 2015-07-01 2015-07-01 INR nullFlavo Ahmed [id number] -e Memoria 19:00:00 19:00:00 rolf Bingham MD, 6s2-0151-b wilfredo CARPENTER p4p-2d02v3 Jackie nn a3f0a3 2015-07-01 2015-07-01 INR nullFlavo Ahmed [id number] -0 Memoria 19:00:00 19:00:00 rolf Bingham MD, 371-4b72-b wilfredo CARPENTER 449-06c8d5 Jackie nn f1a62b 2015-07-01 2015-07-01 INR nullFlavo Ahmed [id number] -8 Memoria 19:00:00 19:00:00 rolf Bingham MD, 758-4cc3-a wilfredo CARPENTER 7t4-7616s5 Jackie nn ae7c63 2015-07-01 2015-07-01 INR nullFlavo Ahmed [id number] -3 Memoria 19:00:00 19:00:00 rolf Bingham MD, 8e3-5846-m wilfredo CARPENTER x0m-riztu4 Jackie nn ce0a05 2015-07-01 2015-07-01 INR nullFlavo Ahmed [id number] -4 Memoria 19:00:00 19:00:00 rolf Bingham MD, 7s5-1g3i-5 l PA x36-0rh2e6 Jackie nn ef7fe8 2015-07-01 2015-07-01 INR nullFlavo Ahmed [id number] -1 Memoria 19:00:00 19:00:00 rolf Bingham MD, n72-6608-7 l PA ca6-0eaa7c Jackie nn 3ec97a 2015-07-01 2015-07-01 INR nullFlavo Ahmed [id number] -f Memoria 19:00:00 19:00:00 rolf Bingham MD, 641-4c36-a l PA 311-bcc0e5 Jackie nn 402ed4 2015-07-01 2015-07-01 INR nullFlavo Ahmed [id number] -e Memoria 19:00:00 19:00:00 rolf Bingham MD, 6k5-8405-f l PA i8o-1r70u6 Jackie nn a3f0a3 2015-07-01 2015-07-01 INR nullFlavo Ahmed i93v3e52 -0 Memoria 19:00:00 19:00:00 rolf Bingham MD, 371-4b72-b l PA 449-06c8d5 Jackie nn f1a62b 2015-07-01 2015-07-01 INR nullFlavo Ahmed [id number] -8 Memoria 19:00:00 19:00:00 rolf Bingham MD, 758-4cc3-a l PA 4t4-8459g6 Jackie nn ae7c63 2015-07-01 2015-07-01 INR nullFlavo Ahmed [id number] -3 Memoria 19:00:00 19:00:00 rolf Bingham MD, 7q9-3584-k l PA g5r-ckawv7 Jackie nn ce0a05 2015-07-01 2015-07-01 INR nullFlavo Ahmed [id number] -4 Memoria 19:00:00 19:00:00 rolf Bingham MD, 5o3-8r3z-2 l PA e14-5yg1d6 Jackie nn ef7fe8 2015-07-01 2015-07-01 Outpatient [facility] [id number] eClinic 13:00:00 13:00:00 Otilia Bingham MD, Vita womack MD, PA PA 2015-06-22 2015-06-22 inr nullFlavo Ahmed [id number] -c Memoria 19:15:00 19:15:00 r MD Otilia, 527-4b27-9 l JOHN [id number] Jackie nn 0e34e3 2015-06-22 2015-06-22 inr nullFlavo Ahmed [id number] -5 Memoria 19:15:00 19:15:00 rolf Bingham MD, 240-417e-9 l JOHN 180-f8ad34 Jackie nn 24cca5 2015-06-22 2015-06-22 inr nullFlavo Ahmed [id number] -f Memoria 19:15:00 19:15:00 r MD Otilia, r20-033m-u l JOHN 370-693eb6 Jackie nn 555af3 2015-06-22 2015-06-22 inr nullFlavo Ahmed 696o4qp9 -2 Memoria 19:15:00 19:15:00 rolf Bingham MD, ae8-47ee-8 l JOHN ccc-4c6a88 Jackie nn 8aefe5 2015-06-22 2015-06-22 inr nullFlavo Ahmed [id number] -c Memoria 19:15:00 19:15:00 r MD Otilia, i23-66qn-4 l JOHN [id number] Jackie nn [id number] 2015-06-22 2015-06-22 inr nullFlavo Ahmed g085u32y -1 Memoria 19:15:00 19:15:00 rolf Bingham MD, 90a-491e-a l JOHN 51b-6d8e47 Jackie nn 7ae3fb 2015-06-22 2015-06-22 inr nullFlavo Ahmed [id number] -0 Memoria 19:15:00 19:15:00 rolf Bingham MD, 6bd-4d07-9 l JOHN p9g-f753o7 Jackie nn [id number] 2015-06-22 2015-06-22 inr nullFlavo Ahmed [id number] -e Memoria 19:15:00 19:15:00 r Berenicemed, MD, z52-96xa-0 l PA 16f-b4db78 Jackie nn bfed86 2015-06-22 2015-06-22 inr nullFlavo Ahmed [id number] -c Memoria 19:15:00 19:15:00 rolf Bingham MD, 527-4b27-9 l PA 4x8-2e0283 Jackie nn 0e34e3 2015-06-22 2015-06-22 inr nullFlavo Ahmed [id number] -5 Memoria 19:15:00 19:15:00 rolf Bingham MD, 240-417e-9 l PA 180-f8ad34 Jackie nn 24cca5 2015-06-22 2015-06-22 inr nullFlavo Ahmed [id number] -f Memoria 19:15:00 19:15:00 rolf Bingham MD, i54-469b-z l PA 370-693eb6 Jackie nn 555af3 2015-06-22 2015-06-22 inr nullFlavo Ahmed 720l0fk1 -2 Memoria 19:15:00 19:15:00 rolf Bingham MD, ae8-47ee-8 l PA ccc-4c6a88 Jackie nn 8aefe5 2015-06-22 2015-06-22 inr nullFlavo Ahmed [id number] -c Memoria 19:15:00 19:15:00 rolf Bingham MD, a92-54ml-6 l PA [id number] Jackie nn [id number] 2015-06-22 2015-06-22 inr nullFlavo Ahmed [id number] -1 [facility] 19:15:00 19:15:00 rolf Bingham MD, 90a-491e-a l PA [id number]-6d8e47 Jackie nn 7ae3fb 2015-06-22 2015-06-22 inr nullFlavo Ahmed [id number] -0 [facility] 19:15:00 19:15:00 rolf Bingham MD, 6bd-4d07-9 l PA [id number]-h794k8 Jackie nn i26086 2015-06-22 2015-06-22 inr nullFlavo Ahmed [id number] -e [facility] 19:15:00 19:15:00 rolf Bingham MD, n61-67di-6 l JOHN [id number] Jackie nn bfed86 2015-06-22 2015-06-22 Outpatient Otilia Otilia [id number] [facility] 13:15:00 13:15:00 Otilia Bingham MD, Vita womack MD, JOHN CARPENTER 2015-05-19 2015-05-19 INR nullFlavo Ahmed [id number] -e [facility] 22:00:00 22:00:00 rolf Bingham MD, 6aa-4df5-8 wilfredo CARPENTER cde-42c0fe Jackie nn a0d17b 2015-05-19 2015-05-19 INR nullFlavo Ahmed [id number] -5 [facility] 22:00:00 22:00:00 rolf Bingham MD, 345-4b93-b wilfredo CARPENTER 6u2-d758h6 Jackie nn b4f25c 2015-05-19 2015-05-19 INR nullFlavo Ahmed [id number] -3 [facility] 22:00:00 22:00:00 rolf Bingham MD, 0a6-4308-9 wilfredo CARPENTER 7f6-k058l3 Jackie nn [id number] 2015-05-19 2015-05-19 INR nullFlavo Ahmed [id number] -b [facility] 22:00:00 22:00:00 rolf Bingham MD, 2e3-154n-l wilfredo CARPENTER [id number]-6p9492 Jackie nn b3f0a9 2015-05-19 2015-05-19 INR nullFlavo Ahmed [id number] -d [facility] 22:00:00 22:00:00 rolf Bingham MD, 0e5-9gpp-0 wilfredo CARPENTER 262-30ab1f Jackie nn abf39f 2015-05-19 2015-05-19 INR nullFlavo Ahmed [id number] -c [facility] 22:00:00 22:00:00 rolf Bingham MD, m07-6i42-s wilfredo CARPENTER [id number]-m31412 Jackie nn 260e7c 2015-05-19 2015-05-19 INR nullFlavo Ahmed [id number] -c [facility] 22:00:00 22:00:00 rolf Bingham MD, 273-4feb-a wilfredo CARPENTER [id number] Jackie nn 704c0e 2015-05-19 2015-05-19 INR nullFlavo Ahmed [id number] -9 [facility] 22:00:00 22:00:00 rolf Bingham MD, l4s-15fh-3 l PA df3-0548d7 [facility] nn 1fabfe 2015-05-19 2015-05-19 INR nullFlavo Ahmed [id number] -6 [facility] 22:00:00 22:00:00 rolf Bingham MD, w55-1497-w l PA fdd-79e52f [facility] nn [id number] 7416-03-01 2015-05-19 INR nullFlavo Ahmed [id number] -e [facility] 22:00:00 22:00:00 rolf Bingham MD, 6aa-4df5-8 l PA cde-42c0fe [facility] nn a0d17b 2015-05-19 2015-05-19 INR nullFlavo Ahmed [id number] -5 [facility] 22:00:00 22:00:00 rolf Bingham MD, 345-4b93-b l PA 7e5-g927k6 [facility] nn b4f25c 2015-05-19 2015-05-19 INR nullFlavo Ahmed [id number] -3 [facility] 22:00:00 22:00:00 rolf Bingham MD, 5i4-1612-8 l PA [id number]-z334m2 [facility] nn [id number] 2015-05-19 2015-05-19 INR nullFlavo Ahmed [id number] -b [facility] 22:00:00 22:00:00 rolf Bingham MD, 0f0-875q-g l PA [id number]-3i3510 [facility] b3f0a9 2015-05-19 2015-05-19 INR nullFlavo Ahmed [id number] -d [facility] 22:00:00 22:00:00 rolf Bingham MD, 5l8-7ihe-9 l PA 262-30ab1f [facility] nn abf39f 2015-05-19 2015-05-19 INR nullFlavo Ahmed [id number] -c [facility] 22:00:00 22:00:00 rolf Bingham MD, j65-4m02-r l PA [id number] [facility] 260e7c 2015-05-19 2015-05-19 INR nullFlavo Ahmed [id number] -c [facility] 22:00:00 22:00:00 rolf Bingham MD, 273-4feb-a l JOHN [id number] [facility] 704c0e 2015-05-19 2015-05-19 INR nullFlavo Ahmed [id number] -9 [facility] 22:00:00 22:00:00 rolf Bingham MD, e1m-39nt-4 l PA df3-0548d7 [facility] 1fabfe 2015-05-19 2015-05-19 INR nullFlavo Ahmed [id number] -6 [facility] 22:00:00 22:00:00 rolf Bingham MD, u98-2403-c l JOHN fdd-79e52f [facility] [id number] 6482-03-01 2015-05-19 Outpatient Ahmed Ahmed [id number] [facility] 16:00:00 16:00:00 Otilia Bingham MD, Vita womack MD, PA PA 2015-04-20 2015-04-20 f/u nullFlavo Ahmed [id number] -1 [facility] 16:45:00 16:45:00 testing rolf Bingham MD, 54d-499f-8 l JOHN 7q0-1n64d8 [facility] [id number] 6593-02-01 2015-04-20 f/u nullFlavo Ahmed [id number] -f [facility] 16:45:00 16:45:00 testing rolf Bingham MD, e32-24z6-5 l JOHN [id number] [facility] 1546ca 2015-04-20 2015-04-20 f/u nullFlavo Ahmed [id number] -6 [facility] 16:45:00 16:45:00 testing rolf Bnigham MD, af3-4cd3-a l [place] [id number] [facility] [facility] [id number] 2015-04-20 2015-04-20 f/u nullFlavo Ahmed [id number] -5 Memoria 16:45:00 16:45:00 testing rolf Bingham MD, 756-4d8d-b l JOHN [id number]-8e87a5 [facility] d4d34d 2015-04-20 2015-04-20 f/u nullFlavo Ahmed 2xw5u538 -2 [facility]oria 16:45:00 16:45:00 testing rolf Bingham MD, 1eb-4015-a l PA [id number]-66e6yl [facility] [id number] 2015-04-20 2015-04-20 f/u nullFlavo Ahmed 48lann82 -3 [facility]oria 16:45:00 16:45:00 testing rolf Bingham MD, w0a-02f8-1 l PA [id number]-707e00 [facility] [id number] 2015-04-20 2015-04-20 f/u nullFlavo Ahmed 3g7vz9j8 -3 [facility]oria 16:45:00 16:45:00 testing rolf Bingham MD, da1-475c-b l PA [id number] [facility] 7cd84c 2015-04-20 2015-04-20 f/u nullFlavo Ahmed 91hq32rm -e [facility] 16:45:00 16:45:00 testing rolf Bingham MD, x82-0o76-1 l PA o2n-34ogww [facility] [id number] 0836-02-01 2015-04-20 f/u nullFlavo Ahmed 0s469jko -9 [facility] 16:45:00 16:45:00 testing rolf Bingham MD, x2x-3737-f l PA fd9-eeedab [facility] 7989dd 2015-04-20 2015-04-20 f/u nullFlavo Ahmed [id number] -7 [facility] 16:45:00 16:45:00 testing rolf Bingham MD, 29f-4992-9 l PA [id number] [facility] [id number] 2015-04-20 2015-04-20 f/u nullFlavo Ahmed rpo2212e -1 [facility] 16:45:00 16:45:00 testing rolf Bingham MD, 54d-499f-8 l PA [id number] [facility] [id number] 5104-02-01 2015-04-20 f/u nullFlavo Ahmed 9qr0q3xn -f [facility] 16:45:00 16:45:00 testing rolf Bingham MD, w56-82j0-3 l PA [id number] [facility] nn [id number] 2015-04-20 2015-04-20 f/u nullFlavo Ahmed [id number] -6 [facility] 16:45:00 16:45:00 testing rolf Bingham MD, af3-4cd3-a l PA [id number] [facility] nn [id number] 2015-04-20 2015-04-20 f/u nullFlavo Ahmed [id number] -5 [facility]oria 16:45:00 16:45:00 testing rolf Bingham MD, 756-4d8d-b l PA [id number]-8e87a5 [facility] nn [id number] 2015-04-20 2015-04-20 f/u nullFlavo Ahmed [id number] -2 [facility] 16:45:00 16:45:00 testing rolf Bingham MD, 1eb-4015-a l PA y4j-24d4er [facility] nn [id number] 2015-04-20 2015-04-20 f/u nullFlavo Ahmed 07dugg95 -3 [facility]oria 16:45:00 16:45:00 testing rolf Bingham MD, v9z-31g2-8 l PA [id number]-707e00 [facility] nn [id number] 2015-04-20 2015-04-20 f/u nullFlavo Ahmed [id number] -3 [facility] 16:45:00 16:45:00 testing rolf Bingham MD, da1-475c-b l PA [id number]-[id number] [facility] nn [id number] 2015-04-20 2015-04-20 f/u nullFlavo Ahmed [id number] -e [facility] 16:45:00 16:45:00 testing rolf Bingham MD, n36-2c55-9 l PA [id number]-54cjlf [facility] nn [id number] 6720-02-01 2015-04-20 f/u nullFlavo Ahmed [id number] -9 [facility] 16:45:00 16:45:00 testing rolf Bingham MD, f5k-5067-h l PA fd9-eeedab [facility] nn [id number] 2015-04-20 2015-04-20 f/u nullFlavo Ahmed [id number] -7 [facility] 16:45:00 16:45:00 testing rolf Bingham MD, 29f-4992-9 l PA [id number] [facility] nn [id number] 2015-04-20 2015-04-20 Outpatient Otilia Bingham [id number] [facility]inic 10:45:00 10:45:00 Otilia Bingham MD, Vita womack MD, JOHN CARPENTER 2015-03-30 2015-03-30 pt would nullFlavo Ahmed [id number] f-a [facility] 19:45:00 19:45:00 like to rolf Bingham MD, 6ac-4847-a l get PA beb-10b4a4 [facility] establ[facility] 16789m d 2015-03-30 2015-03-30 pt would nullFlavo Ahmed fbg99es f-f [facility] 19:45:00 19:45:00 like to rolf Bingham MD, 964-4daa-8 l get PA bd2-3f01f8 [facility] dd5fc9 d 2015-03-30 2015-03-30 pt would nullFlavo Ahmed 2m0o22s 7-7 [facility] 19:45:00 19:45:00 like to rolf Bingham MD, 054-4e90-9 l get PA [id number] [facility] establ[facility] lhr509 d 2015-03-30 2015-03-30 pt would nullFlavo Ahmed [id number] b-a [facility] 19:45:00 19:45:00 like to rolf Bingham MD, 631-49a5-9 l get PA feb-60w071 [facility] establ[facility] 100e6c d 2015-03-30 2015-03-30 pt would nullFlavo Ahmed [id number] 1-8 [facility] 19:45:00 19:45:00 like to rolf Bingham MD, 75b-4b36-a l get PA 09d-ac83ed [facility] establ[facility] d984cb d 2015-03-30 2015-03-30 pt would nullFlavo Ahmed [id number] 7-4 [facility] 19:45:00 19:45:00 like to rolf Bingham MD, 711-4c99-b l get PA [id number]-z5h810 [facility] establ[facility] 31a388 d 2015-03-30 2015-03-30 pt would nullFlavo Ahmed 1274fce c-8 [facility] 19:45:00 19:45:00 like to rolf Bingham MD, b5e-59a7-4 l get PA [id number] [facility] 60370x d 2015-03-30 2015-03-30 pt would nullFlavo Ahmed 9i5o85a 0-2 [facility] 19:45:00 19:45:00 like to rolf Bingham MD, 59c-4055-b l get PA 11a-24f294 [facility] establ[facility] 843eb8 d 2015-03-30 2015-03-30 pt would nullFlavo Ahmed [id number] 0-9 [facility] 19:45:00 19:45:00 like to rolf Bingham MD, j5n-5555-p l get PA o5y-r91ie1 [facility] establ[facility] 8r818f d 2015-03-30 2015-03-30 pt would nullFlavo Ahmed [id number] 2-0 [facility] 19:45:00 19:45:00 like to rolf Bingham MD, 09d-4c85-9 l get PA 9w0-1052e7 [facility] establ[facility] 988a93 d 2015-03-30 2015-03-30 pt would nullFlavo Ahmed [id number] e-7 [facility] 19:45:00 19:45:00 like to rolf Bingham MD, ae5-4408-9 l get PA ec4-76d6c8 [facility] 999a10 d 2015-03-30 2015-03-30 pt would nullFlavo Ahmed rui95qw f-f [facility] 19:45:00 19:45:00 like to rolf Bingham MD, 964-4daa-8 l get PA bd2-3f01f8 [facility] establ[facility] dd5fc9 d 2015-03-30 2015-03-30 pt would nullFlavo Ahmed 2w0v47l 7-7 [facility] 19:45:00 19:45:00 like to rolf Binghma MD, 054-4e90-9 l get PA [id number] [facility] establ[facility] byy946 d 2015-03-30 2015-03-30 pt would nullFlavo Ahmed [id number] b-a [facility] 19:45:00 19:45:00 like to rolf Bingham MD, 631-49a5-9 l get PA feb-43q150 [facility] nn establishe 100e6c d 2015-03-30 2015-03-30 pt would nullFlavo Ahmed [id number] 1-8 [facility] 19:45:00 19:45:00 like to rolf Bingham MD, 75b-4b36-a l get PA 09d-ac83ed [facility] establ[facility] d984cb d 2015-03-30 2015-03-30 pt would nullFlavo Ahmed [id number] 7-4 [facility] 19:45:00 19:45:00 like to rolf Bingham MD, 711-4c99-b l get PA 604-a1f507 Jackie nn establishe 37b777 d 2015-03-30 2015-03-30 pt would nullFlavo Ahmed 1274fce c-8 [facility] 19:45:00 19:45:00 like to rolf Bingham MD, g0u-06n8-6 l get PA [id number] [facility] nn establ[facility] 41879f d 2015-03-30 2015-03-30 pt would nullFlavo Ahmed 7x6w70i 0-2 [facility] 19:45:00 19:45:00 like to rolf Bingham MD, 59c-4055-b l get PA 11a-46o996 [facility] establ[facility] 843eb8 d 2015-03-30 2015-03-30 pt would nullFlavo Ahmed [id number] 0-9 [facility] 19:45:00 19:45:00 like to rolf Bingham MD, p4d-6916-c l get PA [id number]-b21ze2 [facility] nn establ[facility] 6i835o d 2015-03-30 2015-03-30 pt would nullFlavo Ahmed [id number] 2-0 [facility] 19:45:00 19:45:00 like to rolf Bingham MD, 09d-4c85-9 l get PA 9y0-9315s7 [facility] nn establ[facility] 988a93 d 2015-03-30 2015-03-30 pt would nullFlavo Ahmed [id number] e-7 [facility] 19:45:00 19:45:00 like to rolf Bingham MD, ae5-4408-9 l lillian CARPENTER ec4-76d6c8 Jackie [facility] 999a10 d 2015-03-30 2015-03-30 pt would nullFlavo Ahmed [id number] f-a [facility] 19:45:00 19:45:00 like to rolf Bingham MD, 6ac-4847-a l lillian CARPENTER beb-10b4a4 Jackie guillen establ[facility] 24590v d 2015-03-30 2015-03-30 Outpatient Ahmed Berenicearnie [id number] e[facility]inic 13:45:00 13:45:00 Otilia Bingham MD, Vita womack MD, JOHN CARPENTER 2014-02-05 2014-02-06 Outpatient [facility] 4584 [id number] Mem[facility] 21:57:00 05:59:00 r [place] [facility] [address] [facility] 2014-02-05 2014-02-06 Outpatient [facility] 4584 [id number] Memoria 21:57:00 05:59:[address] [place] [address] [facility] 2014-02-05 2014-02-05 Outpatient Colvin-Thomas, 2.16.840. [id number] . [id number] 15:57:00 23:59:00 Ashley [id number]. [id number] 00 3.615.0.1 5.0.101 01 Results Test Description [...] = NRBC#) 0.00 K/mm3 0.0-0.1 N DIFFERENTIAL [id number] 11:23:00 Test Item Value Reference Range Interpretation Comments RBC MORPHOLOGY REQUIRED (test NORMAL code = RBCM) PLATELET ESTIMATE (test code = ADEQUATE ADEQUATE PLTEST) PLATELET MORPHOLOGY (test code FEW LARGE PLTS NORMAL = PLTMORPH) POIKILOCYTOSIS (test code = FEW NONE POIK) ANISOCYTOSIS (test code = SLIGHT NONE ANISO) MACROCYTOSIS (test code = FEW NONE MACR) BASIC METABOLIC [id number] 07:05:00 Test Item Value Reference Range Interpretation [...] = 8.7 MG/DL 8.4-10.2 N CA) PROTHROMBIN [id number] 06:07:00 Test Item Value Reference Range Interpretation [...] va lve, or acute myocar dial infarction. 2. 0 - 3.0 3. Canine Service Instructor Trainer al prosthesis hear t valves, recurre nt systemic emboli sm. 3.0 - 4.5 CBC W/AUTO [id number] 09:39:00 Test Item Value Reference Range Interpretation [...] = 0.00 K/mm3 0.0-0.1 N NRBC#) DIFFERENTIAL [id number] 09:39:00 Test Item Value Reference Range Interpretation Comments RBC MORPHOLOGY REQUIRED (test code = ABNORMAL RBCM) PLATELET ESTIMATE (test code = ADEQUATE ADEQUATE PLTEST) PLATELET MORPHOLOGY (test code = NORMAL NORMAL PLTMORPH) POIKILOCYTOSIS (test code = POIK) FEW NONE ANISOCYTOSIS (test code = ANISO) MODERATE NONE OVALOCYTES (test code = OVAL) FEW NONE PROTHROMBIN [id number] 07:42:00 Test Item Value Reference Range Interpretation [...] va lve, or acute myocar dial infarction. 2. 0 - 3.0 3. Canine Service Instructor Trainer al prosthesis hear t valves, recurre nt systemic emboli sm. 3.0 - 4.5 PTT [id number] 07:42:00 Test Item Value Reference Range Interpretation Comments PTT ACTIVATED (test code = APTT) 48.5 SECONDS 25.1-36.5 H BASIC METABOLIC [id number] 07:38:00 Test Item Value Reference Range Interpretation [...] code = 9.8 MG/DL 8.4-10.2 N CA) [id number] 07:38:00 Test Item Value Reference Range Interpretation Comments MAGNESIUM (test code = MAG) 2.0 MG/DL 1.6-2.3 N COVID 19 Asymptomatic IH [id number] 12:27:00 Test Item Value Reference Range Interpretation [...] of virus (antigen) in the sample." PROTHROMBIN [id number] 06:55:00 Test Item Value Reference Range Interpretation [...] Infarction (to prevent recurrent infar ct). PROTHROMBIN [id number] 05:34:00 Test Item Value Reference Range Interpretation [...] Infarction (to prevent recurrent infar ct). PROTHROMBIN [id number] 05:40:00 Test Item Value Reference Range Interpretation [...] recurrent infar ct). - CT CHEST W/O [id number] 00:00:00 [facility] 1945 Sex: F Name: ROBBIN WILSON [facility] : 1945 Age/S: 75 / F [address] [place] [address] Unit #: [id number] Loc: [place] [address] Phys: Marquis Patel MD Acct: [id number] Dis Date: Status: ADM IN PHONE #: [phone] Exam Date: 10/10/20202024 FAX #: [phone] Reason: PLEURAL EFFUSION EXAMS: CPT CODE: [id number] CT CHEST W/O CONTRAST 43633 PROCEDURE INFORMATION: Exam: CT Chest Wi thout Contrast; Diagnostic Exam date and time: 10/10/2020 [...] where dose is matched to clinical indication); oriterative reconstruction. COMPARISON: CR XR CHEST 1V 10/08/2020 9:08 AM FINDINGS: Lungs: Cndu-qx-xhewmhoa compressive atelectasis is present in the posterior lower lobes bilaterally. Pleural spaces: There are small to moderate bilateral pleural effusions layering posteriorly. These measure approximately [address] density, compatible with simple fluid. No pneumothorax. Heart: The heart ismildly enlarged. Prosthetic aortic valve noted. Moderate to heavy calcification of the left anteriordescending coronary artery is seen. There is no [...] 1 Signed Report (CONTINUED) Name: ROBBIN WILSON [facility] : 1945 Age/S: 75 / F [address] [place] [address] Unit #: [id number] Loc: [place] [address] Phys: Marquis Patel MD Acct: [id number] Dis Date: Status: ADM IN PHONE #: [phone] Exam Date: 10/10/20202024 FAX #: [phone] Reason: PLEURAL EFFUSION EXAMS:CPT CODE: [id number] CT CHEST W/O CONTRAST 66864 <Continued> 2. Median sternotomy wires are present. Prosthetic aortic valve noted, with heavy thoracic aortic vascular calcification. Heart size rodo ears mildly enlarged. There is moderate to heavy calcification of the left anterior descending coronary artery. 3. Cholecystectomy. t 2139 Reported and signed by: Niecy Segal M.D. CC: Lian Sheth MD; Marquis brooks MD Technologist:Cornell Pereira, RT(R)(CT) CTDI: DLP: Trnscb Date/Time: 10/10/2020 (2139) Thai Crystal Print D/T: S: 10/10/2020 (2140) PAGE 2 Signed ReportPROTHROMBIN [id number] 04:53:00 Test Item Value Reference Range Interpretation [...] HGBA1C%) 6.4 %A1C 4.8-6.0 H CBC W/AUTO [id number] 08:21:00 Test Item Value Reference Range Interpretation [...] (test code NO = MDIFF) BASIC METABOLIC [id number] 08:04:00 Test Item Value Reference Range Interpretation [...] (test code = LDL) NEAR OPTIM AL/ABOVE [id number] [id number] 89 HIGH>IV=346 AMNA Y HIGH*Guidelines provided by the National Choles terol EducationProgra m Adult Treatment Panel III [id number] 08:04:00 Test Item Value Reference Range Interpretation Comments MAGNESIUM (test code = MAG) 2.10 mg/dL 1.80-2.40 PROTHROMBIN [id number] 06:14:00 Test Item Value Reference Range Interpretation Comments PROTHROMBIN TIME 32.2 SECONDS 9.3-12.9 H PATIENT (test code = PTP) INTERNATIONAL NORMAL 2.9 0.8-1.2 H TARGET INR BY RATIO (test code = INDICATIO N Indication INR) INR1. Prophylax is of venous thrombos is 2.0 - 3.0 (orthope dic surgery), Proph ylaxis of venous throm bosis [...] recurrent infar ct). - XR CHEST 1 [id number] 00:00:00 [facility] : 1945 Sex: F FAX: Jessika Sheth [phone] [place]: St: ADM Name: WILSONROBBIN [facility] : 1945 Age/S: 75/F [address] [place] [address] Unit #: [id number] Loc: G.33[address] [place] [address] Phys: Lian Sheth MD Acct: [id number] Dis Date: Status: ADM IN PHONE #: [phone] Exam Date: 10/08/2020 0954 FAX #: [phone] Reason: HEAVY BREATHING EXAMS: CPT CODE: [id number] XR CHEST 1 V 85404 PROCEDURE INFORMATION: Exam: XR Chest Exam date and time: 10/08/2020 9:08 AM Age: 75 years old Clinical indication: Condition or disease; Other: Heavy breathing TECHNIQUE: Imaging protocol: XR of the chest. Views: 1 view. COMPARISON: CR XR CHEST 1V 10/06/2020 11:07 PM FINDINGS: Lungs: Linear density in theright lung base is unchanged compatible with atelectasis. [...] Technologist: RT Nilesh(R) Trnscrd Date/Time/By: 10/08/2020 (1001) :By: [email or web address] Orig Print D/T: S: 10/08/2020 (1002) PAGE 1 Signed ReportPROTHROMBIN [id number] 15:18:00 Test Item Value Reference Range Interpretation [...] recurrent infar ct). COMMENTS: INR X 10 [id number] 06:56:00 Test Item Value Reference Range Interpretation [...] titative results may nahed y by method. [id number] 04:52:00 Test Item Value Reference Range Interpretation [...] nahed y by method. POC ARTERIAL BLOOD [id number] 02:11:00 Test Item Value Reference Range Interpretation Comments POC ARTERIAL BLOOD GAS PH (test 7.430 7.35-7.45 N code = POCPHA) POC ARTERIAL BLOOD GAS PCO2 35.9 mmHg 35.0-45 N (test code = IXUEPP2N) POC TCO2 ARTERIAL (test code = 25.0 POCTCO2) POC ARTERIAL BLOOD GAS PO2 (test 71.2 mmHg 80-100.0 L code = NRXCN9V) POC HCO3 ARTERIAL (test code = 23.9 MMOL/L 22.0-26.0 N [id number]) POC BASE EXCESS (test code = -0.4 MMOL/L -4.0-4.0 N POCBEA) POC O2 SATURATION (test code = 94.7 % 90-100 N POCO2S) FIO2 (test code = FIO2A) 21 % PaO2/FiO2 (test code = [id number]) 339.04 mm/Hg ABG DELIVERY (test code = SU) Room Air ABG TEMPERATURE (test code = 98.6 F TEMPA) ABG SITE (test code = SITEA) R Radial JESSE'S TEST (test code = Positive ALLENS) BASIC METABOLIC [id number] 02:11:00 Test Item Value Reference Range Interpretation Comments SODIUM (test code = NA/ABG) MEQ/L 134-147 POTASSIUM (test code = K/ABG) MEQ/L 3.4-5.0 CHLORIDE (test code = CL/ABG) MEQ/L 100-108 CREATININE ABG (test code = CREAABG) mg/dL 0.6-1.0 POC IONIZED CALCIUM (test code = MMOL/L 1.12-1.32 POCCA) POC GLUCOSE (test code = POCGLU) MG/DL [id number] 02:11:00 Test Item Value Reference Range Interpretation Comments HEMOGLOBIN (test code = HGB/ABG) G/DL 11.0-15.0 [id number] 02:11:00 Test Item Value Reference Range Interpretation Comments HEMATOCRIT (test code = HCT/ABG) % 33.0-45.0 POC LACTIC [id number] 02:11:00 Test Item Value Reference Range Interpretation Comments POC LACTIC ACID (test code = POCLAC) mmol/l 0.9-1.7 POC ARTERIAL BLOOD [id number] 02:11:00 Test Item Value Reference Range Interpretation Comments POC ARTERIAL BLOOD GAS PH (test 7.430 7.35-7.45 N code = POCPHA) POC ARTERIAL BLOOD GAS PCO2 35.9 mmHg 35.0-45 N (test code = ETFQCJ5D) POC TCO2 ARTERIAL (test code = 25.0 POCTCO2) POC ARTERIAL BLOOD GAS PO2 (test 71.2 mmHg 80-100.0 L code = CWWGU2F) POC HCO3 ARTERIAL (test code = 23.9 MMOL/L 22.0-26.0 N IQVTXE5U) POC BASE EXCESS (test code = -0.4 MMOL/L -4.0-4.0 N POCBEA) POC O2 SATURATION (test code = 94.7 % 90-100 N POCO2S) FIO2 (test code = FIO2A) 21 % PaO2/FiO2 (test code = MOY0IYR5) 339.04 mm/Hg ABG DELIVERY (test code = SU) Room Air ABG TEMPERATURE (test code = 98.6 F TEMPA) ABG SITE (test code = SITEA) R Radial JESSE'S TEST (test code = Positive ALLENS) BASIC METABOLIC [id number] 02:11:00 Test Item Value Reference Range Interpretation Comments SODIUM (test code = NA/ABG) MEQ/L 134-147 POTASSIUM (test code = K/ABG) MEQ/L 3.4-5.0 CHLORIDE (test code = CL/ABG) MEQ/L 100-108 CREATININE ABG (test code = CREAABG) mg/dL 0.6-1.0 POC IONIZED CALCIUM (test code = MMOL/L 1.12-1.32 POCCA) POC GLUCOSE (test code = POCGLU) MG/DL [id number] 02:11:00 Test Item Value Reference Range Interpretation Comments HEMOGLOBIN (test code = HGB/ABG) G/DL 11.0-15.0 [id number] 02:11:00 Test Item Value Reference Range Interpretation Comments HEMATOCRIT (test code = HCT/ABG) % 33.0-45.0 POC LACTIC [id number] 02:11:00 Test Item Value Reference Range Interpretation Comments POC LACTIC ACID (test code = 1.3 mmol/l 0.9-1.7 N POCLAC) POC ARTERIAL BLOOD [id number] 02:11:00 Test Item Value Reference Range Interpretation Comments POC ARTERIAL BLOOD GAS PH (test 7.430 7.35-7.45 N code = POCPHA) POC ARTERIAL BLOOD GAS PCO2 35.9 mmHg 35.0-45 N (test code = EYGVHY7C) POC TCO2 ARTERIAL (test code = 25.0 POCTCO2) POC ARTERIAL BLOOD GAS PO2 (test 71.2 mmHg 80-100.0 L code = OTCAJ5I) POC HCO3 ARTERIAL (test code = 23.9 MMOL/L 22.0-26.0 N [id number]) POC BASE EXCESS (test code = -0.4 MMOL/L -4.0-4.0 N POCBEA) POC O2 SATURATION (test code = 94.7 % 90-100 N POCO2S) FIO2 (test code = FIO2A) 21 % PaO2/FiO2 (test code = ZUH9SDU0) 339.04 mm/Hg ABG DELIVERY (test code = SU) Room Air ABG TEMPERATURE (test code = 98.6 F TEMPA) ABG SITE (test code = SITEA) R Radial JESSE'S TEST (test code = Positive ALLENS) BASIC METABOLIC [id number] 02:11:00 Test Item Value Reference Range Interpretation [...] GLUCOSE (test code = POCGLU) 174 MG/DL [id number] 02:11:00 Test Item Value Reference Range Interpretation Comments HEMOGLOBIN (test code = HGB/ABG) G/DL 11.0-15.0 [id number] 02:11:00 Test Item Value Reference Range Interpretation Comments HEMATOCRIT (test code = HCT/ABG) % 33.0-45.0 POC LACTIC [id number] 02:11:00 Test Item Value Reference Range Interpretation Comments POC LACTIC ACID (test code = 1.3 mmol/l 0.9-1.7 N POCLAC) POC ARTERIAL BLOOD [id number] 02:11:00 Test Item Value Reference Range Interpretation Comments POC ARTERIAL BLOOD GAS PH (test 7.430 7.35-7.45 N code = POCPHA) POC ARTERIAL BLOOD GAS PCO2 35.9 mmHg 35.0-45 N (test code = MKBZVO2P) POC TCO2 ARTERIAL (test code = 25.0 POCTCO2) POC ARTERIAL BLOOD GAS PO2 (test 71.2 mmHg 80-100.0 L code = CIXOY6K) POC HCO3 ARTERIAL (test code = 23.9 MMOL/L 22.0-26.0 N UPCQWG9F) POC BASE EXCESS (test code = -0.4 MMOL/L -4.0-4.0 N POCBEA) POC O2 SATURATION (test code = 94.7 % 90-100 N POCO2S) FIO2 (test code = FIO2A) 21 % PaO2/FiO2 (test code = PCL0FPZ3) 339.04 mm/Hg ABG DELIVERY (test code = SU) Room Air ABG TEMPERATURE (test code = 98.6 F TEMPA) ABG SITE (test code = SITEA) R Radial JESSE'S TEST (test code = Positive ALLENS) BASIC METABOLIC [id number] 02:11:00 Test Item Value Reference Range Interpretation [...] GLUCOSE (test code = POCGLU) 174 MG/DL [id number] 02:11:00 Test Item Value Reference Range Interpretation Comments HEMOGLOBIN (test code = HGB/ABG) 11.9 G/DL 11.0-15.0 N [id number] 02:11:00 Test Item Value Reference Range Interpretation Comments HEMATOCRIT (test code = HCT/ABG) % 33.0-45.0 POC LACTIC [id number] 02:11:00 Test Item Value Reference Range Interpretation Comments POC LACTIC ACID (test code = 1.3 mmol/l 0.9-1.7 N POCLAC) POC ARTERIAL BLOOD [id number] 02:11:00 Test Item Value Reference Range Interpretation Comments POC ARTERIAL BLOOD GAS PH (test 7.430 7.35-7.45 N code = POCPHA) POC ARTERIAL BLOOD GAS PCO2 35.9 mmHg 35.0-45 N (test code = NRCKMX0A) POC TCO2 ARTERIAL (test code = 25.0 POCTCO2) POC ARTERIAL BLOOD GAS PO2 (test 71.2 mmHg 80-100.0 L code = OHQLT4D) POC HCO3 ARTERIAL (test code = 23.9 MMOL/L 22.0-26.0 N WWALWU1J) POC BASE EXCESS (test code = -0.4 MMOL/L -4.0-4.0 N POCBEA) POC O2 SATURATION (test code = 94.7 % 90-100 N POCO2S) FIO2 (test code = FIO2A) 21 % PaO2/FiO2 (test code = WSB7XNP6) 339.04 mm/Hg ABG DELIVERY (test code = SU) Room Air ABG TEMPERATURE (test code = 98.6 F TEMPA) ABG SITE (test code = SITEA) R Radial JESSE'S TEST (test code = Positive ALLENS) BASIC METABOLIC [id number] 02:11:00 Test Item Value Reference Range Interpretation [...] GLUCOSE (test code = POCGLU) 174 MG/DL [id number] 02:11:00 Test Item Value Reference Range Interpretation Comments HEMOGLOBIN (test code = HGB/ABG) 11.9 G/DL 11.0-15.0 N [id number] 02:11:00 Test Item Value Reference Range Interpretation Comments HEMATOCRIT (test code = HCT/ABG) 35 % 33.0-45.0 N POC LACTIC [id number] 02:11:00 Test Item Value Reference Range Interpretation Comments POC LACTIC ACID (test code = 1.3 mmol/l 0.9-1.7 N POCLAC) Coronavirus 2019 nCoV [id number] 00:44:00 Test Item Value Reference Range Interpretation Comments Coronavirus 2019 NEGATIVE Negative Negative re sults should be nCoV Bedside (test treated a s presumptive and, code = ifinconsistent with [id number]) clinical signs and symptoms or necessaryfor patient management, michelle uld be tested with an alternativemole cular assay. Negative result s do not preclude [id number] tion and should not be u sed as the sole basis forp atient management deci sions. Negative result s should beconsidered in the context of a patient's recent exposures,histo ry, presence of clinical sig ns and symptoms consis tentwith COVID-19. LIPOPROTEIN [id number] 00:27:00 Test Item Value Reference Range Interpretation Comments LIPOPROTEIN LDL 70.8 mg/dL 0-100 N <100 OPTIMAL 100-129 NEAR (test code = LDL) OPTIMAL/AB OVE [id number] 89 HIGH>OC=051 AMNA Y HIGH*Guidelines provided by the National Cholesterol EducationProgra m Adult Treatment Panel III BASIC METABOLIC [id number] 00:27:00 Test Item Value Reference Range Interpretation [...] code = 9.1 mg/dL 8.0-10.5 N CA) [id number] 00:27:00 Test Item Value Reference Range Interpretation Comments LIPASE (test code = LIP) 92 U/L 13-57 H [id number] 00:27:00 Test Item Value Reference Range Interpretation Comments MAGNESIUM (test code = MAG) 1.71 mg/dL 1.80-2.40 L T4 [id number] 00:27:00 Test Item Value Reference Range Interpretation Comments T4 FREE (test code = T4F) 1.2 ng/dL 0.77-1.61 N TSH REFLEX TO [id number] 00:27:00 Test Item Value Reference Range Interpretation Comments TSH REFLEX TO FT4 (test code = 0.26 IU/mL 0.42-5.47 L TSHREFLEX) [id number] 00:27:00 Test Item Value Reference Range Interpretation [...] may nahed y by method. B-TYPE NATRIURETIC [id number] 00:07:00 Test Item Value Reference Range Interpretation Comments B-TYPE NATRIURETIC PEPTIDE (test 370.0 PG/ML 0-100 H code = BNP) BASIC METABOLIC [id number] 00:02:00 Test Item Value Reference Range Interpretation [...] code = 9.1 mg/dL 8.0-10.5 N CA) [id number] 00:02:00 Test Item Value Reference Range Interpretation Comments LIPASE (test code = LIP) 92 U/L 13-57 H [id number] 00:02:00 Test Item Value Reference Range Interpretation Comments MAGNESIUM (test code = MAG) 1.71 mg/dL 1.80-2.40 L T4 [id number] 00:02:00 Test Item Value Reference Range Interpretation Comments T4 FREE (test code = T4F) ng/dL 0.77-1.61 TSH REFLEX TO [id number] 00:02:00 Test Item Value Reference Range Interpretation Comments TSH REFLEX TO FT4 (test code = 0.26 IU/mL 0.42-5.47 L TSHREFLEX) [id number] 00:02:00 Test Item Value Reference Range Interpretation [...] results may nahed y by method. PROTHROMBIN [id number] 23:59:00 Test Item Value Reference Range Interpretation [...] l Infarction (to prevent recurrent infar ct). [id number] 23:59:00 Test Item Value Reference Range Interpretation Comments D-DIMER (test 1711 ng/mlFEU See_Comment HH Critical resu lt called to code = JOSE ZAZUETA Tby DDIMER) [id number] at 23 59 10/06/20Nurse r ead back [...] this result as normal/abnormal . CBC W/AUTO [id number] 23:46:00 Test Item Value Reference Range Interpretation [...] NO = MDIFF) - XR CHEST 1 [id number] 00:00:00 [facility] 1945 Sex: F FAX: Wilbur Martinez MD [phone] [place]: [address]: REG Name: ROBBIN WILSON [facility] : 1945 Age/S: 75/F [address] [place] [address] Unit #: [id number] Loc: [place] [address] Phys: Wilbur Martinez MD Acct: [id number] Dis Date: Status: REG ER PHONE #: [phone] Exam Date: 10/06/2020 2319 FAX #: [phone] Reason: SOB EXAMS: CPT CODE: [id number] XR CHEST 1 V 89888 PROCEDURE INFORMATION: Exam: XR Chest Exam date [...] 2. Suspected small right pleural effusion. at 7236 Reported and signed by: Agustin Radford M.D. CC: Wilbur Martinez MD Technologist: RT Eben(Rolf) Trnscrd Date/Time/By: 10/06/2020 (5338): By: [email or web address] Orig Print D/T: S: 10/06/2020 (7594) PAGE 1 Signed Report SARS-CoV-2 (COVID-19) RNA [Presence] in Respiratory specimen by ESTEFANI with probe [id number] 06:48:13 Test Item Value Reference Range Interpretation Comments SARS-CoV-2 (COVID-19) RNA Not detected Not-Detected [Presence] in Respiratory specimen by ESTEFANI with probe detection (test code = 75704-5) Whether patient is employed in a healthcare setting (test code = 25046-6) Whether the patient has symptoms related to condition of interest (test code = 04059-7) Patient was hospitalized because of this condition (test code = 26739-9) Whether the patient was admitted to intensive care unit (ICU) for condition of interest (test code = 68259-1) Whether patient resides in a congregate care setting (test code = 73365-5) [facility][U] XRAY WRIST MIN 3 VWS LEFT [id number] 09:26:00Images acquired, not reported on this accession number.[facility][U] XRAY WRIST MIN 3 VWS LEFT [id number] 10:29:00Images acquired, not reported on this accession number.[facility][U] XRAY WRIST MIN 3 VWS LEFT [id number] 2019-04-16 09:45:00Images acquired, not reported on this accession number.[facility][U] XRAY WRIST MIN 3 VWS LEFT [id number] 10:09:00Images acquired, not reported on this accession number.[facility][U] XRAY WRIST MIN 3 VWS LEFT [id number] 09:09:00Images acquired, not reported on this accession number.[facility]iciansBREAST CYST ASPIRATION [id number] 11:28:13- BREAST CYST ASPIRATION LEFTULTRASOUND GUIDED ASPIRATION LEFT BREAST: 04/02/2019CLINICAL: Left Cyst Aspiration. Comparison is made to exams dated 01/30/2019 mammogram and 11/25/2016 ultrasound - [facility] An aspiration was performed for the [...] 04/04/2019 14:06:47Imaging Technologist: Lori Turner , [facility]FWletter sent: Short Term Follow UpBREAST ULTRASOUND [id number] 09:31:08- BREAST ULTRASOUND BILATERALULTRASOUND OF BOTH BREASTS AND BOTH AXILLA: 03/06/2019CLINICAL: Dense breasts. Comparison is made to exams dated 01/30/2019 mammogram, 11/25/2016 ultrasound, and [facility]2012 [facility] Real-time ultrasound of both breasts and both [...] evidence of malignancy.Carmela Davis M.D. ar/:03/06/2019 09:31:08 Working Second Hand: Maren Carlson , [facility] sent: BIRADS 4/5 Biopsy Ultrasound BI-RADS: 4a Suspicious abnormality - low suspicion for malignancy. [facility] [id number] 00:00:00 Test Item Value Reference Range Interpretation Comments Case (test code = Click ImageLink button N Case) for report. Specimen 1 (test code Click ImageLink button N = Specimen 1) for report. [facility]icians[facility]CR MAMM BILATERAL CEDRIC CAD [id number] 13:15:32 - SCR MAMM BILATERAL CEDRIC CAD DIGITALBILATERAL DIGITAL SCREENING MAMMOGRAM 3D/2D WITH CAD: 01/30/2019CLINICAL: Asymptomatic. Digital breast tomosynthesis was performed in addition to routine CC and MLO views. Current mammographic images were evaluated by either a Vistaar M-Vu or a [place] ImageCheckerCAD (computer aided detection system). Comparison is made to exams dated 12/22/2017 mammogram, 10/28/2016 mammogram, 10/28/2015 mammogram, 10/14/2014 mammogram, and 10/11/2013 mammogram - [facility]. The tissue of both breasts [...] - 02/01/2019 14:26:53Imaging Technologist: Yon CHRISTINE, [facility]FWletter sent: BIRADS 1-2 Normal Mammogram BI-RADS: 2 Benign
[2022-04-03] MEDS ORDERED: NA CHLORIDE 0.9% 1,000 ML ONE (16:19)
[2022-04-03] MEDS ORDERED: THIAMINE 200 MG/2 ML INJ ONE (16:19)
[2022-04-03] MEDS ORDERED: FOLIC ACID 5 MG/ML VIAL ONE (16:20)
[2022-04-03] MEDS ORDERED: NA CHLORIDE 0.9% 500 ML ONE (16:20)
[2022-04-03 16:42] LABS: Absolute Lymphocytes (CBC) 1.4 K/uL (0.7-4.9); Hematocrit 35.5 % (36.0-45.0); Lymphocytes % 20.2 % (15.3-44.8); MCV 90.5 fL (80-100); MPV 8.7 fL (7.6-11.3); RBC Red Blood Cell Count 3.93 M/uL (3.86-4.86)
[2022-04-03 16:45] LABS: Protime INR 1.51
[2022-04-03] MEDS ORDERED: LORazepam 2 MG/ML VIAL ONE (16:49)
[2022-04-03 16:58] LABS: Albumin 3.6 g/dL (3.4-5.0); Bilirubin Direct 0.3 mg/dL (0-0.2); Bilirubin Total 0.7 mg/dL (0.2-1.0); Potassium 4.1 mmol/L (3.5-5.1); Protein, Total 7.7 g/dL (6.4-8.2); Troponin High Sensitivity 28.5 pg/mL (<58.9)
--- NOTE | 2022-04-03 17:28 | ER ---
Nurse's Notes [facility] Name: Esha Barber Age: 76 yrs Sex: Female : 1945 Arrival Date: 04/03/2022 Time: 15:50 Bed 2 Private MD: Diagnosis: Dementia in other diseases classified elsewhere without behavioral disturbance;Altered mental status, unspecified;Cardiomegaly;Unspecified combined systolic (congestive) and diastolic (congestive) heart failure;Unspecified cirrhosis of liver Presentation: 04/03 15:54 Chief complaint: Patient states: AMS, not acting like herself for 2-3 days, worse iw today. Not speaking in full sentences, will fling herself out of wheelchair. Keeps covering her eyes. Not very cooperative during triage. No known fever. Coronavirus screen: Vaccine status: Patient reports receiving the 2nd dose of the covid vaccine. Client denies travel out of the [place] in the last 14 days. At this time, the client does not indicate any symptoms associated with coronavirus-19. Ebola Screen: Patient denies travel to an Ebola-affected area in the 21 days before illness onset. Initial Sepsis Screen: Does the patient meet any 2 criteria? No. Patient's initial sepsis screen is negative. Does the patient have a suspected source of infection? No. Patient's initial sepsis screen is negative. Risk Assessment: Do you want to hurt yourself or someone else? Patient reports no desire to harm self or others. Onset of symptoms was April 01, 2022. 15:54 Method Of Arrival: Wheelchair iw 15:54 Acuity: VALORIE 2 iw Historical: - Allergies: 15:54 Tramadol HCl; Caused Halllucinations; iw - PMHx: 15:54 Dementia; galbladder removed; heart valve replaced; stroke; iw 18:58 Cirrhosis of liver; kb3 - PSHx: 15:54 Right knee replacement; iw - Immunization history:: Client reports receiving the 2nd dose of the Covid vaccine. - Social history:: Smoking status: Patient reports the use of cigarette tobacco products, denies chronic smoking, but will smoke occasionally. Screenin:00 [facility] ED Fall Risk Assessment (Adult) History of falling in the last 3 months, kb3 including since admission No falls in past 3 months (0 pts) Confusion or Disorientation Yes (5 pts) Intoxicated or Sedated No (0 pts) Impaired Gait Yes (1 pt) Mobility Assist Device Used Yes (1 pt) Altered Elimination Yes (1 pt) Score/Fall Risk Level 3 or more points = High Risk Oriented to surroundings, Maintained a safe environment, Educated pt \T\ family on fall prevention, incl call for assistance when getting out of bed, Assessed \T\ reinforced patient's understanding of fall precautions, Provided non-skid footwear, Hourly rounding (assess needs \T\ fall precautionary measures) done, Used ambulatory aids as needed (educated on \T\ assisted with), Used gait belt as appropriate Implemented a Fall Risk Plan of Care, Apply high fall risk patient identification: yellow non skid footwear/ fall signage, Remained w/in arm's length of patient and in sight while toileting, Offered frequent toileting (1:1 observation), Remained with patient while ambulating, Utilized family, sitter, or virtual entrance guard as indicated. 18:45 Abuse screen: Denies threats or abuse. Denies injuries from another. Nutritional kb3 screening: No deficits noted. Tuberculosis screening: No symptoms or risk factors identified. Assessment: 16:00 General: Appears slender, Behavior is agitated, anxious, combative, restless, Received kb3 care of pt from triage. Pt is agitated and uncooperative. Oriented to person only. Pt's son at bedside states she has been altered like this since Monday and although she does have dementia, the pt normally eats and drinks on her own and is interactive with the family. . Pain: Unable to use pain scale. Patient is disoriented. 17:00 General: PT continues to be extremely agitated and disoriented. MD notified. kb3 18:56 General: Pt is much calmer, resting much better. Family at bedside updated. kb3 19:31 Reassessment: No changes from previously documented assessment. Patient and/or family kl updated on plan of care and expected duration. Pain level reassessed. Patient is alert, oriented x 3, equal unlabored respirations, skin warm/dry/pink. Patient states symptoms have improved. Vital Signs: 15:54 BP 132 / 89; Pulse 88; Resp 18; Temp 98.6; Pulse Ox 98% ; Weight 44.45 kg; Height 5 ft. iw 0 in. (152.40 cm); 17:00 BP 137 / 100; Pulse 87; Resp 20; Pulse Ox 99% ; kb3 18:30 BP 120 / 52; Pulse 72; Resp 18; Pulse Ox 98% ; kb3 19:13 BP 105 / 39; Pulse 70; Resp 17; Pulse Ox 100% on R/A; kl 15:54 Body Mass Index 19.14 (44.45 kg, 152.40 cm) iw ED Course: 15:50 Patient arrived in ED. eb 15:54 Arm band placed on Patient placed in an exam room, on a stretcher. iw 15:55 Triage completed. iw 16:00 Mo Butler MD is Attending Physician. eliseo 16:00 Patient has correct armband on for positive identification. Placed in gown. Bed in low kb3 position. Call light in reach. Side rails up X2. Adult w/ patient. Warm blanket given. 16:00 No provider procedures requiring assistance completed. Inserted saline lock: 20 gauge kb3 in right antecubital area, using aseptic technique. Blood collected. 16:27 Genoveva Germain, RN is Primary Nurse. kb3 16:27 COVID-19/FLU A+B Sent. kb3 16:27 Blood Culture Adult (2) Sent. kb3 16:41 XRAY Chest (1 view) In Process Unspecified. EDMS 17:26 Rivera Pereira MD is Hospitalizing Provider. eliseo 18:35 Urine Microscopic Only Sent. kb3 19:21 AMMONIA Sent. aa9 19:39 Patient admitted, IV remains in place. kl Administered Medications: 17:15 Discontinued: NS 0.9% 500 ml IV at bolus once eliseo 16:17 Drug: NS 0.9% 500 ml Route: IV; Rate: bolus; Site: right forearm; ko1 17:20 Follow up: Response: No adverse reaction; IV Status: Completed infusion; IV Intake: kb3 500ml 16:18 Drug: foLIC Acid 1 mg Route: IVPB; Site: right forearm; ko1 17:00 Follow up: Response: No adverse reaction; IV Status: Completed infusion; IV Intake: [id number] 16:18 Drug: Thiamine 100 mg Route: IV; Rate: bolus; Site: right forearm; ko1 17:00 Follow up: Response: No adverse reaction; IV Status: Completed infusion; IV Intake: 26sagh2 17:00 Drug: Ativan (LORazepam) 1 mg Route: IVP; Site: right forearm; kb3 17:30 Follow up: Response: No adverse reaction; No change in condition kb3 17:15 Not Given (Duplicate Order): NS 0.9% 1000 ml IV at 125 ml/hr continuous eliseo 17:15 Drug: Ativan (LORazepam) 1 mg Route: IVP; Site: right forearm; kb3 18:00 Follow up: Response: No adverse reaction; Anxiety decreased kb3 18:35 Drug: Lasix (furosemide) 40 mg Route: IVP; Site: right forearm; kb3 18:46 Follow up: Response: No adverse reaction kb3 Medication: 16:00 VIS not applicable for this client. kb3 Intake: 17:00 IV: 10ml; Total: 10ml. kb3 17:00 IV: 10ml; Total: 20ml. kb3 17:20 IV: 500ml; Total: 520ml. kb3 Outcome: 17:27 Decision to Hospitalize by Provider. [facility] 19:37 Admitted to Tele accompanied by tech, via stretcher, room 430. 19:37 Condition: improved 19:37 Discharge instructions given to patient, family, Instructed on discharge instructions, follow up and referral plans. medication usage, Demonstrated understanding of instructions. 19:42 Patient left the ED. kl Signatures: Dispatcher [employer] EDAvis Marshall RN RN kl Anderson, Corey, MD MD cha Williams, Irene RN Sultana Gottlieb Lynsay, RN RN ll1 Charlee Herrmann RN RN aa9 Bradberry, Kelly, RN RN kb3 Naty Chan RN RN ko1 Corrections: (The following items were deleted from the chart) 15:54 15:54 Social history: Smoking status: Patient denies any tobacco usage or history of. iwiw 16:03 15:54 Chief complaint: Patient states: AMS, not acting like herself for 2-3 days, worse ll1 today. iw 18:56 18:48 General: PT continues to be extremely agitated and disoriented. notified. kb3 kb3 18:59 15:54 PMHx: LIVER PROBLEMS; iw kb3
--- NOTE | 2022-04-03 17:28 | EDPHYS ---
Physician Documentation [facility] Name: Esha Barber Age: 76 yrs Sex: Female : 1945 Arrival Date: 04/03/2022 Time: 15:50 Bed 2 Private MD: CEZAR Physician Mo Butler HPI: 04/03 17:17 This 76 yrs old Female presents to ER via Wheelchair with complaints of ams, eliseo weakness, multiple falls. 17:17 ams, 2 days, falls. The patient presents with confusion, decreased responsiveness, eliseo trouble concentrating. Onset: The symptoms/episode began/occurred 3 day(s) ago. Possible causes: CVA or TIA, low blood sugar, seizure, sepsis. Associated signs and symptoms: The patient has no apparent associated signs or symptoms. Current symptoms: In the emergency department the patient's symptoms are unchanged from the initial presentation, despite home interventions. Patient's baseline: Neuro: alert and fully oriented. Severity of symptoms: At their worst the symptoms were mild in the emergency department the symptoms are unchanged. The patient has experienced similar episodes in the past, multiple times. Historical: - Allergies: 15:54 Tramadol HCl; Caused Halllucinations; iw - PMHx: 15:54 Dementia; galbladder removed; heart valve replaced; stroke; iw 18:58 Cirrhosis of liver; kb3 - PSHx: 15:54 Right knee replacement; iw - Immunization history:: Client reports receiving the 2nd dose of the Covid vaccine. - Social history:: Smoking status: Patient reports the use of cigarette tobacco products, denies chronic smoking, but will smoke occasionally. ROS: 17:23 Constitutional: Negative for fever, chills, and weight loss, Eyes: Negative for injury, eliseo pain, redness, and discharge, ENT: Negative for injury, pain, and discharge, Neck: Negative for injury, pain, and swelling, Cardiovascular: Negative for chest pain, palpitations, and edema, Respiratory: Negative for shortness of breath, cough, wheezing, and pleuritic chest pain, Abdomen/GI: Negative for abdominal pain, nausea, vomiting, diarrhea, and constipation, Back: Negative for injury and pain, : Negative for injury, bleeding, discharge, and swelling, MS/Extremity: Negative for injury and deformity, Skin: Negative for injury, rash, and discoloration, Psych: Negative for depression, anxiety, suicide ideation, homicidal ideation, and hallucinations, Allergy/Immunology: Negative for hives, rash, and allergies, Endocrine: Negative for neck swelling, polydipsia, polyuria, polyphagia, and marked weight changes, Hematologic/Lymphatic: Negative for swollen nodes, abnormal bleeding, and unusual bruising. 17:23 Neuro: Positive for altered mental status, weakness. Exam: 17:23 Constitutional: This is a well developed, well nourished patient who is awake, alert, eliseo and in no acute distress. Head/Face: Normocephalic, atraumatic. Eyes: Pupils equal round and reactive to light, extra-ocular motions intact. Lids and lashes normal. Conjunctiva and sclera are non-icteric and not injected. Cornea within normal limits. Periorbital areas with no swelling, redness, or edema. ENT: Nares patent. No nasal discharge, no septal abnormalities noted. Tympanic membranes are normal and external auditory canals are clear. Oropharynx with no redness, swelling, or masses, exudates, or evidence of obstruction, uvula midline. Mucous membranes moist. Neck: Trachea midline, no thyromegaly or masses palpated, and no cervical lymphadenopathy. Supple, full range of motion without nuchal rigidity, or vertebral point tenderness. No Meningismus. Chest/axilla: Normal chest wall appearance and motion. Nontender with no deformity. No lesions are appreciated. Cardiovascular: Regular rate and rhythm with a normal S1 and S2. No gallops, murmurs, or rubs. Normal PMI, no JVD. No pulse deficits. Respiratory: Lungs have equal breath sounds bilaterally, clear to auscultation and percussion. No rales, rhonchi or wheezes noted. No increased work of breathing, no retractions or nasal flaring. Abdomen/GI: Soft, non-tender, with normal bowel sounds. No distension or tympany. No guarding or rebound. No evidence of tenderness throughout. Back: No spinal tenderness. No costovertebral tenderness. Full range of motion. Female : Normal external genitalia. Skin: Warm, dry with normal turgor. Normal color with no rashes, no lesions, and no evidence of cellulitis. MS/ Extremity: Pulses equal, no cyanosis. Neurovascular intact. Full, normal range of motion. Psych: Awake, alert, with orientation to person, place and time. Behavior, mood, and affect are within normal limits. 17:23 Neuro: Orientation: to person, Not oriented to place, time, situation, Mentation: confused, Memory: unable to test, Cranial nerves: is grossly normal based on the patient's age, no acute changes, CN I not tested, Motor: moves all fours, strength is normal, strength is 5/5 in all extremities, Sensation: no obvious gross deficits, appropriate no acute changes, Gait: not tested. 18:44 ECG was reviewed by the Attending Physician. eliseo Vital Signs: 15:54 BP 132 / 89; Pulse 88; Resp 18; Temp 98.6; Pulse Ox 98% ; Weight 44.45 kg; Height 5 ft. iw 0 in. (152.40 cm); 17:00 BP 137 / 100; Pulse 87; Resp 20; Pulse Ox 99% ; kb3 18:30 BP 120 / 52; Pulse 72; Resp 18; Pulse Ox 98% ; kb3 19:13 BP 105 / 39; Pulse 70; Resp 17; Pulse Ox 100% on R/A; kl 15:54 Body Mass Index 19.14 (44.45 kg, 152.40 cm) iw MDM: 16:00 Patient medically screened. eliseo 17:25 Differential Diagnosis altered mental status. Differential Diagnosis: CVA, electrolyte eliseo abnormality, hypoglycemia, intracranial bleed, pneumonia, seizure, sepsis, TIA, UTI, volume depletion. Data reviewed: vital signs, nurses notes, lab test result(s), EKG, radiologic studies, CT scan. Consideration of Admission/Observation Patient was admitted/placed on observation. Escalation of care including admission/observation considered. I considered the following discharge prescriptions or medication management in the emergency department Medications were administered in the Emergency Department. See MAR. Historians other than the Patient: Daughter/Son: son and daughter in the room. 04/03 16:04 Order name: Basic Metabolic Panel; Complete Time: 17:13 [facility] 04/03 16:04 Order name: CBC with Diff; Complete Time: 17:13 [facility] 04/03 16:04 Order name: LFT's; Complete Time: 17:13 eliseo 04/03 16:04 Order name: Magnesium; Complete Time: 17:13 eliseo 04/03 16:04 Order name: NT PRO-BNP; Complete Time: 17:13 [facility] 04/03 16:04 Order name: PT-INR; Complete Time: 17:13 [facility] 04/03 16:04 Order name: Troponin HS; Complete Time: 17:13 [facility] 04/03 16:04 Order name: Lipase; Complete Time: 17:13 [facility] 04/03 16:04 Order name: Urine Microscopic Only [facility] 04/03 16:04 Order name: Blood Culture Adult (2) [facility] 04/03 16:04 Order name: Lactate w/ 2H reflex if indic.; Complete Time: 17:13 [facility] 04/03 16:04 Order name: COVID-19/FLU A+B; Complete Time: 18:17 [facility] 04/03 16:04 Order name: CK; Complete Time: 17:13 [facility] 04/03 16:13 Order name: Glucose, Ancillary Testing; Complete Time: 17:13 [facility] 04/03 16:04 Order name: XRAY Chest (1 view); Complete Time: 18:17 [facility] 04/03 16:04 Order name: CT Traumagram (Head C Spine CAP wo con) [facility] 04/03 17:43 Order name: CBC with Automated Diff [facility] 04/03 17:43 Order name: CBC with Automated Diff [facility] 04/03 17:43 Order name: Comprehensive Metabolic Panel [facility] 04/03 17:43 Order name: Comprehensive Metabolic Panel [facility] 04/03 17:43 Order name: Urinalysis [facility] 04/03 18:16 Order name: CT; Complete Time: 18:17 [facility] 04/03 18:35 Order name: Urine Dipstick-Ancillary; Complete Time: 19:00 [facility] 04/03 19:01 Order name: AMMONIA [facility] 04/03 16:04 Order name: EKG; Complete Time: 16:06 [facility] 04/03 16:04 Order name: Cardiac monitoring; Complete Time: 16:27 [facility] 04/03 16:04 Order name: EKG - Nurse/Tech; Complete Time: 16:27 [facility] 04/03 16:04 Order name: IV Saline Lock; Complete Time: 16:28 [facility] 04/03 16:04 Order name: Labs collected and sent; Complete Time: 16:28 [facility] 04/03 16:04 Order name: O2 Per Protocol; Complete Time: 16:28 [facility] 04/03 16:04 Order name: O2 Sat Monitoring; Complete Time: 16:28 [facility] 04/03 16:04 Order name: Urine Dipstick-Ancillary (obtain specimen); Complete Time: 18:35 eliseo 04/03 17:43 Order name: KAVEH EDMS 04/03 18:36 Order name: Lele; Complete Time: 18:36 kb3 EC:44 Rate is 74 beats/min. Rhythm is regular. QRS [place] is Normal. QRS interval is normal. QT eliseo interval is normal. No Q waves. T waves are Inverted in leads V1, V2, V3, V4, V5, V6. No ST changes noted. Clinical impression: NSR w/ Non-specific ST/T Changes. Interpreted by me. Reviewed by me. Administered Medications: 17:15 Discontinued: NS 0.9% 500 ml IV at bolus once eliseo 16:17 Drug: NS 0.9% 500 ml Route: IV; Rate: bolus; Site: right forearm; ko1 17:20 Follow up: Response: No adverse reaction; IV Status: Completed infusion; IV Intake: kb3 500ml 16:18 Drug: foLIC Acid 1 mg Route: IVPB; Site: right forearm; ko1 17:00 Follow up: Response: No adverse reaction; IV Status: Completed infusion; IV Intake: 25nilp3 16:18 Drug: Thiamine 100 mg Route: IV; Rate: bolus; Site: right forearm; ko1 17:00 Follow up: Response: No adverse reaction; IV Status: Completed infusion; IV Intake: 44easg4 17:00 Drug: Ativan (LORazepam) 1 mg Route: IVP; Site: right forearm; kb3 17:30 Follow up: Response: No adverse reaction; No change in condition kb3 17:15 Not Given (Duplicate Order): NS 0.9% 1000 ml IV at 125 ml/hr continuous eliseo 17:15 Drug: Ativan (LORazepam) 1 mg Route: IVP; Site: right forearm; kb3 18:00 Follow up: Response: No adverse reaction; Anxiety decreased kb3 18:35 Drug: Lasix (furosemide) 40 mg Route: IVP; Site: right forearm; kb3 18:46 Follow up: Response: No adverse reaction kb3 Disposition Summary: 04/03/22 17:27 Hospitalization Ordered Hospitalization Status: Inpatient Admission eliseo Provider: Rivera Pereira cha Location: Telemetry/MedSurg (Inpatient) eliseo Condition: Fair eliseo Problem: new eliseo Symptoms: have improved eliseo Bed/Room Type: Standard eliseo Room Assignment: 403(04/03/22 18:33) dw Diagnosis - Dementia in other diseases classified elsewhere without behavioral disturbance eliseo - Altered mental status, unspecified eliseo - Cardiomegaly eliseo - Unspecified combined systolic (congestive) and diastolic (congestive) heart failure eliseo - Unspecified cirrhosis of liver eliseo Forms: - Medication Reconciliation Form eliseo - SBAR form eliseo Signatures: Dispatcher [employer] Yelitza Longo RN RN dw Anderson, Corey, MD MD cha Williams, Irene, RN RN iw Bradberry, Kelly, RN RN kb3 Naty Chan RN RN ko1 Corrections: (The following items were deleted from the chart) 15:54 15:54 Social history: Smoking status: Patient denies any tobacco usage or history of. iwiw 18:33 17:27 eliseo dw 18:59 15:54 PMHx: LIVER PROBLEMS; kb3
[2022-04-03] MEDS ORDERED: ONDANSETRON 4 MG/2 ML VIAL IV PRN (17:39)
[2022-04-03] MEDS ORDERED: MORPHINE 2 MG/ML SYR IV PRN (17:39)
--- NOTE | 2022-04-03 17:44 | P.HP ---
Certification for Inpatient Patient admitted to: Observation Practitioner: I am a practitioner with admitting privileges, knowledge of patient current condition, hospital course, and medical plan of care. Services: Services provided to patient in accordance with Admission requirements found in Title 42 Section 412.3 of the Code of Federal Regulations Patient History Date of Service: 04/03/22 Reason for admission: Altered mental status abdominal pain History of Present Illness: Patient is 76 years of age history obtained from the son who is present at the bedside does have a history of dementia she has become more altered sleeping since Monday becoming very agitated and also takes temazepam at home only patient is nonverbal disoriented complaining of some abdominal discomfort Allergies No Known Allergies Allergy (Verified 07/26/21 15:00) Home Medications: Atorvastatin Calcium [Lipitor*] 1 tab PO BEDTIME 03/01/21 Calcium Carbonate [Calcium] 1 tab PO BID 03/01/21 Donepezil [Aricept*] 1 tab PO BEDTIME 03/01/21 Furosemide 1 tab PO DAILY 03/01/21 Memantine HCl [Namenda] 1 tab PO BID 03/01/21 Pantoprazole [Protonix Tab*] 1 tab PO DAILY 03/01/21 Sertraline [Zoloft*] 150 mg PO BEDTIME 03/01/21 Temazepam [Restoril*] 7.5 mg PO BEDTIME 03/01/21 Warfarin Sodium [Coumadin*] 1 tab PO BEDTIME 03/01/21 Ferrous Sulfate [Iron] 325 mg PO DAILY 07/26/21 Losartan Potassium [Cozaar] 50 mg PO DAILY 07/26/21 Potassium Chloride 20 meq PO DAILY 07/26/21 Metoprolol Succinate [Toprol Xl] 25 mg PO DAILY 08/01/21 ziprasidone HCL [Geodon] 20 mg PO BEDTIME 7 Days #7 capsule 08/03/21 - Past Medical/Surgical History Diabetic: No -: Mitral valve repair -: Aortic valve repair -: early Dementia -: cholecystectomy -: Right knee replacement -: -: appendectomy - Social History Alcohol use: No CD- Drugs: No Caffeine use: Yes Review of Systems is unable to be obtained Physical Examination - Physical Exam General: Alert, Moderate distress Respiratory: Clear to auscultation bilaterally, Friction rub Cardiovascular: Normal pulses, Normal S1 S2 Gastrointestinal: Normal bowel sounds, Tenderness, Rebound (Generalized tenderness with rebound) - Studies Laboratory Data (last 24 hrs) 04/03/22 16:15: PT 16.6 H, INR 1.51 04/03/22 16:15: WBC 6.70, Hgb 11.9 L, Hct 35.5 L, Plt Count 102 L 04/03/22 16:15: Sodium 140, Potassium 4.1, BUN 32 H, Creatinine 1.31 H, Glucose 141 H, Magnesium 2.0, Total Bilirubin 0.7, AST 54 H, ALT 37, Alkaline Phosphatase 88, Lipase 235 Assessment and Plan - Problems (Diagnosis) (1) Abdominal pain Current Visit: Yes Status: Acute Plan: Patient is 76 years of age with a history of end-stage dementia son at the bedside admitted with altered mental status extreme agitation sleeping patient takes temazepam and melatonin at home patient is alert however has significant tenderness White count is normal mild renal insufficiency plan to admit patient on IV fluids medications CAT scan has been ordered urinalysis apparently taking warfarin at home she is a patient of Dr. Hazel's Qualifiers: Abdominal location: generalized Qualified Code(s): R10.84 - Generalized abdominal pain - Advance Directives Does patient have a Living Will: No Does patient have a Durable POA for Healthcare: No
[2022-04-03 17:46] LABS: SARS-COV-2 RT PCR NEGATIVE (NEGATIVE)
[2022-04-03] MEDS ORDERED: FUROSEMIDE 40 MG/4 ML VIAL ONE (17:50)
--- NOTE | 2022-04-03 18:16 | RAD REPORT ---
EXAM DESCRIPTION: CT - Head C Spine Cap Wo Con - 04/03/2022 5:59 pm CLINICAL HISTORY: Head and neck injury with chest and abdominal pain status post fall TECHNIQUE: Computed axial tomography of head, neck, chest, abdomen and pelvis obtained. IV and oral contrast not requested. Coronal and sagittal reconstruction performed. All CT scans are performed using dose optimization technique as appropriate and may include automated exposure control or mA/KV adjustment according to patient size. COMPARISON: 2021 FINDINGS: An intracranial bleed is not seen. The ventricles are normal in caliber. An extra-axial fluid collection is not noted. . Old right cerebellar infarct. Fluid within the sinuses/mastoids is not seen. A cervical fracture is not seen. No dislocation is noted. The evaluation of mediastinum, michelle, vessels, solid organs and bowel are limited secondary to the lac k of contrast administration. A mediastinal hematoma is not noted. A pleural effusion is not seen. A lung contusion is not present. Old rib fractures The liver,spleen, pancreas, adrenals,kidneys and bladder do not demonstrate an acute traumatic injury IMPRESSION: No acute intracranial abnormality is seen. A cervical fracture is not visualized. If the patient continues have symptoms to suggest intracrania l/spinal cord pathology MRI be recommended No acute traumatic abnormality involving the chest/abdomen/pelvis.
--- NOTE | 2022-04-03 18:16 | RAD REPORT ---
EXAM DESCRIPTION: Sherley Single View04/03/2022 4:39 pm CLINICAL HISTORY: cough COMPARISON: July 2021 FINDINGS: The lungs appear clear of acute infiltrate. The heart is mildly enlarged. Postsurgical changes involve the chest IMPRESSION: No acute abnormalities displayed
[2022-04-03 18:35] LABS: Urine Blood Negative (Negative); Urine Glucose Negative (Negative); Urine Protein 1+ (Negative); Urine Specific Gravity 1.015 (1.005-1.030)
[2022-04-03 19:01] LABS: Urine Bacteria None Seen /HPF (<20); Urine Mucus Slight /HPF (None Seen); Urine RBC <5 /HPF (None Seen)
[2022-04-03 20:05] VITALS: BMI 20.7
[2022-04-03] MEDS: NA CHLORIDE 0.9% 1,000 ML IV SCH (20:21)
[2022-04-03] MEDS: WARFARIN SODIUM 3 MG TAB PO SCH (21:00)
[2022-04-03] MEDS: CEFTRIAXONE 1,000 MG in NA CHLORIDE 0.9% 50 ML IVPB SCH (21:20)
[2022-04-03] MEDS: MELATONIN 5 MG TABLET PO SCH (21:21)
[2022-04-03] MEDS: ATORVASTATIN 20 MG TAB PO SCH (21:22)
[2022-04-03] MEDS: QUETIAPINE 25 MG TAB PO SCH (21:22)
[2022-04-03] MEDS: TEMAZEPAM 15 MG CAP PO SCH (21:22)
[2022-04-03] MEDS: DONEPEZIL HCL 5 MG TAB PO SCH (21:22)
[2022-04-03] MEDS: MEMANTINE HCL 10 MG TABLET PO SCH (21:22)
[2022-04-03] MEDS: SERTRALINE HCL 100 MG TAB PO SCH (21:22)
[2022-04-04] MEDS: NA CHLORIDE 0.9% 1,000 ML IV SCH (04:58)
[2022-04-04 06:10] LABS: Absolute Lymphocytes (CBC) 1.7 K/uL (0.7-4.9); Hematocrit 33.4 % (36.0-45.0); Lymphocytes % 28.9 % (15.3-44.8); MCV 90.1 fL (80-100); MPV 8.6 fL (7.6-11.3); RBC Red Blood Cell Count 3.71 M/uL (3.86-4.86)
[2022-04-04] MEDS: HALOPERIDOL LACT 5 MG/ML INJ IV PRN ×2 (06:24→16:04)
[2022-04-04 06:27] LABS: Albumin 3.1 g/dL (3.4-5.0); Bilirubin Total 0.7 mg/dL (0.2-1.0); Potassium 3.9 mmol/L (3.5-5.1)
[2022-04-04] MEDS: CEFTRIAXONE 1,000 MG in NA CHLORIDE 0.9% 50 ML IVPB SCH (08:39)
[2022-04-04] MEDS: PANTOPRAZOLE 40MG TABLET PO SCH (08:39)
[2022-04-04] MEDS: MEMANTINE HCL 10 MG TABLET PO SCH ×2 (08:39→20:23)
[2022-04-04] MEDS: METOPROLOL XL 25 MG TAB PO SCH (08:39)
--- NOTE | 2022-04-04 11:30 | P.PN ---
Subjective Date of Service: 04/04/22 Primary Care Provider: Sundeep Chief Complaint: Altered mental status abdominal pain Subjective: No new changes Review of Systems is unable to be obtained Physical Examination - Vital Signs Temperature: 97.9 F Blood Pressure: 128/61 Pulse: 80 Respirations: 17 Pulse Ox (%): 93 - Physical Exam General: Demented HEENT: Atraumatic, PERRLA, EOMI Neck: Supple, JVD not distended Respiratory: Clear to auscultation bilaterally, Normal air movement Cardiovascular: Regular rate/rhythm, Normal S1 S2 Gastrointestinal: Normal bowel sounds, No tenderness Musculoskeletal: No tenderness Integumentary: No rashes Neurological: Normal speech, Normal tone, Normal affect Lymphatics: No axilla or inguinal lymphadenopathy - Studies Laboratory Data (last 24 hrs) 04/03/22 16:15: PT 16.6 H, INR 1.51 04/03/22 16:15: WBC 6.70, Hgb 11.9 L, Hct 35.5 L, Plt Count 102 L 04/03/22 16:15: Sodium 140, Potassium 4.1, BUN 32 H, Creatinine 1.31 H, Glucose 141 H, Magnesium 2.0, Total Bilirubin 0.7, AST 54 H, ALT 37, Alkaline Phosphatase 88, Lipase 235 Assessment And Plan - Current Problems (Diagnosis) (1) Delirium due to another medical condition Current Visit: Yes Status: Acute Plan: Patient is well known to our office. She came with agitation. She usually stays with her son. Went to one daughter's house and then the others. This was and then again Monday. So environment was changed 3 times. The patient became agitated and was brought to the ER. Will keep her in a calm environment. Remove tele, valencia and iv lines. Will give her haldol as needed. Temezapam at night. Have spent time discussing this with the son and daughter. Will need to provide support to them as well. This is a well meaning family doing there best with a difficult disease (2) Cirrhosis Current Visit: Yes Status: Acute Plan: we may order the ultrasound Dr. 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 Mrs Urbano has discussed hospice or respite care. I have offered again. The family is not quite ready at this time. Qualifiers: Dementia type: Alzheimer's Discharge Plan: Home Plan to discharge in: 48 Hours - Code Status/Comfort Care Code Status Assessed: No Critical Care: No Time Spent Managing PTS Care (In Minutes): 30
--- NOTE | 2022-04-04 17:32 | EKG ---
Test Date: 2022-04-03 Test Time: 18:37:51 Network Consultant: FELIX MEASUREMENT RESULTS: Intervals: Rate: 74 DC: 154 QRSD: 82 QT: 392 QTc: 435 [place]: P: 19 DC: 154 QRS: 98 T: 50 INTERPRETIVE STATEMENTS: Normal sinus rhythm Rightward axis Possible Inferior infarct, age undetermined Anterior infarct, age undetermined Abnormal ECG Compared to ECG 02/28/2021 23:17:28 Right-axis deviation now present Ventricular premature complex(es) no longer present Myocardial infarct finding still present Myocardial infarct finding still present Electronically Signed On 04-04-22 17:31:00 SALES ACCOUNT LEADER by Armando Guillermo
[2022-04-04] MEDS: LORazepam 2 MG/ML VIAL IV PRN ×2 (18:21→23:09)
[2022-04-04] MEDS: WARFARIN SODIUM 3 MG TAB PO SCH (20:22)
[2022-04-04] MEDS: TEMAZEPAM 15 MG CAP PO SCH (20:22)
[2022-04-04] MEDS: QUETIAPINE 25 MG TAB PO SCH (20:22)
[2022-04-04] MEDS: DONEPEZIL HCL 5 MG TAB PO SCH (20:22)
[2022-04-04] MEDS: SERTRALINE HCL 100 MG TAB PO SCH (20:23)
[2022-04-04] MEDS: MELATONIN 5 MG TABLET PO SCH (20:23)
[2022-04-04] MEDS: ATORVASTATIN 20 MG TAB PO SCH (20:24)
--- NOTE | 2022-04-05 08:04 | P.PN ---
Subjective Date of Service: 04/05/22 Primary Care Provider: Sundeep Chief Complaint: Altered mental status abdominal pain Subjective: No new changes (sundowned last night. Responded well to ativan. Slept 6 hours per the son) Review of Systems is unable to be obtained Physical Examination - Vital Signs Temperature: 96.9 F Blood Pressure: 114/52 Pulse: 67 Respirations: 16 Pulse Ox (%): 95 - Physical Exam General: In no apparent distress, Unresponsive HEENT: Atraumatic, PERRLA, EOMI Neck: Supple, JVD not distended Respiratory: Clear to auscultation bilaterally, Normal air movement Cardiovascular: Regular rate/rhythm, Normal S1 S2 Gastrointestinal: Normal bowel sounds, No tenderness Musculoskeletal: No tenderness Integumentary: No rashes Neurological: Normal speech, Normal tone, Normal affect Lymphatics: No axilla or inguinal lymphadenopathy Assessment And Plan - Current Problems (Diagnosis) (1) Delirium due to another medical condition Current Visit: Yes Status: Acute Plan: Family is concerned about the sundowning. Not comfortable taking her home. Will keep her one more night. Talked again about hospice and respite care (2) Cirrhosis Current Visit: Yes Status: Acute Plan: we may order the ultrasound Dr. 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 Mrs Urbano has discussed hospice or respite care. I have offered again. The family is not quite ready at this time. Qualifiers: Dementia type: Alzheimer's Discharge Plan: Home Plan to discharge in: 24 Hours - Code Status/Comfort Care Code Status Assessed: No Critical Care: No Time Spent Managing PTS Care (In Minutes): 20
[2022-04-05] MEDS: METOPROLOL XL 25 MG TAB PO SCH (08:44)
[2022-04-05] MEDS: PANTOPRAZOLE 40MG TABLET PO SCH (08:44)
[2022-04-05] MEDS: MEMANTINE HCL 10 MG TABLET PO SCH ×2 (08:45→19:37)
[2022-04-05] MEDS ORDERED: LORazepam 2 MG/ML VIAL IV PRN (09:44)
--- NOTE | 2022-04-05 11:06 | RAD REPORT ---
EXAM DESCRIPTION: US - Liver Only - 04/05/2022 9:38 am CLINICAL HISTORY: D47.3 COMPARISON: October 2021 CT FINDINGS: The liver has an increased echotexture. Hepatopetal flow. 2 centimeter cyst left lobe contains small nodules. It has decreased in size from the prior CT and li kim is benign. The spleen measures 11 centimeters IMPRESSION: 2 centimeter hepatic cyst most likely benign.
[2022-04-05] MEDS: HALOPERIDOL LACT 5 MG/ML INJ IV PRN (11:31)
[2022-04-05] MEDS ORDERED: LORazepam 2 MG/ML VIAL IV ONE (13:45)
[2022-04-05 16:13] LABS: Hematocrit 34.2 % (36.0-45.0); Lymphocytes % 12.1 % (15.3-44.8); MCV 90.3 fL (80-100); MPV 8.7 fL (7.6-11.3); RBC Red Blood Cell Count 3.79 M/uL (3.86-4.86)
[2022-04-05 16:24] LABS: Albumin 3.4 g/dL (3.4-5.0); Bilirubin Total 0.6 mg/dL (0.2-1.0); Magnesium 2.2 mg/dL (1.6-2.4); Phosphorus 2.3 mg/dL (2.5-4.9); Potassium 4.1 mmol/L (3.5-5.1); Protein, Total 7.3 g/dL (6.4-8.2)
--- NOTE | 2022-04-05 16:51 | P.PN ---
Date of Service: 04/05/22 Subjective: patient's son requested transfer to new attending service Patient continues with confusion, visual /auditory hallucinations straining intermittently pulling at bed rails reports some abd pain, and at times reports no pain, unable to elaborate ROS: limited secondary to mentation Physical exam GEN: awakes, responds to verbal stimuli, answers inconsistently HEENT: Normal conjunctiva, sclera anicteric CV: Regular rate and rhythm, no edema Pulm: Nonlabored respirations, diminished bilaterally ABD: Soft, mild-mod tenderess diffusely - inconsistent Neuro: confused, restless Problem List Acute delirium, unclear etiology Cirrhosis of liver moderate dementia g/o CVA ~5 days of these ongoing symptoms with hallucinations denies any recent change in meds was recently seeen in GI office ~2 weeks ago was recommended to take lactulose for 2-3 loose BM/s day may need to restart lactulose check ammonia level continue home temazepam, son states patient has not missed dose at home do not suspect withdrawal no obvious source of infection, afebrile consult neuro for any further input; family requested Dispo: home, home health, possibly tomorrow Time Spent Managing Pts Care (In Minutes): 35
[2022-04-05] MEDS: DONEPEZIL HCL 5 MG TAB PO SCH (19:36)
[2022-04-05] MEDS: QUETIAPINE 25 MG TAB PO SCH (19:37)
[2022-04-05] MEDS: ATORVASTATIN 20 MG TAB PO SCH (19:37)
[2022-04-05] MEDS: TEMAZEPAM 15 MG CAP PO SCH (19:37)
[2022-04-05] MEDS: SERTRALINE HCL 100 MG TAB PO SCH (19:37)
[2022-04-05] MEDS: WARFARIN SODIUM 3 MG TAB PO SCH (19:37)
[2022-04-05] MEDS: MELATONIN 5 MG TABLET PO SCH (19:38)
[2022-04-06] MEDS ORDERED: LORazepam 2 MG/ML VIAL IV ONE (06:27)
[2022-04-06] MEDS: PANTOPRAZOLE 40MG TABLET PO SCH (09:00)
[2022-04-06] MEDS: METOPROLOL XL 25 MG TAB PO SCH (09:00)
[2022-04-06] MEDS: MEMANTINE HCL 10 MG TABLET PO SCH ×2 (09:00→19:35)
--- NOTE | 2022-04-06 09:27 | RAD REPORT ---
EXAM DESCRIPTION: MRI - Brain W/Wo Cont - 04/06/2022 7:52 am CLINICAL HISTORY: Dementia worsening vs. Delirium Headache, drowsiness COMPARISON: Extrem Venous W Compress Quang dated 02/28/2022rain Wo Cont dated 09/15/2021 TECHNIQUE: Multi-sequence, multiplanar MR imaging of the brain was performed with contrast. FINDINGS: No intracranial hemorrhage, hydrocephalus, or extra-axial fluid collection.Mild brain atro phy with mild periventricular and deep white matter chronic microvascular ischemic changes. No edema or shift of midline structures. Gliosis is seen right cerebellum compatible with old infarction.No in tracranial mass. DWI is negative for acute CVA. The midline structures are normally formed. Mastoid air cells and paranasal sinuses are clear. Post-contrast images show no abnormal enhancement to suggest tumor or infection. IMPRESSION: Negative for acute CVA or other acute intracranial abnormality. Remote right-sided cerebellar infarct.
[2022-04-06 12:49] LABS: Absolute Lymphocytes (CBC) 1.3 K/uL (0.7-4.9); Hematocrit 34.6 % (36.0-45.0); Lymphocytes % 25.5 % (15.3-44.8); MCV 91.1 fL (80-100); MPV 8.9 fL (7.6-11.3)
[2022-04-06 13:07] LABS: Albumin 3.4 g/dL (3.4-5.0); Bilirubin Total 0.9 mg/dL (0.2-1.0); Phosphorus 2.1 mg/dL (2.5-4.9); Potassium 3.8 mmol/L (3.5-5.1); Protein, Total 7.4 g/dL (6.4-8.2)
[2022-04-06] MEDS ORDERED: POTASSIUM CL SA 10 MEQ TAB PO ONE (13:45)
[2022-04-06] MEDS: POTASS/SODIUM PHOSPHATE 1 PKT POWD.PACK PO SCH ×3 (14:14→16:11)
[2022-04-06] MEDS: HALOPERIDOL LACT 5 MG/ML INJ IV PRN (16:11)
[2022-04-06] MEDS: QUETIAPINE 25 MG TAB PO SCH (19:35)
[2022-04-06] MEDS: TEMAZEPAM 15 MG CAP PO SCH (19:35)
[2022-04-06] MEDS: SERTRALINE HCL 100 MG TAB PO SCH (19:36)
[2022-04-06] MEDS: WARFARIN SODIUM 3 MG TAB PO SCH (19:36)
[2022-04-06] MEDS: DONEPEZIL HCL 5 MG TAB PO SCH (19:36)
[2022-04-06] MEDS: MELATONIN 5 MG TABLET PO SCH (19:36)
[2022-04-06] MEDS: ATORVASTATIN 20 MG TAB PO SCH (19:36)
--- NOTE | 2022-04-06 21:50 | P.PN ---
Date of Service: 04/06/22 Subjective: slept ok overnight becoming more agitated this morning; responded well to ativan planned for MRI today ROS: limited secondary to mentation Physical exam GEN: awakes, responds to verbal stimuli, answers inconsistently HEENT: Normal conjunctiva, sclera anicteric CV: Regular rate and rhythm, no edema Pulm: Nonlabored respirations, diminished bilaterally ABD: Soft, mild-mod tenderess diffusely - inconsistent Neuro: confused, restless Problem List Acute delirium, unclear etiology Cirrhosis of liver moderate dementia g/o CVA ~5 days of these ongoing symptoms with hallucinations denies any recent change in meds was recently seen in GI office ~2 weeks ago was recommended to take lactulose for 2-3 loose BM/s day may need to restart lactulose check ammonia level continue home temazepam, son states patient has not missed dose at home do not suspect withdrawal no obvious source of infection, afebrile consulted neuro for any further input; family requested MRI ordered - today Dispo: home, home health, possibly tomorrow Time Spent Managing Pts Care (In Minutes): 35
[2022-04-07 05:19] LABS: Phosphorus 2.6 mg/dL (2.5-4.9); Potassium 3.7 mmol/L (3.5-5.1)
[2022-04-07] MEDS ORDERED: QUETIAPINE 25 MG TAB PO ONE (06:45)
[2022-04-07 07:24] LABS: Thyroid Stimulating Hormone 0.399 uIU/mL (0.358-3.740)
[2022-04-07] MEDS: PANTOPRAZOLE 40MG TABLET PO SCH (08:48)
[2022-04-07] MEDS: METOPROLOL XL 25 MG TAB PO SCH (08:48)
[2022-04-07] MEDS: MEMANTINE HCL 10 MG TABLET PO SCH (08:48)
[2022-04-07] MEDS ORDERED: POTASSIUM CL SA 10 MEQ TAB PO ONE (09:00)
[2022-04-07 17:41] LABS: Specific Gravity 1.014 (1.005-1.030); Urine Bacteria None Seen /HPF (<20); Urine Bilirubin NEGATIVE (Negative); Urine Blood Negative (Negative); Urine Clarity Clear (Clear); Urine Color Light-Yellow (Yellow); Urine Glucose NEGATIVE (Negative); Urine Mucus Slight /HPF (None Seen); Urine Protein NEGATIVE (Negative); Urine RBC <5 /HPF (None Seen); Urine Urobilinogen 1+ (Normal); Urine pH 5.5 (5.0-7.0)
[2022-04-07] MEDS: ATORVASTATIN 20 MG TAB PO SCH (20:33)
[2022-04-07] MEDS: SERTRALINE HCL 100 MG TAB PO SCH (20:34)
[2022-04-07] MEDS: MELATONIN 5 MG TABLET PO SCH (20:34)
[2022-04-07] MEDS: WARFARIN SODIUM 3 MG TAB PO SCH (20:34)
[2022-04-07] MEDS ORDERED: TRAZODONE 150 MG TAB PO SCH (21:00)
[2022-04-07] MEDS ORDERED: TEMAZEPAM 15 MG CAP PO PRN (21:56)
--- NOTE | 2022-04-07 22:01 | P.PN ---
Date of Service: 04/07/22 Subjective: no significant change discussed with other daughter today - pt did have some mild hallucinations - visual/auditory - relatives/dogs ~6 months ago did have medication changes ~6 weeks ago, donepezil and memantine both increased ROS: limited secondary to mentation Physical exam GEN: awakes, responds to verbal stimuli, answers inconsistently HEENT: Normal conjunctiva, sclera anicteric CV: Regular rate and rhythm, no edema Pulm: Nonlabored respirations, diminished bilaterally ABD: Soft, mild tenderess diffusely - inconsistent Neuro: confused, restless Problem List Acute delirium vs psychosis Cirrhosis of liver moderate dementia h/o CVA 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 ~5 days of these ongoing symptoms with hallucinations initially denied any recent change in meds end of january and mid february - memantine and donepezil increased h/o psychosis, uptitration of these meds could lead to psychosis / jenny dc donepezil decrease memantine to 5mg daily psych consulted for input continue temazepam - pt on this for > decade, may benefit from weaning off; avoidance / minimize benzo withdrawal was recently seen in GI office ~2 weeks ago was recommended to take lactulose for 2-3 loose BM/s day may need to restart lactulose normal ammonia level no obvious source of infection, afebrile consulted neuro for any further input; family requested MRI without acute changes Dispo: home, home health, possibly tomorrow
[2022-04-08 03:48] LABS: Protime INR 1.54
[2022-04-08 04:00] LABS: Potassium 4.3 mmol/L (3.5-5.1)
--- NOTE | 2022-04-08 07:22 | EEG ---
CHART: [id number] TEST ID#: [id number] DATE OF STUDY: 04-06-2022 THE EEG WAS RECORDED PORTABLE IN THE PATIENT'S ROOM ON A 17 CHANNEL MACHINE. ELECTRODES WERE APPLIED IN THE USUAL MANNER USING THE INTERNATIONAL 10-20 SYSTEM. THE WAKING BACKGROUND RHYTHM IN THIS RECORD CONSISTS OF POORLY DEVELOPED AND POORLY ORGANIZED WAVES OF 4-6 HZ., LOW VOLTAGE ACTIVITY IN A WIDE DISTRIBUTION WHICH ATTENUATE NORMALLY WITH EYE OPENING. LOW VOLTAGE 12-15 HZ ACTIVITY WAS DIFFUSELY EXPRESSED IN ALL REGIONS. THERE ARE NO FOCAL OR LATERALIZING FEATURES. NO EPILEPTIFORM ACTIVITY APPEARS. SLEEP OCCURRED NATURALLY. IN ADDITION TO NORMAL SLEEP PATTERNS. HYPERVENTILATION WAS NOT PERFORMED. PHOTIC STIMULATION PRODUCED NO DRIVING BILATERALLY. IMPRESSION: THIS IS AN ABNORMAL EEG DUE TO A SLOW BACKGROUND ([place]) AND NO WELL EXPRESSED POSTERIOR DOMINANT RHYTHM. THE PRESENCE OF EXCESS SPINDLE FREQUENCY ACTIVITY SUGGESTS A MEDICATION EFFECT.
[2022-04-08] MEDS: PANTOPRAZOLE 40MG TABLET PO SCH (08:44)
[2022-04-08] MEDS: METOPROLOL XL 25 MG TAB PO SCH (08:44)
[2022-04-08 08:46] VITALS: BP 136/65
[2022-04-08] MEDS ORDERED: MEMANTINE HCL 10 MG TABLET PO SCH ×2 (09:00)
[2022-04-08 09:49] VITALS: TEMP 98.9; O2SAT 96
--- NOTE | 2022-04-12 09:38 | CON ---
Date of Consultation: 04/07/2022 Reason For Consultation: Psychiatric evaluation of the patient's weak, altered mental status and andreina tation and recommendations regarding treatment. History Of Present Illness: Ms. Esha Barber was met in the room. History was provided mostly by he r daughter who was present has history of dementia and being monitored by neurologist. __ the patient had become more confused and paranoid there are people in the house t ried to harm her. She states the patient gets agitated when they did try to make her understand that it is not real and there is no body in the house. She was also donepezil and memantine b y neurologist 6 weeks before and also MRI on admission did not reveal any acute findings, showed only mild brain atrophy and chronic microvascular ischemic changes and has required assistance. She did mention history of depression and anxiety . No history of alcohol or substance abuse. She recently . The patient has 3 children, 2 daughters and a so n. No history of . Physical Examination: General: The patient and time. Respirations: No acute respiratory distress . Vital Signs: Blood pressure is 151/66, respiratory rate is 16, pulse is 84, temperature is 98.5 degr ees Fahrenheit, O2 sat is 95. Mental Status Examination: The patient is a well-nourished female, dressed in hospital attire, alert to the name only, not in any acute respiratory distress . Laboratory Findings: On admission, elevated sodium of 146, elevated BUN of 24, elevated creatinine 1 .09, GFR of 52 which is low. Ammonia was normal. TSH normal and no evidence of UTI. Diagnoses: 1.Dementia. 2.Delirium. 3.History of anxiety, unspecified. 4.History of major depressive disorder, unspecified. 5.Dehydration. 6. . Recommendations: 1.Recommend discontinue Seroquel 25 mg p.o. at bedtime. Start trazodone 75 mg p.o. at bedtime for s leep. 2.Recommend discontinue temazepam 60 mg p.o. at bedtime. 3.Recommend starting Haldol 1 mg p.o. b.i.d. for agitation and psychiatric symptoms. 4.Continue Sertraline 100 mg p.o. daily for agitation and anxiety. 5.Decrease memantine to 5 mg p.o. daily. 6.Recommend correction of dehydration. 7.Recommend the patient to be discharged to following stabilization of chronic symptoms. Discussed treatment with management team. MELIA Voice ID: [id number] Report ID: [id number]
== END 2022-04-08 10:55 | disposition home or self-care (01) | DRG 57 ==
LOC: ER 15:47 → INTOOBSV 17:39 → ERHOLD 17:39 → OBSVTOIN 17:39 → 4TH 19:30 → OBSVTOIN 04-05 08:04
PROVIDERS: ADMIT Internal Medicine Sleep Medicine; ATTEND Hospitalist
DX: G30.9 Alzheimer's disease, unspecified (principal); F05 Delirium due to known physiological condition; F02.B2 Dementia in other diseases classified elsewhere, moderate, with psychotic disturbance; K74.60 Unspecified cirrhosis of liver; I51.7 Cardiomegaly; F41.9 Anxiety disorder, unspecified; E86.0 Dehydration; F17.210 Nicotine dependence, cigarettes, uncomplicated; Z88.5 Allergy status to narcotic agent; Z95.2 Presence of prosthetic heart valve; Z79.01 Long term (current) use of anticoagulants; Z90.49 Acquired absence of other specified parts of digestive tract; Z86.73 Personal history of transient ischemic attack (TIA), and cerebral infarction without residual deficits; Z96.651 Presence of right artificial knee joint; Z79.899 Other long term (current) drug therapy; Z20.822 Contact with and (suspected) exposure to COVID-19
CPT/HCPCS: 0240U; 36415; 70450; 70553; 71045; 71250; 72125; 76705; 80048; 80053; 80076; 81001; 81003; 81015; 82140; 82550; 82947; 83605; 83690; 83735; 83880; 84100; 84439; 84443; 84484; 85025; 85610; 87040; 93005; 95819; 96365; 96368; 96375; 99285; A9577; G0378; J1630; J1940; J2270; J3411; J7030; J7040